=== PATIENT | male | born 1960 | race Caucasian/White ===

== ENCOUNTER 2019-08-07 13:45 | Inpatient (IN) ==
--- NOTE | 2019-08-07 14:33 | XRay Report ---
XR chest 1V portable HISTORY: 59 years-old Male Dyspnea acute shortness of breath COMPARISON: None TECHNIQUE: Portable AP view of the chest FINDINGS: Cardiac silhouette appears enlarged. There is mild leftward mediastinal shift secondary to a large ri ght-sided pleural effusion. Minimal aeration of the right upper lung. Left lung is clear. No pneumoth orax, overt pulmonary edema or left-sided pleural effusion. Degenerative changes of the shoulders and spine. IMPRESSION: 1. Large right-sided pleural effusion with only minimal aeration of the right upper lung. 2. Clear left lung. ACT 112: Negative or not required by law. The above report was generated using voice recognition software. It may contain grammatical, syntax o r spelling errors. Electronically signed by: Joseph Johnson M.D. 08/07/2019 2:32 PM
[2019-08-07 14:51] LABS: Basophils % (auto) 0.4 %; Eosinophils % (auto) 1.9 %; Hematocrit (blood only) 44.2 % (42-52); Hemoglobin 15.7 g/dL (14.0-18.0); Immature Granulocytes % (auto) 0.1 %; Lymphocytes # (auto) 1.41 K/uL (1.2-3.4); Lymphocytes % (auto) 20.1 %; Mean Corpuscular Hemoglobin 31.5 pg (25-34); Mean Corpuscular Hgb Conc 35.5 g/dL (32-36); Mean Corpuscular Volume 88.6 fL (80-100); Mean Platelet Volume 9.3 fL (7.4-10.4); Monocytes # (auto) 0.66 K/uL (0.11-0.59); Monocytes % (auto) 9.4 %; Neutrophils # (auto) 4.76 K/uL (1.4-6.5); Neutrophils % (auto) 68.1 %; Platelet Count 302 K/uL (130-400); RDW Standard Deviation 41.8 fL (36.4-46.3); Red Blood Count 4.99 M/uL (4.7-6.1)
[2019-08-07 14:52] LABS: Basophils # (auto) 0.03 K/uL (0-0.2); Eosinophils # (auto) 0.13 K/uL (0-0.5); Immature Granulocytes # (auto) 0.01 K/uL (0.00-0.02)
--- NOTE | 2019-08-07 14:56 | Emergency Department Note ---
ED Provider Note NAME: TANNER MILLER AGE: 59 SEX: M ARRIVES VIA: Ambulance INFORMANT: [Patient] ED PROVIDER(S): Carlos Smart MD CHIEF COMPLAINT: SOB IMPRESSION: Pleural effusion Shortness of PLAN: Disposition: Admitted Condition: [Good] MEDICAL DECISION MAKING: The patient is a 59-year-old male with a very large right-sided pleural e ffusion. Etiology needs to be determined. He has dyspnea on exertion. The case was discussed with Dr. boo of pulmonology. He will present to see the patient and treat the effusion. He asked for the patient to be admitted the hospital service. I discussed the case with . The patient will be admitted. Triage Nursing notes reviewed and agree them. Vital Signs: reviewed and remarkable for hypertension Differential diagnosis: Reactive airway disease, pneumonia, pneumothorax, COPD, CHF, infections, cardiac ischemia, pulmonary embolism, musculoskeletal, gastrointestinal, as well as other pathologies. ER treatment provided: No medication given Diagnostics interpreted by me: ECG:Rate: 101 Rhythm: Sinus tachycardia Cur[place]: Normal QRS: Normal ST segements: No elevation or depression. Other: No PACs or PVCs Laboratory studies: [See below] an unremarkable CBC and chemistry panel Imaging studies: Large right-sided pleural effusion seen on chest x-ray. CT imaging shows a large right-sided pleural effusion with mild mediastinal shift. Nodularity noted. Consultation(s): Consultation made with pulmonology, Dr. boo and with internal medicine, Dr. Turcios HPI:The patient is a 59 year old male who presents to the Emergency Room with complaints of SOB. This started a few months ago and is worsening. The patient also notes the following associated symptoms, TORRES. The patient has found no relieving factors. Current pain is rated as 0/10. No travel or sick contacts. Pt denies LOC, headache, fevers, chills, diaphoresis, visual changes, neck pain, chest pain, breathing difficulties, nausea, vomiting, abdominal pain, back pain, melena, hematochezia, urinary symptoms, numbness, weakness, lymphadenopathy, rash, or other complaints. ROS: See above HPI for pertinent positives & negatives. A total of [10] systems reviewed and were otherwise negative. PAST MEDICAL HISTORY:Arthritis PAST SURGICAL HISTORY:[See Below] FAMILY HISTORY:[See Below] SOCIAL HISTORY:[See Below] HOME MEDICATIONS:[See Below] ALLERGIES:[See Below] VITALS:[See Below] PHYSICAL EXAMINATION: GENERAL: Awake, alert, mildly dyspneic-appearing, in no distress HENT: Normocephalic, atraumatic. Oropharynx unremarkable. EYES: Normal conjunctiva. Sclera non-icteric. NECK: Inspection normal. Non-tender. Supple. No nuchal rigidity. FROM. No masses. RESPIRATORY: Clear to auscultation on the left. Greatly diminished on the right. No wheezes. No rales. Normal respiratory effort. CARDIAC: Normal rate. Normal rhythm. No murmurs. No rubs. Extremities warm and well perfused. Pulses equal. No JVD. GI: Soft, non-distended. No tenderness to palpation. No rebound or guarding. No masses. RECTAL: Deferred. MUSCULOSKELETAL: Atraumatic. Chest examination reveals no tenderness. The back is symmetrical on inspection without obvious abnormality. There is no CVA tenderness to palpation. No joint edema. LOWER EXTREMITIES: Calves are equal size bilaterally and non-tender. No edema. No discoloration. NEURO: Normal sensorium. No sensory or motor deficits noted. SKIN: No rash or jaundice noted. ED COURSE: Procedures: [none] [Critical Care:] [None] Carlos Smart MD Impression & Plan Pleural effusion Past Med/Surg History Social History Preferred Language: Occitan Feels Safe at Home: Yes Smoking Status: Former smoker Results & Data Vital Signs Vital Signs - 24 hr 08/07/19 13:44 08/07/19 13:49 08/07/19 13:53 Temperature Temperature Source Pulse Rate 99 H 102 H Pulse Rate [Apical] Pulse Rate from SpO2 Sensor 100 H 102 H Respiratory Rate 16 22 Respiratory Effort / Characteristics Short of Breath Respiratory Depth Normal Respiratory Pattern Regular Blood Pressure 175/121 H 158/105 H Blood Pressure [Right Arm] Blood Pressure Mean 144 128 Blood Pressure Mean [Right Arm] Pulse Oximetry 97 97 Oxygen Delivery Method Room Air Sepsis Recent Fever Within 48 Hours Sepsis New/Unexplained Change in Mental Status Sepsis Action Taken by Nursing 08/07/19 13:54 08/07/19 14:00 08/07/19 14:19 Temperature 36.6 C Temperature Source Oral Pulse Rate 106 H 95 H Pulse Rate [Apical] Pulse Rate from SpO2 Sensor 95 H Respiratory Rate 18 15 Respiratory Effort / Characteristics Non-Labored Respiratory Depth Normal Respiratory Pattern Regular Blood Pressure 158/105 H 150/99 H Blood Pressure [Right Arm] Blood Pressure Mean 122 124 Blood Pressure Mean [Right Arm] Pulse Oximetry 96 95 Oxygen Delivery Method Room Air Room Air Sepsis Recent Fever Within 48 Hours No Sepsis New/Unexplained Change in Mental Status No Sepsis Action Taken by Nursing No Action Required 08/07/19 14:30 08/07/19 15:00 08/07/19 15:27 Temperature Temperature Source Pulse Rate 94 H 94 H 92 H Pulse Rate [Apical] Pulse Rate from SpO2 Sensor 94 H 92 H Respiratory Rate 17 25 H Respiratory Effort / Characteristics Respiratory Depth Respiratory Pattern Blood Pressure 149/110 H 160/120 H 171/105 H Blood Pressure [Right Arm] Blood Pressure Mean 133 143 116 Blood Pressure Mean [Right Arm] Pulse Oximetry 97 96 97 Oxygen Delivery Method Room Air Room Air Room Air Sepsis Recent Fever Within 48 Hours Sepsis New/Unexplained Change in Mental Status Sepsis Action Taken by Nursing 08/07/19 15:30 08/07/19 16:00 08/07/19 16:01 Temperature Temperature Source Pulse Rate 88 87 Pulse Rate [Apical] 89 Pulse Rate from SpO2 Sensor 91 H 88 Respiratory Rate 21 33 H 20 Respiratory Effort / Characteristics Non-Labored Spontaneous Respiratory Depth Normal Respiratory Pattern Regular Blood Pressure 164/106 H 146/106 H Blood Pressure [Right Arm] 146/106 H Blood Pressure Mean 121 118 Blood Pressure Mean [Right Arm] 119 Pulse Oximetry 96 95 97 Oxygen Delivery Method Room Air Room Air Room Air Sepsis Recent Fever Within 48 Hours Sepsis New/Unexplained Change in Mental Status Sepsis Action Taken by Nursing 08/07/19 16:30 08/07/19 17:00 Temperature Temperature Source Pulse Rate 85 87 Pulse Rate [Apical] Pulse Rate from SpO2 Sensor 85 87 Respiratory Rate 17 18 Respiratory Effort / Characteristics Respiratory Depth Respiratory Pattern Blood Pressure 169/122 H 161/110 H Blood Pressure [Right Arm] Blood Pressure Mean 144 130 Blood Pressure Mean [Right Arm] Pulse Oximetry 96 95 Oxygen Delivery Method Room Air Room Air Sepsis Recent Fever Within 48 Hours Sepsis New/Unexplained Change in Mental Status Sepsis Action Taken by Nursing Laboratory Data Result diagrams: 08/07/19 14:35 08/07/19 14:35 Lab Results 08/07/19 08/07/19 08/07/19 Range/Units 14:35 14:35 14:35 WBC 7.00 (4.8-10.8) K/uL RBC 4.99 (4.7-6.1) M/uL Hgb 15.7 (14.0-18.0) g/dL Hct 44.2 (42-52) % MCV 88.6 (80-100) fL MCH 31.5 (25-34) pg MCHC 35.5 (32-36) g/dL RDW Std Deviation 41.8 (36.4-46.3) fL RDW Coeff of Enmanuel 13.0 (11.5-14.5) % Plt Count 302 (130-400) K/uL MPV 9.3 (7.4-10.4) fL Immature Gran % (Auto) 0.1 % Neut % (Auto) 68.1 % Lymph % (Auto) 20.1 % [place] % (Auto) 9.4 % Eos % (Auto) 1.9 % Baso % (Auto) 0.4 % Immature Gran # (Auto) 0.01 (0.00-0.02) K/uL Neut # (Auto) 4.76 (1.4-6.5) K/uL Lymph # (Auto) 1.41 (1.2-3.4) K/uL [place] # (Auto) 0.66 H (0.11-0.59) K/uL Eos # (Auto) 0.13 (0-0.5) K/uL Baso # (Auto) 0.03 (0-0.2) K/uL PT 10.9 (9.0-12.0) Seconds INR 1.0 (0.9-1.1) APTT 30.2 (21.0-31.0) Seconds PTT Ratio 1.1 Sodium 134 L (136-145) mmol/L Potassium 3.5 (3.5-5.1) mmol/L Chloride 98 (98-107) mmol/L Carbon Dioxide 30 (21-32) mmol/L Anion Gap 6.0 (3-11) BUN 12 (7-18) mg/dl Creatinine 0.88 (0.6-1.4) mg/dl Est Cr Clr Drug Dosing Not Reportable Est GFR ( Amer) 109.0 Est GFR (Non-Af Amer) 94.0 BUN/Creatinine Ratio 13.3 (10-20) Glucose 101 H (70-99) mg/dl Calcium 9.1 (8.5-10.1) mg/dl Magnesium 2.0 (1.8-2.4) mg/dl Total Bilirubin 0.5 (0.2-1) mg/dl AST 21 (15-37) U/L ALT 25 (12-78) U/L Alkaline Phosphatase 65 (45-117) U/L Troponin I < 0.015 (0-0.045) ng/ml NT-Pro-B Natriuret Pep 104 (0-900) pg/ml Total Protein 7.6 (6.4-8.2) gm/dl Albumin 3.6 (3.4-5.0) gm/dl Globulin 4.0 (2.5-4.0) gm/dl Albumin/Globulin Ratio 0.9 (0.9-2) Urine Color Urine Appearance (Clear) Urine pH (4.5-7.5) Ur Specific [place] (1.000-1.030) Urine Protein (Negative) Urine Glucose (UA) (Negative) Urine Ketones (Negative) Urine Blood (Negative) Urine Nitrite (Negative) Urine Bilirubin (Negative) Urine Urobilinogen (Negative) Ur Leukocyte Esterase (Negative) Influenza Type A (PCR) (Neg) Influenza Type B (PCR) (Neg) 08/07/19 08/07/19 Range/Units 15:20 16:04 WBC (4.8-10.8) K/uL RBC (4.7-6.1) M/uL Hgb (14.0-18.0) g/dL Hct (42-52) % MCV (80-100) fL MCH (25-34) pg MCHC (32-36) g/dL RDW Std Deviation (36.4-46.3) fL RDW Coeff of Enmanuel (11.5-14.5) % Plt Count (130-400) K/uL MPV (7.4-10.4) fL Immature Gran % (Auto) % Neut % (Auto) % Lymph % (Auto) % [place] % (Auto) % Eos % (Auto) % Baso % (Auto) % Immature Gran # (Auto) (0.00-0.02) K/uL Neut # (Auto) (1.4-6.5) K/uL Lymph # (Auto) (1.2-3.4) K/uL [place] # (Auto) (0.11-0.59) K/uL Eos # (Auto) (0-0.5) K/uL Baso # (Auto) (0-0.2) K/uL PT (9.0-12.0) Seconds INR (0.9-1.1) APTT (21.0-31.0) Seconds PTT Ratio Sodium (136-145) mmol/L Potassium (3.5-5.1) mmol/L Chloride (98-107) mmol/L Carbon Dioxide (21-32) mmol/L Anion Gap (3-11) BUN (7-18) mg/dl Creatinine (0.6-1.4) mg/dl Est Cr Clr Drug Dosing Est GFR ( Amer) Est GFR (Non-Af Amer) BUN/Creatinine Ratio (10-20) Glucose (70-99) mg/dl Calcium (8.5-10.1) mg/dl Magnesium (1.8-2.4) mg/dl Total Bilirubin (0.2-1) mg/dl AST (15-37) U/L ALT (12-78) U/L Alkaline Phosphatase (45-117) U/L Troponin I (0-0.045) ng/ml NT-Pro-B Natriuret Pep (0-900) pg/ml Total Protein (6.4-8.2) gm/dl Albumin (3.4-5.0) gm/dl Globulin (2.5-4.0) gm/dl Albumin/Globulin Ratio (0.9-2) Urine Color Yellow Urine Appearance Clear (Clear) Urine pH 8.0 H (4.5-7.5) Ur Specific [place] 1.011 (1.000-1.030) Urine Protein Negative (Negative) Urine Glucose (UA) Negative (Negative) Urine Ketones Trace H (Negative) Urine Blood Negative (Negative) Urine Nitrite Negative (Negative) Urine Bilirubin Negative (Negative) Urine Urobilinogen Negative (Negative) Ur Leukocyte Esterase Negative (Negative) Influenza Type A (PCR) Neg for Influ A (Neg) Influenza Type B (PCR) Neg for Influ B (Neg) Administered Medications Ioversol (Optiray 320 100ml) 93 ml IV ONCE PRN PRN Reason: Interaction Checking Stop: 03/23/20 16:19 Last Admin: 08/07/19 16:21 Dose: 93 ml Documented by: [id number] Discharge Plan Visit Data Chief Complaint: Shortness of Breath/Dyspnea Stated Complaint: respiratory ED Provider: Carlos Smart Discharge Problem: Pleural effusion Forms Stand Alone Forms: My [facility] Prescriptions Prescriptions: No Action atorvastatin 20 mg Tablet 10 mg PO DAILY RF: 0 amlodipine 5 mg Tablet 5 mg PO DAILY RF: 0 valacyclovir 500 mg Tablet 500 mg PO DAILY RF: 0 lisinopril-hydrochlorothiazide 20-25 mg Tablet 2 tab PO DAILY RF: 0 fluoxetine 20 mg Capsule 60 mg PO DAILY RF: 0 zoster vaccine live (PF) 19,400 unit/0.65 mL Suspension For Reconstitution 0 unit SUBCUT ONCE RF: 0 Referrals Referrals: PCP,NO [Primary Care Provider] -
[2019-08-07 15:04] LABS: Partial Thromboplastin Ratio 1.1; Partial Thromboplastin Time 30.2 Seconds (21.0-31.0); Prothrombin Time 10.9 Seconds (9.0-12.0)
[2019-08-07 15:09] LABS: Alanine Aminotransferase 25 U/L (12-78); Albumin Level 3.6 gm/dl (3.4-5.0); Aspartate Aminotransferase 21 U/L (15-37); BUN Creatinine Ratio 13.3 (10-20); Blood Urea Nitrogen 12 mg/dl (7-18); Calcium 9.1 mg/dl (8.5-10.1); Carbon Dioxide 30 mmol/L (21-32); Chloride 98 mmol/L (98-107); Glucose 101 mg/dl (70-99); Potassium 3.5 mmol/L (3.5-5.1); Sodium 134 mmol/L (136-145)
[2019-08-07 15:15] LABS: Albumin Globulin Ratio 0.9 (0.9-2); Alkaline Phosphatase 65 U/L (45-117); Bilirubin,Total 0.5 mg/dl (0.2-1); NT Pro B Type Natriuretic Pept 104 pg/ml (0-900); Total Protein 7.6 gm/dl (6.4-8.2); Troponin I < 0.015 ng/ml (0-0.045)
[2019-08-07 16:10] LABS: Influenza A virus by PCR Neg for Influ A (Neg); Influenza B virus by PCR Neg for Influ B (Neg)
[2019-08-07] MEDS ORDERED: IOVERSOL 100ml IV PRN (16:20)
[2019-08-07 16:27] LABS: Bilirubin Urine Negative (Negative); Blood Urine Negative (Negative); Color Urine Yellow; Glucose Urine UA Negative (Negative); Ketones Urine Trace (Negative); Leukocyte Esterase Urine Negative (Negative); Nitrite Urine Negative (Negative); Protein Urine Negative (Negative); Specific Gravity Urine 1.011 (1.000-1.030); Urobilinogen Urine Negative (Negative)
--- NOTE | 2019-08-07 16:32 | CT Scan Report ---
CT OF THE CHEST WITH IV CONTRAST CLINICAL HISTORY: eval large right effusion COMPARISON STUDY: Chest x-ray dated 08/07/2019 TECHNIQUE: Following the IV administration of 94 mL of Optiray-320, CT of the thorax was performed f rom the thoracic inlet to the lung bases. Images are reviewed in the axial, sagittal, and coronal nichelle tatum. IV contrast was administered without complication. A dose lowering technique was utilized adher ing to the principles of ALARA. CT DOSE: 548.64 mGycm FINDINGS: Thyroid: Imaged portions of the thyroid gland are normal in appearance. Thoracic aorta: The thoracic aorta is normal in course and caliber, noting standard 3-vessel arch luiza angelo. No aneurysm or dissection is seen. Pulmonary vasculature: The pulmonary trunk is normal in caliber. There are no central filling defects identified to suggest pulmonary embolus. Note that this examination was not protocoled for the evalu ation of pulmonary emboli. HEART: There are mild coronary artery calcifications. There is mediastinal shift to the left secondar y to a large right pleural effusion. Lungs and pleural spaces: There is a large right pleural effusion with extensive pleural nodularity. The findings are highly suspicious for a malignant pleural effusion with metastatic pleural nodularit y. There is extensive right lung compressive atelectasis. There is no left pleural effusion. There is no focal pulmonary consolidation on the left. Mediastinum: There is no evidence of pathologic mediastinal lymphadenopathy. Pamella: There is no evidence of pathologic hilar lymphadenopathy. Axilla: There is known to pathologic axillary lymphadenopathy Upper abdomen: There is a 19 mm splenic nodule Skeletal structures: There are no lytic or blastic osseous lesions. IMPRESSION: 1. Large right pleural effusion with right lung compressive atelectasis, and secondary mediastinal sh ift to the left 2. Extensive right lung pleural nodularity. 3. A malignant pleural effusion is suspected with pleural metastasis. 4. 19 mm splenic nodule ACT 112: Negative or not required by law. Electronically signed by: Josué Mcguire M.D. 08/07/2019 4:31 PM
[2019-08-07 16:36] LABS: Appearance Urine Clear (Clear)
--- NOTE | 2019-08-07 17:40 | History & Physical Report ---
Date of Service August 07, 2019 Assessment & Plan (1) Pleural effusion: Patient with a significant right-sided pleural effusion obscuring most of the right lung. ER physician is already spoken to the packing inspector who is enroute to the hospital perform a bedside pleurocentesis. Will defer further lab work and testing of effusion to him. Will order 2D echo for completeness. Patient does not have any signs of infection will hold off on antibiotics, I doubt the effusion is parapneumonic or empyema considering patient's lack of symptoms. (2) Hypertension: Continue antihypertensives as per outpatient. (3) Hyperlipidemia: Patient is on Lipitor 10 mg, will continue as outpatient. History of Present Illness Primary Care Provider: NO PCP This is a 59-year-old male with past medical history of hypertension, hyperlipidemia and possible ankylosing spondylitis/RA if that presents today with dyspnea on exertion at the advice of the [facility]. Patient is pleasant historian. Patient tells me that he is noticing slow onset of dyspnea on exertion with any exercise. Although this was mild at first, over the past 1.5 months since become gradually worse. 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 He is noticed that he is fine at rest and in fact O2 sat is 96% on room air in my evaluation. He denies any recent illness including fever, chills, nausea, vomiting. He has had no unintended weight loss. He also denies any chest symptoms such as chest pain, palpitations, diaphoresis. He scheduled appointment with the GA today. He did work with a strainer tender earlier but was unable to complete much exercise. At the [facility], he had a chest x-ray was found to have a significant right-sided pleural effusion. He was told to present to emergency room for further evaluation. At time my evaluation, patient was comfortable on room air with no symptomatology at rest. Allergies Allergy/AdvReac Type Severity Reaction Status Date / Time No Known Allergies Allergy Unverified 08/07/19 16:38 Home Medications Home Medications Medication Instructions Recorded Confirmed Type amlodipine 5 mg PO DAILY 08/07/19 08/07/19 History atorvastatin 10 mg PO DAILY 08/07/19 08/07/19 History fluoxetine 60 mg PO DAILY 08/07/19 08/07/19 History lisinopril-hydrochlorothiazide 2 tab PO DAILY 08/07/19 08/07/19 History valacyclovir 500 mg PO DAILY 08/07/19 08/07/19 History zoster vaccine live (PF) 0 unit SUBCUT ONCE 08/07/19 08/07/19 History Past Med/Surg History Social History Preferred Language: Pashto Feels Safe at Home: Yes Smoking Status: Former smoker Review of Systems Constitutional: no fever, no chills, no weakness, no weight loss and no weight gain Eyes: as per Subjective / HPI Respiratory: + dyspnea on exertion; no cough, no chest congestion and no sputum production Cardiovascular: no chest pain, no orthopnea, no palpitations, no lightheadedness and no edema Gastrointestinal: no abdominal pain, no nausea, no vomiting, no constipation and no diarrhea/loose stools Musculoskeletal: no back pain, no neck pain, no joint pain, no stiffness and no myalgia Integumentary: no rash Neurologic: no gait abnormality, no unsteadiness, no falls and no generalized weakness Physical Exam Constitutional: cooperative; no acute distress Neck: trachea midline, no thyromegaly Respiratory: normal respiratory effort and + dullness to percussion (Right side only); no labored breathing Auscultation: + breath sounds absent (Right side only); no crackles, no rales, no rhonchi and no wheezes Cardiovascular: Rate/Rhythm: regular rate and regular rhythm Heart Sounds: normal S1 and normal S2 Vessels: no JVD and no carotid bruit Extremities: no pedal edema Gastrointestinal (Abdomen): Inspection/Auscultation: abdomen normal to inspection Percussion/Palpation: abdomen soft; abdomen nontender, no guarding, abdomen not rigid and no hepatosplenomegaly Skin: no rashes, warm and dry Results & Data Vital Signs (Past 12 Hours) Vital Signs Temp Pulse Pulse Resp BP BP Pulse Ox 08/07/19 17:00 87 18 161/110 H 95 08/07/19 16:30 85 17 169/122 H 96 08/07/19 16:01 89 20 146/106 H 97 08/07/19 16:00 87 33 H 146/106 H 95 08/07/19 15:30 88 21 164/106 H 96 08/07/19 15:27 92 H 25 H 171/105 H 97 08/07/19 15:00 94 H 160/120 H 96 08/07/19 14:30 94 H 17 149/110 H 97 08/07/19 14:00 95 H 15 150/99 H 95 08/07/19 13:54 36.6 C 106 H 18 158/105 H 96 08/07/19 13:53 102 H 22 158/105 H 97 08/07/19 13:49 99 H 16 175/121 H 97 Laboratory Results WBCs of 7, hemoglobin 15.7, hematocrit of 44.2, platelets of 302. INR is 1. Sodium 134, potassium 3.5, chloride 98, CO2 of 30, BUN 12 creatinine 0.88, glucose 101. Calcium 9.1. Magnesium of 2. LFTs are normal. Troponin is nondetectable. UA shows trace ketones otherwise negative. Patient is negative for influenza. Diagnostic Findings XR chest 1V portable HISTORY: 59 years-old Male Dyspnea acute shortness of breath COMPARISON: None TECHNIQUE: Portable AP view of the chest FINDINGS: Cardiac silhouette appears enlarged. There is mild leftward mediastinal shift secondary to a large right-sided pleural effusion. Minimal aeration of the right upper lung. Left lung is clear. No pneumothorax, overt pulmonary edema or left- sided pleural effusion. Degenerative changes of the shoulders and spine. IMPRESSION: 1. Large right-sided pleural effusion with only minimal aeration of the right upper lung. 2. Clear left lung. --- CT OF THE CHEST WITH IV CONTRAST CLINICAL HISTORY: eval large right effusion COMPARISON STUDY: Chest x-ray dated 08/07/2019 TECHNIQUE: Following the IV administration of 94 mL of Optiray-320, CT of the thorax was performed from the thoracic inlet to the lung bases. Images are reviewed in the axial, sagittal, and coronal planes. IV contrast was administered without complication. A dose lowering technique was utilized adhering to the principles of ALARA. CT DOSE: 548.64 mGycm FINDINGS: Thyroid: Imaged portions of the thyroid gland are normal in appearance. Thoracic aorta: The thoracic aorta is normal in course and caliber, noting standard 3-vessel arch anatomy. No aneurysm or dissection is seen. Pulmonary vasculature: The pulmonary trunk is normal in caliber. There are no central filling defects identified to suggest pulmonary embolus. Note that this examination was not protocoled for the evaluation of pulmonary emboli. HEART: There are mild coronary artery calcifications. There is mediastinal shift to the left secondary to a large right pleural effusion. Lungs and pleural spaces: There is a large right pleural effusion with extensive pleural nodularity. The findings are highly suspicious for a malignant pleural effusion with metastatic pleural nodularity. There is extensive right lung compressive atelectasis. There is no left pleural effusion. There is no focal pulmonary consolidation on the left. Mediastinum: There is no evidence of pathologic mediastinal lymphadenopathy. Pamella: There is no evidence of pathologic hilar lymphadenopathy. Axilla: There is known to pathologic axillary lymphadenopathy Upper abdomen: There is a 19 mm splenic nodule Skeletal structures: There are no lytic or blastic osseous lesions. IMPRESSION: 1. Large right pleural effusion with right lung compressive atelectasis, and secondary mediastinal shift to the left 2. Extensive right lung pleural nodularity. 3. A malignant pleural effusion is suspected with pleural metastasis. 4. 19 mm splenic nodule PG Care Time/CCT Total # of Minutes Spent Total Time Spent with Patient: Total time spent is greater than 50% in coordination of care (as documented) at patient's floor/unit and/or counseling patient: Coding Level of Care Code 46913 Initial Inpt Care Lvl 3 Diagnoses Pleural effusion J90 Hypertension I10 Hyperlipidemia E78.5
[2019-08-07] MEDS ORDERED: LIDOCAINE HCL 1% 20 ML VIAL ONE (18:27)
--- NOTE | 2019-08-07 19:09 | Pulmonary Consultation ---
Date of Consultation August 07, 2019 Assessment & Plan (1) Empyema of right pleural space: --Right-sided pleural effusion With mediastinal shift to the left The pleural seems to be shiny and thickened which goes towards infection versus malignancy. The pleural fluid did not show any loculations on bedside ultrasound. S/p thoracentesis which showed pus. 16 Hebrew chest tube placed on the right side Follow-up culture, cytology Follow-up procalcitonin, ESR, CRP. Influenza is negative. Will order nasal MRSA. We will give him loading dose of vancomycin x1 and cover for anaerobes Patient does have air leak appreciated right now on the chest tube. If the air leak does not resolve then patient might need CT surgery. Continue chest tube to suction -20 with continuous drainage. Usually 1 does not want to remove more than 2 L in 24 hours. Given that it is empyema though would not hold onto that recommendation. If the patient compla ins of any chest pain we will clamp the chest tube. --Shortness of breath Secondary to above Please note the above document was generated using voice recognition software. It may contain grammatical, syntax or spelling errors. (2) Pleural effusion on right: (3) Shortness of breath: History of Present Illness History of Present Illness 59-year-old male with past medical history of hypertension, dyslipidemia, genital herpes on valacyclovir comes because of exertional shortness of breath which has been going on since last 2 and half months. I was called by the ER doctor for large right-sided pleural effusion. At the time of examination patient states that the shortness of breath has been going on for 2 and half months associated with mild chest pain. Denies any fever or chills. No recent upper respiratory infections. No history of trauma. No cough, no hemoptysis. Denies any headache, no blurry vision, no dysphagia, no odynophagia. No nausea or vomiting. Denies any dysuria, no diarrhea. No night sweats. Denies any history of tuberculosis. Denies any exposure to TB. No history of incarcerations. No recent travel history. Patient does complain of weight loss of approximately 10 pounds in the last 3 to 4 months. This is unintentional patient does state that he has changed his diet but he was not expecting to lose this much weight. Patient states that he was checked for HIV approximately 2 years ago for which she was negative. Social history: Greater than [id number] smoking history quit, denies any illicit drug use, social alcohol. 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 Denies any exposure to any chemicals or asbestos. Had a cat which 3 weeks ago. Denies any allergies to any medication. No birds at home. No poultry nearby. There is no family history of any lung cancer. There is no personal history of any cancer. There is no personal or family history of asthma. Allergies Allergy/AdvReac Type Severity Reaction Status Date / Time No Known Allergies Allergy Unverified 08/07/19 16:38 Home Medications Home Medications Medication Instructions Recorded Confirmed Type amlodipine 5 mg PO DAILY 08/07/19 08/07/19 History atorvastatin 10 mg PO DAILY 08/07/19 08/07/19 History fluoxetine 60 mg PO DAILY 08/07/19 08/07/19 History lisinopril-hydrochlorothiazide 2 tab PO DAILY 08/07/19 08/07/19 History valacyclovir 500 mg PO DAILY 08/07/19 08/07/19 History zoster vaccine live (PF) 0 unit SUBCUT ONCE 08/07/19 08/07/19 History Patient History Social History Preferred Language: Polish Communication Ability: Effective Roving Teller Required: No Beliefs That Will Affect Care: Presybeterian Presybeterian Beliefs: mandaen Current Living Situation: Alone Feels Safe at Home: Yes Smoking Status: Former smoker Do You Dip or Chew Tobacco: No ; Hx Alcohol Use: Yes Alcohol type: beer and wine Hx Substance Use: No Review of Systems Review of Systems: All systems reviewed & are unremarkable except as noted in HPI & below Physical Exam Physical Exam: Constitutional: No acute distress HEENT: EOMI, PERRLA, moist mucous membranes, no cervical lymphadenopathy Respiratory system: Decreased air entry on the right side, no wheeze, no rhonchi, no crackles CVS: S1-S2 positive, no murmurs or gallops Abdomen: Soft, nontender, nondistended, positive bowel sounds x4 Extremities: +2 pulses bilaterally radialis/ dorsalis pedis, no cyanosis, no edema, no clubbing Neuro: Awake alert oriented x3 Psych: Normal mood and affect G/U: No Love Skin: no rashes, warm and dry Lymphatic: no cervical or axillary lymphadenopathy Results & Data ([facility]) Vital Signs (Past 12 Hours) Vital Signs Temp Pulse Pulse Resp BP BP Pulse Ox 08/07/19 17:30 85 17 94 08/07/19 17:00 87 18 161/110 H 95 08/07/19 16:30 85 17 169/122 H 96 08/07/19 16:01 89 20 146/106 H 97 08/07/19 16:00 87 33 H 146/106 H 95 08/07/19 15:30 88 21 164/106 H 96 08/07/19 15:27 92 H 25 H 171/105 H 97 08/07/19 15:00 94 H 160/120 H 96 08/07/19 14:30 94 H 17 149/110 H 97 08/07/19 14:00 95 H 15 150/99 H 95 08/07/19 13:54 36.6 C 106 H 18 158/105 H 96 08/07/19 13:53 102 H 22 158/105 H 97 08/07/19 13:49 99 H 16 175/121 H 97 08/07/19 14:35 08/07/19 14:35 CT chest 08/07/2019 personally reviewed: Patient has large right-sided pleural effusion with almost total collapse of the right lung. There is no loculations appreciated on the right side. There is left mediastinal shift minimal which justifies that this has been going on for very long time. The pleura seems to be thickened which could be related to infection versus malignancy. ECG: Sinus tachycardia, normal axis, no ST-T wave changes appreciated. QTc 451 PG Care Time/CCT Total # of Minutes Spent Total Time Spent with Patient: Total time spent is greater than 50% in coordination of care (as documented) at patient's floor/unit and/or counseling patient: [place] [address] Inpt Consult Level 5 Patient Type New Diagnoses Empyema of right pleural space J86.9 Pleural effusion on right J90 Shortness of breath R06.02
--- NOTE | 2019-08-07 19:11 | Procedure Note ---
Procedure Note Date of Service August 07, 2019 Procedure: Diagnostic therapeutic ultrasound-guided catheter thoracentesis Automatic Corn Grinder Operator: Dr. Bhavik Blackmon Indication: Pleural effusion Consent: Signed by patient and verified with timeout prior to procedure Anesthesia: 1% lidocaine without epinephrine local. Procedure: Consent was verified and timeout performed. Appropriate imaging studies were reviewed prior to the procedure. Patient was placed in a seated position and limited thoracic ultrasound was performed of the right chest. See separate imaging. Appropriate site above the diaphragm for thoracentesis was selected. The skin was prepped and draped in normal sterile fashion. Lidocaine was used for local analgesia. Fluid was aspirated via the finder needle. A small skin cecilia was made with the scalpel and the catheter over the needle apparatus was advanced over the rib into the pleural space. Using the syringe one-way valve system, a total of 100 mL mL's of thick foul- smelling pus was removed. Procedure was terminated due to pus being drained and plan for chest tube insertion was made. The catheter was removed and observed to be intact. A sterile dressing was applied. Fluid was sent for labs, culture and cytology. The patient tolerated the procedure without obvious complication Coding CPT Codes Pulmonary/Thoracic - Pulmonary and Thoracic: 47763 Thoracentesis w imaging ([id number]) [facility] [place] Codes (Charges) Pulmonary/Thoracic Procedure 1: Pulmonary and Thoracic: 52629 Thoracentesis w imaging
--- NOTE | 2019-08-07 19:12 | XRay Report ---
XR chest 1V portable CLINICAL HISTORY: Pleural effusion status post right chest tube placement. COMPARISON STUDY: 08/07/2019 FINDINGS: 3 views are provided for interpretation. There is been interval insertion of a right-sided pleural drainage catheter. There is marked reduction in the size of the right pleural effusion. There are right basilar airspace opacities, likely representing atelectasis. There is a small right apical pneumothorax with pleural separation of 8 mm.[ IMPRESSION: 1. Interval placement of a right-sided pleural drainage catheter with marked reduction in the size of the right pleural effusion 2. Right basilar airspace opacities likely atelectatic 3. 8 mm right apical pneumothorax ACT 112: Negative or not required by law. Electronically signed by: Josué Mcguire M.D. 08/07/2019 7:10 PM
--- NOTE | 2019-08-07 19:14 | Procedure Note ---
Procedure Note Date of Service August 07, 2019 Procedure: Chest tube insertion Tennis Court Attendant: Dr. Bhavik Blackmon Indication: Empyema Consent: Signed by patient and verified with timeout prior to procedure Anesthesia: 1% lidocaine without epinephrine local Procedure: Consent was verified and timeout performed. Appropriate imaging studies were reviewed prior to the procedure. Patient was placed in a seated position and right side midaxillary fourth intercostal space was marked for chest tube insertion. The skin was prepped and draped in normal sterile fashion. Lidocaine was used for local analgesia. Fluid was aspirated via the finder needle. A small skin cecilia was made with the scalpel and the catheter over the needle quoc aratus was advanced over the rib into the pleural space. With the help of guidewire and Seldinger technique, 16 Kyrgyz pigtail catheter was inserted and connected to Pleur-evac. Yellowish pus was appreciated. There was +1-+2 air leak appreciated which varied with breathing. Chest x-ray to follow The patient tolerated the procedure without obvious complication Complications: None Blood loss: Less than 2 cc. Coding CPT Codes Pulmonary/Thoracic - Pulmonary and Thoracic: 03185 Tube thoracostomy ([id number]) [facility] [place] Codes (Charges) Pulmonary/Thoracic Procedure 2: Pulmonary and Thoracic: 13535 Tube thoracostomy
[2019-08-07] MEDS ORDERED: PIPERACILL/TAZOBAC CONSULT ACTIVE PRN (19:27)
[2019-08-07] MEDS ORDERED: VANCOMYCIN CONSULT ACTIVE PRN (19:28)
[2019-08-07] MEDS ORDERED: ACETAMINOPHEN 325 MG TAB PO PRN (19:56)
[2019-08-07] MEDS ORDERED: ONDANSETRON INJ 2 MG/ML 2 ML VIAL IV PRN (19:56)
[2019-08-07] MEDS ORDERED: ZOLPIDEM TARTRATE 5 MG TAB PO PRN (19:56)
[2019-08-07] MEDS ORDERED: VANCOMYCIN HCL 1,500 MG in SODIUM CHLORIDE 0.9% 500 ML IV STA (20:11)
[2019-08-07] MEDS ORDERED: PIPERACILLIN/TAZOBACTAM 3.375 GM in DEXTROSE 5% 100 ML IV STA (20:12)
--- NOTE | 2019-08-07 20:35 | Pharmacy Report ---
Pharmacy Abx Initial Consult - Date of Service August 07, 2019 - Pharmacy Dosing Scope Date of Consult: 08/07/2019 Consultation requested by: Dr. Blackmon Pharmacy is consulted to initiate Vancomycin and Zosyn IV dosing therapy, order appropriate labs and adjust drug dose/frequency. - Subjective The patient is a 59 year old M admitted on 08/07/19 17:52. - Objective Height: 5 ft 7 in Weight: 73.5 kg Vital Signs (Past 12hrs): Vital Signs Temp Pulse Pulse Resp BP BP Pulse Ox 08/07/19 19:30 90 20 143/86 H 94 08/07/19 19:00 92 H 26 H 08/07/19 18:30 94 H 21 08/07/19 17:30 85 17 94 08/07/19 17:00 87 18 161/110 H 95 08/07/19 16:30 85 17 169/122 H 96 08/07/19 16:01 89 20 146/106 H 97 08/07/19 16:00 87 33 H 146/106 H 95 08/07/19 15:30 88 21 164/106 H 96 08/07/19 15:27 92 H 25 H 171/105 H 97 08/07/19 15:00 94 H 160/120 H 96 08/07/19 14:30 94 H 17 149/110 H 97 08/07/19 14:00 95 H 15 150/99 H 95 08/07/19 13:54 36.6 C 106 H 18 158/105 H 96 08/07/19 13:53 102 H 22 158/105 H 97 08/07/19 13:49 99 H 16 175/121 H 97 Lab Results (24hrs): Laboratory Tests (24 Hours) 08/07/19 08/07/19 08/07/19 14:35 14:35 14:35 WBC Neut # (Auto) ESR 17 H Creatinine 0.88 Est Cr Clr Drug Dosing Not Reportable Procalcitonin < 0.05 08/07/19 14:35 WBC 7.00 Neut # (Auto) 4.76 ESR Creatinine Est Cr Clr Drug Dosing Procalcitonin Micro Results: 08/07/19 18:00 Acid Fast Bacilli Smear - Pending Pleural Fluid Acid Fast Bacilli Culture - Pending 08/07/19 18:00 Gram Stain - Pending Pleural Fluid Aerobic and Anaerobic Culture - Pending 08/07/19 14:40 Aerobic Blood Culture - Pending Blood Anaerobic Blood Culture - Pending 08/07/19 14:35 Aerobic Blood Culture - Pending Blood Anaerobic Blood Culture - Pending - Risk Factors for Resistance * None - Assessment & Plan Assessment 59 year old M admitted for large pleural effusion * Patient is afebrile, no leukocytosis, renal function good * Blood and Pleural Fluid cultures pending * PCT < 0.05 Plan Vancomycin and Zosyn for treatment of pulmonary source Vancomycin IV * Patient meets criteria for vancomycin AUC dosing nomogram * AUC/KATHARINA is the preferred PK/PD target for vancomycin * Target AUC/KATHARINA = 400-600 * AUC guided dosing is effective and associated with decreased risk of nephrotoxicity * Will get a trough level on 08/09/2019 to ensure AUC/KATHARINA goals are met Piperacillin/tazobactam * 3.375 g bolus administered over 30 minutes, then 3.375 g IV extended infusion every 8 hours for CrCl greater than 20 mL/min Pharmacy will continue to follow and will adjust dose/frequency as necessary. Thank you.
[2019-08-07 20:41] LABS: Albumin Level 3.5 gm/dl (3.4-5.0); Bilirubin,Total 0.7 mg/dl (0.2-1); C Reactive Protein 0.47 mg/dl (0-0.29); Total Protein 7.4 gm/dl (6.4-8.2)
[2019-08-07 22:01] LABS: Appearance Pleural Fluid CLOUDY; Color Pleural Fluid YELLOW; RBC Pleural Fluid (A) < 3000 /uL; Source Pleural Fluid RIGHT LUNG; WBC Pleural Fluid (A) 5255 /uL
[2019-08-07 22:29] LABS: Total Protein Pleural Fluid 5.1 g/dl
[2019-08-08] MEDS: PIPERACILLIN/TAZOBACTAM 3.375 GM in DEXTROSE 5% 100 ML IV SCH ×3 (02:34→17:45)
[2019-08-08 05:43] LABS: Basophils # (auto) 0.02 K/uL (0-0.2); Basophils % (auto) 0.2 %; Eosinophils # (auto) 0.06 K/uL (0-0.5); Eosinophils % (auto) 0.5 %; Hematocrit (blood only) 45.8 % (42-52); Hemoglobin 16.2 g/dL (14.0-18.0); Immature Granulocytes # (auto) 0.03 K/uL (0.00-0.02); Immature Granulocytes % (auto) 0.2 %; Lymphocytes # (auto) 1.01 K/uL (1.2-3.4); Mean Corpuscular Hemoglobin 31.3 pg (25-34); Mean Corpuscular Hgb Conc 35.4 g/dL (32-36); Mean Corpuscular Volume 88.6 fL (80-100); Mean Platelet Volume 9.5 fL (7.4-10.4); Monocytes # (auto) 1.01 K/uL (0.11-0.59); Neutrophils % (auto) 83.1 %; Platelet Count 293 K/uL (130-400); Red Blood Count 5.17 M/uL (4.7-6.1); White Blood Count 12.63 K/uL (4.8-10.8)
[2019-08-08 06:14] LABS: BUN Creatinine Ratio 12.1 (10-20); Calcium 8.6 mg/dl (8.5-10.1); Creatinine Clr Calc Pharmacy 87.5 ml/min; Est GFR (African American) 110.5; Est GFR (Non-African American) 95.4; Potassium 3.6 mmol/L (3.5-5.1)
--- NOTE | 2019-08-08 07:17 | Electrocardiogram Report ---
Test Reason : Blood Pressure : / mmHG Vent. Rate : 101 BPM Atrial Rate : 101 BPM P-R Int : 136 ms QRS Dur : 100 ms QT Int : 348 ms P-R-T Axes : 043 068 009 degrees QTc Int : 451 ms Sinus tachycardia Otherwise normal ECG No previous ECGs available Confirmed by Mateo Aceves ([id number]) on 08/08/2019 7:16:48 AM Referred By: Confirmed By:Mateo Aceves
[2019-08-08 07:39] LABS: Basophils, Fluid 0 %; Eosinophils, Fluid 0 %; Lymphocytes, Fluid 26 %; Mono,Macrophage,Mesothelial 56 %; Neutrophils, Fluid 18 %
--- NOTE | 2019-08-08 07:45 | XRay Report ---
XR chest 1V portable CLINICAL HISTORY: f/u COMPARISON STUDY: Chest radiograph and chest CT August 07, 2019. FINDINGS: Right pleural catheter is in place. The right pleural effusion has markedly decreased in si ze since prior exam. No significant residual pleural fluid is noted. A small right apical pneumothora x with 6 mm of pleural separation is noted. Right lung aeration has improved. There is right perihila r airspace opacity with interstitial thickening. Left lung is clear. Cardiac size is normal. IMPRESSION: 1. Right pleural catheter in place. Marked decrease in size of the right pleural effusion with improv ement in right lung aeration with right perihilar airspace opacity and interstitial thickening which may reflect residual atelectasis or pulmonary edema. 2. Small right apical pneumothorax. ACT 112: Negative or not required by law. Electronically signed by: Yariel Galindo M.D. 08/08/2019 7:44 AM
--- NOTE | 2019-08-08 08:09 | Pulmonology Progress Note ---
Date of Service August 08, 2019 Assessment & Plan (1) Empyema of right pleural space: --Right-sided pleural effusion With mediastinal shift to the left, exudative The pleural seems to be shiny and thickened which goes towards infection versus malignancy. The pleural fluid did not show any loculations on bedside ultrasound. S/p thoracentesis which showed thick chalky yellowish fluid. 16 Tajik chest tube placed on the right side on 08/07/2019 Follow-up culture, cytology ESR: 17, C-reactive protein: 0.47, pro calcitonin less than 0.05. Pleural fluid LDH 1748, pleural fluid glucose 53, pleural fluid amylase 21, pleural fluid protein 5.1. WBC count 5255, RBC less than 3000. 56% measles/monocytes. 26% lymphocytes with 18% neutrophils Patient has no eosinophilia on the peripheral smear. That he does have a monocytosis --> Which may represent parasitic infection. Influenza is negative. Nasal MRSA negative. DC IV vancomycin. Continue with anaerobic coverage. Patient denies any contact with any person with tuberculosis. There is no history of incarceration. Patient has been in [facility] only. Patient was on adalimumab approximately 5 to 6 years ago. The risk of it being tuberculosis is very low. We will still order PPD and Gold QuantiFERON. Given the history of rheumatoid arthritis now this could represent RA induced pleural effusion. Although the color and consistency does not go with it but it is still in the differential. Patient has no complaints of cough. No pleuritic chest pain. Patient still has intermittent air leak appreciated +1 +2, if the air leak does not resolve then patient might need CT surgery. Continue chest tube to suction -20 with continuous drainage. --History of rheumatoid arthritis Patient was on adalimumab but it was stopped approximately 6 years ago when he got parasitic infection as per the patient. Ringworm infection is what he says. Patient was tested for tuberculosis prior to starting the biologic. --Shortness of breath Secondary to above Improved Plan: We will repeat CT chest without contrast tomorrow to see if there is any masses in the right lower lobe given that now it has expanded. Please note the above document was generated using voice recognition software. It may contain grammatical, syntax or spelling errors. (2) Pleural effusion on right: (3) Shortness of breath: Subjective Patient seen and examined at bedside. No acute distress, no adverse events overnight. States that the shortness of breath is improved. The heaviness from the chest has decreased. Denies any chest pain, no cough, no fever or chills. Good appetite. No nausea or vomiting. Review of Systems Review of Systems: All systems reviewed & are unremarkable except as noted in HPI & below Physical Exam Physical Exam: Constitutional: No acute distress HEENT: EOMI, PERRLA, moist mucous membranes, no cervical lymphadenopathy Respiratory system: Decreased air entry on the right side, no wheeze, no rhonchi, no crackles CVS: S1-S2 positive, no murmurs or gallops Abdomen: Soft, nontender, nondistended, positive bowel sounds x4 Extremities: +2 pulses bilaterally radialis/ dorsalis pedis, no cyanosis, no edema, no clubbing Neuro: Awake alert oriented x3 Psych: Normal mood and affect G/U: No Love Right-sided chest tube in place. Total output 3 L since the chest tube is been put in. Skin: no rashes, warm and dry Lymphatic: no cervical or axillary lymphadenopathy Results & Data ([facility]) Vital Signs (Past 12 Hours) Vital Signs Temp Pulse Resp BP Pulse Ox 08/08/19 06:51 37.0 C 91 H 16 148/91 H 93 08/08/19 03:18 36.9 C 87 16 116/73 92 08/08/19 03:00 93 08/07/19 23:05 36.8 C 92 H 18 114/76 93 08/08/19 05:24 08/08/19 05:24 Microbiology 08/07/19 18:00 Pleural Fluid Gram Stain - Final PG Care Time/CCT Total # of Minutes Spent Total Time Spent with Patient: Total time spent is greater than 50% in coordi nation of care (as documented) at patient's floor/unit and/or counseling patient: Coding Level of Care Code 25342 Subseq Hosp Care Lvl 3 Diagnoses Empyema of right pleural space J86.9 Pleural effusion on right J90 Shortness of breath R06.02
[2019-08-08] MEDS ORDERED: TUBERCULIN SKIN TEST 5 TU in SYRINGE 0 ML ID ONE (08:30)
[2019-08-08] MEDS ORDERED: VANCOMYCIN HCL 1,000 MG in SODIUM CHLORIDE 0.9% 250 ML IV SCH (09:00)
[2019-08-08] MEDS ORDERED: VANCOMYCIN HCL 1,250 MG in SODIUM CHLORIDE 0.9% 250 ML IV SCH (09:00)
[2019-08-08] MEDS: ATORVASTATIN 10 MG TAB PO SCH (09:06)
[2019-08-08] MEDS: AMLODIPINE BESYLATE 5 MG TAB PO SCH (09:07)
[2019-08-08] MEDS: FLUOXETINE HCL 20 MG CAP PO SCH (09:08)
[2019-08-08] MEDS: LISINOPRIL/HCTZ 20/25MG 1 TAB PO SCH (09:08)
[2019-08-08] MEDS: VALACYCLOVIR HCL 500 MG TABLET PO SCH (09:09)
--- NOTE | 2019-08-08 14:01 | Hospitalist Progress Note ---
Date of Service August 08, 2019 Assessment & Plan (1) Pleural effusion: Patient with a significant right-sided pleural effusion obscuring most of the right lung. Pleuracentesis 08/07 with purulent drainage, chest tube in place Continue Shi Patiño vanc per pulm Await culture results, Quantaferon gold though per per pulmonology patient is low risk for TB (2) Hypertension: Continue antihypertensives as per outpatient. (3) Hyperlipidemia: Patient is on Lipitor 10 mg, will continue as outpatient. Admission and Anticipated Discharge Date Admission Date: August 07, 2019 Subjective Mr. Romero is feeling better than when he came in. He has no cough, sob is improving ROS Constitutional: no chills, aches, sweats or fever Respiratory: no sob,cough, sputum, or wheezing Cardiac: no chest pain, palpitations, edema, orthopnea or lightheadedness GI: no abdominal pain, nausea, vomiting, diarrhea or constipation : no dysuria or hesitancy Extremities: no joint pain or weakness Skin: no rash All other systems reviewed and negative Physical Exam Physical Exam: General: no distress Eyes: normal inspection, PERLL Respiratory: chest non tender, crackles righ base otherwise normal breath so unds, no respiratory distress, no accessory muscle use Cardiac: regular rate and rhythm, no rub or gallop, no murmur, no edema, no jvd GI/: active bowel sounds, no abd pain or tenderness, soft, non distended Extremities: normal range of motion, normal strength, non tender Neuro/Psych: alert and oriented x 3, normal mood and affect Skin: normal color, dry Results & Data ([facility]) Vital Signs (Past 12 Hours) Vital Signs Temp Pulse Resp BP Pulse Ox 08/08/19 12:12 99 H 18 94 08/08/19 11:45 36.6 C 96 H 16 136/91 96 08/08/19 06:51 37.0 C 91 H 16 148/91 H 93 08/08/19 03:18 36.9 C 87 16 116/73 92 08/08/19 03:00 93 PG Care Time/CCT Total # of Minutes Spent Total Time Spent with Patient: Total time spent is greater than 50% in coordination of care (as documented) at patient's floor/unit and/or counseling patient: Coding Level of Care Code 51262 Subseq Hosp Care Lvl 2 Diagnoses Pleural effusion J90 Hypertension I10 Hyperlipidemia E78.5
--- NOTE | 2019-08-08 15:06 | XCELERA ---
[id number] \\[email or web address]\[id number]
[2019-08-09] MEDS: PIPERACILLIN/TAZOBACTAM 3.375 GM in DEXTROSE 5% 100 ML IV SCH ×3 (02:29→18:06)
--- NOTE | 2019-08-09 07:26 | XRay Report ---
XR chest 1V portable HISTORY: Postop. COMPARISON: Chest 08/08/2019. FINDINGS: Right-sided chest tube terminates in the right upper lung zone. Interstitial thickening wit hin the right lung has slightly improved. Patchy right basilar airspace opacity persists. Small right apical pneumothorax has slightly increased in size and now measures a maximal pleural gap of 1 cm. L eft lung is clear. The heart is normal in size. IMPRESSION: Right chest tube appears in good position. Small right apical pneumothorax has slightly increased in size. ACT 112: Negative or not required by law. Electronically signed by: Jim Tariq M.D. 08/09/2019 7:24 AM
[2019-08-09] MEDS ORDERED: VANCOMYCIN TROUGH SCH (08:30)
[2019-08-09] MEDS: LISINOPRIL/HCTZ 20/25MG 1 TAB PO SCH (08:37)
[2019-08-09] MEDS: VALACYCLOVIR HCL 500 MG TABLET PO SCH (08:37)
[2019-08-09] MEDS: ATORVASTATIN 10 MG TAB PO SCH (08:38)
[2019-08-09] MEDS: FLUOXETINE HCL 20 MG CAP PO SCH (08:38)
[2019-08-09] MEDS: AMLODIPINE BESYLATE 5 MG TAB PO SCH (08:38)
[2019-08-09 08:44] LABS: Basophils # (auto) 0.02 K/uL (0-0.2); Basophils % (auto) 0.3 %; Eosinophils # (auto) 0.26 K/uL (0-0.5); Eosinophils % (auto) 3.3 %; Hematocrit (blood only) 43.9 % (42-52); Hemoglobin 15.7 g/dL (14.0-18.0); Immature Granulocytes # (auto) 0.03 K/uL (0.00-0.02); Immature Granulocytes % (auto) 0.4 %; Lymphocytes # (auto) 1.02 K/uL (1.2-3.4); Lymphocytes % (auto) 12.9 %; Mean Corpuscular Hemoglobin 31.1 pg (25-34); Mean Corpuscular Hgb Conc 35.8 g/dL (32-36); Mean Corpuscular Volume 86.9 fL (80-100); Mean Platelet Volume 9.4 fL (7.4-10.4); Monocytes # (auto) 0.95 K/uL (0.11-0.59); Neutrophils # (auto) 5.61 K/uL (1.4-6.5); Neutrophils % (auto) 71.1 %; Platelet Count 269 K/uL (130-400); RDW Standard Deviation 41.2 fL (36.4-46.3); Red Blood Count 5.05 M/uL (4.7-6.1); White Blood Count 7.89 K/uL (4.8-10.8)
[2019-08-09 09:19] LABS: BUN Creatinine Ratio 8.7 (10-20); Calcium 8.7 mg/dl (8.5-10.1); Creatinine Clr Calc Pharmacy 90.7 ml/min; Est GFR (African American) 112.2; Est GFR (Non-African American) 96.8; Potassium 3.4 mmol/L (3.5-5.1)
[2019-08-09] MEDS ORDERED: VANCOMYCIN CONSULT ACTIVE PRN (09:40)
--- NOTE | 2019-08-09 09:40 | Pulmonology Progress Note ---
Date of Service August 09, 2019 Assessment & Plan (1) Empyema of right pleural space: --Right-sided pleural effusion With mediastinal shift to the left, exudative The pleural seems to be shiny and thickened which goes towards infection versus malignancy. The pleural fluid did not show any loculations on bedside ultrasound. S/p thoracentesis which showed thick chalky yellowish fluid. 16 [place] chest tube placed on the right side on 08/07/2019 Follow-up culture, cytology ESR: 17, C-reactive protein: 0.47, pro calcitonin less than 0.05. Pleural fluid LDH 1748, pleural fluid glucose 53, pleural fluid amylase 21, pleural fluid protein 5.1. WBC count 5255, RBC less than 3000. 56% measles/monocytes. 26% lymphocytes with 18% neutrophils Patient has no eosinophilia on the peripheral smear. Though he does have a monocytosis --> Which may represent parasitic infection. Influenza is negative. Nasal MRSA negative. Continue with anaerobic coverage. Patient denies any contact with any person with tuberculosis. There is no history of incarceration. Patient has been in [facility] only. Patient was on adalimumab approximately 5 to 6 years ago. The risk of it being tuberculosis is very low. PPD and Gold QuantiFERON ordered. Given the history of rheumatoid arthritis now this could represent RA induced pleural effusion. Although the color and consistency does not go with it but it is still in the differential. Patient has no complaints of cough. No pleuritic chest pain. Patient still has intermittent air leak appreciated +1. If it does not improve patient will need CT surgery. Continue chest tube to suction -20 with continuous drainage. --Bacteremia 1 out of 2 bottles positive for gram-positive cocci in clusters Will restart vancomycin again with loading dose of 20 mg/kg to be have sensitivity back. --History of rheumatoid arthritis Patient was on adalimumab but it was stopped approximately 6 years ago when he got parasitic infection as per the patient. Ringworm infection is what he says. Patient was tested for tuberculosis prior to starting the biologic. --Shortness of breath Secondary to above Improved Plan: Chest x-ray from today still shows apical pneumothorax. CT chest without contrast today to look at lung parenchyma of the right side given that it has expanded. Restart vancomycin which was DC'd yesterday by me as Nasal MRSA was negative. But the blood culture is growing gram-positive cocci in clusters we will continue with until we have sensitivities back. Please note the above document was generated using voice recognition software. It may contain grammatical, syntax or spelling errors. (2) Pleural effusion on right: (3) Shortness of breath: Subjective Patient seen and examined at bedside. No acute distress, no adverse events overnight. Denies any chest pain, no headache, no nausea, no vomiting. Shortness of breath is significantly improved. No cough. Review of Systems Review of Systems: All systems reviewed & are unremarkable except as noted in HPI & below Physical Exam Physical Exam: Constitutional: No acute distress HEENT: EOMI, PERRLA, moist mucous membranes, no cervical lymphadenopathy Respiratory system: Decreased air entry on the right side, no wheeze, no rhonchi, positive crackles right lower lobe CVS: S1-S2 positive, no murmurs or gallops Abdomen: Soft, nontender, nondistended, positive bowel sounds x4 Extremities: +2 pulses bilaterally radialis/ dorsalis pedis, no cyanosis, no edema, no clubbing Neuro: Awake alert oriented x3 Psych: Normal mood and affect G/U: No Love Right-sided chest tube in place. Level 1350 ml. Patient does have +1 air leak appreciated especially on coughing and increasing the negative suction to -30. Skin: no rashes, warm and dry Lymphatic: no cervical or axillary lymphadenopathy Results & Data ([facility]) Vital Signs (Past 12 Hours) Vital Signs Temp Pulse Resp BP Pulse Ox 08/09/19 06:54 36.8 C 87 18 133/88 94 08/08/19 23:08 36.9 C 81 16 122/75 92 08/09/19 08:34 08/09/19 08:34 Chest x-ray 08/09/2019: Chest tube in position. Right middle and lower lobe opacities persist I think there is slight improvement in the opacity density. Apical pneumothorax is persistent. Pleural thickening is still appreciated on the x-ray. PG Care Time/CCT Total # of Minutes Spent Total Time Spent with Patient: Total time spent is greater than 50% in coordination of care (as documented) at patient's floor/unit and/or counseling patient: Coding Level of Care Code 13413 Subseq Hosp Care Lvl 3 Diagnoses Empyema of right pleural space J86.9 Pleural effusion on right J90 Shortness of breath R06.02
[2019-08-09] MEDS ORDERED: POTASSIUM CHLORIDE 20 MEQ TABCR PO STA (09:47)
[2019-08-09] MEDS ORDERED: VANCOMYCIN HCL 1,500 MG in SODIUM CHLORIDE 0.9% 500 ML IV ONE (10:30)
--- NOTE | 2019-08-09 10:51 | Hospitalist Progress Note ---
Date of Service August 09, 2019 Assessment & Plan (1) Pleural effusion: Patient with a significant right-sided pleural effusion obscuring most of the right lung. Pleuracentesis 08/07 with purulent drainage, chest tube in place Continue Zosyn, restart vanc for 1/2 vials blood cultures growing gram positive cocci Await culture results, Quantaferon gold though per per pulmonology patient is low risk for TB (2) Hypertension: Continue antihypertensives as per outpatient. (3) Hyperlipidemia: Patient is on Lipitor 10 mg, will continue as outpatient. (4) Hypokalemia: Potassium 3.4 today - replaced (5) Hyponatremia: Na 132, will hold hctz and see if this comes up to within normal. Asymptomatic (6) DVT prophylaxis: SCDs, enoxaparin, encourage ambulation Admission and Anticipated Discharge Date Admission Date: August 07, 2019 Subjective Mr. Romero feels better today, ambulating the halls independently with a walker. ROS Constitutional: no chills, aches, sweats or fever Respiratory: no sob,cough, sputum, or wheezing Cardiac: no chest pain, palpitations, edema, orthopnea or lightheadedness GI: no abdominal pain, nausea, vomiting, diarrhea or constipation : no dysuria or hesitancy Extremities: no joint pain or weakness Skin: no rash All other systems reviewed and negative Physical Exam Physical Exam: General: no distress Eyes: normal inspection, PERLL Respiratory: chest non tender, clear to auscultation, normal breath sounds, no respiratory distress, no accessory muscle use Cardiac: regular rate and rhythm, no rub or gallop, no murmur, no edema, no jvd GI/: active bowel sounds, no abd pain or tenderness, soft, non distended Extremities: normal range of motion, normal strength, non tender Neuro/Psych: alert and oriented x 3, normal mood and affect Skin: normal color, dry Results & Data ([facility]) Vital Signs (Past 12 Hours) Vital Signs Temp Pulse Resp BP Pulse Ox 08/09/19 06:54 36.8 C 87 18 133/88 94 08/08/19 23:08 36.9 C 81 16 122/75 92 PG Care Time/CCT Total # of Minutes Spent Total Time Spent with Patient: Total time spent is greater than 50% in coordination of care (as documented) at patient's floor/unit and/or counseling patient: Coding Level of Care Code 25763 Subseq Hosp Care Lvl 3 Diagnoses Pleural effusion J90 Hypertension I10 Hyperlipidemia E78.5 Hypokalemia E87.6 Hyponatremia E87.1 DVT prophylaxis Z29.9
--- NOTE | 2019-08-09 11:55 | Pharmacy Report ---
Pharmacy Abx Initial Consult - Date of Service August 09, 2019 - Pharmacy Dosing Scope Date of Consult: 08/09/19 Consultation requested by: Dr. Blackmon Pharmacy is consulted to re-start Vancomycin dosing therapy, order appropriate labs and adjust drug dose/frequency. - Subjective The patient is a 59 year old M admitted on 08/07/19 17:52. - Objective Height: 5 ft 7 in Weight: 73.5 kg Vital Signs (Past 12hrs): Vital Signs Temp Pulse Resp BP Pulse Ox 08/09/19 11:12 36.4 C L 82 18 148/95 H 96 08/09/19 06:54 36.8 C 87 18 133/88 94 Lab Results (24hrs): Laboratory Tests (24 Hours) 08/09/19 08/09/19 08/09/19 08:34 08:34 08:34 WBC 7.89 Neut # (Auto) 5.61 Creatinine 0.82 Est Cr Clr Drug Dosing 90.7 Vancomycin Trough 3.2 Micro Results: 08/07/19 18:00 Gram Stain - Final Pleural Fluid 08/07/19 18:00 Acid Fast Bacilli Smear - Pending Pleural Fluid Acid Fast Bacilli Culture - Pending Microbiology 08/07/19 14:40 Blood Aerobic Blood Culture - Preliminary 08/07/19 14:40 Blood Anaerobic Blood Culture - Preliminary No growth in Aerobic bottle after 24 hours. No growth in Anaerobic bottle after 24 hours. 08/07/19 14:35 Blood Aerobic Blood Culture - Preliminary 08/07/19 14:35 Blood Anaerobic Blood Culture - Preliminary Gram positive cocci clusters No growth in Aerobic bottle after 24 hours. - Risk Factors for Resistance * Resident in a longterm or extended-care facility * Hospitalization for 48 hours or more within the past 90 days * Current hospitalization > 5 days * Chronic dialysis within the past 30 days * Immunocompromised (chronic steroid therapy, chemotherapy, immunomodulators) * History of infection with a multidrug-resistant organism: [organism] [site of infection] [date] * Antimicrobial use within the last 90 days [include specific drugs, if known] - Assessment & Plan Assessment Patient has been re-started on Vancomycin for Gram positive cocci in clusters resulted today in the blood culture. Identification and sensitivities pending. Vancomycin was d/c'd yesterday after patient received his 9AM dose. It had been greater than 24 hrs since that dose was given yesterday and patient with good renal function, therefore Vancomycin re-started today with a loading dose. Plan Vancomycin IV: Patient meets criteria for vancomycin AUC dosing nomogram AUC/KATHARINA is the preferred PK/PD target for vancomycin Target AUC/KATHARINA = 400-600 AUC guided dosing is effective and associated with decreased risk of nephrotoxicity * Patient was loaded with 1500 mg IV Vanc (20 mg/kg) then 1000 mg IV q8h for maintenance dose based on AUC nomogram. * Will check a trough level tomorrow in the AM after 2 maintenance doses. Piperacillin/tazobactam * Continue 3.375 g IV q8h extended interval dosing, as before since no change in renal function. Pharmacy will continue to follow and will adjust dose/frequency as necessary. Thank you.
[2019-08-09] MEDS: ENOXAPARIN INJ 40 MG/0.4 ML SYR SQ SCH (13:26)
--- NOTE | 2019-08-09 14:40 | CT Scan Report ---
CT chest wo con CT DOSE: 327.40 mGy.cm HISTORY: Pneumo with Right sided infiltrate TECHNIQUE: Multiaxial CT images of the chest were performed without contrast. A dose lowering techni que was utilized adhering to the principles of ALARA. COMPARISON: Chest CT 08/07/2019. FINDINGS: Interval placement of a right-sided chest tube which traverses within the right major fissu re and terminates within the right posterior hemithorax. There is a small right pneumothorax. Extensi ve pleural nodularity is again noted and is highly suspicious for metastatic disease. Multifocal nodu lar and groundglass opacities throughout the majority of the right lung with mild interlobular septal thickening. This favors reexpansion pulmonary edema. An atypical pneumonitis could also have a simil ar appearance. The left lung remains clear. The central airways are patent. The visualized liver, spl een, and adrenal glands unremarkable. There is a punctate nonobstructing stone within the left kidney . Trace right pleural effusion persists. Normal caliber esophagus. The heart is normal in size. Marisa l caliber thoracic aorta. A few borderline-enlarged right hilar lymph nodes. IMPRESSION: 1. Interval placement right-sided chest tube with near complete resolution of the right pleural effus ion. A small right pneumothorax is noted. 2. Extensive pleural nodularity throughout the right hemithorax. This is highly suspicious for metast atic disease. 3. Multifocal nodular and groundglass opacities throughout the majority of the right lung with mild i nterlobular septal thickening. This favors reexpansion pulmonary edema. An atypical pneumonitis could also have a similar appearance. Follow-up recommended to ensure resolution. ACT 112: Negative or not required by law. Electronically signed by: Jim Tariq M.D. 08/09/2019 2:39 PM
[2019-08-09] MEDS: VANCOMYCIN HCL 1,000 MG in SODIUM CHLORIDE 0.9% 250 ML IV SCH (18:06)
[2019-08-10] MEDS: PIPERACILLIN/TAZOBACTAM 3.375 GM in DEXTROSE 5% 100 ML IV SCH ×3 (02:10→17:45)
[2019-08-10] MEDS: VANCOMYCIN HCL 1,000 MG in SODIUM CHLORIDE 0.9% 250 ML IV SCH ×2 (02:11→10:14)
[2019-08-10 06:00] LABS: Creatinine Clr Calc Pharmacy 88.5 ml/min; Est GFR (African American) 111.1; Est GFR (Non-African American) 95.8
--- NOTE | 2019-08-10 07:47 | XRay Report ---
XR chest 1V portable HISTORY: 59 years-old Male f/u follow-up study in a patient with right-sided pneumothorax COMPARISON: Chest CT and chest radiograph 08/09/2019 TECHNIQUE: Portable AP view of the chest FINDINGS: Cardiac silhouette is unchanged. Small right apical pneumothorax redemonstrated with pleural separati on of 10 mm. Right-sided chest tube appears unchanged, distal tip terminating adjacent to the right m idlung. Mild subcutaneous emphysema of the right lateral chest wall. Unchanged pleural nodularity/ple ural thickening of the right hemithorax with multifocal right lung opacities, most pronounced within the mid and lower lung zones. No large pleural effusion. The left lung is clear. Degenerative changes of the shoulders and spine. IMPRESSION: 1. Stable positioning of the right-sided chest tube with unchanged small right apical pneumothorax. 2. Unchanged pleural thickening/nodularity of the right hemithorax with multifocal right lung opaciti es, better evaluated on comparison chest CT from 08/09/2019. ACT 112: Negative or not required by law. The above report was generated using voice recognition software. It may contain grammatical, syntax o r spelling errors. Electronically signed by: Joseph Johnson M.D. 08/10/2019 7:45 AM
[2019-08-10] MEDS ORDERED: PPD CHECK ONE (08:30)
[2019-08-10] MEDS ORDERED: ENOXAPARIN INJ 40 MG/0.4 ML SYR SQ SCH (09:00)
[2019-08-10] MEDS: ENOXAPARIN INJ 40 MG/0.4 ML SYR SQ SCH (09:09)
[2019-08-10] MEDS: FLUOXETINE HCL 20 MG CAP PO SCH (09:10)
[2019-08-10] MEDS: lisinopriL 20 MG TAB PO SCH (09:10)
[2019-08-10] MEDS: AMLODIPINE BESYLATE 5 MG TAB PO SCH (09:10)
[2019-08-10] MEDS: VALACYCLOVIR HCL 500 MG TABLET PO SCH (09:11)
[2019-08-10] MEDS: ATORVASTATIN 10 MG TAB PO SCH (09:11)
[2019-08-10] MEDS ORDERED: VANCOMYCIN TROUGH ONE (09:30)
[2019-08-10 09:50] LABS: Basophils # (auto) 0.02 K/uL (0-0.2); Basophils % (auto) 0.3 %; Eosinophils # (auto) 0.28 K/uL (0-0.5); Eosinophils % (auto) 4.9 %; Hematocrit (blood only) 42.2 % (42-52); Hemoglobin 14.8 g/dL (14.0-18.0); Immature Granulocytes # (auto) 0.01 K/uL (0.00-0.02); Immature Granulocytes % (auto) 0.2 %; Lymphocytes # (auto) 0.83 K/uL (1.2-3.4); Lymphocytes % (auto) 14.4 %; Mean Corpuscular Hemoglobin 30.5 pg (25-34); Mean Corpuscular Hgb Conc 35.1 g/dL (32-36); Mean Corpuscular Volume 86.8 fL (80-100); Mean Platelet Volume 9.4 fL (7.4-10.4); Monocytes # (auto) 0.57 K/uL (0.11-0.59); Monocytes % (auto) 9.9 %; Neutrophils # (auto) 4.04 K/uL (1.4-6.5); Neutrophils % (auto) 70.3 %; Platelet Count 257 K/uL (130-400); RDW Coefficient of Variation 12.8 % (11.5-14.5); Red Blood Count 4.86 M/uL (4.7-6.1); White Blood Count 5.75 K/uL (4.8-10.8)
[2019-08-10 10:07] LABS: Calcium 8.8 mg/dl (8.5-10.1); Creatinine Clr Calc Pharmacy 84.5 ml/min; Potassium 3.5 mmol/L (3.5-5.1)
--- NOTE | 2019-08-10 10:43 | Pulmonology Progress Note ---
Date of Service August 10, 2019 Assessment & Plan (1) Pleural effusion on right: Impression: 59-year-old male with history of rheumatoid arthritis admitted with large right-sided pleural effusion. Pleural fluid characteristics are consistent with exudative process, possibly empyema however Gram stain was negative. He has a persistent postprocedural pneumothorax and the chest tube is currently located within the fissure and may not be adequate to resolve the pneumothorax. Fortunately the patient is relatively asymptomatic currently. His air leak is significantly decreasing. Recommendation: 1. Postprocedural pneumothorax: We will continue to follow daily chest x-rays at this point time. His air leak is diminished however I do have concerns about placement of the tube adequately addressing his pneumothorax. If the pneumothorax persists, it may require replacement of the tube or consideration of video-assisted thoracoscopic evaluation with direct visualization of and placement of appropriate chest tube. 2. Pleural effusion: Etiology unclear. Empyema and rheumatoid arthritis pleural effusion remain in the differential. Malignant effusion would also be possible. At this point time will await cytology which should be available tomorrow. If cytology is unrevealing, proceeding with video-assisted thoracoscopic evaluation may be appropriate to adequately clean out the pleural space, place appropriately positioned drain tubes, and provide definitive diagnosis for the pleural nodularity areas of thickening. Await pleural fluid cholesterol, but chylous effusion seems less likely. 3. Potential pleural space infection: The patient is currently day #2 of Zosyn. The gram-positive cocci noted on blood cultures likely contaminant and vancomycin can be discontinued. Continue antibiotics for now. 4. Rheumatoid arthritis: Patient is not been on Biologics for quite some time and actually is only been maintained on nonsteroidal anti-inflammatory agents. We will recheck rheumatoid factor, anti-CCP, ESR, and CRP as potential markers of systemic disease. The above recommendations and plan were extensively discussed with the patient at bedside. He expressed understanding and is in agreement with plan as outlined. We will make decisions regarding additional course based on his chest x-ray and clinical course tomorrow. (2) Abnormal CT scan of lung: (3) Pneumothorax: Subjective Patient feels well this morning. He is not complaining of any chest pain other than some slight discomfort at the tube insertion site. No fevers chills or night sweats. He is eating well. He is not coughing or expectorating significant phlegm. Review of Systems Review of Systems: Unchanged from prior Physical Exam Constitutional: WD/WN, vitals as above Neck: trachea midline, no thyromegaly Respiratory: normal respiratory effort, lungs clear to auscultation Cardiovascular: RRR, no murmur, no edema Chest (Breasts): Additional Comments: Small intermittent air leak, improved from yesterday. Gastrointestinal (Abdomen): normal bowel sounds, soft, nontender, no hepatosplenomegaly Musculoskeletal: Extremities: extremities normal to inspection Skin: no rashes, warm and dry Neurologic: Nonfocal exam Lymphatic: no cervical lymphadenopathy Results & Data ([facility]) Vital Signs (Past 12 Hours) Vital Signs Temp Pulse Resp BP Pulse Ox 08/09/19 23:03 36.9 C 77 16 111/65 92 Laboratory Results 08/10/19 09:31 08/10/19 09:31 Blood cultures 1 out of 2 coag negative staph Gram stain from the pleural fluid is negative AFB cultures from the pleural fluid pending Pleural fluid studies showed cell count with 56% mesothelial cells and 26% lymphocytes, no eosinophils and 18% neutrophils. Pleural fluid total protein 5.1 Pleural LDH 1748 Pleural glucose 53 Pleural amylase 21 Pleural cholesterol pending Pleural pH 7.05 Pleural adenosine deaminase pending Diagnostic Findings Imaging independently reviewed. The CT scan shows the tube to be within the major fissure. There is a small apical pneumothorax. There is some thickening on the mediastinal surface of the pleura as well as some nodularity of the pleura with some pleural thickening. An apical/anterior pneumothorax is still present. Chest x-ray today showed a persistent apical pneumothorax with airspace opacity in the right lung base. PG Care Time/CCT Total # of Minutes Spent Total Time Spent with Patient: Total time spent is greater than 50% in coordination of care (as documented) at patient's floor/unit and/or counseling patient: Coding Level of Care Code 47281 Subseq Hosp Care Lvl 3 Diagnoses Pleural effusion on right J90 Abnormal CT scan of lung R91.8 Pneumothorax J93.9
--- NOTE | 2019-08-10 11:25 | Hospitalist Progress Note ---
Date of Service August 10, 2019 Assessment & Plan (1) Pleural effusion: Patient with a significant right-sided pleural effusion obscuring most of the right lung. Pleuracentesis 08/07 with purulent drainage, chest tube in place Continue Zosyn, 1/2 vials blood cultures growing coag neg staph - dc vanc, likely contaminant Quantaferon gold though per per pulmonology patient is low risk for TB, cytology pending Small pneumothorax postprocedure may require VATS if it does not resolve (2) Hypertension: Continue antihypertensives as per outpatient. (3) Rheumatoid arthritis: Not on biologics, maintained on NSAIDs - per pulm - rechecking RF, anti- CCP, ESR, CRP (4) Hyperlipidemia: Patient is on Lipitor 10 mg, will continue as outpatient. (5) Hypokalemia: Potassium 3.4 today - replaced (6) Hyponatremia: Na 133, will hold hctz and see if this comes up to within normal. A symptomatic (7) DVT prophylaxis: SCDs, enoxaparin, encourage ambulation Admission and Anticipated Discharge Date Admission Date: August 07, 2019 Subjective Mr. Romero is feeling well, ambulating the raygoza. ROS Constitutional: no chills, aches, sweats or fever Respiratory: no sob,cough, sputum, or wheezing Cardiac: no chest pain, palpitations, edema, orthopnea or lightheadedness GI: no abdominal pain, nausea, vomiting, diarrhea or constipation : no dysuria or hesitancy Extremities: no joint pain or weakness Skin: no rash All other systems reviewed and negative Physical Exam Physical Exam: General: no distress Eyes: normal inspection, PERLL Respiratory: chest non tender, clear to auscultation, normal breath sounds, no respiratory distress, no accessory muscle use Cardiac: regular rate and rhythm, no rub or gallop, no murmur, no edema, no jvd GI/: active bowel sounds, no abd pain or tenderness, soft, non distended Extremities: normal range of motion, normal strength, non tender Neuro/Psych: alert and oriented x 3, normal mood and affect Skin: normal color, dry PG Care Time/CCT Total # of Minutes Spent Total Time Spent with Patient: Total time spent is greater than 50% in coordination of care (as documented) at patient's floor/unit and/or counseling patient: Coding Level of Care Code 08621 Subseq Hosp Care Lvl 3 Diagnoses Pleural effusion J90 Hypertension I10 Rheumatoid arthritis M06.9 Hyperlipidemia E78.5 Hypokalemia E87.6 Hyponatremia E87.1 DVT prophylaxis Z29.9
[2019-08-10 16:05] LABS: Quantiferon Mitogen-NIL >10.00 IU/mL; Quantiferon NIL 0.03 IU/mL; Quantiferon TB Gold Plus NEGATIVE (NEGATIVE); Quantiferon TB1-NIL 0.11 IU/mL; Quantiferon TB2-NIL 0.05 IU/mL
[2019-08-11] MEDS: PIPERACILLIN/TAZOBACTAM 3.375 GM in DEXTROSE 5% 100 ML IV SCH ×3 (02:49→18:12)
[2019-08-11 05:12] LABS: Basophils # (auto) 0.03 K/uL (0-0.2); Basophils % (auto) 0.5 %; Eosinophils # (auto) 0.35 K/uL (0-0.5); Eosinophils % (auto) 5.7 %; Hematocrit (blood only) 39.9 % (42-52); Hemoglobin 14.4 g/dL (14.0-18.0); Immature Granulocytes # (auto) 0.01 K/uL (0.00-0.02); Immature Granulocytes % (auto) 0.2 %; Lymphocytes # (auto) 0.97 K/uL (1.2-3.4); Lymphocytes % (auto) 15.9 %; Mean Corpuscular Hemoglobin 31.4 pg (25-34); Mean Corpuscular Hgb Conc 36.1 g/dL (32-36); Mean Corpuscular Volume 87.1 fL (80-100); Mean Platelet Volume 9.2 fL (7.4-10.4); Monocytes # (auto) 0.88 K/uL (0.11-0.59); Monocytes % (auto) 14.4 %; Neutrophils # (auto) 3.87 K/uL (1.4-6.5); Neutrophils % (auto) 63.3 %; Platelet Count 271 K/uL (130-400); RDW Coefficient of Variation 12.7 % (11.5-14.5); RDW Standard Deviation 40.5 fL (36.4-46.3); Red Blood Count 4.58 M/uL (4.7-6.1); White Blood Count 6.11 K/uL (4.8-10.8)
[2019-08-11 05:40] LABS: BUN Creatinine Ratio 8.2 (10-20); Calcium 8.5 mg/dl (8.5-10.1); Creatinine Clr Calc Pharmacy 84.5 ml/min; Potassium 3.9 mmol/L (3.5-5.1)
--- NOTE | 2019-08-11 07:34 | XRay Report ---
XR chest 1V portable CLINICAL HISTORY: 59 years-old Male presenting with f/u, metastatic disease, pneumonia. TECHNIQUE: Portable upright AP view of the chest was obtained. COMPARISON: 08/10/2019. FINDINGS: Right pleural drain position at the right mid lung unchanged. Trace associated soft tissue emphysema along the inferior right lateral chest wall. Cardiomediastinal silhouette normal. Patchy opacities in the right lung with a basilar predominance may be slightly decreased from prior. Nodular appearing s ubpleural or pleural opacities. Persistent small right apical pneumothorax. Left lung and pleural spa ce clear. Degenerative changes of the glenohumeral joints and spine. Upper abdomen normal. IMPRESSION: 1. Decreasing right lung infiltrates with persistent pleural/subpleural nodular opacities. 2. Persistent small right pneumothorax with right pleural drain in place. ACT 112: Negative or not required by law. Electronically signed by: Hayes Davis M.D. 08/11/2019 7:33 AM
[2019-08-11] MEDS: ATORVASTATIN 10 MG TAB PO SCH (08:31)
[2019-08-11] MEDS: ENOXAPARIN INJ 40 MG/0.4 ML SYR SQ SCH (08:31)
[2019-08-11] MEDS: VALACYCLOVIR HCL 500 MG TABLET PO SCH (08:31)
[2019-08-11] MEDS: FLUOXETINE HCL 20 MG CAP PO SCH (08:31)
[2019-08-11] MEDS: lisinopriL 20 MG TAB PO SCH (08:31)
[2019-08-11] MEDS: AMLODIPINE BESYLATE 5 MG TAB PO SCH (08:32)
--- NOTE | 2019-08-11 10:11 | Hospitalist Progress Note ---
Date of Service August 11, 2019 Assessment & Plan (1) Pleural effusion: * Patient with a significant right-sided pleural effusion obscuring most of the right lung. * Pleuracentesis 08/07 with purulent drainage, chest tube in place * Continue Zosyn (on day 3 of therapy) -- 1/2 vials blood cultures growing coag neg staph * Vancomycin was previously discontinued, as bcx likely contaminant * Quant. gold though per per pulmonology patient is low risk for TB --> negative * Repeat CXR 08/10 with decreasing R lung infiltrates with persistent pleural/subpleural nodular opacities. persistent small R pneumothorax with drain in place * Pulmonary on consult -- appreciate continued assistance Small pneumothorax postprocedure may require VATS if it does not resolve * Plan per pulmonary team to clamp chest tube, repeat imaging this afternoon. If no evidence of pneumothorax or reaccumulation of fluid, chest tube may be able to be removed. Fluid appears to be exudative process. Empyema less likely with negative culture results and initial cytology (final pending, some evidence of atypical cells). Anti-CCP negative -- RA less likely (2) Hypertension: * BP elevated slightly at 145/93 -- home amlodipine and lisinopril continued, however hctz held for low Na * Na improved today, 135 * Will resume home HCTZ * Continue to monitor (3) Rheumatoid arthritis: * Chronic. RF pending (per pulm) * Anti CCP negative * ESR 19, CRP 2.48 * Not on biologics, maintained on NSAIDs - per pulm (4) Hyperlipidemia: * Chronic. Stable * Patient is on Lipitor 10 mg, will continue as outpatient (5) Hypokalemia: * RESOLVED * K 3.9 (6) Hyponatremia: * Na 133 on 08/09 -- HCTZ held as above * Na low normal at 135 -- will resume HCTZ as above * Continue to monitor (7) DVT prophylaxis: * SCDs, * Enoxaparin SQ * Encourage ambulation Dispo: cxr this afternoon, possible removal of chest tube Admission and Anticipated Discharge Date Admission Date: August 07, 2019 Supervising Physician Co-Signing Physician Notes Attending Attestation - Chart reviewed in detail, care plan d/w REFUGIO Raphael. I agree w/ the landaverde components of her documentation. Right-sided exudative pleural effusion s/p thoracentesis followed by placement of chest tube due to concern of empyema. Developed post-procedural pneumothorax. Remains on IV zosyn. Appreciate pulmonary assistance. Defer chest tube management to them. Adal Parra MD Subjective Patient evaluated up in chair this morning. States his breathing is the best that it has been since he has been in the hospital. States it had been a slow build up of his shortness of breath and he hadn't noticed until he came in after CXR with evidence of pneumothorax but that has almost completely resolved. Denies cough or sputum production. States pain has been well controlled. He has been up and moving in the room without difficulty. Has not been seen by Pulmonary team yet, but states he did get his CXR. Denies chest pain, abdominal pain, n/v/d/c, dysuria at this time. He is hopeful to avoid any surgical intervention if possible. Review of Systems Review of Systems: All systems reviewed & are unremarkable except as noted in HPI & below Physical Exam Constitutional: WD/WN, vitals as above no acute distress Eyes: + anicteric sclerae and PERRL ENMT: Ears: no hearing impairment Nose: no external nose abnormality Neck: trachea midline, no thyromegaly Respiratory: normal respiratory effort and able to speak in complete sentences; no respiratory distress, no labored breathing and does not use accessory muscles Auscultation: lungs clear to auscultation bilaterally; no crackles and no wheezes Chest tube to RIGHT chest wall -- minimal if any air leak at all noted no crepitus Cardiovascular: RRR, no murmur, no edema Gastrointestinal (Abdomen): normal bowel sounds, soft, nontender, no hepatosplenomegaly Musculoskeletal: no cyanosis or clubbing, extremities motor strength 5/5 Skin: no rashes, warm and dry Neurologic: PERRL, EOMI, accommodation nl, no face palsy, no dysarthria Psychiatric: A+Ox3, euthymic affect Lymphatic: no cervical or axillary lymphadenopathy PG Care Time/CCT Total # of Minutes Spent Total Time Spent with Patient: Total time spent is greater than 50% in coordination of care (as documented) at patient's floor/unit and/or counseling patient: Coding Level of Care Code 39069 Subseq Hosp Care Lvl 3 Diagnoses Pleural effusion J90 Hypertension I10 Rheumatoid arthritis M06.9 Hyperlipidemia E78.5 Hypokalemia E87.6 Hyponatremia E87.1 DVT prophylaxis Z29.9
--- NOTE | 2019-08-11 12:29 | Pulmonology Progress Note ---
Date of Service August 11, 2019 Assessment & Plan (1) Pleural effusion on right: Impression: 59-year-old male with history of rheumatoid arthritis admitted with large right-sided pleural effusion. Pleural fluid characteristics are consistent with exudative process. Small apical pneumothorax. Air leak is now resolved. No reaccumulation of fluid. Cytology currently pending. Recommendation: 1. Postprocedural pneumothorax: Chest tube clamped. We will repeat x-ray for this afternoon. If repeat x-ray at 4:00 shows no evidence of pneumothorax or reaccumulation of pleural fluid, chest tube may be able to be removed. 2. Pleural effusion: Etiology unclear. Empyema appears less likely given negative culture results and clinical presentation as well as initial review of cytology. Anti-CCP negative making rheumatoid arthritis less likely as well. Awaiting cytology with the presence of some atypical cells. Final path should be available today 3. Potential pleural space infection: The patient is currently day #3 of Zosyn. The gram-positive cocci noted on blood cultures likely contaminant. Continue current antibiotics 4. Rheumatoid arthritis: Rheumatoid factor pending but anti-CCP negative which would argue against significant rheumatoid arthritis. The above recommendations and plan were extensively discussed with the patient at bedside. He expressed understanding and is in agreement with plan as outlined. (2) Abnormal CT scan of lung: (3) Pneumothorax: Subjective Patient seen and examined. EMR reviewed. Imaging independently reviewed. The patient remains relatively asymptomatic. He is not experiencing any significant pain even with the catheter in place. No shortness of breath. No cough or sputum production. Physical Exam Constitutional: WD/WN, vitals as above Neck: trachea midline, no thyromegaly Respiratory: normal respiratory effort, lungs clear to auscultation Cardiovascular: RRR, no murmur, no edema Chest (Breasts): Additional Comments: No air leak with coughing or deep inspiration today. Gastrointestinal (Abdomen): normal bowel sounds, soft, nontender, no hepatosplenomegaly Musculoskeletal: Extremities: extremities normal to inspection Skin: no rashes, warm and dry Lymphatic: no cervical lymphadenopathy Results & Data ([facility]) Vital Signs (Past 12 Hours) Vital Signs Temp Pulse Resp BP Pulse Ox 08/11/19 07:09 36.3 C L 82 20 145/93 H 95 08/11/19 03:25 36.7 C 77 16 123/79 96 Laboratory Results 08/11/19 04:55 08/11/19 04:55 Pleural fluid pathology reviewed. Some atypical cells identified. Discussed with Dr. Davey. Final path should be available this afternoon Diagnostic Findings Chest x-ray today independently reviewed. Small apical right pneumothorax with no significant reaccumulation of pleural fluid PG Care Time/CCT Total # of Minutes Spent Total Time Spent with Patient: Total time spent is greater than 50% in coordination of care (as documented) at patient's floor/unit and/or counseling patient: Coding Level of Care Code 44173 Subseq Hosp Care Lvl 3 Diagnoses Pleural effusion on right J90 Abnormal CT scan of lung R91.8 Pneumothorax J93.9 Time Spent (min) 40
--- NOTE | 2019-08-11 13:05 | XRay Report ---
XR chest 1V portable CLINICAL HISTORY: 59 years-old Male presenting with clamped chest tube. TECHNIQUE: Portable upright AP view of the chest was obtained. COMPARISON: 08/11/2019. FINDINGS: Right pleural drain remains position at the mid right lung. Cardiomediastinal silhouette normal. Rede monstration of the dens nodular peripheral opacities in the right lung. Trace right apical pneumothor ax may be present. Trace pleural fluid or pleural thickening at the right costophrenic angle. Minimal right basilar predominant vague opacity. Left lung and pleural space clear. Osseous structures flora l. Upper abdomen normal. IMPRESSION: 1. Trace right apical pneumothorax with a right pleural drain remaining in place. 2. Unchanged appearance of the right lung with minimal right basilar and more dense peripheral/pleur al infiltrates. ACT 112: Negative or not required by law. Electronically signed by: Hayes Davis M.D. 08/11/2019 1:04 PM
[2019-08-11] MEDS: hydroCHLOROthiazide 25 MG TAB PO SCH (13:45)
[2019-08-12] MEDS: PIPERACILLIN/TAZOBACTAM 3.375 GM in DEXTROSE 5% 100 ML IV SCH ×2 (02:07→12:55)
[2019-08-12 06:50] LABS: Basophils # (auto) 0.03 K/uL (0-0.2); Basophils % (auto) 0.5 %; Eosinophils # (auto) 0.28 K/uL (0-0.5); Hematocrit (blood only) 42.8 % (42-52); Hemoglobin 15.2 g/dL (14.0-18.0); Immature Granulocytes # (auto) 0.02 K/uL (0.00-0.02); Immature Granulocytes % (auto) 0.4 %; Lymphocytes # (auto) 1.18 K/uL (1.2-3.4); Lymphocytes % (auto) 21.2 %; Mean Corpuscular Hemoglobin 31.1 pg (25-34); Mean Corpuscular Hgb Conc 35.5 g/dL (32-36); Mean Corpuscular Volume 87.7 fL (80-100); Mean Platelet Volume 9.6 fL (7.4-10.4); Monocytes # (auto) 0.77 K/uL (0.11-0.59); Monocytes % (auto) 13.8 %; Neutrophils # (auto) 3.29 K/uL (1.4-6.5); Neutrophils % (auto) 59.1 %; Platelet Count 303 K/uL (130-400); RDW Coefficient of Variation 12.7 % (11.5-14.5); RDW Standard Deviation 40.8 fL (36.4-46.3); Red Blood Count 4.88 M/uL (4.7-6.1); White Blood Count 5.57 K/uL (4.8-10.8)
--- NOTE | 2019-08-12 07:22 | XRay Report ---
XR chest 1V portable HISTORY: Postop. COMPARISON: Chest 08/11/2019. FINDINGS: Right-sided chest tube remains unchanged in position. Small right apical pneumothorax with a maximal pleural gap of 1 cm. This remains unchanged. A few linear densities within the right mid to lower lung zone persists and may represent atelectasis or postoperative change. The left lung is adan ar. The heart is normal in size. IMPRESSION: No significant change compared to the prior study. Right-sided chest tube and small right apical pneu mothorax persists. ACT 112: Negative or not required by law. Electronically signed by: Jim Tariq M.D. 08/12/2019 7:21 AM
--- NOTE | 2019-08-12 07:24 | Anesthesiology Consultation ---
Date of Service August 12, 2019 Assessment & Plan (1) Encounter for pre-operative examination: Chart Review Chart Review: Acceptable Risk for Surgery History Surgery Operation Date: 08/12/19 09:00 Proposed Procedures p Right Thoracoscopy with Biopsy - Maldonado Solano MD, FACS Height/Weight Height: 5 ft 7 in Weight: 73.5 kg Allergies Allergy/AdvReac Type Severity Reaction Status Date / Time No Known Allergies Allergy Unverified 08/07/19 16:38 Medications Home Medications Medication Instructions Recorded Confirmed Last Taken amlodipine 5 mg PO DAILY 08/07/19 08/07/19 Unknown atorvastatin 10 mg PO DAILY 08/07/19 08/07/19 Unknown fluoxetine 60 mg PO DAILY 08/07/19 08/07/19 Unknown lisinopril-hydrochlorothiazide 2 tab PO DAILY 08/07/19 08/07/19 Unknown valacyclovir 500 mg PO DAILY 08/07/19 08/07/19 Unknown zoster vaccine live (PF) 0 unit SUBCUT ONCE 08/07/19 08/07/19 Unknown Active Medications Generic Name Dose Route Start Last Admin Trade Name Freq PRN Reason Stop Dose Admin Amlodipine Besylate 5 mg 08/08/19 09:00 08/11/19 08:32 Norvasc PO 09/07/19 08:59 5 mg DAILY MONISHA Administration Atorvastatin Calcium 10 mg 08/08/19 09:00 08/11/19 08:31 Lipitor PO 09/07/19 08:59 10 mg DAILY MONISHA Administration Enoxaparin Sodium 40 mg 08/09/19 11:00 08/11/19 08:31 Lovenox SQ 09/08/19 10:59 40 mg DAILY MONISHA Administration Fluoxetine HCl 60 mg 08/08/19 09:00 08/11/19 08:31 Prozac PO 09/07/19 08:59 60 mg DAILY MONISHA Administration Hydrochlorothiazide 25 mg 08/11/19 12:45 08/11/19 13:45 Hctz PO 09/10/19 12:44 25 mg QAM MONISHA Administration Piperacillin Sod/Tazobactam 115 mls @ 28.75 mls/hr 08/08/19 02:00 08/12/19 06:07 Sod 3.375 gm/ Dextrose IV 08/15/19 01:59 Infused Q8H MONISHA Infusion Protocol Lisinopril 20 mg 08/10/19 09:00 08/11/19 08:31 Zestril PO 09/09/19 08:59 20 mg QAM MONISHA Administration Valacyclovir HCl 500 mg 08/08/19 09:00 08/11/19 08:31 Valtrex PO 08/15/19 08:59 500 mg DAILY MONISHA Administration Past Medical History Medical History (Updated 08/12/19 @ 07:29 by Nathan Larios MD) Hyperlipidemia Hypertension Hyponatremia Pleural effusion on right Pneumothorax s/p chest tube placement Rheumatoid arthritis Past Surgical History Surgical History History of thoracentesis Hx of chest tube placement Social History Smoking Status: Former smoker Do You Dip or Chew Tobacco: No Hx Alcohol Use: Yes Alcohol type: beer and wine alcohol intake frequency: 3 or more drinks per day Alcohol Intake Frequency Comment: 3 drinks/night Hx Substance Use: No Physical Exam Vital Signs Last Vital Signs Temp 36.6 C 08/11/19 23:11 Pulse 70 08/11/19 23:11 Resp 16 08/11/19 23:11 BP 132/86 08/11/19 23:11 Pulse Ox 95 08/11/19 23:11 Testing Laboratory Results 08/12/19 06:22 PT 10.9 Seconds (9.0-12.0) 08/07/19 14:35 INR 1.0 (0.9-1.1) 08/07/19 14:35 APTT 30.2 Seconds (21.0-31.0) 08/07/19 14:35 Urine Color Yellow 08/07/19 16:04 Urine Appearance Clear (Clear) 08/07/19 16:04 Urine pH 8.0 (4.5-7.5) H 08/07/19 16:04 Ur Specific [place] 1.011 (1.000-1.030) 08/07/19 16:04 Urine Protein Negative (Negative) 08/07/19 16:04 Urine Glucose (UA) Negative (Negative) 08/07/19 16:04 Urine Ketones Trace (Negative) H 08/07/19 16:04 Urine Nitrite Negative (Negative) 08/07/19 16:04 Ur Leukocyte Esterase Negative (Negative) 08/07/19 16:04 08/07/19 18:00 Gram Stain - Final Pleural Fluid Aerobic and Anaerobic Culture - Preliminary Staphylococcus species 08/07/19 18:00 Acid Fast Bacilli Smear - Final Pleural Fluid Acid Fast Bacilli Culture - Preliminary No Acid-Fast Bacilli Isolated - Report 1, Additional Report to Follow. 08/07/19 14:35 Aerobic Blood Culture - Preliminary Blood No growth in Aerobic bottle after 48 hours. Anaerobic Blood Culture - Preliminary Coag neg staph not lugdunensis 08/07/19 14:40 Aerobic Blood Culture - Preliminary Blood No growth in Aerobic bottle after 48 hours. Anaerobic Blood Culture - Preliminary No growth in Anaerobic bottle after 48 hours. Laboratory Tests 08/07/19 08/11/19 14:35 04:55 PT 10.9 INR 1.0 APTT 30.2 Sodium 135 L Potassium 3.9 Chloride 100 Carbon Dioxide 31 BUN 7 Creatinine 0.88 Electrocardiogram Date: 08/07/19 Findings: + ST @ (101) Chest X-Ray Date: 08/12/19 Right chest tube and small apical pneumothorax, left lung clear Echocardiogram Date: 08/08/19 EF: 55-60% LV Function: normal Valvular Disease: + no significant valvular disease
[2019-08-12 07:29] LABS: BUN Creatinine Ratio 9.1 (10-20); Calcium 8.7 mg/dl (8.5-10.1); Creatinine Clr Calc Pharmacy 79.1 ml/min; Est GFR (African American) 102.4; Est GFR (Non-African American) 88.4; Potassium 3.4 mmol/L (3.5-5.1)
[2019-08-12] MEDS ORDERED: NEOSTIGMINE METHYLSULFATE 5 MG/5 ML SYR ONE (07:51)
[2019-08-12] MEDS ORDERED: LIDOCAINE HCL 2% 2 ML VIAL/AMP(20MG/ML) INFIL ONE (07:51)
[2019-08-12] MEDS ORDERED: SUCCINYLCHOLINE CHLORIDE 20 MG/ML 10 ML VIAL ONE (07:51)
[2019-08-12] MEDS ORDERED: DEXAMETHASONE SOD INJ 4 MG/ML VIAL ONE ×2 (07:51→09:55)
[2019-08-12] MEDS ORDERED: PROPOFOL IV EMULSION 10 MG/ML 20 ML VIAL IV ONE (07:51)
[2019-08-12] MEDS ORDERED: GLYCOPYRROLATE 0.2 MG/ML VIAL ONE (07:51)
[2019-08-12] MEDS ORDERED: ePHEDrine sulfate 50 MG/ML AMP ONE (07:51)
[2019-08-12] MEDS ORDERED: PHENYLEPHRINE HCL 10 MG/ML VIAL ONE ×2 (07:51→11:10)
[2019-08-12] MEDS ORDERED: MIDAZOLAM HCL 1 MG/ML 2ML VIAL ONE (07:51)
[2019-08-12] MEDS ORDERED: ONDANSETRON INJ 2 MG/ML 2 ML VIAL ONE (07:51)
[2019-08-12] MEDS ORDERED: fentaNYL citrate 100 MCG/2 ML VIAL ONE ×2 (07:52)
[2019-08-12] MEDS ORDERED: ROCURONIUM BROMIDE 10 MG/ML 5 ML VIAL ONE ×2 (07:54→10:06)
[2019-08-12] MEDS ORDERED: POTASSIUM CHLORIDE 20 MEQ TABCR PO STA (08:00)
[2019-08-12] MEDS ORDERED: ATROPINE SULFATE 0.1 MG/ML 10ML SYR IV PRN (08:53)
[2019-08-12] MEDS ORDERED: ONDANSETRON INJ 2 MG/ML 2 ML VIAL IV PRN (08:53)
[2019-08-12] MEDS ORDERED: ePHEDrine sulfate 50 MG/ML AMP IV PRN (08:53)
[2019-08-12] MEDS ORDERED: PROMETHAZINE HCL 6.25 MG in SODIUM CHLORIDE 0.9% 50 ML IV PRN (08:53)
[2019-08-12] MEDS ORDERED: fentaNYL citrate 100 MCG/2 ML VIAL IV PRN (08:53)
--- NOTE | 2019-08-12 08:53 | Surgery Consultation ---
Date of Consultation August 12, 2019 Assessment & Plan (1) Pleural effusion on right: I discussed this with the patient. I also discussed this with Dr. Matt Zacarias. I am concerned we may well be dealing with a malignancy. We are going to perform a right thoracoscopy with a pleural biopsy. We may end up doing a pleurectomy depending on the frozen section. I am encouraged by the fact that his lung expanded completely. He is draining very little from the chest tube since it was initially inserted. Discussed the surgery in detail. We will proceed later today. Present on Admission?: Yes History of Present Illness Attending Physician: Adal Parra History of Present Illness I have been asked to see this 59-year-old male suffer from rheumatoid arthritis. He works out quite diligently and in fact works at the [employer] in the [place]. He swims, does aerobics such as elliptical and treadmill, and walks quite a bit. He also does resistance work. He stated about 2 to 2-1/2 months ago he started becoming more short of breath. His exercise tolerance decreased. He has lost about 10 pounds. He had no fevers. He said no productive cough. He does have a history of cigarette smoking. He was found to have a large right-sided pleural effusion. His past medical history is also a significant for genital herpes dyslipidemia and hypertension. He was in the [employer] for 5 years but was not around any asbestos. His father was a truck body builder apprentice and was not exposed to asbestos either. I was asked to see him after a chest tube was placed which drained a large amount of fluid which was initially felt to be infected however this is an unusual effusion. I discussed this with Dr. Matt Zacarias and we may well be dealing with a malignancy. He has pleural abnormalities. I been asked to evaluate him for a pleural biopsy as well as a possible pleurectomy. Allergies Allergy/AdvReac Type Severity Reaction Status Date / Time No Known Allergies Allergy Unverified 08/07/19 16:38 Home Medications Home Medications Medication Instructions Recorded Confirmed Type amlodipine 5 mg PO DAILY 08/07/19 08/07/19 History atorvastatin 10 mg PO DAILY 08/07/19 08/07/19 History fluoxetine 60 mg PO DAILY 08/07/19 08/07/19 History lisinopril-hydrochlorothiazide 2 tab PO DAILY 08/07/19 08/07/19 History valacyclovir 500 mg PO DAILY 08/07/19 08/07/19 History zoster vaccine live (PF) 0 unit SUBCUT ONCE 08/07/19 08/07/19 History Patient History Medical History (Updated 08/12/19 @ 07:29 by Nathan Larios MD) Hyperlipidemia Hypertension Hyponatremia Pleural effusion on right Pneumothorax s/p chest tube placement Rheumatoid arthritis Surgical History History of thoracentesis Hx of chest tube placement Social History Preferred Language: Bengali Communication Ability: Effective Operations 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 Extraocular's are intact. Pupils are equal round react. Sclera anicteric. Are mucosa is moist. He is edentulous. His neck is supple. He has no supraclavicular cervical adenopathy. He has a small bore chest tube on the right which is draining a yellowish fluid. He has good aeration in both lung mccarty. He has a regular rate and rhythm of his heart without rub. Abdomen soft nontender. He has no peripheral edema. Has excellent peripheral pulses. He has no joint effusions. Neurologically is intact. Results & Data Vital Signs (Past 12 Hours) Vital Signs Temp Pulse Resp BP Pulse Ox 08/12/19 07:55 36.5 C 86 18 139/93 97 08/11/19 23:11 36.6 C 70 16 132/86 95 PG Care Time/CCT Total # of Minutes Spent Total Time Spent with Patient: Total time spent is greater than 50% in coordination of care (as documented) at patient's floor/unit and/or counseling patient: Coding Level of Care Code 78579 Inpt Consult Level 5 Diagnoses Pleural effusion on right J90
[2019-08-12] MEDS ORDERED: BUPIVACAINE 0.5 % 5 MG/1 ML MPF 30ML VIAL ONE (08:57)
[2019-08-12] MEDS ORDERED: BUPIVACAINE LIPOSOME 1.3% 266 MG/20 ML VIAL ONE (08:57)
[2019-08-12] MEDS ORDERED: SODIUM CHLORIDE 0.9% PF 50 ML VIAL ONE (08:57)
--- NOTE | 2019-08-12 09:42 | Hospitalist Progress Note ---
Date of Service August 12, 2019 Assessment & Plan (1) Pleural effusion: * Patient with a significant right-sided pleural effusion obscuring most of the right lung. * Pleuracentesis 08/07 with purulent drainage, chest tube in place * Continue Zosyn (on day 4 of therapy) -- 1/2 vials blood cultures growing coag neg staph * Vancomycin was previously discontinued, as bcx likely contaminant * Quant. gold though per per pulmonology patient is low risk for TB --> negative * Repeat CXR 08/10 with decreasing R lung infiltrates with persistent pleural/subpleural nodular opacities. persistent small R pneumothorax with drain in place * Pulmonary on consult -- appreciate continued assistance Small pneumothorax postprocedure may require VATS if it does not resolve * Plan per pulmonary team to clamp chest tube, repeat imaging this afternoon. If no evidence of pneumothorax or reaccumulation of fluid, chest tube may be able to be removed. Fluid appears to be exudative process. Empyema less likely with negative culture results and initial cytology (final pending, some evidence of atypical cells). Anti-CCP negative -- RA less likely * Thoracic Surgery consulted-- appreciate assistance -- Patient to OR this morning for VATS with biopsy. Per operative report, patient with multiple implants to visceral and parietal pleura POD #0 S/p Right Video-assisted Thoracoscopy with pleurectomy, Parietal pleural Biopsy, right lower lobe wedge resection and talc instillation(Right) with Dr. Solano on 08/11. EBL 125cc Concerns for probable mesothelioma on frozen section. Pleurectomy and wedge resection to show growth into lung. CXR following pleurectomy show R sided chest tube, slightly improved R tiny pneumo, interval development of small b/l effusions (2) Hypertension: * BP 104/60, following surgery * Will hold HCTZ, lisinopril post-operatively * Continue amlodipine * Continue to monitor (3) Rheumatoid arthritis: * Chronic. RF elevated at 132 * Anti CCP negative * ESR 19, CRP 2.48 * Not on biologics, maintained on NSAIDs - per pulm (4) Hyperlipidemia: * Chronic. Stable * Patient is on Lipitor 10 mg, will continue as outpatient (5) Hypokalemia: * RESOLVED * K 3.4 this morning -- replaced (had HCTZ resumed yesterday...may need replacement outpatient if continues to be low) * Monitor in AM (6) Hyponatremia: * Na 133 on 08/09 -- HCTZ held as above * Na low normal at 135 * Continue to monitor (7) DVT prophylaxis: * SCDs, * Enoxaparin SQ * Encourage ambulation Admission and Anticipated Discharge Date Admission Date: August 07, 2019 Supervising Physician Co-Signing Physician Notes Attending Attestation - Chart reviewed in detail, care plan d/w PA Dawna Raphael. I agree w/ the [place]aver[place] components of her documentation. Right-sided exudative pleural effusion s/p thoracentesis earlier this admission followed by placement of chest tube due to concern of empyema. Developed post-procedural pneumothorax. Cultures to date negative. Remains on IV zosyn. Pulmonary managing chest tube. Thoracic surgery consulted - VATS recommended. s/p VATS by Dr Solano today - early concern for mesothelioma. Await official path. Adal Parra MD Subjective Patient evaluated following OR. Denies pain. Shortness of breath improved. Patient denies fevers or chill, headache, n/v/d/c, abdominal pain or dysuria at this time. Denies cough or sputum production. Plans to await biopsy findings but concerns for malignancy on initial frozen section. Patient without further questions/concerns at this time. Plans to await results and input from pulmonary/thoracic input but to continue on current abx at this time. Review of Systems Review of Systems: All systems reviewed & are unremarkable except as noted in HPI & below Physical Exam Constitutional: WD/WN, vitals as above no acute distress Eyes: + anicteric sclerae and PERRL ENMT: Ears: no hearing impairment Nose: no external nose abnormality Neck: trachea midline, no thyromegaly Respiratory: normal respiratory effort and able to speak in complete sentences; no respiratory distress, no labored breathing and does not use accessory muscles Auscultation: lungs clear to auscultation bilaterally; no crackles and no wheezes Right sided chest tube with serosanguineous drainage. no airleak appreciated no crepitus appreciated Cardiovascular: RRR, no murmur, no edema Gastrointestinal (Abdomen): normal bowel sounds, soft, nontender, no hepatosplenomegaly Musculoskeletal: no cyanosis or clubbing, extremities motor strength 5/5 Skin: no rashes, warm and dry Neurologic: PERRL, EOMI, accommodation nl, no face palsy, no dysarthria Psychiatric: A+Ox3, euthymic affect Lymphatic: no cervical or axillary lymphadenopathy PG Care Time/CCT Total # of Minutes Spent Total Time Spent with Patient: Total time spent is greater than 50% in coordination of care (as documented) at patient's floor/unit and/or counseling patient: Coding Level of Care Code 33301 Subseq Hosp Care Lvl 3 Diagnoses Pleural effusion J90 Hypertension I10 Rheumatoid arthritis M06.9 Hyperlipidemia E78.5 Hypokalemia E87.6 Hyponatremia E87.1 DVT prophylaxis Z29.9
[2019-08-12] MEDS ORDERED: CEFAZOLIN 250 MG/ML 1 GM VIAL ONE (09:53)
[2019-08-12] MEDS ORDERED: SODIUM CHLORIDE 0.9% INJ 10 ML VIAL ONE (09:53)
[2019-08-12] MEDS ORDERED: ePHEDrine sulfate 50 MG/ML SYR ONE (09:55)
[2019-08-12] MEDS ORDERED: PHENYLEPHRINE 100MCG/ML 5ML SYR ONE (09:57)
[2019-08-12] MEDS ORDERED: TALC 6 GM/PKT EXT SCH (10:30)
[2019-08-12] MEDS ORDERED: CEFAZOLIN 2000MG 2,000 MG/15 ML SYR IV ONE (10:45)
[2019-08-12] MEDS ORDERED: METOCLOPRAMIDE HCL INJ 5 MG/ML 2 ML VIAL IV ONE (11:50)
[2019-08-12] MEDS ORDERED: METOCLOPRAMIDE HCL INJ 5 MG/ML 2 ML VIAL ONE (12:00)
--- NOTE | 2019-08-12 12:03 | Operative Report ---
PG Post Operative Report Pre & Post Diagnosis Operation Date: 08/12/19 09:00 Pre-Op Diagnosis: Right pleural effusion with pleural masses Post-Op Diagnosis: Right pleural effusion with pleural masses I identified the patient and participated in the time-out.: Yes Procedure Operation Date: 08/12/19 09:00 Actual Procedures p Right Video-assisted Thoracoscopy with pleurectomy, Parietal pleural Biopsy, right lower lobe wedge resection and talc instillation(Right) - Maldonado Solano MD, FACS Surgeon Maldonado Solano MD, FACS Route Sales[employer] Deena HUFF Estimated Blood Loss 125 Findings Consistent with Post-Op Diagnosis Specimens wedge biopsy RLL, Pleura Drains 24 thai right chest tube Anesthesia Type General Complications none Disposition Accompanied Patient To Recovery: Yes Disposition: Recovery Room Description of Procedure The patient presents with a 2-1/2-month history of increasing dyspnea on exertion and a 10 pound weight loss. He had a large right pleural effusion which was drained. The cytology was very worrisome. He also had pleural thickening and implants on his CT scan. We elected to take him to the operating room for a thoracoscopy. He had a small bore chest tube in place for his pleural effusion which drained nicely. On the morning of 08/12/2019 the patient was brought to the operating room and underwent uncomplicated right thoracoscopy. He had obvious implants on both the visceral and parietal pleura. It was quite thickened in some areas. Frozen section suggested a mesothelioma. We did an extensive pleurectomy however his diaphragm was markedly involved as was his right lower lobe. I did do a wedge resection of the right lower lobe to show that it was indeed growing into the lung. We also sprayed talc onto the diaphragm itself in the lower chest. He tolerated quite well was extubated in the room and had no air leak. Procedure: The patient was brought to the operating room and laid in the supine position. General anesthesia was induced and endotracheal intubation was performed with a single-lumen tube. Patient was then turned in the left lateral decubitus addition his right chest was prepped and draped in usual sterile fashion after the small bore tube is been removed. After an appropriate timeout had been called and appropriate prophylactic antibiotics administered, a 5 mm port was placed just posterior to the tip of the scapula. Upon placing the 5 mm 30 rescoping can be seen that these were obvious pleural implants and they look malignant. Another 5 mm port was placed anteriorly. We then began the process of performing the extensive pleurectomy. We took a piece of the pleura and removed it through a 12 mm port which we had placed just anterior to the midaxillary line 3 interspaces below are 5 mm ports. This was pulled out through the port to avoid contact with the subcutaneous tissues. While waiting for this to come back we then performed an extensive pleurectomy and took down the entire upper aspect of the pleural cavity. We identified the vena cava as well as the azygos vein. Should be noted that the hilum on the right with extensively involved with very thick and nodular tissue which I was wary of removing. We did take down the entire pleural surface down to the diaphragm. We also removed much of along the mediastinum. The right lower lobe had marked involvement and I did do a wedge resection of this with an Endo ESTEBAN stapler through our 12 m port. This was removed through an Endobag. Frozen section came back as a probable mesothelioma. I then removed as much of the pleura as I could get off although I could not peel it off of the diaphragm. I left all of this in the lower chest. I then put an Endobag and and repeatedly filled it and removed it. We removed a large amount of pleura. I was quite pleased with the pleural surface except for the diaphragm. There were large nodular densities and I removed a couple of these but this was growing directly into the diaphragm. For this reason I used aerosolized talc spray and using an atomizer injected and onto the lower chest and diaphragm. We then placed a 24 Lithuanian chest tube through the 12 mm port directed towards the apex. This was held in place with heavy silk suture. 4-0 Monocryl was used to close each of the 5 mm ports. Patient had no air leak conclusion of his case and his chest x-ray in the recovery room looked quite good. A total of 266 mg of Exparel were mixed with 30 cc of 0.5% bupivacaine and 250 cc of normal saline. This was used to inject each of the 3 ports before making the incision. We also did an intercostal block from the second to the 12th rib intrathoracically under thoracoscopic guidance. The patient was awakened in the operating room and easily extubated. He was stable upon transfer to the recovery room. I attest to the content of the Intraoperative Record and any orders documented therein. Any exceptions are noted below.
--- NOTE | 2019-08-12 12:05 | XRay Report ---
XR chest 1V portable HISTORY: Postop. pleurectomy COMPARISON: Chest 08/12/2019. FINDINGS: There is a right-sided chest tube which terminates in the right lung apex. Tiny right apica l pneumothorax has decreased in size. This demonstrates a maximal pleural gap of [address] eural effusion has increased in size. Right mid to lower lung zone densities are again noted. The hea rt is normal in size. There is a small left pleural effusion and left basilar densities which have pr ogressed. IMPRESSION: 1. Right-sided chest tube terminates in the right lung apex. Tiny right pneumothorax has slightly imp roved. 2. Interval development of small bilateral pleural effusions. ACT 112: Negative or not required by law. Electronically signed by: Jim Tariq M.D. 08/12/2019 12:04 PM
--- NOTE | 2019-08-12 12:31 | Anesthesiology Progress Note ---
Date of Service August 12, 2019 Anesthesia Post Procedure Vital Signs Vital Signs: Temp Pulse Pulse Resp BP Pulse Ox 08/12/19 12:19 90 12 104/60 99 08/12/19 12:10 96 H 12 101/61 99 08/12/19 12:00 90 10 L 101/65 98 08/12/19 11:50 36.1 C L 94 H 16 87/52 L 100 08/12/19 08:42 37.0 C 97 H 18 171/96 H 96 08/12/19 07:55 36.5 C 86 18 139/93 97 08/11/19 23:11 36.6 C 70 16 132/86 95 08/11/19 18:19 84 138/93 08/11/19 15:42 36.3 C L 84 16 161/97 H 97 Pain Intensity Right Ribs: Pain Intensity: 3 Transfer of Care Handoff Completed per policy Notes Mental Status: alert / awake / arousable Patient Amnestic to Procedure: Yes Nausea / Vomiting: adequately controlled Pain: adequately controlled Airway Patency, RR, SpO2: stable & adequate BP & HR: stable & adequate Hydration State: stable & adequate Anesthetic Complications: no major complications apparent
[2019-08-12] MEDS ORDERED: MoRPHine SULFATE 2 MG/ML CARP IV PRN (12:45)
[2019-08-12] MEDS: ATORVASTATIN 10 MG TAB PO SCH (12:50)
[2019-08-12] MEDS: FLUOXETINE HCL 20 MG CAP PO SCH (12:50)
[2019-08-12] MEDS: VALACYCLOVIR HCL 500 MG TABLET PO SCH (12:50)
[2019-08-12] MEDS: lisinopriL 20 MG TAB PO SCH (12:57)
[2019-08-12] MEDS: AMLODIPINE BESYLATE 5 MG TAB PO SCH (12:57)
[2019-08-12] MEDS: hydroCHLOROthiazide 25 MG TAB PO SCH (12:58)
[2019-08-12] MEDS: ENOXAPARIN INJ 40 MG/0.4 ML SYR SQ SCH (12:58)
[2019-08-12] MEDS: D5W AND 1/2NSS 1,000 ML IV SCH ×2 (13:02→21:48)
--- NOTE | 2019-08-12 14:05 | Pulmonology Progress Note ---
Date of Service August 12, 2019 Assessment & Plan (1) Pleural effusion on right: Impression: 59-year-old male with history of rheumatoid arthritis admitted with large right-sided pleural effusion. Video-assisted thoracoscopic pleurectomy today was preliminarily consistent with mesothelioma. Recommendation: 1. Pleural effusion: Await final pathology. The patient is undergone partial pleurectomy and pleurodesis. Will need outpatient medical oncology and may benefit from referral to a specialized center for consideration of enrollment in clinical trial. May need CT of the abdomen and pelvis to complete staging. 3. Potential pleural space infection: The patient is currently day #4 of Zosyn. The gram-positive cocci noted on blood cultures likely contaminant. Can discontinue antibiotics at this point time as this does not appear to be an infectious process. 4. Rheumatoid arthritis: Rheumatoid factor elevated but anti-CCP negative. Pleural process does not appear to be related to rheumatoid arthritis. Once the patient's chest tubes are removed, he can likely be dismissed from the hospital with follow-up with medical oncology in the outpatient setting. The above recommendations and plan were extensively discussed with the patient at bedside. He expressed understanding and is in agreement with plan as outlined. (2) Abnormal CT scan of lung: (3) Pneumothorax: Subjective Seen and examined post video-assisted thoracoscopic intervention. Discussed with thoracic surgery. The patient feels that he is doing well clinically. His pain is well controlled. He is sitting up eating lunch. He is not having any significant shortness of breath. No palpitations. Review of Systems Review of Systems: Unchanged from prior Physical Exam Constitutional: WD/WN, vitals as above Neck: trachea midline, no thyromegaly Respiratory: normal respiratory effort, lungs clear to auscultation Cardiovascular: RRR, no murmur, no edema Gastrointestinal (Abdomen): normal bowel sounds, soft, nontender, no hepatosplenomegaly Musculoskeletal: Extremities: extremities normal to inspection Skin: no rashes, warm and dry Lymphatic: no cervical lymphadenopathy Results & Data ([facility]) Vital Signs (Past 12 Hours) Vital Signs Temp Pulse Pulse Resp BP Pulse Ox 08/12/19 13:28 36.4 C L 18 91/59 L 96 08/12/19 12:47 36.4 C L 92 H 139/93 96 08/12/19 12:28 36.6 C 86 14 99/58 L 99 08/12/19 12:19 90 12 104/60 99 08/12/19 12:10 96 H 12 101/61 99 08/12/19 12:00 90 10 L 101/65 98 08/12/19 11:50 36.1 C L 94 H 16 87/52 L 100 08/12/19 08:42 37.0 C 97 H 18 171/96 H 96 08/12/19 07:55 36.5 C 86 18 139/93 97 Laboratory Results 08/12/19 06:22 08/12/19 06:22 Diagnostic Findings Postoperative chest x-ray was reviewed. Chest tube is along the lateral aspect of the chest terminating in the apex. There is a small right-sided effusion. Small apical pneumothorax is still present. Some hazy opacities in the right lung. PG Care Time/CCT Total # of Minutes Spent Total Time Spent with Patient: Total time spent is greater than 50% in coordination of care (as documented) at patient's floor/unit and/or counseling patient: Coding Level of Care Code 94205 Subseq Hosp Care Lvl 2 Diagnoses Pleural effusion on right J90 Abnormal CT scan of lung R91.8 Pneumothorax J93.9
[2019-08-12] MEDS: ACETAMINOPHEN 1,000 MG/100 ML VIAL IV SCH ×2 (14:24→21:17)
[2019-08-12] MEDS: METOCLOPRAMIDE HCL INJ 5 MG/ML 2 ML VIAL IV SCH (20:38)
[2019-08-12] MEDS: DOCUSATE SODIUM 100 MG CAP PO SCH (20:38)
[2019-08-13] MEDS: METOCLOPRAMIDE HCL INJ 5 MG/ML 2 ML VIAL IV SCH (03:39)
[2019-08-13 05:37] LABS: Basophils # (auto) 0.01 K/uL (0-0.2); Basophils % (auto) 0.1 %; Eosinophils # (auto) 0.07 K/uL (0-0.5); Eosinophils % (auto) 0.8 %; Hematocrit (blood only) 33.8 % (42-52); Hemoglobin 11.7 g/dL (14.0-18.0); Immature Granulocytes # (auto) 0.02 K/uL (0.00-0.02); Immature Granulocytes % (auto) 0.2 %; Lymphocytes # (auto) 1.08 K/uL (1.2-3.4); Lymphocytes % (auto) 12.3 %; Mean Corpuscular Hemoglobin 30.5 pg (25-34); Mean Corpuscular Hgb Conc 34.6 g/dL (32-36); Mean Corpuscular Volume 88.3 fL (80-100); Mean Platelet Volume 9.3 fL (7.4-10.4); Monocytes # (auto) 1.56 K/uL (0.11-0.59); Monocytes % (auto) 17.7 %; Neutrophils # (auto) 6.07 K/uL (1.4-6.5); Neutrophils % (auto) 68.9 %; Platelet Count 290 K/uL (130-400); RDW Coefficient of Variation 12.9 % (11.5-14.5); RDW Standard Deviation 41.4 fL (36.4-46.3); Red Blood Count 3.83 M/uL (4.7-6.1); White Blood Count 8.81 K/uL (4.8-10.8)
[2019-08-13] MEDS: ACETAMINOPHEN 1,000 MG/100 ML VIAL IV SCH ×3 (05:50→21:33)
[2019-08-13 05:59] LABS: Albumin Level 2.4 gm/dl (3.4-5.0); BUN Creatinine Ratio 11.4 (10-20); Calcium 8.1 mg/dl (8.5-10.1); Creatinine Clr Calc Pharmacy 80.8 ml/min; Est GFR (African American) 105.1; Est GFR (Non-African American) 90.7; Magnesium 1.8 mg/dl (1.8-2.4); Potassium 3.4 mmol/L (3.5-5.1)
[2019-08-13 06:02] LABS: Albumin Globulin Ratio 0.8 (0.9-2); Bilirubin,Total 0.3 mg/dl (0.2-1); Globulin 3.2 gm/dl (2.5-4.0); Total Protein 5.6 gm/dl (6.4-8.2)
--- NOTE | 2019-08-13 07:11 | XRay Report ---
XR chest 1V portable CLINICAL HISTORY: 59 years-old Male presenting with pleurectomy. TECHNIQUE: Portable upright AP view of the chest was obtained. COMPARISON: 08/12/2019. FINDINGS: Large bore right pleural drain remains position at the right apex. Associated right chest wall emphys brian. Cardiomediastinal silhouette unchanged. Bibasilar bandlike opacities greater on the right. Sligh tly added density of the right lung base. Trace bilateral pleural effusions may be present. No demons trable pneumothorax. Degenerative changes of the thoracic spine. Upper abdomen normal. IMPRESSION: 1. Right pleural drain unchanged. No convincing pneumothorax on the current exam. 2. Bibasilar atelectasis, right greater than left. 3. Possible trace bilateral pleural effusions. ACT 112: Negative or not required by law. Electronically signed by: Hayes Davis M.D. 08/13/2019 7:10 AM
[2019-08-13] MEDS: D5W AND 1/2NSS 1,000 ML IV SCH (07:48)
[2019-08-13] MEDS ORDERED: POTASSIUM CHLORIDE 20 MEQ TABCR PO STA (07:53)
--- NOTE | 2019-08-13 08:20 | Hospitalist Progress Note ---
Date of Service August 13, 2019 Assessment & Plan (1) Pleural effusion: * Patient with a significant right-sided pleural effusion obscuring most of the right lung. * Pleuracentesis 08/07 with purulent drainage, chest tube in place * Zosyn discontinued on 08/11 -- 1/2 vials blood cultures growing coag neg cristel flor contaminant * Quant. gold though per per pulmonology patient is low risk for TB --> negative * Repeat CXR 08/10 with decreasing R lung infiltrates with persistent pleural/subpleural nodular opacities. persistent small R pneumothorax with drain in place * Pulmonary on consult -- appreciate continued assistance Small pneumothorax postprocedure may require VATS if it does not resolve * Plan per pulmonary team to clamp chest tube, repeat imaging this afternoon. If no evidence of pneumothorax or reaccumulation of fluid, chest tube may be able to be removed. Fluid appears to be exudative process. Empyema less likely with negative culture results and initial cytology (final pending, some evidence of atypical cells). Anti-CCP negative -- RA less likely * Thoracic Surgery consulted-- appreciate assistance -- Patient to OR this morning for VATS with biopsy. Per operative report, patient with multiple implants to visceral and parietal pleura POD #1 S/p Right Video-assisted Thoracoscopy with pleurectomy, Parietal pleural Biopsy, right lower lobe wedge resection and talc instillation(Right) with Dr. Solano on 08/11. EBL 125cc Concerns for probable mesothelioma on frozen section. Pleurectomy and wedge resection to show growth into lung. CXR 08/11 following pleurectomy show R sided chest tube, slightly improved R tiny pneumo, interval development of small b/l effusions CXR 08/12 without pneumothorax. bibasilar atelectasis R>L. Of note, patient's father in [place] diagnosed with Mesothelioma, however he did not have personal exposure himself. Will need outpatient medical oncology and may benefit from referral to a specialized center for consideration of enrollment in clinical trial. --> spoke with nurse navigator about getting this set up outpatient May need CT of the abdomen and pelvis to complete staging. CXR in AM -- possible chest tube removal tomorrow vs Sunday (2) Acute blood loss anemia: * Likely secondary to acute blood loss following surgery in addition to dilutional from IVF following surgery * EBL 125cc. Pre-op h/h 15.2/42.8 * H/h 11.7/33.8 * Monitor CBC in AM (3) Hypertension: * BP 113/76 * Will hold HCTZ, lisinopril post-operatively. Will also hold amlodipine. * Likely able to resume in AM pending vitals/labs * Continue to monitor (4) Rheumatoid arthritis: * Chronic. RF elevated at 132 * Anti CCP negative * ESR 19, CRP 2.48 * Not on biologics, maintained on NSAIDs - per pulm (5) Hyperlipidemia: * Chronic. Stable * Patient is on Lipitor 10 mg, will continue as outpatient (6) Hypokalemia: * RESOLVED * K 3.4 this morning -- give 20meq PO. Of note, did receive HCTZ yesterday -- on hold post-operatively currently. If continues to be low once resumed, may need daily 20meq at discharge * Monitor in AM (7) Hyponatremia: * Na 133 on 08/09 -- HCTZ held as above * Na low normal at 134 * Continue to monitor (8) DVT prophylaxis: * SCDs, * Enoxaparin SQ discontinued as patient to OR -- to be resumed once patient with less bleeding from chest tube * Encourage ambulation Dispo: possible chest tube removal tomorrow vs Sunday. Will need outpatient med/onc at discharge. Admission and Anticipated Discharge Date Admission Date: August 07, 2019 Supervising Physician Co-Signing Physician Notes Attending Attestation - Chart reviewed in detail, care plan d/w REFUGIO Raphael. I agree w/ the [place]aver[place] components of her documentation. Right-sided exudative pleural effusion s/p thoracentesis earlier this admission followed by placement of chest tube due to concern of empyema. Developed post-procedural pneumothorax. Cultures pending from pleural fluid from 08/06. Remains on IV zosyn. Pulmonary managing chest tube. POD #1 s/p VATS by Dr Solano - path concerning for mesothelioma. Defer management to thoracic/pulmonary. Adal Parra MD Subjective Patient seen this morning, up in chair. Patient states his breathing has improved. States some pain at site of chest tube that is worse with movement. States tylenol has been working fairly well to control the pain, but states he currently is 5/10 on pain scale and would like dose of additional medication if possible. States he is aware of likely mesothelioma based on preliminary results and that we will work on getting him set up with medical oncology outpatient after discharge for possible treatment options. Otherwise, patient denies any fever or chills, chest pain, abdominal pain, n/v/d/c. Good appetitie. No difficulty eating/drinking. Hopeful for chest tube to be removed tomorrow, but aware that will be based on pulm/thoracic teams' discretion. All questions/concerns addressed at this time. Review of Systems Review of Systems: All systems reviewed & are unremarkable except as noted in HPI & below Physical Exam Physical Exam: Constitutional WD/WN, vitals as above no acute distress Eyes + anicteric sclerae and PERRL ENMT Ears: no hearing impairment Nose: no external nose abnormality Neck trachea midline, no thyromegaly Respiratory normal respiratory effort and able to speak in complete sentences; On room air, no respiratory distress, no labored breathing and does not use accessory muscles Auscultation: lungs clear to auscultation bilaterally; no crackles and no wheezes Right sided chest tube with decreased drainage, serosanguineous- hooked to Yohana device. No airleak appreciated, no crepitus Cardiovascular RRR, no murmur, no edema Gastrointestinal (Abdomen) normal bowel sounds, soft, nontender, no hepatosplenomegaly Musculoskeletal no cyanosis or clubbing, extremities motor strength 5/5 Skin no rashes, warm and dry Neurologic PERRL, EOMI, accommodation nl, no face palsy, no dysarthria Psychiatric A+Ox3, euthymic affect Lymphatic no cervical or axillary lymphadenopathy PG Care Time/CCT Total # of Minutes Spent Total Time Spent with Patient: Total time spent is greater than 50% in coordination of care (as documented) at patient's floor/unit and/or counseling patient: Coding Level of Care Code 61221 Subseq Hosp Care Lvl 2 Diagnoses Pleural effusion J90 Acute blood loss anemia D62 Hypertension I10 Rheumatoid arthritis M06.9 Hyperlipidemia E78.5 Hypokalemia E87.6 Hyponatremia E87.1 DVT prophylaxis Z29.9
--- NOTE | 2019-08-13 08:30 | Progress Notes ---
DATE: 08/13/2019 Mr. Romero is 1 day status post an extensive pleurectomy and lung biopsy for what appears to be a mesothelioma in his right pleural cavity. The patient looks great today. I do not see an air leak. He has drained some bloody fluid, but his lung is well expanded with really no pleural effusion. All in all I am quite pleased with him. He has very little in the way of pain. He is taking p.o. well and voiding. We are going to stop his IV fluids today. I will have him ambulate and hopefully get his chest tube out if not tomorrow then more likely on Sunday. As stated, I was quite pleased with how well he looks. I did talk to him about his diagnosis today.
[2019-08-13] MEDS: FLUOXETINE HCL 20 MG CAP PO SCH (08:45)
[2019-08-13] MEDS: DOCUSATE SODIUM 100 MG CAP PO SCH ×2 (08:45→21:33)
[2019-08-13] MEDS: VALACYCLOVIR HCL 500 MG TABLET PO SCH (08:46)
[2019-08-13] MEDS: ATORVASTATIN 10 MG TAB PO SCH (08:46)
[2019-08-13] MEDS: OXYCODONE HCL IR 5 MG TAB (IMMEDIATE RELEASE) PO PRN ×3 (09:28→21:59)
--- NOTE | 2019-08-13 10:27 | Pulmonology Progress Note ---
Date of Service August 13, 2019 Assessment & Plan (1) Pleural effusion on right: Impression: 59-year-old male with history of rheumatoid arthritis admitted with large right-sided pleural effusion. Video-assisted thoracoscopic pleurectomy today was preliminarily consistent with mesothelioma. The patient does state that his father was diagnosed with mesothelioma and his father was a wringer operator in the [place]. 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 Recommendation: 1. Pleural effusion: Await final pathology. The patient is undergone partial pleurectomy and pleurodesis. Will need outpatient medical oncology and may benefit from referral to a specialized center for consideration of enrollment in clinical trial. May need CT of the abdomen and pelvis to complete staging. 3. Potential pleural space infection: The patient is currently day #5 of Zosyn. The gram-positive cocci noted on blood cultures likely contaminant. Okay to discontinue antibiotics. 4. Rheumatoid arthritis: Rheumatoid factor elevated but anti-CCP negative. Pleural process unlikely to be related to rheumatoid arthritis. Once the patient's chest tubes are removed, he can likely be dismissed from the hospital with follow-up with medical oncology in the outpatient setting. We are available to see him if needed. Feel free to contact us with questions or concerns The above recommendations and plan were extensively discussed with the patient at bedside. He expressed understanding and is in agreement with plan as outlined. (2) Abnormal CT scan of lung: (3) Pneumothorax: Subjective Patient seen and examined. EMR reviewed. He is doing well clinically. His pain is well controlled. He is on room air. His chest tube remains in place under the care of thoracic surgery. He is tolerating a diet. He is aware of his diagnosis. Review of Systems Review of Systems: All systems reviewed & are unremarkable except as noted in HPI & below Physical Exam Constitutional: WD/WN, vitals as above Neck: trachea midline, no thyromegaly Respiratory: normal respiratory effort, lungs clear to auscultation Cardiovascular: RRR, no murmur, no edema Gastrointestinal (Abdomen): normal bowel sounds, soft, nontender, no hepatosplenomegaly Musculoskeletal: Extremities: extremities normal to inspection Skin: no rashes, warm and dry Lymphatic: no cervical lymphadenopathy Results & Data ([facility]) Vital Signs (Past 12 Hours) Vital Signs Temp Pulse Pulse Resp BP BP Pulse Ox 08/13/19 08:14 36.6 C 94 H 94 H 17 113/76 95 08/13/19 06:53 36.8 C 70 16 108/69 94 08/13/19 04:16 36.9 C 82 16 122/71 95 08/12/19 23:08 36.6 C 88 16 113/70 95 Laboratory Results 08/13/19 05:00 08/13/19 05:00 Surgical specimen pending but preliminary report consistent with mesothelioma Diagnostic Findings Chest x-ray today demonstrates the right-sided chest tube to be in good position. There is small amount of blunting at the right costophrenic angle. No readily apparent pneumothorax is identified. PG Care Time/CCT Total # of Minutes Spent Total Time Spent with Patient: Total time spent is greater than 50% in coordination of care (as documented) at patient's floor/unit and/or counseling patient: Coding Level of Care Code 25439 Subseq Hosp Care Lvl 3 Diagnoses Pleural effusion on right J90 Abnormal CT scan of lung R91.8 Pneumothorax J93.9 Time Spent (min) 35
[2019-08-14] MEDS: ACETAMINOPHEN 1,000 MG/100 ML VIAL IV SCH ×3 (05:32→21:47)
[2019-08-14 05:34] LABS: Basophils # (auto) 0.03 K/uL (0-0.2); Basophils % (auto) 0.3 %; Eosinophils # (auto) 0.15 K/uL (0-0.5); Eosinophils % (auto) 1.6 %; Hematocrit (blood only) 33.8 % (42-52); Hemoglobin 11.5 g/dL (14.0-18.0); Immature Granulocytes # (auto) 0.03 K/uL (0.00-0.02); Immature Granulocytes % (auto) 0.3 %; Lymphocytes # (auto) 1.14 K/uL (1.2-3.4); Lymphocytes % (auto) 12.4 %; Mean Corpuscular Hemoglobin 30.3 pg (25-34); Mean Corpuscular Volume 88.9 fL (80-100); Mean Platelet Volume 9.2 fL (7.4-10.4); Monocytes % (auto) 17.4 %; Neutrophils # (auto) 6.23 K/uL (1.4-6.5); Platelet Count 295 K/uL (130-400); RDW Standard Deviation 42.1 fL (36.4-46.3); White Blood Count 9.18 K/uL (4.8-10.8)
[2019-08-14 06:07] LABS: Albumin Level 2.5 gm/dl (3.4-5.0); BUN Creatinine Ratio 12.7 (10-20); Calcium 8.5 mg/dl (8.5-10.1); Creatinine Clr Calc Pharmacy 103.3 ml/min; Est GFR (African American) 118.3; Est GFR (Non-African American) 102.1; Potassium 3.9 mmol/L (3.5-5.1)
[2019-08-14 06:10] LABS: Albumin Globulin Ratio 0.7 (0.9-2); Bilirubin,Total 0.5 mg/dl (0.2-1); Globulin 3.6 gm/dl (2.5-4.0); Total Protein 6.1 gm/dl (6.4-8.2)
--- NOTE | 2019-08-14 07:56 | XRay Report ---
XR chest 1V portable CLINICAL HISTORY: 59 years-old Male presenting with s/p pleurectomy. TECHNIQUE: Portable upright AP view of the chest was obtained. COMPARISON: 08/13/2019. FINDINGS: Large bore right pleural drain remains positioned at the right apex. Associated mild soft tissue emph ysema along the right lateral chest wall. Architectural distortion of the right lung with underlying bandlike opacities in the right mid to lower lung unchanged. A small right pleural effusion is not ex cluded. No demonstrable pneumothorax. Cardiomediastinal silhouette unchanged. Aeration of the left lung base. Advanced degenerative changes of the right glenohumeral joint. Upper abdomen normal. IMPRESSION: 1. Right pleural drain in place. No demonstrable pneumothorax. 2. Stable postsurgical changes of the right lung base. Right pleural effusion may be present. 3. Improved aeration of the left lung base. ACT 112: Negative or not required by law. Electronically signed by: Hayes Davis M.D. 08/14/2019 7:55 AM
[2019-08-14] MEDS: ENOXAPARIN INJ 40 MG/0.4 ML SYR SQ SCH (08:40)
[2019-08-14] MEDS: ATORVASTATIN 10 MG TAB PO SCH (08:40)
[2019-08-14] MEDS: FLUOXETINE HCL 20 MG CAP PO SCH (08:40)
[2019-08-14] MEDS: VALACYCLOVIR HCL 500 MG TABLET PO SCH (08:40)
[2019-08-14] MEDS: DOCUSATE SODIUM 100 MG CAP PO SCH ×2 (08:40→20:42)
--- NOTE | 2019-08-14 09:06 | Surgery Progress Note ---
Date of Service August 14, 2019 Assessment & Plan (1) Pleural effusion on right: -s/p RVATS with pleurectomy -pathology shows mesothelioma -CT to remain in until drainage decreases -continue ambulation, coughing, deep breathing -lovenox added for DVT prevention Subjective Pt. notes his breathing has markedly improved since surgery. He has only minor discomfort from chest tube. He has been ambulating in hallway several times per day. He is voiding without difficulty and tolerating regular diet. No BM but passing flatus. No abdominal pain, nausea, or vomiting. Physical Exam Constitutional: well developed and well nourished; no acute distress Neck: trachea midline Respiratory: normal respiratory effort; no respiratory distress and no labored breathing BS are decreased on right greatest at base. No crepitus in soft tissue of chest wall. CT has no air air leak. Cardiovascular: Rate/Rhythm: regular rate and regular rhythm Gastrointestinal (Abdomen): Percussion/Palpation: abdomen soft; abdomen nontender Musculoskeletal: no calf tenderness Results & Data Vital Signs (Past 12 Hours) Vital Signs Temp Pulse Resp BP Pulse Ox 08/14/19 07:01 37.3 C 104 H 18 132/86 94 08/13/19 23:00 37.1 C 87 18 146/87 H 96 PG Care Time/CCT Total # of Minutes Spent Total Time Spent with Patient: Total time spent is greater than 50% in coordination of care (as documented) at patient's floor/unit and/or counseling patient: Coding Level of Care Code None Diagnoses Pleural effusion on right J90
--- NOTE | 2019-08-14 11:37 | Hospitalist Progress Note ---
Date of Service August 14, 2019 Assessment & Plan (1) Pleural effusion: * Patient with a significant right-sided pleural effusion obscuring most of the right lung. * Pleuracentesis 08/07 with purulent drainage, chest tube in place * Zosyn discontinued on 08/11 -- 1/2 vials blood cultures growing coag neg staph, likely contaminant. * Quant. gold though per per pulmonology patient is low risk for TB --> negative * Repeat CXR 08/10 with decreasing R lung infiltrates with persistent pleural/subpleural nodular opacities. persistent small R pneumothorax with drain in place * Pulmonary on consult -- appreciate continued assistance * Thoracic Surgery consulted-- appreciate assistance -POD #2 S/p Right Video-assisted Thoracoscopy with pleurectomy, Parietal pleural Biopsy, right lower lobe wedge resection and talc instillation(Right) with Dr. Solano on 08/11. EBL 125cc. Multiple implants to visceral and parietal pleura. -Pathology shows MESOTHELIOMA -Continue cough, deep breathing. Ambulation encouraged -- patient has walked the halls several times and will continue to do as such. -Of note, patient's father in [place] diagnosed with Mesothelioma, however he did not have personal exposure himself. 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 Montano on September 01 to see about possible referral / enrollment in clinical trial. Told Dr. Montano today that patient will be on [facility] edule next month for this reason. -May need CT of the abdomen and pelvis to complete staging -- will defer to oncology -Possible chest tube removal tomorrow if drainage decreases --> patient with > 200mL output since this morning - CXR without pneumothoax. R effusion may be present. Improved aeration of L base -Repeat CXR in AM (2) Mesothelioma: * See above (3) Acute blood loss anemia: * Secondary to acute blood loss following surgery in addition to dilutional from IVF following surgery. * EBL 125cc. Pre-op h/h 15.2/42.8 * IVF have since been discontinued * H/h stable at 11.5/33.8 * Continue to monitor drain output * CBC in AM (4) Hypertension: * Chronic. Stable. BP 132/86 * Continue amlodipine 5mg daily * HCTZ and lisinopril held post-operatively --> Will resume lisinopril for now. Patient may not need to be on both HCTZ and ACEI as BPs have been well con trolled off. * Continue to monitor (5) Rheumatoid arthritis: * Chronic. RF elevated at 132 * Anti CCP negative * ESR 19, CRP 2.48 * Not on biologics, maintained on NSAIDs - per pulm (6) Hyperlipidemia: * Chronic. Stable * Patient is on Lipitor 10 mg, will continue as outpatient (7) Hypokalemia: * RESOLVED * Of note, patient's HCTZ held 08/12 -- may not need to be resumed and patient may be able to be discharged on ACEI and amlodipine alone, which should prevent further hypokalemia if that is cause. If BP becomes elevated, may need to send with oral potassium supplementation if resumed. * K 3.9 * Monitor in AM * (8) Hyponatremia: * Na 133 on 08/09 * Na low normal at 134 -- continue to hold HCTZ * Continue to monitor (9) DVT prophylaxis: * SCDs, ambulation encouraged * Enoxaparin SQ on hold for procedure --> RESUMED Dispo: possible chest tube removal tomorrow pending output. Admission and Anticipated Discharge Date Admission Date: August 07, 2019 Subjective Patient evaluated this morning. States he is feeling much better but would like to wash his hair. He states that he was hopeful to have chest tube removed this morning secondary to it being painful to move around and get comfortable in bed without pain. Pain has been well controlled with IV tylenol and prn oxycodone. Denies fevers or chills, chest pain, shortness of breath, abdominal pain, n/v/d, dysuria. He states he had a BM this morning and feels much better. Eating and drinking without difficulty. Discussed setting up follow up appointment with oncology at discharge and that this will be arranged for him. All questions/concerns addressed. Patient hopeful for chest tube removal tomorrow and possible discharge in the next 2 days. 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 He states that this is the only other exposure he can think of outside of possibly living in a house in the past with asbestos that he was unaware of. Review of Systems Review of Systems: All systems reviewed & are unremarkable except as noted in HPI & below Physical Exam Physical Exam: Constitutional WD/WN, vitals as above no acute distress Eyes + anicteric sclerae and PERRL ENMT Ears: no hearing impairment Nose: no external nose abnormality Neck trachea midline, no thyromegaly Respiratory normal respiratory effort and able to speak in complete sentences; On room air, no respiratory distress, no labored breathing and does not use accessory muscles. Decreased breath sounds R lung base. Chest tube hooked to suction without evidence of air leak, bloody drainage present. No crepitus appreciated. No crackles/wheezing. Cardiovascular RRR, no murmur, no edema Gastrointestinal (Abdomen) normal bowel sounds, soft, nontender, no hepatosplenomegaly Musculoskeletal no cyanosis or clubbing, extremities motor strength 5/5 Skin no rashes, warm and dry Neurologic PERRL, EOMI, accommodation nl, no face palsy, no dysarthria Psychiatric A+Ox3, euthymic affect Lymphatic no cervical or axillary lymphadenopathy Results & Data Results & Data ([facility]) Vital Signs (Past 12 Hours) Vital Signs Temp Pulse Resp BP Pulse Ox 08/14/19 07:01 37.3 C 104 H 18 132/86 94 Laboratory Results 08/14/19 08/14/19 Range/Units 05:17 05:17 WBC 9.18 (4.8-10.8) K/uL RBC 3.80 L (4.7-6.1) M/uL Hgb 11.5 L (14.0-18.0) g/dL Hct 33.8 L (42-52) % MCV 88.9 (80-100) fL MCH 30.3 (25-34) pg MCHC 34.0 (32-36) g/dL RDW Std Deviation 42.1 (36.4-46.3) fL RDW Coeff of Enmanuel 13.0 (11.5-14.5) % Plt Count 295 (130-400) K/uL MPV 9.2 (7.4-10.4) fL Immature Gran % (Auto) 0.3 % Neut % (Auto) 68.0 % Lymph % (Auto) 12.4 % Rooks % (Auto) 17.4 % Eos % (Auto) 1.6 % Baso % (Auto) 0.3 % Immature Gran # (Auto) 0.03 H (0.00-0.02) K/uL Neut # (Auto) 6.23 (1.4-6.5) K/uL Lymph # (Auto) 1.14 L (1.2-3.4) K/uL Rooks # (Auto) 1.60 H (0.11-0.59) K/uL Eos # (Auto) 0.15 (0-0.5) K/uL Baso # (Auto) 0.03 (0-0.2) K/uL Sodium 134 L (136-145) mmol/L Potassium 3.9 (3.5-5.1) mmol/L Chloride 101 (98-107) mmol/L Carbon Dioxide 30 (21-32) mmol/L Anion Gap 3.0 (3-11) BUN 9 (7-18) mg/dl Creatinine 0.72 (0.6-1.4) mg/dl Est Cr Clr Drug Dosing 103.3 ml/min Est GFR ( Amer) 118.3 Est GFR (Non-Af Amer) 102.1 BUN/Creatinine Ratio 12.7 (10-20) Glucose 101 H (70-99) mg/dl Calcium 8.5 (8.5-10.1) mg/dl Total Bilirubin 0.5 (0.2-1) mg/dl AST 17 (15-37) U/L ALT 22 (12-78) U/L Alkaline Phosphatase 43 L (45-117) U/L Total Protein 6.1 L (6.4-8.2) gm/dl Albumin 2.5 L (3.4-5.0) gm/dl Globulin 3.6 (2.5-4.0) gm/dl Albumin/Globulin Ratio 0.7 L (0.9-2) Diagnostic Findings CXR IMPRESSION: 1. Right pleural drain in place. No demonstrable pneumothorax. 2. Stable postsurgical changes of the right lung base. Right pleural effusion may be present. 3. Improved aeration of the left lung base. PG Care Time/CCT Total # of Minutes Spent Total Time Spent with Patient: Total time spent is greater than 50% in coordination of care (as documented) at patient's floor/unit and/or counseling patient: Coding Level of Care Code 46295 Subseq Hosp Care Lvl 2 Diagnoses Pleural effusion J90 Mesothelioma C45.9 Acute blood loss anemia D62 Hypertension I10 Rheumatoid arthritis M06.9 Hyperlipidemia E78.5 Hypokalemia E87.6 Hyponatremia E87.1 DVT prophylaxis Z29.9
[2019-08-14] MEDS ORDERED: IOVERSOL 100ml IV PRN (16:37)
--- NOTE | 2019-08-14 17:07 | CT Scan Report ---
CT OF THE ABDOMEN AND PELVIS WITH CONTRAST CLINICAL HISTORY: for staging purposes -- recent dx Mesothelioma COMPARISON STUDY: None. TECHNIQUE: Following IV administration of 93 mL of Optiray-320, axial images of the abdomen and pelvi s were obtained from the lung bases to the proximal femurs. Images were reviewed in the axial, sagitt al, and coronal planes. IV contrast was administered without complication. Automated exposure contro l was utilized for the study. A dose lowering technique was utilized adhering to the principles of A PB. CT DOSE: 350.15 mGy.cm FINDINGS: Imaged portions of the lower chest partially visualize a right-sided chest tube. A small ri ght hydropneumothorax is noted with enhancing pleural tumor. Postoperative findings within the right lower lung are noted. The liver, spleen, adrenal glands and pancreas are unremarkable. There is no bi liary or pancreatic ductal dilatation. Numerous subcentimeter bilateral renal lesions are too small t o characterize. No abdominal or pelvic lymphadenopathy is present. Small fat-containing umbilical her regine is present. No peritoneal nodules are noted. There is no hydronephrosis. There is a possible 3 mm left renal calculus. Prostate is mildly enlarged. There is no ascites within the abdomen or pelvis. A 7 mm sclerotic lesion within the right iliac bone is indeterminate but probably benign. IMPRESSION: 1. No evidence for metastatic disease within the abdomen or pelvis. 2. Postoperative findings within the right hemithorax with partially visualized chest tube, a small r ight hydropneumothorax and enhancing pleural tumor. 3. 7 mm sclerotic lesion with a right iliac bone. Although indeterminate, this probably benign. ACT 112: Negative or not required by law. Electronically signed by: Yariel Galindo M.D. 08/14/2019 5:06 PM000
[2019-08-14] MEDS: OXYCODONE HCL IR 5 MG TAB (IMMEDIATE RELEASE) PO PRN (17:26)
[2019-08-14] MEDS: AMLODIPINE BESYLATE 5 MG TAB PO SCH (20:57)
[2019-08-15] MEDS: ACETAMINOPHEN 1,000 MG/100 ML VIAL IV SCH (05:32)
[2019-08-15 05:40] LABS: Hematocrit (blood only) 32.8 % (42-52); Hemoglobin 11.3 g/dL (14.0-18.0); Mean Corpuscular Hemoglobin 30.6 pg (25-34); Mean Corpuscular Hgb Conc 34.5 g/dL (32-36); Mean Corpuscular Volume 88.9 fL (80-100); Mean Platelet Volume 9.4 fL (7.4-10.4); Platelet Count 310 K/uL (130-400); RDW Coefficient of Variation 12.7 % (11.5-14.5); RDW Standard Deviation 41.2 fL (36.4-46.3); Red Blood Count 3.69 M/uL (4.7-6.1); White Blood Count 8.69 K/uL (4.8-10.8)
[2019-08-15 06:09] LABS: Albumin Level 2.2 gm/dl (3.4-5.0); BUN Creatinine Ratio 12.9 (10-20); Calcium 8.4 mg/dl (8.5-10.1); Creatinine Clr Calc Pharmacy 100.5 ml/min; Potassium 3.5 mmol/L (3.5-5.1)
[2019-08-15 06:12] LABS: Albumin Globulin Ratio 0.6 (0.9-2); Bilirubin,Total 0.6 mg/dl (0.2-1); Globulin 3.8 gm/dl (2.5-4.0); Phosphorus 3.5 mg/dl (2.5-4.9)
[2019-08-15] MEDS ORDERED: ACETAMINOPHEN 325 MG TAB PO SCH (06:30)
--- NOTE | 2019-08-15 07:34 | XRay Report ---
XR chest 1V portable HISTORY: Postop. effusion COMPARISON: Chest 08/14/2019. FINDINGS: Right-sided chest tube remains unchanged in position with the tip terminating in the right lung apex. Small right pleural effusion and right basilar densities persist. No definite pneumothorax . The left lung is clear. The heart is normal in size. IMPRESSION: 1. Right pleural drain in place. No definite pneumothorax. 2. Stable small right pleural effusion and right basilar densities. ACT 112: Negative or not required by law. Electronically signed by: Jim Tariq M.D. 08/15/2019 7:33 AM
--- NOTE | 2019-08-15 08:16 | Surgery Progress Note ---
Date of Service August 15, 2019 Assessment & Plan (1) Pleural effusion on right: -s/p RVATS with pleurectomy -mesothelioma noted on surgical pathology -CT has no air leak -will keep CT in place until evaluated by Dr. Solano due to drainage amount -continue ambulation and pulmonary toilet -lovenox in place for DVT prevention Subjective Pt. notes his breathing remains comfortable. He has no new complaints over the past 24 hours. Physical Exam Constitutional: well developed and well nourished; no acute distress Neck: trachea midline Respiratory: normal respiratory effort; no respiratory distress and no labored breathing improved aeration noted at right base, no wheezing Cardiovascular: Rate/Rhythm: regular rate and regular rhythm Neurologic: moves all extremities Results & Data Vital Signs (Past 12 Hours) Vital Signs Temp Pulse Pulse Resp BP BP Pulse Ox 08/15/19 07:31 36.6 C 91 H 16 147/94 H 96 08/14/19 23:12 36.8 C 90 18 144/78 H 94 08/14/19 20:35 36.8 C 94 H 18 140/83 95 PG Care Time/CCT Total # of Minutes Spent Total Time Spent with Patient: Total time spent is greater than 50% in coordination of care (as documented) at patient's floor/unit and/or counseling patient: Coding Level of Care Code None Diagnoses Pleural effusion on right J90
[2019-08-15] MEDS: AMOXICILLIN/CLAVULANATE 875 MG TAB PO SCH ×2 (08:58→16:17)
[2019-08-15] MEDS: DOCUSATE SODIUM 100 MG CAP PO SCH ×2 (08:59→21:46)
[2019-08-15] MEDS: FLUOXETINE HCL 20 MG CAP PO SCH (08:59)
[2019-08-15] MEDS: ATORVASTATIN 10 MG TAB PO SCH (08:59)
[2019-08-15] MEDS: ENOXAPARIN INJ 40 MG/0.4 ML SYR SQ SCH (09:00)
[2019-08-15] MEDS: AMLODIPINE BESYLATE 5 MG TAB PO SCH (09:02)
[2019-08-15] MEDS: lisinopriL 20 MG TAB PO SCH (09:02)
--- NOTE | 2019-08-15 10:18 | Hospitalist Progress Note ---
Date of Service August 15, 2019 Assessment & Plan (1) Pleural effusion: * Patient with a significant right-sided pleural effusion obscuring most of the right lung. * Pleuracentesis 08/07 with purulent drainage, chest tube in place * Quant. gold though per per pulmonology patient is low risk for TB --> negative * Repeat CXR 08/10 with decreasing R lung infiltrates with persistent pleural/subpleural nodular opacities. persistent small R pneumothorax with drain in place * Pulmonary on consult -- appreciate continued assistance * Zosyn discontinued on 08/11 per rec from pulm-- 05/22 vials blood cultures growing coag neg staph, likely contaminant. --> However, pleural fluid also with coag neg staph. Discussed with Dr. Zacarias. Augmentin started last night (08/13) --> recommend continued Augmentin for next 4 weeks. * Thoracic Surgery consulted-- appreciate assistance -POD #3 S/p Right Video-assisted Thoracoscopy with pleurectomy, Parietal pleural Biopsy, right lower lobe wedge resection and talc instillation(Right) with Dr. Solano on 08/11. EBL 125cc. Multiple implants to visceral and parietal pleura. -Pathology shows MESOTHELIOMA -Continue cough, deep breathing. Ambulation encouraged -- patient has wal ked the halls several times and will continue to do as such. -Of note, patient's father in [place] diagnosed with Mesothelioma, however he did not have personal exposure himself. 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 Montano on September 01 to see about possible referral / enrollment in clinical trial. Dr. Montano aware patient will be scheduled in the next month for ref/enrollment/evaluation -CT A/p obtained for staging. No evidence of metastatic disease in a/p. Sclerotic lesion 7mm right iliac bone, probably benign. Patient without R hip/joint discomfort. -Chest tube management per thoracic team -- patient continued increased output - CXR with stable small R pleural effusion and R basilar atelectasis (2) Acute blood loss anemia: * Secondary to acute blood loss following surgery in addition to dilutional from IVF following surgery. * EBL 125cc. Pre-op h/h 15.2/42.8 * H/h continues to decline, although stable at 11.3/32.8 * Continue to monitor drain output * CBC in AM (3) Hypertension: * Chronic. Stable. BP 117/77 * Continue amlodipine 5mg daily, lisinopril 20mg daily * HCTZ on hold for hypoNa -- may not need to be on given BPs during admission off both HCTZ and LEONIE * Continue to monitor (4) Rheumatoid arthritis: * Chronic. RF elevated at 132 * Anti CCP negative * ESR 19, CRP 2.48 * Not on biologics, maintained on NSAIDs - per pulm (5) Hyperlipidemia: * Chronic. Stable * Patient is on Lipitor 10 mg, will continue as outpatient (6) Hypokalemia: * RESOLVED * Of note, patient's HCTZ held 08/12 -- may not need to be resumed and patient may be able to be discharged on ACEI and amlodipine alone, which should prevent further hypokalemia if that is cause. If BP becomes elevated, may need to send with oral potassium supplementation if resumed. * K 3.5 * Continue to monitor (7) Hyponatremia: * Na 133 on 08/09 * Na 135 -- continue to hold HCTZ * Continue to monitor (8) DVT prophylaxis: * SCDs, ambulation encouraged * Enoxaparin SQ Dispo: additional 1-2 days Admission and Anticipated Discharge Date Admission Date: August 07, 2019 Subjective Patient evaluated this morning. Occasional right sided pain with chest tube when trying to sleep. Otherwise, no other complaints/concerns at this time. Continues to have significant output and chest tube may not be able to be removed today until later vs tomorrow depending on Dr. Solano as he is managing. Patient agreeable. Reviewed results of CT A/P. Patient denies any right hip pain. Just generalized arthritis from his RA. Denies fevers, chills, chest pain, abdominal pain, n/v/d at this time. Review of Systems Review of Systems: All systems reviewed & are unremarkable except as noted in HPI & below Physical Exam Physical Exam: Constitutional WD/WN, vitals as above no acute distress Eyes + anicteric sclerae and PERRL ENMT Ears: no hearing impairment Nose: no external nose abnormality Neck trachea midline, no thyromegaly Respiratory normal respiratory effort and able to speak in complete sentences; 96% on room air, no respiratory distress, no labored breathing and does not use accessory muscles. Decreased breath sounds R lung base. Chest tube hooked to suction without evidence of air leak, serosanguineous drainage present. No crepitus appreciated. No crackles/wheezing. Cardiovascular RRR, no murmur, no edema Gastrointestinal (Abdomen) normal bowel sounds, soft, nontender, no hepatosplenomegaly Musculoskeletal no cyanosis or clubbing, extremities motor strength 5/5 Skin no rashes, warm and dry Neurologic PERRL, EOMI, accommodation nl, no face palsy, no dysarthria Psychiatric A+Ox3, euthymic affect Lymphatic no cervical or axillary lymphadenopathy Results & Data Results & Data ([facility]) Vital Signs (Past 12 Hours) Vital Signs Temp Pulse Resp BP BP Pulse Ox 08/15/19 09:02 117/77 08/15/19 07:31 36.6 C 91 H 16 147/94 H 96 08/14/19 23:12 36.8 C 90 18 144/78 H 94 Laboratory Results 08/15/19 08/15/19 Range/Units 04:37 04:37 WBC 8.69 (4.8-10.8) K/uL RBC 3.69 L (4.7-6.1) M/uL Hgb 11.3 L (14.0-18.0) g/dL Hct 32.8 L (42-52) % MCV 88.9 (80-100) fL MCH 30.6 (25-34) pg MCHC 34.5 (32-36) g/dL RDW Std Deviation 41.2 (36.4-46.3) fL RDW Coeff of Enmanuel 12.7 (11.5-14.5) % Plt Count 310 (130-400) K/uL MPV 9.4 (7.4-10.4) fL Sodium 135 L (136-145) mmol/L Potassium 3.5 (3.5-5.1) mmol/L Chloride 101 (98-107) mmol/L Carbon Dioxide 30 (21-32) mmol/L Anion Gap 4.0 (3-11) BUN 9 (7-18) mg/dl Creatinine 0.74 (0.6-1.4) mg/dl Est Cr Clr Drug Dosing 100.5 ml/min Est GFR ( Amer) 117.0 Est GFR (Non-Af Amer) 101.0 BUN/Creatinine Ratio 12.9 (10-20) Glucose 92 (70-99) mg/dl Calcium 8.4 L (8.5-10.1) mg/dl Phosphorus 3.5 (2.5-4.9) mg/dl Total Bilirubin 0.6 (0.2-1) mg/dl AST 17 (15-37) U/L ALT 23 (12-78) U/L Alkaline Phosphatase 48 (45-117) U/L Total Protein 6.0 L (6.4-8.2) gm/dl Albumin 2.2 L (3.4-5.0) gm/dl Globulin 3.8 (2.5-4.0) gm/dl Albumin/Globulin Ratio 0.6 L (0.9-2) Diagnostic Findings CT Abdomen/Pelvis IMPRESSION: 1. No evidence for metastatic disease within the abdomen or pelvis. 2. Postoperative findings within the right hemithorax with partially visualized chest tube, a small right hydropneumothorax and enhancing pleural tumor. 3. 7 mm sclerotic lesion with a right iliac bone. Although indeterminate, this probably benign. CXR IMPRESSION: 1. Right pleural drain in place. No definite pneumothorax. 2. Stable small right pleural effusion and right basilar densities. PG Care Time/CCT Total # of Minutes Spent Total Time Spent with Patient: Total time spent is greater than 50% in coordination of care (as documented) at patient's floor/unit and/or counseling patient: Coding Level of Care Code 58765 Subseq Hosp Care Lvl 2 Diagnoses Pleural effusion J90 Acute blood loss anemia D62 Hypertension I10 Rheumatoid arthritis M06.9 Hyperlipidemia E78.5 Hypokalemia E87.6 Hyponatremia E87.1 DVT prophylaxis Z29.9
[2019-08-15] MEDS: ACETAMINOPHEN 325 MG TAB PO SCH ×3 (12:59→23:45)
[2019-08-15] MEDS: OXYCODONE HCL IR 5 MG TAB (IMMEDIATE RELEASE) PO PRN (21:56)
[2019-08-16 05:55] LABS: Hemoglobin 11.2 g/dL (14.0-18.0); Mean Corpuscular Hemoglobin 30.5 pg (25-34); Mean Corpuscular Volume 87.2 fL (80-100); Mean Platelet Volume 9.3 fL (7.4-10.4); Platelet Count 342 K/uL (130-400); RDW Coefficient of Variation 12.7 % (11.5-14.5); RDW Standard Deviation 41.4 fL (36.4-46.3); Red Blood Count 3.67 M/uL (4.7-6.1); White Blood Count 7.81 K/uL (4.8-10.8)
[2019-08-16] MEDS: ACETAMINOPHEN 325 MG TAB PO SCH ×4 (06:07→23:51)
[2019-08-16 06:19] LABS: BUN Creatinine Ratio 11.8 (10-20); Calcium 8.3 mg/dl (8.5-10.1); Creatinine Clr Calc Pharmacy 99.2 ml/min; Est GFR (African American) 116.4; Est GFR (Non-African American) 100.4; Potassium 3.7 mmol/L (3.5-5.1)
--- NOTE | 2019-08-16 07:32 | Surgery Consultation ---
Date of Consultation August 16, 2019 Assessment & Plan (1) Mesothelioma: Mr. Romero is draining too much to remove his chest tube currently. He needs to remain on high suction (30 cm H20) until his drainage decreases. Present on Admission?: Yes History of Present Illness Attending Physician: Sherman Fam Allergies Allergy/AdvReac Type Severity Reaction Status Date / Time No Known Allergies Allergy Unverified 08/07/19 16:38 Home Medications Home Medications Medication Instructions Recorded Confirmed Type amlodipine 5 mg PO DAILY 08/07/19 08/07/19 History atorvastatin 10 mg PO DAILY 08/07/19 08/07/19 History fluoxetine 60 mg PO DAILY 08/07/19 08/07/19 History lisinopril-hydrochlorothiazide 2 tab PO DAILY 08/07/19 08/07/19 History valacyclovir 500 mg PO DAILY 08/07/19 08/07/19 History zoster vaccine live (PF) 0 unit SUBCUT ONCE 08/07/19 08/07/19 History Patient History Medical History (Updated 08/14/19 @ 13:01 by Dawna Raphael PA-C) Hyperlipidemia Hypertension Hyponatremia Pleural effusion on right Pneumothorax s/p chest tube placement Rheumatoid arthritis Surgical History History of thoracentesis Hx of chest tube placement Social History Preferred Language: Kinyarwanda Communication Ability: 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 Beliefs That Will Affect Care: Mandaeism Mandaeism Beliefs: christianity marital status: Single Current Living Situation: Alone Feels Safe at Home: Yes Smoking Status: Former smoker Hx Alcohol Use: Yes Alcohol type: beer and wine Hx Substance Use: No Results & Data Vital Signs (Past 12 Hours) Vital Signs Temp Pulse Pulse Resp BP Pulse Ox Pulse Ox 08/16/19 07:16 36.4 C L 81 16 133/85 98 08/16/19 00:05 96 08/15/19 23:34 36.7 C 85 16 127/76 96 PG Care Time/CCT Total # of Minutes Spent Total Time Spent with Patient: Total time spent is greater than 50% in coordination of care (as documented) at patient's floor/unit and/or counseling patient: Coding Level of Care Code None Diagnoses Mesothelioma C45.9
[2019-08-16] MEDS: AMOXICILLIN/CLAVULANATE 875 MG TAB PO SCH ×2 (09:05→18:10)
[2019-08-16] MEDS: ATORVASTATIN 10 MG TAB PO SCH (09:05)
[2019-08-16] MEDS: AMLODIPINE BESYLATE 5 MG TAB PO SCH (09:06)
[2019-08-16] MEDS: FLUOXETINE HCL 20 MG CAP PO SCH (09:06)
[2019-08-16] MEDS: ENOXAPARIN INJ 40 MG/0.4 ML SYR SQ SCH (09:07)
[2019-08-16] MEDS: lisinopriL 20 MG TAB PO SCH (09:07)
[2019-08-16] MEDS: DOCUSATE SODIUM 100 MG CAP PO SCH ×2 (15:33→20:09)
[2019-08-16] MEDS: OXYCODONE HCL IR 5 MG TAB (IMMEDIATE RELEASE) PO PRN (20:09)
--- NOTE | 2019-08-16 22:56 | Hospitalist Progress Note ---
Date of Service August 16, 2019 Assessment & Plan (1) Pleural effusion: * Patient with a significant right-sided pleural effusion obscuring most of the right lung. * Pleuracentesis 08/07 with purulent drainage, chest tube in place * Quant. gold though per per pulmonology patient is low risk for TB --> negative * Repeat CXR 08/10 with decreasing R lung infiltrates with persistent pleural/subpleural nodular opacities. persistent small R pneumothorax with drain in place * Pulmonary on consult -- appreciate continued assistance * Zosyn discontinued on 08/11 per rec from pulm-- 05/22 vials blood cultures growing coag neg staph, likely contaminant. --> However, pleural fluid also with coag neg staph. Discussed with Dr. Zacarias. Augmentin started on (08/13) --> recommend continued Augmentin for next 4 weeks. * Thoracic Surgery consulted-- appreciate assistance -POD #4 S/p Right Video-assisted Thoracoscopy with pleurectomy, Parietal pleural Biopsy, right lower lobe wedge resection and talc instillation(Right) with Dr. Solano on 08/11. EBL 125cc. Multiple implants to visceral and parietal pleura. -Pathology shows MESOTHELIOMA -Continue cough, deep breathing. Ambulation encouraged -- patient has walked the halls several times and will continue to do as such. -Of note, patient's father in [place] diagnosed with Mesothelioma, however he did not have personal exposure himself. 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 Montano on September 01 to see about possible referral / enrollment in clinical trial. Dr. Montano aware patient will be scheduled in the next month for ref/enrollment/evaluation -CT A/p obtained for staging. No evidence of metastatic disease in a/p. Sclerotic lesion 7mm right iliac bone, probably benign. Patient without R hip/joint discomfort. -Chest tube management per thoracic team -- patient continued increased output - He needs to remain on high suction (30 cm H20) until his drainage decreases. - CXR with stable small R pleural effusion and R basilar atelectasis (2) Acute blood loss anemia: * Secondary to acute blood loss following surgery in addition to dilutional from IVF following surgery. * EBL 125cc. Pre-op h/h 15.2/42.8 * H/h continues to decline, although stable at 11.2 * Continue to monitor drain output (3) Hypertension: * Chronic. Stable. BP 117/77 * Continue amlodipine 5mg daily, lisinopril 20mg daily * HCTZ on hold for hypoNa -- may not need to be on given BPs during admission off both HCTZ and LEONIE * Continue to monitor (4) Rheumatoid arthritis: * Chronic. RF elevated at 132 * Anti CCP negative * ESR 19, CRP 2.48 * Not on biologics, maintained on NSAIDs - per pulm (5) Hyperlipidemia: * Chronic. Stable * Patient is on Lipitor 10 mg, will continue as outpatient (6) Hypokalemia: * RESOLVED * Of note, patient's HCTZ held 08/12 -- may not need to be resumed and patient may be able to be discharged on ACEI and amlodipine alone, which should prevent further hypokalemia if that is cause. If BP becomes elevated, may need to send with oral potassium supplementation if resumed. * K 3.7 * Continue to monitor (7) Hyponatremia: * Na 133 on 08/09 * Na 135 -- continue to hold HCTZ * Continue to monitor (8) DVT prophylaxis: * SCDs, ambulation encouraged * Enoxaparin SQ Dispo: additional 1-2 days Admission and Anticipated Discharge Date Admission Date: August 07, 2019 Subjective 59 yo male reports feeling well. He has no significant complaints at this time. Review of Systems Review of Systems: All systems reviewed & are unremarkable except as noted in HPI & below Physical Exam Physical Exam: Constitutional: WD/WN, vitals as above, no acute distress Eyes: + anicteric sclerae and PERRL ENMT: Ears: no hearing impairment :Nose: no external nose abnormality Neck: trachea midline, no thyromegaly Respiratory: normal respiratory effort and able to speak in complete sentences; 96% on room air, no respiratory distress, no labored breathing and does not use accessory muscles. Decreased breath sounds R lung base. Chest tube hooked to suction without evidence of air leak, serosanguineous drainage present. No crepitus appreciated. No crackles/wheezing. Cardiovascular:RRR, no murmur, no edema Gastrointestinal (Abdomen): normal bowel sounds, soft, nontender, no hepatosplenomegaly Musculoskeletal: no cyanosis or clubbing, extremities motor strength 5/5 Skin: no rashes, warm and dry Neurologic: PERRL, EOMI, accommodation nl, no face palsy, no dysarthria Psychiatric: A+Ox3, euthymic affect Lymphatic: no cervical or axillary lymphadenopathy Results & Data Results & Data ([facility]) Vital Signs (Past 12 Hours) Vital Signs Temp Pulse Resp BP Pulse Ox 08/16/19 15:56 36.7 C 76 16 122/75 98 PG Care Time/CCT Total # of Minutes Spent Total Time Spent with Patient: Total time spent is greater than 50% in coordination of care (as documented) at patient's floor/unit and/or counseling patient: Coding Level of Care Code 03556 Subseq Hosp Care Lvl 2 Diagnoses Pleural effusion J90 Acute blood loss anemia D62 Hypertension I10 Rheumatoid arthritis M06.9 Hyperlipidemia E78.5 Hypokalemia E87.6 Hyponatremia E87.1 DVT prophylaxis Z29.9 Time Spent (min) 25
[2019-08-17 06:14] LABS: Creatinine Clr Calc Pharmacy 104.7 ml/min; Est GFR (Non-African American) 102.7
[2019-08-17] MEDS: ACETAMINOPHEN 325 MG TAB PO SCH ×4 (06:29→23:43)
[2019-08-17] MEDS: ATORVASTATIN 10 MG TAB PO SCH (08:19)
[2019-08-17] MEDS: AMOXICILLIN/CLAVULANATE 875 MG TAB PO SCH ×2 (08:19→17:37)
[2019-08-17] MEDS: FLUOXETINE HCL 20 MG CAP PO SCH (08:19)
[2019-08-17] MEDS: AMLODIPINE BESYLATE 5 MG TAB PO SCH (08:19)
[2019-08-17] MEDS: lisinopriL 20 MG TAB PO SCH (08:20)
[2019-08-17] MEDS: ENOXAPARIN INJ 40 MG/0.4 ML SYR SQ SCH (08:20)
[2019-08-17] MEDS: DOCUSATE SODIUM 100 MG CAP PO SCH ×2 (08:20→20:29)
--- NOTE | 2019-08-17 09:08 | Hospitalist Progress Note ---
Date of Service August 17, 2019 Assessment & Plan (1) Pleural effusion: - Patient with a significant right-sided pleural effusion obscuring most of the right lung. - Pleuracentesis 08/07 with purulent drainage, chest tube in place - Pulmonary on consult - - Zosyn dcd on 08/11 per rec from pulm-- 1/ BCx growing coag neg staph, likely contaminant. - pleural fluid + coag neg staph - Augmentin started on (08/13) and needs x 4 week total -Thoracic Surg on board- - S/p Right Video-assisted Thoracoscopy with pleurectomy, Parietal pleural Biopsy, right lower lobe wedge resection and talc instillation(Right) with Dr. Solano on 08/11. EBL 125cc. - Multiple implants to visceral and parietal pleura: Pathology shows mesothelioma - Chest tube management w/ high suction (30 cm H2O) until drainage decreases - Quant. gold negative - Continue cough, deep breathing. Ambulation encouraged and pt is doing well with this. - CXR with stable small R pleural effusion and R basilar atelectasis (2) Mesothelioma: - As above - Follow up with Dr. Ratliff - Outpt oncology f/u with Dr. Montano on September 01 for possible referral / enrollment in clinical trial. - Of note, patient's father in [place] diagnosed with Mesothelioma, however he did not have personal exposure himself. 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 No evidence of metastatic disease in a/p. Sclerotic lesion 7mm right iliac bone, probably benign. Patient without R hip/joint discomfort. (3) Acute blood loss anemia: - Secondary to acute blood loss following surgery in addition to dilutional from IVF following surgery. - Pre-op H&H 15.2/42.8, - H/h remains stable since procedure at 11.3 since 08/14. No signs of acute bleeding. - If less drainage from chest tube likely will be pulled tomorrow (on 08/17) (4) Hypertension: - Chronic. Stable - Continue amlodipine 5mg daily, lisinopril 20mg daily - Hold HCTZ (5) Rheumatoid arthritis: - Chronic. RF elevated at 132 - Anti CCP negative - ESR 19, CRP 2.48 - Not on biologics, maintained on NSAIDs - per pulm (6) Hyperlipidemia: - Chronic. Stable - Patient is on Lipitor 10 mg, will continue as outpatient (7) Hypokalemia: - RESOLVED - Of note, patient's HCTZ held 08/12 -- may not need to be resumed and patient may be able to be discharged on ACEI and amlodipine alone, which should prevent further hypokalemia if that is cause. If BP becomes elevated, may need to send with oral potassium supplementation if resumed. - K + = 3.8 (8) Hyponatremia: - 135, continue to hold HCTZ (9) DVT prophylaxis: - SCDs, ambulation encouraged, lovenox subq Dispo: from home, chest tube needs pulled once drainage is minimal, likely tomorrow Admission and Anticipated Discharge Date Admission Date: August 07, 2019 Supervising Physician Co-Signing Physician Notes PA Supervision Note: I did not personally see or examine the patient today, but I verified all [place] points of REFUGIO Singer's assessment and plan with the following exceptions/additions: None Subjective The patient was seen and examined this morning. Pt states doing very well today. He has not complaints and already has seen thoracic surgery today. He has been ambulating about the room without difficulty. No other acute complaints. Review of Systems Review of Systems: Constitutional: No fever, sweats or chills Eyes: No diplopia, no worsening or blurred vision ENT: normal hearing, no trouble swallowing Respiratory: No cough, sputum, dyspnea at rest or on exertion Cardiovascular: No chest pain, tightness or palpitations Abdomen: No pain, nausea, vomiting, diarrhea or constipation Musculoskeletal: No joint pain, calf pain, swelling Neurologic: No weakness, numbness/tingling, or balance problems Psychiatric: No anxiety or depression Skin: No rash or itch Physical Exam Physical Exam: General: awake, alert, no apparent distress, + sitting up in bedside chair Head: Normocephalic, atraumatic ENT: PERRL, EOMI, no pharyngeal exudate, mucous membranes moist Chest:+ Right sided chest tube in place, out 125 ml this morning, minor surrounding area of ecchymosis but no erythema, on room air, clear throughout. Cardiac: Regular rate and rhythm, no murmur, no JVD, normal peripheral pulses, good capillary refill Abdominal: NABS x 4 quadrants, soft, nontender to palpation, no rebound, guarding or tenderness Extremities: Normal inspection, no peripheral edema or erythema, calfs nontender to palpation Psych: Normal mood and affect Neuro: AAO x 3, strength intact bilaterally and rated 5/5, no motor deficits, speech is clear, no peripheral sensory deficits Results & Data Results & Data ([facility]) Vital Signs (Past 12 Hours) Vital Signs Temp Pulse Resp BP Pulse Ox Pulse Ox 08/17/19 08:08 36.7 C 79 18 133/87 95 08/17/19 00:05 98 08/16/19 23:10 36.5 C 69 18 102/61 98 PG Care Time/CCT Total # of Minutes Spent Total Time Spent with Patient: Total time spent is greater than 50% in coordination of care (as documented) at patient's floor/unit and/or counseling patient: Coding Level of Care Code 04233 Subseq Hosp Care Lvl 3 Diagnoses Pleural effusion J90 Mesothelioma C45.9 Acute blood loss anemia D62 Hypertension I10 Rheumatoid arthritis M06.9 Hyperlipidemia E78.5 Hypokalemia E87.6 Hyponatremia E87.1 DVT prophylaxis Z29.9
[2019-08-17 09:38] LABS: BUN Creatinine Ratio 11.4 (10-20); Calcium 8.7 mg/dl (8.5-10.1); Creatinine Clr Calc Pharmacy 106.2 ml/min; Est GFR (African American) 119.7; Est GFR (Non-African American) 103.3; Potassium 3.8 mmol/L (3.5-5.1)
[2019-08-17 09:45] LABS: Hematocrit (blood only) 32.6 % (42-52); Hemoglobin 11.3 g/dL (14.0-18.0); Mean Corpuscular Hemoglobin 30.1 pg (25-34); Mean Corpuscular Hgb Conc 34.7 g/dL (32-36); Mean Corpuscular Volume 86.9 fL (80-100); Mean Platelet Volume 9.4 fL (7.4-10.4); Platelet Count 420 K/uL (130-400); RDW Coefficient of Variation 12.7 % (11.5-14.5); RDW Standard Deviation 40.8 fL (36.4-46.3); Red Blood Count 3.75 M/uL (4.7-6.1)
--- NOTE | 2019-08-17 10:33 | Progress Notes ---
DATE: 08/17/2019 The patient looks very good today. His chest tube collection chamber that was just changed. He put out approximately 120 mL over the last 24 hours. He looks very good. He sounds good except for some mildly decreased breath sounds in the right base. He has good pain control. He is moving his bowels and eating and ambulating and has excellent saturations on room air. ASSESSMENT AND PLAN: Postoperative day #5 status post right thoracoscopic extensive pleurectomy for mesothelioma. I think the patient is getting close to having his chest tube out, but I would like to keep it one more day. We will check a chest x-ray in the morning and if it looks as good as it has, we will pull his chest tube and allow him to be discharged. GENI
[2019-08-17] MEDS: OXYCODONE HCL IR 5 MG TAB (IMMEDIATE RELEASE) PO PRN (20:23)
[2019-08-18 05:50] LABS: Hematocrit (blood only) 32.7 % (42-52); Hemoglobin 11.3 g/dL (14.0-18.0); Mean Corpuscular Hemoglobin 30.1 pg (25-34); Mean Corpuscular Hgb Conc 34.6 g/dL (32-36); Platelet Count 415 K/uL (130-400); RDW Coefficient of Variation 12.6 % (11.5-14.5); RDW Standard Deviation 40.6 fL (36.4-46.3); Red Blood Count 3.76 M/uL (4.7-6.1); White Blood Count 6.54 K/uL (4.8-10.8)
[2019-08-18] MEDS: ACETAMINOPHEN 325 MG TAB PO SCH ×2 (05:52→11:43)
[2019-08-18 06:29] LABS: Albumin Level 2.1 gm/dl (3.4-5.0); BUN Creatinine Ratio 9.1 (10-20); Calcium 8.4 mg/dl (8.5-10.1); Creatinine Clr Calc Pharmacy 95.3 ml/min; Est GFR (African American) 114.5; Est GFR (Non-African American) 98.8; Potassium 3.9 mmol/L (3.5-5.1)
[2019-08-18 06:32] LABS: Albumin Globulin Ratio 0.5 (0.9-2); Bilirubin,Total 0.3 mg/dl (0.2-1); Globulin 4.1 gm/dl (2.5-4.0); Total Protein 6.2 gm/dl (6.4-8.2)
--- NOTE | 2019-08-18 06:59 | XRay Report ---
XR chest 1V portable CLINICAL HISTORY: mesothelioma COMPARISON STUDY: 08/15/2019 FINDINGS: The cardiac and mediastinal contours remain stable. There is a right-sided chest tube. Ther e is no significant pneumothorax. There is a persistent right pleural effusion with associated right basilar parenchymal opacity likely atelectatic.[ IMPRESSION: 1. Persistent right pleural effusion with associated right basilar parenchymal opacities 2. No change in the position of the right-sided chest tube. No evidence of pneumothorax. ACT 112: Negative or not required by law. Electronically signed by: Josué Mcguire M.D. 08/18/2019 6:58 AM
[2019-08-18] MEDS: lisinopriL 20 MG TAB PO SCH (08:08)
[2019-08-18] MEDS: AMOXICILLIN/CLAVULANATE 875 MG TAB PO SCH (08:09)
[2019-08-18] MEDS: ATORVASTATIN 10 MG TAB PO SCH (08:09)
[2019-08-18] MEDS: AMLODIPINE BESYLATE 5 MG TAB PO SCH (08:09)
[2019-08-18] MEDS: FLUOXETINE HCL 20 MG CAP PO SCH (08:09)
[2019-08-18] MEDS: ENOXAPARIN INJ 40 MG/0.4 ML SYR SQ SCH (08:10)
[2019-08-18] MEDS: DOCUSATE SODIUM 100 MG CAP PO SCH (08:11)
--- NOTE | 2019-08-18 09:57 | XRay Report ---
XR chest 1V portable CLINICAL HISTORY: Chest tube removal COMPARISON STUDY: No previous studies for comparison. FINDINGS: The right-sided chest tube has been removed. There is no pneumothorax. There is a persisten t right pleural effusion with associated right basilar atelectasis/consolidation. The left lung is cl ear.[ IMPRESSION: Interval removal of the right-sided chest tube. No evidence of pneumothorax. ACT 112: Negative or not required by law. Electronically signed by: Josué Mcguire M.D. 08/18/2019 9:55 AM
--- NOTE | 2019-08-18 15:57 | Discharge Summary ---
Date of Service August 18, 2019 Admission HPI Per Admitting Provider This is a 59-year-old male with past medical history of hypertension, hyperlipidemia and possible ankylosing spondylitis/RA if that presents today with dyspnea on exertion at the advice of the [facility]. Patient is pleasant historian. Patient tells me that he is noticing slow onset of dyspnea on exertion with any exercise. Although this was mild at first, over the past 1.5 months since become gradually worse. 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 He is noticed that he is fine at rest and in fact O2 sat is 96% on room air in my evaluation. He denies any recent illness including fever, chills, nausea, vomiting. He has had no unintended weight loss. He also denies any chest symptoms such as chest pain, palpitations, diaphoresis. He scheduled appointment with the [facility] today. He did work with a marine animal trainer earlier but was unable to complete much exercise. At the [facility], he had a chest x-ray was found to have a significant right-sided pleural effusion. He was told to present to emergency room for further evaluation. At time my evaluation, patient was comfortable on room air with no symptomatology at rest. Principal Diagnosis right sided malignant pleural effusion, mesothelioma Discharge Exam Constitutional WD/WN, vitals as above Eyes PERRL, conjunctivae normal, anicteric sclerae ENMT external ear and nose normal, oropharynx normal Neck trachea midline, no thyromegaly Respiratory normal respiratory effort; no respiratory distress and no cough Auscultation: lungs clear to auscultation bilaterally and + diminished lung sounds (right base) Cardiovascular RRR, no murmur, no edema Chest (Breasts) Chest: + abnormal inspection of chest (right wound, bandaged) Gastrointestinal (Abdomen) normal bowel sounds, soft, nontender, no hepatosplenomegaly Musculoskeletal no cyanosis or clubbing, extremities motor strength 5/5 Skin no rashes, warm and dry Neurologic patellar DTR's 2+ bilat, sensation intact and PERRL, EOMI, accommodation nl, no face palsy, no dysarthria Psychiatric A+Ox3, euthymic affect Lymphatic no cervical or axillary lymphadenopathy Discharge Data Allergies Allergy/AdvReac Type Severity Reaction Status Date / Time No Known Allergies Allergy Unverified 08/07/19 16:38 Consultations 08/07/19 19:56 Consult Pulmonology Routine Procedures Performed Operation Date: 08/12/19 09:00 Actual Procedures p Right Video-assisted Thoracoscopy with pleurectomy, Parietal pleural Biopsy, right lower lobe wedge resection and talc instillation(Right) - Maldonado Solano MD, FACS Ordered Studies 08/07/19 14:57 CT chest w con Stat 08/07/19 17:50 US point of care ultrasound Routine 08/09/19 13:35 CT chest wo con Urgent 08/14/19 15:49 CT abd pelvis IV con only Routine Hospital Course (1) Pleural effusion: - Patient with a significant right-sided pleural effusion obscuring most of the right lung. - Pleuracentesis 08/07 with purulent drainage, chest tube in place - Pulmonary on consult - - Zosyn dcd on 08/11 per rec from pulm-- 1 BCx growing coag neg staph, likely contaminant. - pleural fluid + coag neg staph - Augmentin started on (08/13) and needs x 4 week total, last dose would be on 09/11/19 -Thoracic Surg on board- - S/p Right Video-assisted Thoracoscopy with pleurectomy, Parietal pleural Biopsy, right lower lobe wedge resection and talc instillation(Right) with Dr. Solano on 08/11. EBL 125cc. - Multiple implants to visceral and parietal pleura: Pathology shows mesothelioma - Chest tube management w/ high suction (30 cm H2O) until drainage decreases - Quant. gold negative - Continue cough, deep breathing. Ambulation encouraged and pt is doing well with this. chest tube removed by Dr Solano on 08/17, tolerated well, follow up chest x-ray without pneumothorax okay for discharge per Dr. Solano scheduled for follow up with Dr. Solano, Dr. Montano and PCP PLEASE NOTE THAT HE WILL NEED ANOTHER PRESCRIPTION FOR AUGMENTIN TO COMPLETE THROUGH 09/10, HE WAS PROVIDED WITH 10 DAY SUPPLY BUT [facility] (2) Mesothelioma: - As above - Outpt oncology f/u with Dr. Montano on September 01 for possible referral / enrollment in clinical trial. - Of note, patient's father in [place] diagnosed with Mesothelioma, however he did not have personal exposure himself. 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 No evidence of metastatic disease in a/p. Sclerotic lesion 7mm right iliac bone, probably benign. Patient without R hip/joint discomfort. (3) Acute blood loss anemia: - Secondary to acute blood loss following surgery in addition to dilutional from IVF following surgery. - Pre-op H&H 15.2/42.8, - H/h remains stable since procedure . No signs of acute bleeding. (4) Hypertension: - Chronic. Stable - Continue amlodipine 5mg daily, lisinopril 20mg daily can resume HCTZ on discharge (5) Rheumatoid arthritis: - Chronic. RF elevated at 132 - Anti CCP negative - ESR 19, CRP 2.48 - Not on biologics, maintained on NSAIDs - per pulm (6) Hyperlipidemia: - Chronic. Stable - Patient is on Lipitor 10 mg, will continue as outpatient (7) Hypokalemia: - RESOLVED (8) Hyponatremia: resolved (9) DVT prophylaxis: - SCDs, ambulation encouraged, lovenox subq Dispo: from home, chest tube needs pulled once drainage is minimal, likely tomorrow Total Time Total Time Spent Total Time Spent (In Minutes): 32 minutes Total Time Includes: Examination of the Patient, Discharge Planning, Medication Reconciliation and Communication With Other Providers (Dr. Solano) Discharge Plan Discharge Items Patient Disposition: Home - Self-Care Reason For Visit: R PLEURAL EFFUSION Discharge Diagnosis: Right sided pleural effusion Mesothelioma on right Condition on Discharge: Good Goals: get rest, stay well nourished and well hydrated, build up strength follow up with Dr. Montano for further recommendations regarding mesothelioma follow up with Dr. Solano in 2 weeks for chest tube follow up Activity: Per Instructions section Lifting: Gradually increase as tolerated Bathing Comment: may shower, DO NOT soak in tub Driving/Machine Use: Resume 1 day after discharge Weightbearing: Full weightbearing Non-emergency contact: Primary Care Provider and Surgeon Call non-emergency contact if: you have any medication questions, your symptoms worsen, your pain is not controlled and you have a fever Follow-up/Referrals: Armand Montano V., [Physician] - 09/02/19 12:50 pm (Please, follow up at [facility] on SundaySeptember 01 at 12:[address] Armand Montano. *This office is located in the rear of the [facility]. Park BEHIND the hospital in [address] and enter via [facility]ar[address]. If you need to change this appointment, call the office at [phone].) Sophia Yao PA-C [Primary Care Provider] - 08/19/19 9:00 am (Please, follow up with Sophia Yao PA-C at the [facility] on SundayAugust 18 at 9:00 am. If you have any questions, call the clinic at [phone].) Diet: Regular Addtl Attending Provider Instructions: Medications: - AUGMENTIN: take twice a day for 20 more doses, next dose this evening - OXYCODONE: take as needed for pain control Right sided effusion, s/p VATS and chest tube biopsies show mesothelioma, follow up with Dr. Montano as scheduled chest tube pulled today, normal chest x-ray after it was removed Dr. Solano's office will contact you about follow up in 1-2 weeks Pending Studies at Discharge: No Stand-Alone Forms: My [facility], Opioid Pain Management, Smoking Cessation Medications and DC Order Prescriptions: New amoxicillin-pot clavulanate [Augmentin] 875-125 mg Tablet 1 tab PO BIDM 10 Days Qty: 20 RF: 0 oxycodone 5 mg Tablet 5 mg PO Q6H PRN (Reason: pain) 10 Days Qty: 20 RF: 0 Continued atorvastatin 20 mg Tablet 10 mg PO DAILY RF: 0 amlodipine 5 mg Tablet 5 mg PO DAILY RF: 0 valacyclovir 500 mg Tablet 500 mg PO DAILY RF: 0 lisinopril-hydrochlorothiazide 20-25 mg Tablet 2 tab PO DAILY RF: 0 fluoxetine 20 mg Capsule 60 mg PO DAILY RF: 0 zoster vaccine live (PF) 19,400 unit/0.65 mL Suspension For Reconstitution 0 unit SUBCUT ONCE RF: 0 Discharge Orders: Discharge Order (Routine); Ordered 08/18/19 Ordered By: Kee Berumen/Other Patient Handouts: Oxycodone tablets or capsules Admission Data Admit Date/Time: 08/07/19 17:52 Attending Provider: Kee Larkin Admit Provider: Vinnie Turcios Primary Care Provider: Sophia Yao Other Providers: Cyril Zacarias Other Interventions: Discharge Summary Assessment (RN) Last Done: 08/18/19 14:12 DC Date/Time DO NOT enter until pt leaves facility: 08/18/19 15:00 Coding Level of Care Code D/C Day Management >30 mins Diagnoses Pleural effusion J90 Mesothelioma C45.9 Acute blood loss anemia D62 Hypertension I10 Rheumatoid arthritis M06.9 Hyperlipidemia E78.5 Hypokalemia E87.6 Hyponatremia E87.1 DVT prophylaxis Z29.9
--- NOTE | 2019-08-18 23:08 | Progress Notes ---
DATE: 08/18/2019 The patient is seen today. He has no air leak. He has drained very little fluid. He does have a bit more fluid in his chest that I would like, however, he has 99% saturation on room air and states he is breathing well. I went ahead and removed his chest tube. The site looks fine. His x-ray looked quite good after we finished, although he does have a small right pleural effusion. The patient is going to be discharged today by Dr. Larkin. I will see him back in the office in 1 week with a chest x-ray.
--- NOTE | 2019-08-21 09:13 | Coding Query ---
Your help is needed for correct coding of this account; please clarify if the patients Post-operative Pneumothorax was: ( ) expected out of the surgery ( ) unexpected complication from the surgery (X)other please specify Thank you Goldie Allen I didn't see the patient after he went to OR for VATS with pleurectomy. I put the chest tube initially and he had persistent Pneumothorax after that. It is NOT a complication of the procedure. He likely had parenchymal disease which resulted into pneumothorax when his lung expanded. Thanks. Bhavik ARECHIGA
--- NOTE | 2019-08-21 09:23 | Coding Query ---
To promote full compliance with coding requirements relating to patient care, provider participation is requested in all cases of appliance line assembler uncertainty. Please assist us with the question(s) below: Coding Question(s): The diagnosis below was documented in the record through about 08/11/19, then subsequently fell off all further documentation, however later Progress Notes document, "Zosyn discontinued on 08/11 per rec from pulm-- 1/2 vials blood cultures growing coag neg staph, likely contaminant. --> However, pleural fluid also with coag neg staph. Discussed with Dr. Zacarias. Augmentin started on (08/13) --> recommend continued Augmentin for next 4 weeks", and Discharge Summary documents, " - pleural fluid + coag neg staph - Augmentin started on (08/13) and needs x 4 week total, last dose would be on 09/11/19" . Please indicate if it is still a possible diagnosis or ruled out. Physician's Response(s): POSSIBLE EMPYEMA ( ) Diagnosed and POA ( ) Diagnosed and not POA ( ) Ruled out ( x ) Other (please specify) possible diagnosis of empyema, not completely ruled out, treating for 4 weeks MTDD
== END 2019-08-18 15:00 | disposition home or self-care (01) | DRG 163 ==
LOC: ED 13:45 → SUATTDRO 17:52 → 3N 17:52 → 3E 08-14 13:55

== ENCOUNTER 2022-12-18 13:32 | Inpatient (IN) ==
[2022-12-18 15:22] LABS: Albumin Globulin Ratio 0.7 (0.9-2); Albumin Level 2.8 gm/dl (3.4-5.0); BUN Creatinine Ratio 24.8 (10-20); Calcium 8.6 mg/dl (8.6-10.3); Creatinine Clr Calc Pharmacy 57.3 ml/min; Est GFR (African American) 71.1 ml/min; Est GFR (Non-African American) 61.3 ml/min; Magnesium 1.9 mg/dl (1.7-2.4); Potassium 4.7 mmol/L (3.5-5.1); Total Protein 6.8 gm/dl (6.0-8.3)
[2022-12-18 15:32] LABS: INR 1.3 (0.9-1.1); Partial Thromboplastin Ratio 1.2; Prothrombin Time 14.2 Seconds (9.0-12.0)
[2022-12-18 15:38] LABS: Hematocrit (blood only) 23.9 % (42.0-52.0); Hemoglobin 8.3 g/dl (14.0-18.0); Mean Corpuscular Hemoglobin 27.7 pg (25.0-34.0); Mean Corpuscular Hgb Conc 34.7 g/dL (32.0-36.0); Mean Corpuscular Volume 79.7 fL (80.0-100.0); Mean Platelet Volume 10.2 fL (9.4-12.4); Platelet Count 316 K/uL (130-400); RDW Coefficient of Variation 17.7 % (11.5-14.5); RDW Standard Deviation 49.1 fL (36.4-46.3); White Blood Count 107.62 K/ul (4.8-10.8)
[2022-12-18 15:39] LABS: Basophils # (auto) 0.06 K/uL (0-0.2); Basophils % (auto) 0.1 %; Eosinophils # (auto) 0.03 K/uL (0-0.50); Immature Granulocytes # (auto) 8.22 K/uL (0.01-0.20); Immature Granulocytes % (auto) 7.6 %; Lymphocytes # (auto) 3.05 K/uL (1.2-3.4); Lymphocytes % (auto) 2.8 %; Monocytes # (auto) 3.09 K/uL (0.11-0.59); Monocytes % (auto) 2.9 %; Neutrophils # (auto) 93.17 K/uL (1.40-6.50); Neutrophils % (auto) 86.6 %
[2022-12-18 15:49] LABS: Troponin I High Sensitivity 100.5 pg/ml (0-20)
--- NOTE | 2022-12-18 16:13 | XRay Report ---
SINGLE VIEW CHEST CLINICAL HISTORY: Generalized weakness. Mesothelioma. FINDINGS: An AP, portable, upright chest radiograph is compared to study dated 11/27/2022 and correlat ed with chest CT dated 10/27/2022. A left internal jugular central venous effusion port is unchanged in position. The cardiomediastinal silhouette is unremarkable. Pleural-based mass lesions at the right lung base are similar to previous. No superimposed air space consolidation is identified. A small rig ht pleural effusion is not excluded. No pneumothorax is seen. The skeletal structures are osteopenic . The bony thorax is grossly intact. IMPRESSION: 1. Pleural-based mass lesions at the right lung base are similar to previous. 2. There is no airspace consolidations or pneumonia. 3. A small right pleural effusion is not excluded. ACT 112: Negative or not required by law. Electronically signed by: Neo Dai M.D. 12/18/2022 4:12 PM
--- NOTE | 2022-12-18 16:19 | Emergency Department Note ---
Impression & Plan Metastatic cancer, Mesothelioma, Hyponatremia, Leukocytosis, Elevated troponin ED Provider Note NAME: TANNER MILLER AGE: 62 SEX: M ARRIVES VIA: Walk-In INFORMANT: Patient ED PROVIDER(S): Ravin Velazco MD CHIEF COMPLAINT: Leukocytosis, Evaluate for infection, referred. PLAN: Disposition: Admit MEDICAL DECISION MAKING: The patient is a pleasant 62-year-old gentleman with a past medical history of metastatic mesothelioma who follows with the cancer center for infusions who presents to the emergency department referred from the [facility] for evaluation of "infection" given routine lab work obtained prior to his infusion demonstrated increase in WBC from prior with a increase in leukocytosis from 48K to 112K. The patient also had blood work demonstrating hyponatremia with sodium 127. His TSH was also elevated at 8.5.. The patient reports he has not had any significant change in his symptoms/health and reports intermittent nausea but denies any vomiting or diarrhea. He reported he is been eating as he has been without much issue. He denies any new cough or fevers. He denies any chest pain or new shortness of breath. He denies any lightheadedness. The patient is a poor historian. He is not sure of the details of why he was sent to the emergency department. He reports that he knows "they look after him closely". Of note, the patient did arrive to emergency department during time of high volume, acuity and prolonged emergency department waiting times. Critical pathways initiated from triage. On my evaluation the patient is no acute distress, afebrile with heart in the 110s and vital signs otherwise stable. He appears clinically dry. Lungs with diminished BS or right lower lung mccarty otherwise clear. Abdomen is benign. EKG without overt acute ischemia. CXR chest x-ray with right pleural-based mass similar to prior. WBC 107K similar to earlier today with neutrophil predominance and left shift of 8. Chemistry without metabolic acidosis. Sodium 127 with normal glucose. Lactic acid initially 2.8 downtrending to 2.5 after initial IV fluid hydration. LFTs are unremarkable. Initial high-sensitivity troponin 100K nonspecific. Procalcitonin is elevated at 4.69. TSH within normal limits. UA with epithelial cells and otherwise no convincing evidence of infection. The patient was treated empirically with cefepime at this time. To further characterize patient's worsening lab results in the setting of his metastatic cancer CT of the chest and abdomen pelvis were ordered and are pending. Given the patient's worsening leukocytosis with elevated troponin and hyponatremia the patient was referred to the hospital service for admission. Patient was in agreement with this plan. Case was d/w Dr. Madrigal [facility] hospitalist who will evaluate the patient for admission. CT of the chest was subsequently negative for PE. Otherwise CT chest and abd/pelvis demonstrates extensive metastatic disease. Delta 2.5H high- sensitivity troponin increased to 142, nonspecific. Further management per admitting team. Triage Nursing notes reviewed and agree them. Prior/outside medical records reviewed Vital Signs: reviewed Differential diagnosis: Infection, dehydration, metabolic abnormality, hypo/hyperglycemia, electrolyte disturbance, anemia, hypoxia, cardiac sources, intracerebral event, toxicologic, neurologic, as well as other pathologies. ER treatment provided: See below. Diagnostics interpreted by me: ECG: Sinus tachycardia, 113 bpm, no ectopy, no overt ST elevation or depression, QTc 427, QRS 88 Cardiac Monitoring: An order for continuous cardiac monitoring was placed and demonstrated sinus tachycardia, 113 bpm, no ectopy. Laboratory studies: See below Imaging studies: See below Consultation(s): Case was d/w Dr. Madrigal [facility] hospitalist who will evaluate the patient for admission. HPI: The patient is a pleasant 62-year-old gentleman with a past medical history of metastatic mesothelioma who follows with the cancer center for infusions who presents emerged department referred from the [facility] cancer partnership for evaluation of "infection" given routine lab work obtained prior to his infusion demonstrated increase in WBC from prior with a increase in leukocytosis from 48K to 112K. The patient also had blood work demonstrating hyponatremia with sodium 127. His TSH was also elevated at 8.5.. The patient reports he has not had any significant change in his symptoms/health and reports intermittent nausea but denies any vomiting or diarrhea. He reported he is been eating as he has been without much issue. He denies any new cough or fevers. He denies any chest pain or new shortness of breath. He denies any lightheadedness. The patient is a poor historian. He is not sure of the details of why he was sent to the emergency department. He reports that he knows "they look after him closely". ROS: See above HPI for pertinent positives & negatives. A total of 10 systems reviewed and were otherwise negative. VITALS:See Below PHYSICAL EXAMINATION: GENERAL: Awake, alert, fatigued-appearing, in no distress, cachectic. HENT: Normocephalic, atraumatic. Oropharynx with dry mucous membranes and otherwise unremarkable. EYES: Normal conjunctiva. Sclera non-icteric. NECK: Supple. No nuchal rigidity. FROM. No JVD. RESPIRATORY: Diminished BS or right lower lung mccarty otherwise clear. Normal respiratory effort. CARDIAC: Tachycardic rate, normal rhythm. Extremities warm and well perfused. Pulses equal. ABDOMEN: Soft, non-distended. No tenderness to palpation. No rebound or guarding. No masses. RECTAL: Deferred. MUSCULOSKELETAL: Chest examination reveals no tenderness. The back is sym metrical on inspection without obvious abnormality. There is no CVA tenderness to palpation. No joint edema. LOWER EXTREMITIES: Calves are equal size bilaterally and non-tender. No edema. No discoloration. NEURO: Normal sensorium. No sensory or motor deficits noted. SKIN: No rash or jaundice noted. ED COURSE: Critical Care: I have personally spent greater than 35 minutes of critical care time in the direct management of this patient. This includes bedside care, interpretation of diagnostic studies, and testing, discussion with consultants, patient, and family members, and other required patient management activities. This 35 minutes is in excess of all separately billable procedures. Ravin Velazco MD Past Med/Surg History Medical History Abnormal CT scan of lung Acute blood loss anemia Depression DVT prophylaxis Empyema of right pleural space Encounter for pre-operative examination Hyperlipidemia Hypertension Hypokalemia Hyponatremia Pleural effusion Pleural effusion on right 08/07/2019 Pneumothorax s/p chest tube placement Rheumatoid arthritis Shortness of breath Surgical History History of lung surgery 08/12/2019 Dr. Solano @ [facility]--right video assisted thoracoscopy with pleurectomy, biopsy, right lower lobe wedge resection History of thoracentesis History of tooth extraction all teeth Hx of chest tube placement 08/07/2019 Port-A-Cath in place (09/24/19) Infusaport Insertion in Left Internal Jugular with Fluoroscopy Dr. Doyle 5/6/20 Family History Brother Family history of esophageal cancer Mother No problems noted. Father , age 80 heart disease Cancer mesothelioma Brother Hypertension Sister No problems noted. Other No family history of adverse response to anesthesia Social History Smoking Status: Former smoker Age Started Using Tobacco: 19; Age Quit Using Tobacco: 53; packs per day: 1.5; Cigarettes Per Day: states quif of and on over the years; Second Hand Exposure: No; Do You Dip or Chew Tobacco: No; Tobacco Cessation Education Requested by Patient: No Hx Alcohol Use: Yes Alcohol type: beer Alcohol Intake Frequency Comment: twice a week Hx Substance Use: No Preferred Language: Ukrainian Communication Ability: Effective Visual Impairment: No Limitations Hearing Ability: Normal Printer Slotter Feeder Required: No Beliefs That Will Affect Care: None marital status: Single Current Living Situation: Alone current occupational status: employed 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 Other Information That Helps Us Care for You: No Feels Safe at Home: Yes Safety Concerns: Feels Safe At This Time Childhood Exposure to Second-Hand Smoke: Yes Diet: regular caffeine: Yes (4-5 cups per day) during the past year weight has: decreased > 10 lbs Dental Care, Regularly: No Physical Activity Frequency: Daily Seatbelt Use: always Sunscreen Use: No Assistive Devices: Cane, Denture - Upper, Denture - Lower and Glasses Allergies Allergies Allergy/AdvReac Type Severity Reaction Status Date / Time No Known Allergies Allergy Verified 12/18/22 16:35 Home Meds Home Medications Medication Instructions Recorded Confirmed amlodipine 5 mg tablet 5 mg PO QAM 08/07/19 12/18/22 atorvastatin 20 mg tablet 10 mg PO BID 08/07/19 12/18/22 fluoxetine 20 mg capsule 60 mg PO QPM 08/07/19 12/18/22 lisinopril 20 2 tab PO QAM 08/07/19 12/18/22 mg-hydrochlorothiazide 25 mg tablet valacyclovir 500 mg tablet 500 mg PO DAILY 08/07/19 12/18/22 folic acid 1 mg tablet 1 mg PO QAM 09/18/19 12/18/22 ondansetron HCl 8 mg tablet 8 mg PO Q8H PRN Nausea 09/18/19 12/18/22 prochlorperazine maleate 10 mg 10 mg PO Q6H PRN Nausea 09/18/19 12/18/22 tablet dexamethasone 4 mg tablet 4 mg PO QAM 11/12/19 12/18/22 Results & Data (ED) Vital Signs Vital Signs - 24 hr 12/18/22 13:44 12/18/22 15:49 12/18/22 16:08 Temperature 36.6 C Temperature Source Temporal Artery Scan Pulse Rate 115 H 100 H Pulse Rate [Apical] 105 H Respiratory Rate 18 19 Respiratory Effort / Characteristics Non-Labored Spontaneous Respiratory Depth Normal Blood Pressure 100/71 Blood Pressure [Left Arm] 110/81 Blood Pressure Mean 80 Blood Pressure Mean [Left Arm] 90 Pulse Oximetry 98 99 Oxygen Delivery Method Room Air Room Air Sepsis Recent Fever Within 48 Hours No Sepsis New/Unexplained Change in Mental Status No Sepsis Action Taken by Nursing No Action Required 12/18/22 17:27 12/18/22 18:01 Temperature Temperature Source Pulse Rate Pulse Rate [Apical] 103 H Respiratory Rate 19 Respiratory Effort / Characteristics Respiratory Depth Blood Pressure Blood Pressure [Left Arm] 110/73 Blood Pressure Mean Blood Pressure Mean [Left Arm] 85 Pulse Oximetry 95 Oxygen Delivery Method Room Air Room Air Sepsis Recent Fever Within 48 Hours Sepsis New/Unexplained Change in Mental Status Sepsis Action Taken by Nursing Laboratory Data Attestation: I reviewed the patient's lab results. 12/18/22 14:45 12/18/22 14:45 Lab Results 12/18/22 12/18/22 12/18/22 Range/Units 14:45 14:45 14:45 WBC 107.62 H* (4.8-10.8) K/ul RBC 3.00 L (4.70-6.10) M/uL Hgb 8.3 L (14.0-18.0) g/dl Hct 23.9 L (42.0-52.0) % MCV 79.7 L (80.0-100.0) fL MCH 27.7 (25.0-34.0) pg MCHC 34.7 (32.0-36.0) g/dL RDW Std Deviation 49.1 H (36.4-46.3) fL RDW Coeff of Enmanuel 17.7 H (11.5-14.5) % Plt Count 316 (130-400) K/uL MPV 10.2 (9.4-12.4) fL Immature Gran % (Auto) 7.6 % Neut % (Auto) 86.6 % Lymph % (Auto) 2.8 % Clayton % (Auto) 2.9 % Eos % (Auto) 0.0 % Baso % (Auto) 0.1 % Neut # (Auto) 93.17 H (1.40-6.50) K/uL Lymph # (Auto) 3.05 (1.2-3.4) K/uL Clayton # (Auto) 3.09 H (0.11-0.59) K/uL Eos # (Auto) 0.03 (0-0.50) K/uL Baso # (Auto) 0.06 (0-0.2) K/uL Immature Gran # (Auto) 8.22 H (0.01-0.20) K/uL PT 14.2 H (9.0-12.0) Seconds INR 1.3 H (0.9-1.1) APTT 34.0 H (21.0-31.0) Seconds PTT Ratio 1.2 Sodium 127 L (136-145) mmol/L Potassium 4.7 (3.5-5.1) mmol/L Chloride 90 L (98-107) mmol/L Carbon Dioxide 25 (21-32) mmol/L Anion Gap 12 H (3-11) BUN 31 H (6-23) mg/dl Creatinine 1.25 (0.6-1.4) mg/dl Est Cr Clr Drug Dosing 57.3 ml/min Est GFR ( Amer) 71.1 ml/min Est GFR (Non-Af Amer) 61.3 ml/min BUN/Creatinine Ratio 24.8 H (10-20) Glucose 99 (70-99(Fasting)) mg/dl Lactate (0.4-2.0) mmol/L Calcium 8.6 (8.6-10.3) mg/dl Magnesium 1.9 (1.7-2.4) mg/dl Total Bilirubin 1.0 (0.2-1.0) mg/dl AST 21 (13-39) U/L ALT 16 (7-52) U/L Alkaline Phosphatase 356 H (34-104) U/L Troponin I High Sens 100.5 H* (0-20) pg/ml Total Protein 6.8 (6.0-8.3) gm/dl Albumin 2.8 L (3.4-5.0) gm/dl Globulin 4.0 (2.5-4.0) gm/dl Albumin/Globulin Ratio 0.7 L (0.9-2) Procalcitonin (0-0.5) ng/ml TSH (0.300-4.500) uIu/ml Urine Color Urine Appearance (Clear) Urine pH (4.5-7.5) Ur Specific Mosca (1.000-1.030) Urine Protein (Negative) Urine Glucose (UA) (Negative) Urine Ketones (Negative) Urine Blood (Negative) Urine Nitrite (Negative) Urine Bilirubin (Negative) Urine Urobilinogen (Negative) Ur Leukocyte Esterase (Negative) Urine WBC (Auto) (0-5) /hpf Urine RBC (Auto) (0-4) /hpf U Hyaline Cast (Auto) (0-5) /lpf U Epithel Cells (Auto) (0-5) /lpf Urine Bacteria (Auto) (Negative) 12/18/22 12/18/22 12/18/22 Range/Units 14:45 17:19 17:19 WBC (4.8-10.8) K/ul RBC (4.70-6.10) M/uL Hgb (14.0-18.0) g/dl Hct (42.0-52.0) % MCV (80.0-100.0) fL MCH (25.0-34.0) pg MCHC (32.0-36.0) g/dL RDW Std Deviation (36.4-46.3) fL RDW Coeff of Enmanuel (11.5-14.5) % Plt Count (130-400) K/uL MPV (9.4-12.4) fL Immature Gran % (Auto) % Neut % (Auto) % Lymph % (Auto) % Clayton % (Auto) % Eos % (Auto) % Baso % (Auto) % Neut # (Auto) (1.40-6.50) K/uL Lymph # (Auto) (1.2-3.4) K/uL Clayton # (Auto) (0.11-0.59) K/uL Eos # (Auto) (0-0.50) K/uL Baso # (Auto) (0-0.2) K/uL Immature Gran # (Auto) (0.01-0.20) K/uL PT (9.0-12.0) Seconds INR (0.9-1.1) APTT (21.0-31.0) Seconds PTT Ratio Sodium (136-145) mmol/L Potassium (3.5-5.1) mmol/L Chloride (98-107) mmol/L Carbon Dioxide (21-32) mmol/L Anion Gap (3-11) BUN (6-23) mg/dl Creatinine (0.6-1.4) mg/dl Est Cr Clr Drug Dosing ml/min Est GFR ( Amer) ml/min Est GFR (Non-Af Amer) ml/min BUN/Creatinine Ratio (10-20) Glucose (70-99(Fasting)) mg/dl Lactate 2.8 H* (0.4-2.0) mmol/L Calcium (8.6-10.3) mg/dl Magnesium (1.7-2.4) mg/dl Total Bilirubin (0.2-1.0) mg/dl AST (13-39) U/L ALT (7-52) U/L Alkaline Phosphatase (34-104) U/L Troponin I High Sens (0-20) pg/ml Total Protein (6.0-8.3) gm/dl Albumin (3.4-5.0) gm/dl Globulin (2.5-4.0) gm/dl Albumin/Globulin Ratio (0.9-2) Procalcitonin 4.69 H (0-0.5) ng/ml TSH 3.609 (0.300-4.500) uIu/ml Urine Color Urine Appearance (Clear) Urine pH (4.5-7.5) Ur Specific Mosca (1.000-1.030) Urine Protein (Negative) Urine Glucose (UA) (Negative) Urine Ketones (Negative) Urine Blood (Negative) Urine Nitrite (Negative) Urine Bilirubin (Negative) Urine Urobilinogen (Negative) Ur Leukocyte Esterase (Negative) Urine WBC (Auto) (0-5) /hpf Urine RBC (Auto) (0-4) /hpf U Hyaline Cast (Auto) (0-5) /lpf U Epithel Cells (Auto) (0-5) /lpf Urine Bacteria (Auto) (Negative) 12/18/22 12/18/22 12/18/22 Range/Units 17:20 17:21 18:30 WBC (4.8-10.8) K/ul RBC (4.70-6.10) M/uL Hgb (14.0-18.0) g/dl Hct (42.0-52.0) % MCV (80.0-100.0) fL MCH (25.0-34.0) pg MCHC (32.0-36.0) g/dL RDW Std Deviation (36.4-46.3) fL RDW Coeff of Enmanuel (11.5-14.5) % Plt Count (130-400) K/uL MPV (9.4-12.4) fL Immature Gran % (Auto) % Neut % (Auto) % Lymph % (Auto) % Clayton % (Auto) % Eos % (Auto) % Baso % (Auto) % Neut # (Auto) (1.40-6.50) K/uL Lymph # (Auto) (1.2-3.4) K/uL Clayton # (Auto) (0.11-0.59) K/uL Eos # (Auto) (0-0.50) K/uL Baso # (Auto) (0-0.2) K/uL Immature Gran # (Auto) (0.01-0.20) K/uL PT (9.0-12.0) Seconds INR (0.9-1.1) APTT (21.0-31.0) Seconds PTT Ratio Sodium (136-145) mmol/L Potassium (3.5-5.1) mmol/L Chloride (98-107) mmol/L Carbon Dioxide (21-32) mmol/L Anion Gap (3-11) BUN (6-23) mg/dl Creatinine (0.6-1.4) mg/dl Est Cr Clr Drug Dosing ml/min Est GFR ( Amer) ml/min Est GFR (Non-Af Amer) ml/min BUN/Creatinine Ratio (10-20) Glucose (70-99(Fasting)) mg/dl Lactate 2.5 H* (0.4-2.0) mmol/L Calcium (8.6-10.3) mg/dl Magnesium (1.7-2.4) mg/dl Total Bilirubin (0.2-1.0) mg/dl AST (13-39) U/L ALT (7-52) U/L Alkaline Phosphatase (34-104) U/L Troponin I High Sens 142.7 H* D (0-20) pg/ml Total Protein (6.0-8.3) gm/dl Albumin (3.4-5.0) gm/dl Globulin (2.5-4.0) gm/dl Albumin/Globulin Ratio (0.9-2) Procalcitonin (0-0.5) ng/ml TSH (0.300-4.500) uIu/ml Urine Color Dark Yellow Urine Appearance Cloudy A (Clear) Urine pH 5.5 (4.5-7.5) Ur Specific Mosca 1.023 (1.000-1.030) Urine Protein 1+ H (Negative) Urine Glucose (UA) Negative (Negative) Urine Ketones Trace H (Negative) Urine Blood Negative (Negative) Urine Nitrite Negative (Negative) Urine Bilirubin 1+ H (Negative) Urine Urobilinogen Negative (Negative) Ur Leukocyte Esterase Negative (Negative) Urine WBC (Auto) 1-5 (0-5) /hpf Urine RBC (Auto) 0-4 (0-4) /hpf U Hyaline Cast (Auto) >30 H (0-5) /lpf U Epithel Cells (Auto) 10-20 H (0-5) /lpf Urine Bacteria (Auto) Negative (Negative) 12/18/22 Range/Units 18:30 WBC (4.8-10.8) K/ul RBC (4.70-6.10) M/uL Hgb (14.0-18.0) g/dl Hct (42.0-52.0) % MCV (80.0-100.0) fL MCH (25.0-34.0) pg MCHC (32.0-36.0) g/dL RDW Std Deviation (36.4-46.3) fL RDW Coeff of Enmanuel (11.5-14.5) % Plt Count (130-400) K/uL MPV (9.4-12.4) fL Immature Gran % (Auto) % Neut % (Auto) % Lymph % (Auto) % Clayton % (Auto) % Eos % (Auto) % Baso % (Auto) % Neut # (Auto) (1.40-6.50) K/uL Lymph # (Auto) (1.2-3.4) K/uL Clayton # (Auto) (0.11-0.59) K/uL Eos # (Auto) (0-0.50) K/uL Baso # (Auto) (0-0.2) K/uL Immature Gran # (Auto) (0.01-0.20) K/uL PT (9.0-12.0) Seconds INR (0.9-1.1) APTT (21.0-31.0) Seconds PTT Ratio Sodium 127 L (136-145) mmol/L Potassium 4.2 (3.5-5.1) mmol/L Chloride 94 L (98-107) mmol/L Carbon Dioxide 24 (21-32) mmol/L Anion Gap 9 (3-11) BUN 29 H (6-23) mg/dl Creatinine 1.12 (0.6-1.4) mg/dl Est Cr Clr Drug Dosing 63.9 ml/min Est GFR ( Amer) 81.2 ml/min Est GFR (Non-Af Amer) 70.0 ml/min BUN/Creatinine Ratio 25.9 H (10-20) Glucose 94 (70-99(Fasting)) mg/dl Lactate (0.4-2.0) mmol/L Calcium 7.8 L (8.6-10.3) mg/dl Magnesium (1.7-2.4) mg/dl Total Bilirubin (0.2-1.0) mg/dl AST (13-39) U/L ALT (7-52) U/L Alkaline Phosphatase (34-104) U/L Troponin I High Sens (0-20) pg/ml Total Protein (6.0-8.3) gm/dl Albumin (3.4-5.0) gm/dl Globulin (2.5-4.0) gm/dl Albumin/Globulin Ratio (0.9-2) Procalcitonin (0-0.5) ng/ml TSH (0.300-4.500) uIu/ml Urine Color Urine Appearance (Clear) Urine pH (4.5-7.5) Ur Specific Mosca (1.000-1.030) Urine Protein (Negative) Urine Glucose (UA) (Negative) Urine Ketones (Negative) Urine Blood (Negative) Urine Nitrite (Negative) Urine Bilirubin (Negative) Urine Urobilinogen (Negative) Ur Leukocyte Esterase (Negative) Urine WBC (Auto) (0-5) /hpf Urine RBC (Auto) (0-4) /hpf U Hyaline Cast (Auto) (0-5) /lpf U Epithel Cells (Auto) (0-5) /lpf Urine Bacteria (Auto) (Negative) Administered Medications Atorvastatin Calcium (Atorvastatin 10 Mg Tab) 10 mg PO BID MONISHA Stop: 01/17/23 21:42 Last Admin: 12/18/22 22:10 Dose: 10 mg Documented By: LORRAINE Fluoxetine HCl (Fluoxetine Hcl 20 Mg Cap) 60 mg PO QPM MONISHA Stop: 01/17/23 21:42 Last Admin: 12/18/22 22:10 Dose: 60 mg Documented By: LORRAINE Discontinued Medications Sodium Chloride (Nss 1000ml) 2,000 mls @ 999 mls/hr IV .Q2H1M ONE Stop: 12/18/22 19:01 Last Infusion: 12/18/22 19:32 Dose: 0 mls/hr Documented By: Admin: 12/18/22 17:30 Dose: 999 mls/hr Documented By: Cefepime HCl (Maxipime) 2,000 mg in 20 mls @ 5 mls/min IV NOW STA; Protocol Stop: 12/18/22 17:04 Last Admin: 12/18/22 17:30 Dose: 5 mls/min Documented By: Ioversol (Ioversol 350 Mg 125ml Prefilled Syringe) 120 ml IV ONCE ONE Stop: 12/18/22 17:51 Last Admin: 12/18/22 17:50 Dose: 120 ml Documented By: ANIKA Imaging Data Radiologist's Impression: Chest X-Ray 12/18/22 13:46 SINGLE VIEW CHEST CLINICAL HISTORY: Generalized weakness. Mesothelioma. FINDINGS: An AP, portable, upright chest radiograph is compared to study dated 11/27/2022 and correlated with chest CT dated 10/27/2022. A left internal jugular central venous effusion port is unchanged in position. The cardiomediastinal silhouette is unremarkable. Pleural-based mass lesions at the right lung base are similar to previous. No superimposed air space consolidation is identified. A small right pleural effusion is not excluded. No pneumothorax is seen. The skeletal structures are osteopenic. The bony thorax is grossly intact. IMPRESSION: 1. Pleural-based mass lesions at the right lung base are similar to previous. 2. There is no airspace consolidations or pneumonia. 3. A small right pleural effusion is not excluded. ACT 112: Negative or not required by law. Electronically signed by: Neo Dai M.D. 12/18/2022 4:12 PM Abdomen/Pelvis CT 12/18/22 17:01 CT SCAN OF THE ABDOMEN AND PELVIS WITH IV CONTRAST CLINICAL HISTORY: Malignant mesothelioma. Nausea. Generalized abdominal pain. COMPARISON STUDY: Abdominal CT dated 10/27/2022 TECHNIQUE: Following the IV administration of 120 cc of Optiray 350, CT scan of the abdomen and pelvis is performed from the lung bases to the proximal femora. Images are reviewed in the axial, sagittal, and coronal planes. IV contrast was administered without complication. A dose lowering technique was utilized adhering to the principles of ALARA. FINDINGS: Lung bases: The heart is top normal in size and without pericardial effusion. There are coronary artery calcifications. Extensive pleural-based tumor at the right lung base is again noted. This measures up to 19 cm in length and appears to have enlarged as compared to 10/27/2022. This inferiorly bulges the right hemidiaphragm. This extends through the diaphragm anteriorly and invades the right lobe of liver. Extrapleural extension is again seen on the right. Enlarging metastatic lesions are seen along the right major fissure. A 3 mm left lower lobe nodule on image #46 is new from previous. There is no airspace consolidation typical for pneumonia or pleural effusion. A small hiatal hernia is noted. Liver: The contrast-enhanced liver is normal in size, contour, and attenuation. There is no intrahepatic biliary ductal dilatation. The hepatic veins and portal veins are patent. Multifocal hepatic metastatic disease has progressed as compared to 11/06/2022. The largest right lobe lesion on image #87 measures 3.1 cm. Gallbladder: Unremarkable. Spleen: Normal in size and attenuation. 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 Pancreas: A 3.3 cm mass in the pancreatic head is new from 10/27/2022 and likely represents metastatic disease. The pancreatic duct is normal in caliber. Adrenal glands: Bilateral adrenal metastases are new from previous. A left adrenal metastasis measures up to 3.4 cm and the right adrenal metastasis measures up to 2.9 cm. Kidneys: The contrast enhanced kidneys are normal in size and without hydronephrosis. There is significantly heterogeneous enhancement of both kidneys which represents a change from 10/27/2022. A 3 mm nonobstructing calculus is seen on the left. Scattered renal cysts measure up to 10 mm. Abdominal vasculature: The abdominal aorta is normal in course and caliber noting mild to moderate atherosclerotic calcification. Bowel: There is no bowel obstruction. There is mild colonic diverticulosis without CT evidence of acute diverticulitis. The appendix is well-visualized and normal. Peritoneum: No intraperitoneal free air or abdominal ascites is seen. There is a fat-containing umbilical hernia. Lymphadenopathy: Metastatic lymphadenopathy is again seen in the upper abdomen. A insurance healthcare representative piyush activity on image #114 measures 3.1 x 1.3 cm Pelvic viscera: The prostate gland is enlarged and heterogeneous. The bladder is normal as visualized. Skeletal structures: Again seen is extensive/multifocal osteoblastic metastatic disease. Lesions are seen throughout the thoracolumbar spine, the bony pelvis, the partially imaged right scapula, the bilateral ribs, and in the proximal femora. This as also progressed from previous. There are chronic/healed right- sided rib fractures. IMPRESSION: 1. Marked progression of multifocal metastatic disease as compared to 10/27/2022. 2. Enlarging pleural-based tumor at the right lung base. This extends through the diaphragm and invades the liver. There is also extrapleural extension into the chest wall. 3. Modest progression of extensive multifocal osseous metastatic disease. 4. Progressive hepatic metastatic disease. 5. Progressive metastatic lymphadenopathy in the upper abdomen. 6. A pancreatic metastasis and bilateral adrenal metastases are new from previous. 7. There is heterogeneous renal cortical enhancement. Correlate with clinical findings and urinalysis. Renal metastatic disease is not excluded. 8. Left-sided nephrolithiasis. 9. Additional findings as above. ACT 112: Negative or not required by law. Electronically signed by: Neo Dai M.D. 12/18/2022 7:39 PM Chest CTA 12/18/22 17:01 CT ANGIOGRAM OF THE CHEST CLINICAL HISTORY: Mesothelioma. Atypical chest pain. Elevated troponin. COMPARISON STUDY: Chest CT dated 10/27/2022. TECHNIQUE: Following the IV administration of 120 cc of Optiray 350, CT angiogram of the chest was performed from the upper abdomen to the thoracic inlet utilizing the pulmonary embolus protocol. Images are reviewed in the axial, sagittal, and coronal planes. 3-D MIPS images are created and assessed. IV contrast was administered without complication. A dose lowering technique was utilized adhering to the principles of ALARA. CT DOSE: 1260.45 mGy.cm FINDINGS: Thyroid: Imaged portions of the thyroid gland are normal in size and a ttenuation. Thoracic aorta: There is atherosclerotic calcification of the thoracic aorta, which is normal in caliber and demonstrates standard 3-vessel arch anatomy. No dissection is seen. Pulmonary vasculature: The pulmonary trunk is normal in caliber. There are no filling defects identified in main, lobar, or segmental pulmonary branches to suggest pulmonary embolus. Heart: A left internal jugular central venous infusion port is in place. The heart is normal in size and without pericardial effusion. The coronary arteries are densely calcified. Lungs and pleural spaces: Again seen is extensive metastatic pleural disease at the right lung base. This appears progressive as compared to 10/27/2022. Lesions measure approximately 19 x 11.5 cm in aggregate dimension. There is extrapleural extension of tumor seen anteriorly on the right. The lesion extends through the anterior diaphragm and invades the right lobe of the liver. There are enlarging pleural-based metastases along the right major fissure. A insurance healthcare representative lesion on image #94 measures 2.9 cm (previously measured 2.7 cm). There is no airspace consolidation typical for pneumonia or pleural effusion. There are several (at least 5) tiny pulmonary and pleural-based nodules scattered throughout the left lung which are new from previous and likely represent metastatic disease. The largest nodules measure up to 3 mm as seen in the left upper lobe on image #135 and in the left lower lobe on image #57. The trachea and central airways are clear. Mediastinum: Mediastinal lymphadenopathy has modestly progressed from previous. A paratracheal node on image #158 measures 1.9 x 1.5 cm (previously measured 1.2 x 1.1 cm). Pamella: Right hilar adenopathy similar to previous. Right hilar nodes measure up to 1.4 cm in short axis. No left hilar adenopathy is seen. Axillae: There is no axillary lymphadenopathy. Upper abdomen: Multifocal hepatic metastatic disease is again noted and appears progressive. The largest lesion measures up to 3.1 cm. Bilateral adrenal metastases are new from previous. The largest is on the left and measures up to 3.4 cm. Metastatic lymphadenopathy seen in the upper abdomen. 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 See report of abdominal CT performed concurrently for detail intra-abdominal findings. Skeletal structures: The skeletal structures appear osteopenic. Again seen is multifocal osseous metastatic disease. This appears mildly progressive as compared to 10/27/2022. Lesions are seen throughout the thoracic spine, sternum, the scapulae, and ribs. There are chronic/healed right-sided rib fractures. IMPRESSION: 1. There is no evidence of pulmonary embolus in the main, lobar, or segmental pulmonary arteries. 2. There is no airspace consolidation typical for pneumonia or pleural effusion. 3. Extensive pleural-based tumor at the right lung base has progressed as compared to 10/27/2022. There is extrapleural extension, and this also extends through the diaphragm with hepatic invasion. 4. Enlarging pleural-based metastases are seen along the right major fissure. 5. There are several tiny pulmonary nodules throughout the left lung which are new from previous. These also likely represents progressive metastatic disease. 6. Mediastinal lymphadenopathy appears modestly progressive. 7. Right hilar adenopathy is unchanged. 8. Hepatic metastatic disease has progressed and bilateral adrenal metastases are new from previous. 9. Multifocal osseous metastatic disease has modestly progressed from previous. 10. Additional findings as above ACT 112: Negative or not required by law. Electronically signed by: Neo Dai M.D. 12/18/2022 7:40 PM Discharge Plan Visit Data Chief Complaint: Abnormal Labs/Diagnostic Testing Stated Complaint: ABNORMAL LABS,?[facility] ED Provider: Ravin Velazco Discharge Problem: Metastatic cancer, Mesothelioma, Hyponatremia, Leukocytosis, Elevated troponin Patient Disposition: Admitted As Inpatient Discharge Instructions Interventions: ED Discharge Assessment Last Done: 12/18/22 20:44
[2022-12-18] MEDS ORDERED: SODIUM CHLORIDE 0.9% 1000ML 2,000 ML IV ONE (17:01)
[2022-12-18] MEDS ORDERED: CEFEPIME 2,000 MG/20 ML VIAL IV STA (17:01)
[2022-12-18 17:43] LABS: Appearance Urine Cloudy (Clear); Bacteria Urine Automated Negative (Negative); Blood Urine Negative (Negative); Color Urine Dark Yellow; Glucose Urine UA Negative (Negative); Ketones Urine Trace (Negative); Leukocyte Esterase Urine Negative (Negative); Nitrite Urine Negative (Negative); Protein Urine 1+ (Negative); RBC Urine Automated 0-4 /hpf (0-4); Specific Gravity Urine 1.023 (1.000-1.030); Urobilinogen Urine Negative (Negative); pH Urine 5.5 (4.5-7.5)
[2022-12-18] MEDS ORDERED: IOVERSOL 350 MG 125mL Prefilled Syringe IV ONE (17:50)
--- NOTE | 2022-12-18 17:51 | Hospitalist Consultation ---
Date of Consultation December 18, 2022 Assessment & Plan (1) Leukemoid reaction: History of Present Illness Allergies Allergy/AdvReac Type Severity Reaction Status Date / Time No Known Allergies Allergy Verified 12/18/22 16:35 Home Medications Medication Instructions Recorded Confirmed Type amlodipine 5 mg tablet 5 mg PO QAM 08/07/19 12/18/22 History atorvastatin 20 mg tablet 10 mg PO BID 08/07/19 12/18/22 History fluoxetine 20 mg capsule 60 mg PO QPM 08/07/19 12/18/22 History lisinopril 20 2 tab PO QAM 08/07/19 12/18/22 History mg-hydrochlorothiazide 25 mg tablet valacyclovir 500 mg tablet 500 mg PO DAILY 08/07/19 12/18/22 History folic acid 1 mg tablet 1 mg PO QAM 09/18/19 12/18/22 History ondansetron HCl 8 mg tablet 8 mg PO Q8H PRN Nausea 09/18/19 12/18/22 History prochlorperazine maleate 10 mg 10 mg PO Q6H PRN Nausea 09/18/19 12/18/22 History tablet dexamethasone 4 mg tablet 4 mg PO QAM 11/12/19 12/18/22 History Patient History Medical History (Updated 12/18/22 @ 17:51 by Adal Madrigal MD) Abnormal CT scan of lung Acute blood loss anemia Depression DVT prophylaxis Empyema of right pleural space Encounter for pre-operative examination Hyperlipidemia Hypertension Hypokalemia Hyponatremia Pleural effusion Pleural effusion on right 08/07/2019 Pneumothorax s/p chest tube placement Rheumatoid arthritis Shortness of breath Surgical History (Updated 11/12/19 @ 08:59 by Ashley Reyna RN) History of lung surgery 08/12/2019 Dr. Solano @ [facility]--right video assisted thoracoscopy with pleurectomy, biopsy, right lower lobe wedge resection History of thoracentesis History of tooth extraction all teeth Hx of chest tube placement 08/07/2019 Port-A-Cath in place (09/24/19) Infusaport Insertion in Left Internal Jugular with Fluoroscopy Dr. Doyle 09/24/19 Family History (Updated 11/12/19 @ 10:12 by Ashley Reyna, RAMAN) Brother Family history of esophageal cancer Mother No problems noted. Father , age 80 heart disease Cancer mesothelioma Brother Hypertension Sister No problems noted. Other No family history of adverse response to anesthesia Social History (Updated 11/12/19 @ 10:18 by Ashley Reyna RN) Smoking Status: Never smoker Age Started Using Tobacco: 19; Age Quit Using Tobacco: 53; packs per day: 1.5; Cigarettes Per Day: states quif of and on over the years; Second Hand Exposure: Yes (father smoked); Do You Dip or Chew Tobacco: No; Hx Alcohol Use: Yes Alcohol type: beer and wine Alcohol Intake Frequency Comment: twice a week Hx Substance Use: No Preferred Language: Turkmen Communication Ability: Effective Visual Impairment: No Limitations Hearing Ability: Normal Wire Harness Assembler Required: No Beliefs That Will Affect Care: None marital status: Single Current Living Situation: Alone current occupational status: employed 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 Feels Safe at Home: Yes Childhood Exposure to Second-Hand Smoke: Yes Diet: regular caffeine: Yes (4-5 cups per day) during the past year weight has: decreased > 10 lbs Dental Care, Regularly: No Physical Activity Frequency: Daily Seatbelt Use: always Sunscreen Use: No Assistive Devices: Denture - Upper, Denture - Lower and Glasses Results & Data Results & Data Vital Signs (Past 12 Hours) Vital Signs Temp Pulse Pulse Resp BP BP Pulse Ox 12/18/22 17:27 12/18/22 16:08 100 H 12/18/22 15:49 105 H 19 110/81 99 12/18/22 13:44 36.6 C 115 H 18 100/71 98 O2 Del Method 12/18/22 17:27 Room Air 12/18/22 16:08 12/18/22 15:49 Room Air 12/18/22 13:44 Room Air PG Care Time/CCT Total # of Minutes Spent Total Time Spent with Patient: Total time spent is greater than 50% in coordination of care (as documented) at patient's floor/unit and/or counseling patient: Coding Diagnoses Leukemoid reaction D72.823
[2022-12-18 17:52] LABS: Bilirubin Urine 1+ (Negative)
[2022-12-18 18:04] LABS: Cast Urine Automated >30 /lpf (0-5)
[2022-12-18 19:13] LABS: BUN Creatinine Ratio 25.9 (10-20); Calcium 7.8 mg/dl (8.6-10.3); Creatinine Clr Calc Pharmacy 63.9 ml/min; Est GFR (African American) 81.2 ml/min; Potassium 4.2 mmol/L (3.5-5.1)
--- NOTE | 2022-12-18 19:41 | CT Scan Report ---
CT ANGIOGRAM OF THE CHEST CLINICAL HISTORY: Mesothelioma. Atypical chest pain. Elevated troponin. COMPARISON STUDY: Chest CT dated 10/27/2022. TECHNIQUE: Following the IV administration of 120 cc of Optiray 350, CT angiogram of the chest was pe rformed from the upper abdomen to the thoracic inlet utilizing the pulmonary embolus protocol. Images are reviewed in the axial, sagittal, and coronal planes. 3-D MIPS images are created and assessed. I V contrast was administered without complication. A dose lowering technique was utilized adhering to the principles of ALARA. CT DOSE: 1260.45 mGy.cm FINDINGS: Thyroid: Imaged portions of the thyroid gland are normal in size and attenuation. Thoracic aorta: There is atherosclerotic calcification of the thoracic aorta, which is normal in david андрей and demonstrates standard 3-vessel arch anatomy. No dissection is seen. Pulmonary vasculature: The pulmonary trunk is normal in caliber. There are no filling defects identif ied in main, lobar, or segmental pulmonary branches to suggest pulmonary embolus. Heart: A left internal jugular central venous infusion port is in place. The heart is normal in size and without pericardial effusion. The coronary arteries are densely calcified. Lungs and pleural spaces: Again seen is extensive metastatic pleural disease at the right lung base. This appears progressive as compared to 10/27/2022. Lesions measure approximately 19 x 11.5 cm in aggre gate dimension. There is extrapleural extension of tumor seen anteriorly on the right. The lesion ext ends through the anterior diaphragm and invades the right lobe of the liver. There are enlarging pleu ral-based metastases along the right major fissure. A artist's representative lesion on image #94 measures 2.9 cm (previously measured 2.7 cm). There is no airspace consolidation typical for pneumonia or pleural effusion. There are several (at least 5) tiny pulmonary and pleural-based nodules scattered througho ut the left lung which are new from previous and likely represent metastatic disease. The largest nod ules measure up to 3 mm as seen in the left upper lobe on image #135 and in the left lower lobe on im age #57. The trachea and central airways are clear. Mediastinum: Mediastinal lymphadenopathy has modestly progressed from previous. A paratracheal node o n image #158 measures 1.9 x 1.5 cm (previously measured 1.2 x 1.1 cm). Pamella: Right hilar adenopathy similar to previous. Right hilar nodes measure up to 1.4 cm in short axi s. No left hilar adenopathy is seen. Axillae: There is no axillary lymphadenopathy. Upper abdomen: Multifocal hepatic metastatic disease is again noted and appears progressive. The larg est lesion measures up to 3.1 cm. Bilateral adrenal metastases are new from previous. The largest is on the left and measures up to 3.4 cm. Metastatic lymphadenopathy seen in the upper abdomen. 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 See report of abdominal CT performed concur rently for detail intra-abdominal findings. Skeletal structures: The skeletal structures appear osteopenic. Again seen is multifocal osseous meta static disease. This appears mildly progressive as compared to 10/27/2022. Lesions are seen throughout the thoracic spine, sternum, the scapulae, and ribs. There are chronic/healed right-sided rib fractur es. IMPRESSION: 1. There is no evidence of pulmonary embolus in the main, lobar, or segmental pulmonary arteries. 2. There is no airspace consolidation typical for pneumonia or pleural effusion. 3. Extensive pleural-based tumor at the right lung base has progressed as compared to 10/27/2022. There is extrapleural extension, and this also extends through the diaphragm with hepatic invasion. 4. Enlarging pleural-based metastases are seen along the right major fissure. 5. There are several tiny pulmonary nodules throughout the left lung which are new from previous. The se also likely represents progressive metastatic disease. 6. Mediastinal lymphadenopathy appears modestly progressive. 7. Right hilar adenopathy is unchanged. 8. Hepatic metastatic disease has progressed and bilateral adrenal metastases are new from previous. 9. Multifocal osseous metastatic disease has modestly progressed from previous. 10. Additional findings as above ACT 112: Negative or not required by law. Electronically signed by: Neo Dai M.D. 12/18/2022 7:40 PM
--- NOTE | 2022-12-18 19:41 | CT Scan Report ---
CT SCAN OF THE ABDOMEN AND PELVIS WITH IV CONTRAST CLINICAL HISTORY: Malignant mesothelioma. Nausea. Generalized abdominal pain. COMPARISON STUDY: Abdominal CT dated 10/27/2022 TECHNIQUE: Following the IV administration of 120 cc of Optiray 350, CT scan of the abdomen and pelv is is performed from the lung bases to the proximal femora. Images are reviewed in the axial, sagitta l, and coronal planes. IV contrast was administered without complication. A dose lowering technique w as utilized adhering to the principles of ALARA. FINDINGS: Lung bases: The heart is top normal in size and without pericardial effusion. There are coronary cathi ry calcifications. Extensive pleural-based tumor at the right lung base is again noted. This measures up to 19 cm in length and appears to have enlarged as compared to 10/27/2022. This inferiorly bulges t he right hemidiaphragm. This extends through the diaphragm anteriorly and invades the right lobe of l iver. Extrapleural extension is again seen on the right. Enlarging metastatic lesions are seen along the right major fissure. A 3 mm left lower lobe nodule on image #46 is new from previous. There is no airspace consolidation typical for pneumonia or pleural effusion. A small hiatal hernia is noted. Liver: The contrast-enhanced liver is normal in size, contour, and attenuation. There is no intrahepa tic biliary ductal dilatation. The hepatic veins and portal veins are patent. Multifocal hepatic meta static disease has progressed as compared to 11/06/2022. The largest right lobe lesion on image #87 me asures 3.1 cm. Gallbladder: Unremarkable. Spleen: Normal in size and attenuation. There is an 11 mm peripherally calcified splenic artery aneur ysm. Pancreas: A 3.3 cm mass in the pancreatic head is new from 10/27/2022 and likely represents metastatic disease. The pancreatic duct is normal in caliber. Adrenal glands: Bilateral adrenal metastases are new from previous. A left adrenal metastasis measure s up to 3.4 cm and the right adrenal metastasis measures up to 2.9 cm. Kidneys: The contrast enhanced kidneys are normal in size and without hydronephrosis. There is signif icantly heterogeneous enhancement of both kidneys which represents a change from 10/27/2022. A 3 mm non obstructing calculus is seen on the left. Scattered renal cysts measure up to 10 mm. Abdominal vasculature: The abdominal aorta is normal in course and caliber noting mild to moderate at herosclerotic calcification. Bowel: There is no bowel obstruction. There is mild colonic diverticulosis without CT evidence of acu te diverticulitis. The appendix is well-visualized and normal. Peritoneum: No intraperitoneal free air or abdominal ascites is seen. There is a fat-containing umbil ical hernia. Lymphadenopathy: Metastatic lymphadenopathy is again seen in the upper abdomen. A parts sales representative sabrina l activity on image #114 measures 3.1 x 1.3 cm Pelvic viscera: The prostate gland is enlarged and heterogeneous. The bladder is normal as visualized . Skeletal structures: Again seen is extensive/multifocal osteoblastic metastatic disease. Lesions are seen throughout the thoracolumbar spine, the bony pelvis, the partially imaged right scapula, the missy ateral ribs, and in the proximal femora. This as also progressed from previous. There are chronic/hea led right-sided rib fractures. IMPRESSION: 1. Marked progression of multifocal metastatic disease as compared to 10/27/2022. 2. Enlarging pleural-based tumor at the right lung base. This extends through the diaphragm and invad es the liver. There is also extrapleural extension into the chest wall. 3. Modest progression of extensive multifocal osseous metastatic disease. 4. Progressive hepatic metastatic disease. 5. Progressive metastatic lymphadenopathy in the upper abdomen. 6. A pancreatic metastasis and bilateral adrenal metastases are new from previous. 7. There is heterogeneous renal cortical enhancement. Correlate with clinical findings and urinalysis . Renal metastatic disease is not excluded. 8. Left-sided nephrolithiasis. 9. Additional findings as above. ACT 112: Negative or not required by law. Electronically signed by: Neo Dai M.D. 12/18/2022 7:39 PM
--- NOTE | 2022-12-18 21:29 | History & Physical Report ---
Date of Service December 18, 2022 Assessment & Plan (1) Leukemoid reaction: Plan: Suspect due to immunotherapy with metastatic cancer - discussed case with Dr Briceño on admission prior to CT results No infection source found - further antibiotics deferred. Similar workup p erformed November 27 due to leukemoid reaction with blood culture negative. Consult oncology and palliative care to discuss ongoing treatment in the morning given increase in extensive metastatic disease from [facility] scans (2) Metastatic cancer: Plan: Consult oncology given rapid progression (3) Hyponatremia: Plan: Suspect secondary to HCTZ, will discontinue (4) Hypertension: Plan: Hold all anti-hypertensives currently and monitor BP (5) Elevated troponin I level: Plan: No shortness of breath or chest pain to suggest ACS. (6) Anemia: Plan: Suspect due to bone marrow suppression Basic workup with AM labs No symptoms to suggest acute blood loss anemia Plan VTE Prophylaxis deferred pending repeat hemoglobin to make sure stable Diet - regular Disposition - admit to PCU Admission and Anticipated Discharge Date Admission Date: December 18, 2022 History of Present Illness Chief Complaint: Abnormal labs Primary Care Provider: Sophia Yao PA-C Joaquim Romero is a 62 year old male with metastatic mesothelioma on immunotherapy who [facility] abnormal [facility]. The patient has no acute symptoms. No fever or chills. No respiratory, gastrointestinal or urological symptoms. With regards to his anemia he denies any hemoptysis, hematochezia, hematuria, melena, chest pain, shortness of breath or dizziness. Allergies Allergy/AdvReac Type Severity Reaction Status Date / Time No Known Allergies Allergy Verified 12/18/22 16:35 Home Medications Medication Instructions Recorded Confirmed Type amlodipine 5 mg tablet 5 mg PO QAM 08/07/19 12/18/22 History atorvastatin 20 mg tablet 10 mg PO BID 08/07/19 12/18/22 History fluoxetine 20 mg capsule 60 mg PO QPM 08/07/19 12/18/22 History lisinopril 20 2 tab PO QAM 08/07/19 12/18/22 History mg-hydrochlorothiazide 25 mg tablet valacyclovir 500 mg tablet 500 mg PO DAILY 08/07/19 12/18/22 History folic acid 1 mg tablet 1 mg PO QAM 09/18/19 12/18/22 History ondansetron HCl 8 mg tablet 8 mg PO Q8H PRN Nausea 09/18/19 12/18/22 History prochlorperazine maleate 10 mg 10 mg PO Q6H PRN Nausea 09/18/19 12/18/22 History tablet dexamethasone 4 mg tablet 4 mg PO QAM 11/12/19 12/18/22 History Past Med/Surg History Medical History Abnormal CT scan of lung Acute blood loss anemia Depression DVT prophylaxis Empyema of right pleural space Encounter for pre-operative examination Hyperlipidemia Hypertension Hypokalemia Hyponatremia Pleural effusion Pleural effusion on right 08/07/2019 Pneumothorax s/p chest tube placement Rheumatoid arthritis Shortness of breath Surgical History History of lung surgery 08/12/2019 Dr. Solano @ [facility]--right video assisted thoracoscopy with pleurectomy, biopsy, right lower lobe wedge resection History of thoracentesis History of tooth extraction all teeth Hx of chest tube placement 08/07/2019 Port-A-Cath in place (09/24/19) Infusaport Insertion in Left Internal Jugular with Fluoroscopy Dr. Doyle 09/24/19 Family History Brother Family history of esophageal cancer Mother No problems noted. Father , age 80 heart disease Cancer mesothelioma Brother Hypertension Sister No problems noted. Other No family history of adverse response to anesthesia Social History Smoking Status: Former smoker Age Started Using Tobacco: 19; Age Quit Using Tobacco: 53; packs per day: 1.5; Cigarettes Per Day: states quif of and on over the years; Second Hand Exposure: No; Do You Dip or Chew Tobacco: No; Hx Alcohol Use: Yes Alcohol type: beer Alcohol Intake Frequency Comment: twice a week Hx Substance Use: No Preferred Language: Kazakh Communication Ability: Effective Visual Impairment: No Limitations Hearing Ability: Normal Membership Manager Required: No Beliefs That Will Affect Care: None marital status: Single Current Living Situation: Alone current occupational status: employed 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 Feels Safe at Home: Yes Childhood Exposure to Second-Hand Smoke: Yes Diet: regular caffeine: Yes (4-5 cups per day) during the past year weight has: decreased > 10 lbs Dental Care, Regularly: No Physical Activity Frequency: Daily Seatbelt Use: always Sunscreen Use: No Assistive Devices: Cane, Denture - Upper, Denture - Lower and Glasses Review of Systems Review of Systems: All systems reviewed & are unremarkable except as noted in HPI & below Physical Exam Constitutional: WD/WN, vitals as above Eyes: PERRL, conjunctivae normal, anicteric sclerae Respiratory: normal respiratory effort, lungs clear to auscultation Cardiovascular: Rate/Rhythm: regular rhythm and + tachycardic Extremities: normal capillary refill; no calf tenderness and no pedal edema Gastrointestinal (Abdomen): normal bowel sounds, soft, nontender, no hepatosplenomegaly Musculoskeletal: no cyanosis or clubbing, extremities motor strength 5/5 Skin: erythematous nodule on right forearm and left eye concerning for cancerous spread Neurologic: moves all extremities and awake; not confused Psychiatric: A+Ox3, euthymic affect Results & Data Results & Data Vital Signs (Past 12 Hours) Vital Signs Temp Pulse Pulse Resp BP BP Pulse Ox 12/18/22 20:44 12/18/22 20:05 102 H 12/18/22 18:01 103 H 19 110/73 95 12/18/22 17:27 12/18/22 16:08 100 H 12/18/22 15:49 105 H 19 110/81 99 12/18/22 13:44 36.6 C 115 H 18 100/71 98 O2 Del Method 12/18/22 20:44 Room Air 12/18/22 20:05 12/18/22 18:01 Room Air 12/18/22 17:27 Room Air 12/18/22 16:08 12/18/22 15:49 Room Air 12/18/22 13:44 Room Air Diagnostic Findings SINGLE VIEW CHEST CLINICAL HISTORY: Generalized weakness. Mesothelioma. FINDINGS: An AP, portable, upright chest radiograph is compared to study dated 11/27/2022 and correlated with chest CT dated 10/27/2022. A left internal jugular central venous effusion port is unchanged in position. The cardiomediastinal silhouette is unremarkable. Pleural-based mass lesions at the right lung base are similar to previous. No superimposed air space consolidation is identified. A small right pleural effusion is not excluded. No pneumothorax is seen. The skeletal structures are osteopenic. The bony thorax is grossly intact. IMPRESSION: 1. Pleural-based mass lesions at the right lung base are similar to previous. 2. There is no airspace consolidations or pneumonia. 3. A small right pleural effusion is not excluded. CT ANGIOGRAM OF THE CHEST CLINICAL HISTORY: Mesothelioma. Atypical chest pain. Elevated troponin. COMPARISON STUDY: Chest CT dated 10/27/2022. TECHNIQUE: Following the IV administration of 120 cc of Optiray 350, CT a ngiogram of the chest was performed from the upper abdomen to the thoracic inlet utilizing the pulmonary embolus protocol. Images are reviewed in the axial, sagittal, and coronal planes. 3-D MIPS images are created and assessed. IV contrast was administered without complication. A dose lowering technique was utilized adhering to the principles of ALARA. CT DOSE: 1260.45 mGy.cm FINDINGS: Thyroid: Imaged portions of the thyroid gland are normal in size and attenuation. Thoracic aorta: There is atherosclerotic calcification of the thoracic aorta, which is normal in caliber and demonstrates standard 3-vessel arch anatomy. No dissection is seen. Pulmonary vasculature: The pulmonary trunk is normal in caliber. There are no filling defects identified in main, lobar, or segmental pulmonary branches to suggest pulmonary embolus. Heart: A left internal jugular central venous infusion port is in place. The heart is normal in size and without pericardial effusion. The coronary arteries are densely calcified. Lungs and pleural spaces: Again seen is extensive metastatic pleural disease at the right lung base. This appears progressive as compared to 10/27/2022. Lesions measure approximately 19 x 11.5 cm in aggregate dimension. There is extrapleural extension of tumor seen anteriorly on the right. The lesion extends through the anterior diaphragm and invades the right lobe of the liver. There are enlarging pleural-based metastases along the right major fissure. A visitor services representative lesion on image #94 measures 2.9 cm (previously measured 2.7 cm). There is no airspace consolidation typical for pneumonia or pleural effusion. There are several (at least 5) tiny pulmonary and pleural-based nodules scattered throughout the left lung which are new from previous and likely represent metastatic disease. The largest nodules measure up to 3 mm as seen in the left upper lobe on image #135 and in the left lower lobe on image #57. The trachea and central airways are clear. Mediastinum: Mediastinal lymphadenopathy has modestly progressed from previous. A paratracheal node on image #158 measures 1.9 x 1.5 cm (previously measured 1.2 x 1.1 cm). Pamella: Right hilar adenopathy similar to previous. Right hilar nodes measure up to 1.4 cm in short axis. No left hilar adenopathy is seen. Axillae: There is no axillary lymphadenopathy. Upper abdomen: Multifocal hepatic metastatic disease is again noted and appears progressive. The largest lesion measures up to 3.1 cm. Bilateral adrenal metastases are new from previous. The largest is on the left and measures up to 3.4 cm. Metastatic lymphadenopathy seen in the upper abdomen. 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 See report of abdominal CT performed concurrently for detail intra-abdominal findings. Skeletal structures: The skeletal structures appear osteopenic. Again seen is multifocal osseous metastatic disease. This appears mildly progressive as compared to 10/27/2022. Lesions are seen throughout the thoracic spine, sternum, the scapulae, and ribs. There are chronic/healed right-sided rib fractures. IMPRESSION: 1. There is no evidence of pulmonary embolus in the main, lobar, or segmental pulmonary arteries. 2. There is no airspace consolidation typical for pneumonia or pleural effusion. 3. Extensive pleural-based tumor at the right lung base has progressed as compared to 10/27/2022. There is extrapleural extension, and this also extends through the diaphragm with hepatic invasion. 4. Enlarging pleural-based metastases are seen along the right major fissure. 5. There are several tiny pulmonary nodules throughout the left lung which are new from previous. These also likely represents progressive metastatic disease. 6. Mediastinal lymphadenopathy appears modestly progressive. 7. Right hilar adenopathy is unchanged. 8. Hepatic metastatic disease has progressed and bilateral adrenal metastases are new from previous. 9. Multifocal osseous metastatic disease has modestly progressed from previous. 10. Additional findings as above CT SCAN OF THE ABDOMEN AND PELVIS WITH IV CONTRAST CLINICAL HISTORY: Malignant mesothelioma. Nausea. Generalized abdominal pain. COMPARISON STUDY: Abdominal CT dated 10/27/2022 TECHNIQUE: Following the IV administration of 120 cc of Optiray 350, CT scan of the abdomen and pelvis is performed from the lung bases to the proximal femora. Images are reviewed in the axial, sagittal, and coronal planes. IV contrast was administered without complication. A dose lowering technique was utilized adhering to the principles of ALARA. FINDINGS: Lung bases: The heart is top normal in size and without pericardial effusion. There are coronary artery calcifications. Extensive pleural-based tumor at the right lung base is again noted. This measures up to 19 cm in length and appears to have enlarged as compared to 10/27/2022. This inferiorly bulges the right hemidiaphragm. This extends through the diaphragm anteriorly and invades the right lobe of liver. Extrapleural extension is again seen on the right. Enlarging metastatic lesions are seen along the right major fissure. A 3 mm left lower lobe nodule on image #46 is new from previous. There is no airspace consolidation typical for pneumonia or pleural effusion. A small hiatal hernia is noted. Liver: The contrast-enhanced liver is normal in size, contour, and attenuation. There is no intrahepatic biliary ductal dilatation. The hepatic veins and portal veins are patent. Multifocal hepatic metastatic disease has progressed as compared to 11/06/2022. The largest right lobe lesion on image #87 measures 3.1 cm. Gallbladder: Unremarkable. Spleen: Normal in size and attenuation. 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 Pancreas: A 3.3 cm mass in the pancreatic head is new from 10/27/2022 and likely represents metastatic disease. The pancreatic duct is normal in caliber. Adrenal glands: Bilateral adrenal metastases are new from previous. A left adrenal metastasis measures up to 3.4 cm and the right adrenal metastasis measures up to 2.9 cm. Kidneys: The contrast enhanced kidneys are normal in size and without hydronephrosis. There is significantly heterogeneous enhancement of both kidneys which represents a change from 10/27/2022. A 3 mm nonobstructing calculus is seen on the left. Scattered renal cysts measure up to 10 mm. Abdominal vasculature: The abdominal aorta is normal in course and caliber noting mild to moderate atherosclerotic calcification. Bowel: There is no bowel obstruction. There is mild colonic diverticulosis without CT evidence of acute diverticulitis. The appendix is well-visualized and normal. Peritoneum: No intraperitoneal free air or abdominal ascites is seen. There is a fat-containing umbilical hernia. Lymphadenopathy: Metastatic lymphadenopathy is again seen in the upper abdomen. A visitor services representative piyush activity on image #114 measures 3.1 x 1.3 cm Pelvic viscera: The prostate gland is enlarged and heterogeneous. The bladder is normal as visualized. Skeletal structures: Again seen is extensive/multifocal osteoblastic metastatic disease. Lesions are seen throughout the thoracolumbar spine, the bony pelvis, the partially imaged right scapula, the bilateral ribs, and in the proximal femora. This as also progressed from previous. There are chronic/healed right- sided rib fractures. IMPRESSION: 1. Marked progression of multifocal metastatic disease as compared to 10/27/2022. 2. Enlarging pleural-based tumor at the right lung base. This extends through the diaphragm and invades the liver. There is also extrapleural extension into the chest wall. 3. Modest progression of extensive multifocal osseous metastatic disease. 4. Progressive hepatic metastatic disease. 5. Progressive metastatic lymphadenopathy in the upper abdomen. 6. A pancreatic metastasis and bilateral adrenal metastases are new from previous. 7. There is heterogeneous renal cortical enhancement. Correlate with clinical findings and urinalysis. Renal metastatic disease is not excluded. 8. Left-sided nephrolithiasis. 9. Additional findings as above. Medications Administered ER Medications Given: Normal saline 2L bolus Cefepime 2g IV ECG Rate (beats per minute): 104 Rhythm: sinus tachycardia Findings: no acute ischemic change Comparison ECG Date: from (August 07, 2019) Change: no significant change Code Status & VTE Plan Code Status DNR/DNI VTE Prophylaxis Plan VTE Prophylaxis will be ordered: No PG Care Time/CCT Total # of Minutes Spent Total Time Spent with Patient: Total time spent is greater than 50% in coordination of care (as documented) at patient's floor/unit and/or counseling patient: Coding Level of Care Code 31232 INT INP/OBS CARE 3/75MIN Diagnoses Leukemoid reaction D72.823 Metastatic cancer C79.9 Hyponatremia E87.1 Hypertension I10 Elevated troponin I level R77.8 Anemia D64.9
[2022-12-18] MEDS: FLUoxetine HCL 20 MG CAP PO SCH (22:10)
[2022-12-18] MEDS: ATORVASTATIN 10 MG TAB PO SCH (22:10)
[2022-12-19 06:43] LABS: Hematocrit (blood only) 22.2 % (42.0-52.0); Hemoglobin 7.8 g/dl (14.0-18.0); Mean Corpuscular Hemoglobin 27.7 pg (25.0-34.0); Mean Corpuscular Hgb Conc 35.1 g/dL (32.0-36.0); Mean Corpuscular Volume 78.7 fL (80.0-100.0); Mean Platelet Volume 9.5 fL (9.4-12.4); Platelet Count 268 K/uL (130-400); RDW Coefficient of Variation 18.1 % (11.5-14.5); RDW Standard Deviation 49.4 fL (36.4-46.3); Red Blood Count 2.82 M/uL (4.70-6.10); White Blood Count 97.09 K/ul (4.8-10.8)
[2022-12-19 07:00] LABS: Toxic Granulation 2+
[2022-12-19 07:00] LABS: INR 1.3 (0.9-1.1); Partial Thromboplastin Ratio 1.2; Prothrombin Time 14.2 Seconds (9.0-12.0)
[2022-12-19 07:01] LABS: Dohle Bodies 1+
[2022-12-19 07:02] LABS: Polychromasia 1+
[2022-12-19 07:03] LABS: Target Cells 1+
[2022-12-19 07:05] LABS: Albumin Globulin Ratio 0.7 (0.9-2); Albumin Level 2.4 gm/dl (3.4-5.0); BUN Creatinine Ratio 28.2 (10-20); Bilirubin,Total 0.8 mg/dl (0.2-1.0); Calcium 8.2 mg/dl (8.6-10.3); Creatinine Clr Calc Pharmacy 91.8 ml/min; Est GFR (African American) 112.1 ml/min; Est GFR (Non-African American) 96.7 ml/min; Globulin 3.6 gm/dl (2.5-4.0); Magnesium 1.9 mg/dl (1.7-2.4); Potassium 4.3 mmol/L (3.5-5.1)
[2022-12-19 07:09] LABS: Troponin I High Sensitivity 34.3 pg/ml (0-20)
[2022-12-19 07:21] LABS: Basophils # (auto) 0.04 K/uL (0-0.2); Eosinophils # (auto) 0.03 K/uL (0-0.50); Hypochromasia Present; Immature Granulocytes # (auto) 8.06 K/uL (0.01-0.20); Immature Granulocytes % (auto) 8.3 %; Lymphocytes % (auto) 2.1 %; Monocytes % (auto) 2.8 %; Neutrophils # (auto) 84.26 K/uL (1.40-6.50); Neutrophils % (auto) 86.8 %; Polychromasia 1+; Rouleaux 1+; Target Cells 1+
[2022-12-19 07:29] LABS: Reticulocyte % 2.5 % (0.5-2.0); Reticulocytes # 0.07 10^6/uL (0.02-0.10)
[2022-12-19 08:08] LABS: Folate (Folic Acid),Ser orPlas 2.59 ng/ml (>5.38)
[2022-12-19 08:09] LABS: Vitamin B12 > 1500 pg/ml (180-914)
--- NOTE | 2022-12-19 08:16 | Consultation ---
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 Await ferritin, iron percent saturation is stable but we will, based on the ferritin, determine whether he might least have some relative iron deficiency as well. Certainly worthwhile to supplement his folic acid. Cumulative impact of previous chemotherapy may have created stem cell depletion or even some mild evolution towards dysplastic changes. See also discussion under the leukemoid reaction, do not see specific evidence of swetha acute leukemia at this time but cannot completely rule out additional primary hematologic dysfunction. Initial approach will be supportive with transfusion if hemoglobin small below 7 g/dL, folic acid supplementation, and determination as to whether or not there is a role for iron supplementation intravenously (2) Mesothelioma: Unfortunately has progressed after various combinations of pemetrexed, cisplatin, pembrolizumab, carboplatinum, gemcitabine, and most recently has been on ipilimumab/nivolumab. The latter can be associated with "pseudoprogression" though it is quite concerning that there are not only expansion of previous lesions but some new lesions noted. Certainly his systemic therapy should pause as we immediately address his hematologic changes. I have begun a discussion with him, however, that it is not clear that the current therapy is effective nor given his multiple previous regimens that we have additional standard options that would be highly effective. We may be on the verge of a discussion of a more pure palliative care approach. Interim return to Dr. Stovall and [facility] team could be helpful for their own perspectives and the identification of any more recently available investigational trials. Somewhat hesitant to proceed the final cycle of the ipilimumab/nivolumab combination given both concern over its efficacy and its possible triggering of a significant cytokine release phenomenon (3) Leukemoid reaction: Marked hyperleukocytosis predominantly of neutrophils but on peripheral smear review there are no blasts and indeed there are no significant interim forms such as promyelocytes, myelocytes, or metamyelocytes seen. This does not have any of the hallmarks of CML. Leukemoid reactions of certainly been described in non-small cell lung cancer (not his histology admittedly but perhaps of some suggestive relevance) and in various different anecdotal reports both described as an adverse indicator of disease progression but also ironically in the face of immune checkpoint inhibitor therapy a possible marker of response. Leukemoid reactions have been specifically noted when melanoma has been treated with a combination of ipilimumab and nivolumab. Overall, the neutrophil elevation is almost certainly a reactive phenomenon representing cytokine release stimulated either by the malignancy itself or its dual immune treatment. It is already trending downward and from the white count perspective probably requires no more than simple observation (4) Hyponatremia: Not immediately threatening. 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 Folic acid supplementation, his hyperleukocytosis may have depleted his foli c acid stores 2. Await ferritin and based on that we will determine if there may be a role for intravenous iron 3. Marrow aspiration biopsy not likely to be more informative given the strong indication of a secondary leukocytosis. There is no suggestion of the immediately treatable hematologic condition, even if there is an element of myelodysplasia initial treatment would be only supportive as above 4. Consider red cell transfusion support if his hemoglobin falls below 7 g/dL 5. We will suspend any further oncologic specific therapy for now pending recovery from this episode but will pursue further discussion between myself and the patient about concern that "standard" options may be more harmful than helpful. I hope we can get him back quickly to [facility] with their own perspectives as well 6. Although he does not have specific neurologic symptoms, given the hyponatremia it may be worthwhile to do an MRI combo of his brain History of Present Illness Reason for Consultation: Patient with mesothelioma on combined immunotherapy who presents with hyperleukocytosis. Attending Physician: Adal Parra MD History of Present Illness Joaquim was diagnosed with mesothelioma in 2019 presenting as a right pleural effusion and large right-sided lung mass. After initial VATS with extensive pleurectomy he received adjuvant pemetrexed and cisplatin. He seemed to have good response with only a persistent small loculated pleural effusion and improved pleural nodularity in November 2019 By that December, however, he was showing progression and underwent repeat thoracotomy with decortication and pleurectomy and infusion of intrapleural chemotherapy. Pemetrexed and pembrolizumab treatment followed with a modest response. He completed 8 cycles of that combination followed by pembrolizumab maintenance starting in October 2020. There was some slow progression over the subsequent year and ultimately pembrolizumab was stopped and he was treated with carboplatin and weekly Gemzar starting in September 2021 through January 2022. With further progression on that regimen, he was referred in late [address] Alan Stovall at [facility] to explore a number of investigational options but none ultimately applied and he was sent back here where on 08/14/2022 he started combination therapy with ipilimumab and nivolumab on 08/14/2022 completing his third cycle 11/27/2022. Interim restaging after cycle 2 showed possible progression but he was feeling so well at that time we suspected the possibility of pseudoprogression. Seen in preparation for cycle 4 with no dramatic symptomatology other than some mild weakness, he was noted to have hyperleukocytosis and was admitted with a concern that there might be an underlying infection or other immediately threatening process. He continues without fever or major symptomatology except for some fatigue and moderate tachycardia Allergies Allergy/AdvReac Type Severity Reaction Status Date / Time No Known Allergies Allergy Verified 12/18/22 16:35 Home Medications Medication Instructions Recorded Confirmed Type amlodipine 5 mg tablet 5 mg PO QAM 08/07/19 12/18/22 History atorvastatin 20 mg tablet 10 mg PO BID 08/07/19 12/18/22 History fluoxetine 20 mg capsule 60 mg PO QPM 08/07/19 12/18/22 History lisinopril 20 2 tab PO QAM 08/07/19 12/18/22 History mg-hydrochlorothiazide 25 mg tablet valacyclovir 500 mg tablet 500 mg PO DAILY 08/07/19 12/18/22 History folic acid 1 mg tablet 1 mg PO QAM 09/18/19 12/18/22 History ondansetron HCl 8 mg tablet 8 mg PO Q8H PRN Nausea 09/18/19 12/18/22 History prochlorperazine maleate 10 mg 10 mg PO Q6H PRN Nausea 09/18/19 12/18/22 History tablet dexamethasone 4 mg tablet 4 mg PO QAM 11/12/19 12/18/22 History Patient History Medical History Abnormal CT scan of lung Acute blood loss anemia Depression DVT prophylaxis Empyema of right pleural space Encounter for pre-operative examination Hyperlipidemia Hypertension Hypokalemia Hyponatremia Pleural effusion Pleural effusion on right 08/07/2019 Pneumothorax s/p chest tube placement Rheumatoid arthritis Shortness of breath Surgical History History of lung surgery 08/12/2019 Dr. Solano @ [facility]--right video assisted thoracoscopy with pleurectomy, biopsy, right lower lobe wedge resection History of thoracentesis History of tooth extraction all teeth Hx of chest tube placement 08/07/2019 Port-A-Cath in place (09/24/19) Infusaport Insertion in Left Internal Jugular with Fluoroscopy Dr. Doyle 09/24/19 Family History Brother Family history of esophageal cancer Mother No problems noted. Father , age 80 heart disease Cancer mesothelioma Brother Hypertension Sister No problems noted. Other No family history of adverse response to anesthesia Social History Smoking Status: Former smoker Age Started Using Tobacco: 19; Age Quit Using Tobacco: 53; packs per day: 1.5; Cigarettes Per Day: states quif of and on over the years; Second Hand Exposure: No; Do You Dip or Chew Tobacco: No; Tobacco Cessation Education Requested by Patient: No Hx Alcohol Use: Yes Alcohol type: beer Alcohol Intake Frequency Comment: twice a week Hx Substance Use: No Preferred Language: Upper Sorbian Communication Ability: Effective Visual Impairment: No Limitations Hearing Ability: Normal Chief Privacy Officer Required: No Beliefs That Will Affect Care: None marital status: Single Current Living Situation: Alone current occupational status: employed 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 Other Information That Helps Us Care for You: No Feels Safe at Home: Yes Safety Concerns: Feels Safe At This Time Childhood Exposure to Second-Hand Smoke: Yes Diet: regular caffeine: Yes (4-5 cups per day) during the past year weight has: decreased > 10 lbs Dental Care, Regularly: No Physical Activity Frequency: Daily Seatbelt Use: always Sunscreen Use: No Assistive Devices: Cane, Denture - Upper, Denture - Lower and Glasses Results & Data Vital Signs (Past 12 Hours) Vital Signs Temp Pulse Pulse Pulse Resp BP BP 12/19/22 07:18 36.8 C 107 H 19 117/76 12/19/22 03:11 36.6 C 101 H 18 110/76 12/18/22 21:59 102 H 12/18/22 21:23 109 H 12/18/22 23:15 36.8 C 100 H 18 109/68 12/18/22 21:21 36.7 C 108 H 18 130/79 12/18/22 22:00 12/18/22 21:43 36.7 C 108 H 18 130/79 12/18/22 20:44 Pulse Ox O2 Del Method 12/19/22 07:18 96 Room Air 12/19/22 03:11 93 Room Air 12/18/22 21:59 12/18/22 21:23 12/18/22 23:15 94 Room Air 12/18/22 21:21 98 Room Air 12/18/22 22:00 Room Air 12/18/22 21:43 98 Room Air 12/18/22 20:44 Room Air Laboratory Results Laboratory Results - last 24 hr 12/18/22 12/18/22 12/18/22 14:45 14:45 14:45 WBC 107.62 H* RBC 3.00 L Hgb 8.3 L Hct 23.9 L MCV 79.7 L MCH 27.7 MCHC 34.7 RDW Std Deviation 49.1 H RDW Coeff of Enmanuel 17.7 H Plt Count 316 MPV 10.2 Immature Gran % (Auto) 7.6 Neut % (Auto) 86.6 Lymph % (Auto) 2.8 [place] % (Auto) 2.9 Eos % (Auto) 0.0 Baso % (Auto) 0.1 Reticulocyte % (Auto) Neut # (Auto) 93.17 H Lymph # (Auto) 3.05 [place] # (Auto) 3.09 H Eos # (Auto) 0.03 Baso # (Auto) 0.06 Reticulocyte # Immature Gran # (Auto) 8.22 H Toxic Granulation 2+ Dohle Bodies 1+ Polychromasia 1+ Hypochromasia Target Cells 1+ Rouleaux PT 14.2 H INR 1.3 H APTT 34.0 H PTT Ratio 1.2 Sodium 127 L Potassium 4.7 Chloride 90 L Carbon Dioxide 25 Anion Gap 12 H BUN 31 H Creatinine 1.25 Est Cr Clr Drug Dosing 57.3 Est GFR ( Amer) 71.1 Est GFR (Non-Af Amer) 61.3 BUN/Creatinine Ratio 24.8 H Glucose 99 Lactate Calcium 8.6 Magnesium 1.9 Iron TIBC Unsaturated IBC Transferrin % Sat Ferritin Total Bilirubin 1.0 AST 21 ALT 16 Alkaline Phosphatase 356 H Troponin I High Sens 100.5 H* Total Protein 6.8 Albumin 2.8 L Globulin 4.0 Albumin/Globulin Ratio 0.7 L Vitamin B12 Folate Procalcitonin TSH Urine Color Urine Appearance Urine pH Ur Specific Collins Urine Protein Urine Glucose (UA) Urine Ketones Urine Blood Urine Nitrite Urine Bilirubin Urine Urobilinogen Ur Leukocyte Esterase Urine WBC (Auto) Urine RBC (Auto) U Hyaline Cast (Auto) U Epithel Cells (Auto) Urine Bacteria (Auto) 12/18/22 12/18/22 12/18/22 14:45 17:19 17:19 WBC RBC Hgb Hct MCV MCH MCHC RDW Std Deviation RDW Coeff of Enmanuel Plt Count MPV Immature Gran % (Auto) Neut % (Auto) Lymph % (Auto) [place] % (Auto) Eos % (Auto) Baso % (Auto) Reticulocyte % (Auto) Neut # (Auto) Lymph # (Auto) [place] # (Auto) Eos # (Auto) Baso # (Auto) Reticulocyte # Immature Gran # (Auto) Toxic Granulation Dohle Bodies Polychromasia Hypochromasia Target Cells Rouleaux PT INR APTT PTT Ratio Sodium Potassium Chloride Carbon Dioxide Anion Gap BUN Creatinine Est Cr Clr Drug Dosing Est GFR ( Amer) Est GFR (Non-Af Amer) BUN/Creatinine Ratio Glucose Lactate 2.8 H* Calcium Magnesium Iron TIBC Unsaturated IBC Transferrin % Sat Ferritin Total Bilirubin AST ALT Alkaline Phosphatase Troponin I High Sens Total Protein Albumin Globulin Albumin/Globulin Ratio Vitamin B12 Folate Procalcitonin 4.69 H TSH 3.609 Urine Color Urine Appearance Urine pH Ur Specific Collins Urine Protein Urine Glucose (UA) Urine Ketones Urine Blood Urine Nitrite Urine Bilirubin Urine Urobilinogen Ur Leukocyte Esterase Urine WBC (Auto) Urine RBC (Auto) U Hyaline Cast (Auto) U Epithel Cells (Auto) Urine Bacteria (Auto) 12/18/22 12/18/22 12/18/22 17:20 17:21 18:30 WBC RBC Hgb Hct MCV MCH MCHC RDW Std Deviation RDW Coeff of Enmanuel Plt Count MPV Immature Gran % (Auto) Neut % (Auto) Lymph % (Auto) [place] % (Auto) Eos % (Auto) Baso % (Auto) Reticulocyte % (Auto) Neut # (Auto) Lymph # (Auto) [place] # (Auto) Eos # (Auto) Baso # (Auto) Reticulocyte # Immature Gran # (Auto) Toxic Granulation Dohle Bodies Polychromasia Hypochromasia Target Cells Rouleaux PT INR APTT PTT Ratio Sodium Potassium Chloride Carbon Dioxide Anion Gap BUN Creatinine Est Cr Clr Drug Dosing Est GFR ( Amer) Est GFR (Non-Af Amer) BUN/Creatinine Ratio Glucose Lactate 2.5 H* Calcium Magnesium Iron TIBC Unsaturated IBC Transferrin % Sat Ferritin Total Bilirubin AST ALT Alkaline Phosphatase Troponin I High Sens 142.7 H* D Total Protein Albumin Globulin Albumin/Globulin Ratio Vitamin B12 Folate Procalcitonin TSH Urine Color Dark Yellow Urine Appearance Cloudy A Urine pH 5.5 Ur Specific Collins 1.023 Urine Protein 1+ H Urine Glucose (UA) Negative Urine Ketones Trace H Urine Blood Negative Urine Nitrite Negative Urine Bilirubin 1+ H Urine Urobilinogen Negative Ur Leukocyte Esterase Negative Urine WBC (Auto) 1-5 Urine RBC (Auto) 0-4 U Hyaline Cast (Auto) >30 H U Epithel Cells (Auto) 10-20 H Urine Bacteria (Auto) Negative 12/18/22 12/19/22 12/19/22 18:30 06:07 06:07 WBC 97.09 H* RBC 2.82 L Hgb 7.8 L Hct 22.2 L MCV 78.7 L MCH 27.7 MCHC 35.1 RDW Std Deviation 49.4 H RDW Coeff of Enmanuel 18.1 H Plt Count 268 MPV 9.5 Immature Gran % (Auto) 8.3 Neut % (Auto) 86.8 Lymph % (Auto) 2.1 [place] % (Auto) 2.8 Eos % (Auto) 0.0 Baso % (Auto) 0.0 Reticulocyte % (Auto) Neut # (Auto) 84.26 H Lymph # (Auto) 2.00 [place] # (Auto) 2.70 H Eos # (Auto) 0.03 Baso # (Auto) 0.04 Reticulocyte # Immature Gran # (Auto) 8.06 H Toxic Granulation Dohle Bodies Polychromasia 1+ Hypochromasia Present Target Cells 1+ Rouleaux 1+ PT 14.2 H INR 1.3 H APTT 33.0 H PTT Ratio 1.2 Sodium 127 L Potassium 4.2 Chloride 94 L Carbon Dioxide 24 Anion Gap 9 BUN 29 H Creatinine 1.12 Est Cr Clr Drug Dosing 63.9 Est GFR ( Amer) 81.2 Est GFR (Non-Af Amer) 70.0 BUN/Creatinine Ratio 25.9 H Glucose 94 Lactate Calcium 7.8 L Magnesium Iron TIBC Unsaturated IBC Transferrin % Sat Ferritin Total Bilirubin AST ALT Alkaline Phosphatase Troponin I High Sens Total Protein Albumin Globulin Albumin/Globulin Ratio Vitamin B12 Folate Procalcitonin TSH Urine Color Urine Appearance Urine pH Ur Specific Collins Urine Protein Urine Glucose (UA) Urine Ketones Urine Blood Urine Nitrite Urine Bilirubin Urine Urobilinogen Ur Leukocyte Esterase Urine WBC (Auto) Urine RBC (Auto) U Hyaline Cast (Auto) U Epithel Cells (Auto) Urine Bacteria (Auto) 12/19/22 12/19/22 12/19/22 06:07 06:07 07:05 WBC RBC Hgb Hct MCV MCH MCHC RDW Std Deviation RDW Coeff of Enmanuel Plt Count MPV Immature Gran % (Auto) Neut % (Auto) Lymph % (Auto) [place] % (Auto) Eos % (Auto) Baso % (Auto) Reticulocyte % (Auto) 2.5 H Neut # (Auto) Lymph # (Auto) [place] # (Auto) Eos # (Auto) Baso # (Auto) Reticulocyte # 0.07 Immature Gran # (Auto) Toxic Granulation Dohle Bodies Polychromasia Hypochromasia Target Cells Rouleaux PT INR APTT PTT Ratio Sodium 131 L Potassium 4.3 Chloride 97 L Carbon Dioxide 26 Anion Gap 8 BUN 22 Creatinine 0.78 D Est Cr Clr Drug Dosing 91.8 Est GFR ( Amer) 112.1 Est GFR (Non-Af Amer) 96.7 BUN/Creatinine Ratio 28.2 H Glucose 99 Lactate Calcium 8.2 L Magnesium 1.9 Iron TIBC Unsaturated IBC Transferrin % Sat Ferritin Total Bilirubin 0.8 AST 23 ALT 13 Alkaline Phosphatase 323 H Troponin I High Sens 34.3 H D Total Protein 6.0 Albumin 2.4 L Globulin 3.6 Albumin/Globulin Ratio 0.7 L Vitamin B12 Folate Procalcitonin 3.39 H TSH Urine Color Urine Appearance Urine pH Ur Specific Collins Urine Protein Urine Glucose (UA) Urine Ketones Urine Blood Urine Nitrite Urine Bilirubin Urine Urobilinogen Ur Leukocyte Esterase Urine WBC (Auto) Urine RBC (Auto) U Hyaline Cast (Auto) U Epithel Cells (Auto) Urine Bacteria (Auto) 12/19/22 12/19/22 12/19/22 07:05 07:05 07:05 WBC RBC Hgb Hct MCV MCH MCHC RDW Std Deviation RDW Coeff of Enmanuel Plt Count MPV Immature Gran % (Auto) Neut % (Auto) Lymph % (Auto) [place] % (Auto) Eos % (Auto) Baso % (Auto) Reticulocyte % (Auto) Neut # (Auto) Lymph # (Auto) [place] # (Auto) Eos # (Auto) Baso # (Auto) Reticulocyte # Immature Gran # (Auto) Toxic Granulation Dohle Bodies Polychromasia Hypochromasia Target Cells Rouleaux PT INR APTT PTT Ratio Sodium Potassium Chloride Carbon Dioxide Anion Gap BUN Creatinine Est Cr Clr Drug Dosing Est GFR ( Amer) Est GFR (Non-Af Amer) BUN/Creatinine Ratio Glucose Lactate 2.0 Calcium Magnesium Iron 28 L TIBC 133 L Unsaturated IBC 105 L Transferrin % Sat 21 Ferritin Pending Total Bilirubin AST ALT Alkaline Phosphatase Troponin I High Sens Total Protein Albumin Globulin Albumin/Globulin Ratio Vitamin B12 > 1500 H Folate 2.59 L Procalcitonin TSH Urine Color Urine Appearance Urine pH Ur Specific Collins Urine Protein Urine Glucose (UA) Urine Ketones Urine Blood Urine Nitrite Urine Bilirubin Urine Urobilinogen Ur Leukocyte Esterase Urine WBC (Auto) Urine RBC (Auto) U Hyaline Cast (Auto) U Epithel Cells (Auto) Urine Bacteria (Auto) Diagnostic Findings Chest X-Ray 12/18/22 13:46 SINGLE VIEW CHEST CLINICAL HISTORY: Generalized weakness. Mesothelioma. FINDINGS: An AP, portable, upright chest radiograph is compared to study dated 11/27/2022 and correlated with chest CT dated 10/27/2022. A left internal jugular central venous effusion port is unchanged in position. The cardiomediastinal s ilhouette is unremarkable. Pleural-based mass lesions at the right lung base are similar to previous. No superimposed air space consolidation is identified. A small right pleural effusion is not excluded. No pneumothorax is seen. The skeletal structures are osteopenic. The bony thorax is grossly intact. IMPRESSION: 1. Pleural-based mass lesions at the right lung base are similar to previous. 2. There is no airspace consolidations or pneumonia. 3. A small right pleural effusion is not excluded. ACT 112: Negative or not required by law. Electronically signed by: Neo Dai M.D. 12/18/2022 4:12 PM Abdomen/Pelvis CT 12/18/22 17:01 CT SCAN OF THE ABDOMEN AND PELVIS WITH IV CONTRAST CLINICAL HISTORY: Malignant mesothelioma. Nausea. Generalized abdominal pain. COMPARISON STUDY: Abdominal CT dated 10/27/2022 TECHNIQUE: Following the IV administration of 120 cc of Optiray 350, CT scan of the abdomen and pelvis is performed from the lung bases to the proximal femora. Images are reviewed in the axial, sagittal, and coronal planes. IV contrast was administered without complication. A dose lowering technique was utilized adhering to the principles of ALARA. FINDINGS: Lung bases: The heart is top normal in size and without pericardial effusion. There are coronary artery calcifications. Extensive pleural-based tumor at the right lung base is again noted. This measures up to 19 cm in length and appears to have enlarged as compared to 10/27/2022. This inferiorly bulges the right hemidiaphragm. This extends through the diaphragm anteriorly and invades the right lobe of liver. Extrapleural extension is again seen on the right. Enlarging metastatic lesions are seen along the right major fissure. A 3 mm left lower lobe nodule on image #46 is new from previous. There is no airspace consolidation typical for pneumonia or pleural effusion. A small hiatal hernia is noted. Liver: The contrast-enhanced liver is normal in size, contour, and attenuation. There is no intrahepatic biliary ductal dilatation. The hepatic veins and portal veins are patent. Multifocal hepatic metastatic disease has progressed as compared to 11/06/2022. The largest right lobe lesion on image #87 measures 3.1 cm. Gallbladder: Unremarkable. Spleen: Normal in size and attenuation. 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 Pancreas: A 3.3 cm mass in the pancreatic head is new from 10/27/2022 and likely represents metastatic disease. The pancreatic duct is normal in caliber. Adrenal glands: Bilateral adrenal metastases are new from previous. A left adrenal metastasis measures up to 3.4 cm and the right adrenal metastasis measures up to 2.9 cm. Kidneys: The contrast enhanced kidneys are normal in size and without hydronephrosis. There is significantly heterogeneous enhancement of both kidneys which represents a change from 10/27/2022. A 3 mm nonobstructing calculus is seen on the left. Scattered renal cysts measure up to 10 mm. Abdominal vasculature: The abdominal aorta is normal in course and caliber noting mild to moderate atherosclerotic calcification. Bowel: There is no bowel obstruction. There is mild colonic diverticulosis without CT evidence of acute diverticulitis. The appendix is well-visualized and normal. Peritoneum: No intraperitoneal free air or abdominal ascites is seen. There is a fat-containing umbilical hernia. Lymphadenopathy: Metastatic lymphadenopathy is again seen in the upper abdomen. A veterans service representative piyush activity on image #114 measures 3.1 x 1.3 cm Pelvic viscera: The prostate gland is enlarged and heterogeneous. The bladder is normal as visualized. Skeletal structures: Again seen is extensive/multifocal osteoblastic metastatic disease. Lesions are seen throughout the thoracolumbar spine, the bony pelvis, the partially imaged right scapula, the bilateral ribs, and in the proximal femora. This as also progressed from previous. There are chronic/healed right- sided rib fractures. IMPRESSION: 1. Marked progression of multifocal metastatic disease as compared to 10/27/2022. 2. Enlarging pleural-based tumor at the right lung base. This extends through the diaphragm and invades the liver. There is also extrapleural extension into the chest wall. 3. Modest progression of extensive multifocal osseous metastatic disease. 4. Progressive hepatic metastatic disease. 5. Progressive metastatic lymphadenopathy in the upper abdomen. 6. A pancreatic metastasis and bilateral adrenal metastases are new from previous. 7. There is heterogeneous renal cortical enhancement. Correlate with clinical findings and urinalysis. Renal metastatic disease is not excluded. 8. Left-sided nephrolithiasis. 9. Additional findings as above. ACT 112: Negative or not required by law. Electronically signed by: Neo Dai M.D. 12/18/2022 7:39 PM Chest CTA 12/18/22 17:01 CT ANGIOGRAM OF THE CHEST CLINICAL HISTORY: Mesothelioma. Atypical chest pain. Elevated troponin. COMPARISON STUDY: Chest CT dated 10/27/2022. TECHNIQUE: Following the IV administration of 120 cc of Optiray 350, CT angiogram of the chest was performed from the upper abdomen to the thoracic inlet utilizing the pulmonary embolus protocol. Images are reviewed in the axial, sagittal, and coronal planes. 3-D MIPS images are created and assessed. IV contrast was administered without complication. A dose lowering technique was utilized adhering to the principles of ALARA. CT DOSE: 1260.45 mGy.cm FINDINGS: Thyroid: Imaged portions of the thyroid gland are normal in size and attenuation. Thoracic aorta: There is atherosclerotic calcification of the thoracic aorta, which is normal in caliber and demonstrates standard 3-vessel arch anatomy. No dissection is seen. Pulmonary vasculature: The pulmonary trunk is normal in caliber. There are no filling defects identified in main, lobar, or segmental pulmonary branches to suggest pulmonary embolus. Heart: A left internal jugular central venous infusion port is in place. The heart is normal in size and without pericardial effusion. The coronary arteries are densely calcified. Lungs and pleural spaces: Again seen is extensive metastatic pleural disease at the right lung base. This appears progressive as compared to 10/27/2022. Lesions measure approximately 19 x 11.5 cm in aggregate dimension. There is extrapleural extension of tumor seen anteriorly on the right. The lesion extends through the anterior diaphragm and invades the right lobe of the liver. There are enlarging pleural-based metastases along the right major fissure. A veterans service representative lesion on image #94 measures 2.9 cm (previously measured 2.7 cm). There is no airspace consolidation typical for pneumonia or pleural effusion. There are several (at least 5) tiny pulmonary and pleural-based nodules scattered throughout the left lung which are new from previous and likely represent metastatic disease. The largest nodules measure up to 3 mm as seen in the left upper lobe on image #135 and in the left lower lobe on image #57. The trachea and central airways are clear. Mediastinum: Mediastinal lymphadenopathy has modestly progressed from previous. A paratracheal node on image #158 measures 1.9 x 1.5 cm (previously measured 1.2 x 1.1 cm). Pamella: Right hilar adenopathy similar to previous. Right hilar nodes measure up to 1.4 cm in short axis. No left hilar adenopathy is seen. Axillae: There is no axillary lymphadenopathy. Upper abdomen: Multifocal hepatic metastatic disease is again noted and appears progressive. The largest lesion measures up to 3.1 cm. Bilateral adrenal metastases are new from previous. The largest is on the left and measures up to 3.4 cm. Metastatic lymphadenopathy seen in the upper abdomen. 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 See report of abdominal CT performed concurrently for detail intra-abdominal findings. Skeletal structures: The skeletal structures appear osteopenic. Again seen is multifocal osseous metastatic disease. This appears mildly progressive as compared to 10/27/2022. Lesions are seen throughout the thoracic spine, sternum, the scapulae, and ribs. There are chronic/healed right-sided rib fractures. IMPRESSION: 1. There is no evidence of pulmonary embolus in the main, lobar, or segmental pulmonary arteries. 2. There is no airspace consolidation typical for pneumonia or pleural effusion. 3. Extensive pleural-based tumor at the right lung base has progressed as compared to 10/27/2022. There is extrapleural extension, and this also extends through the diaphragm with hepatic invasion. 4. Enlarging pleural-based metastases are seen along the right major fissure. 5. There are several tiny pulmonary nodules throughout the left lung which are new from previous. These also likely represents progressive metastatic disease. 6. Mediastinal lymphadenopathy appears modestly progressive. 7. Right hilar adenopathy is unchanged. 8. Hepatic metastatic disease has progressed and bilateral adrenal metastases are new from previous. 9. Multifocal osseous metastatic disease has modestly progressed from previous. 10. Additional findings as above ACT 112: Negative or not required by law. Electronically signed by: Neo Dai M.D. 12/18/2022 7:40 PM PG Care Time/CCT Total # of Minutes Spent Total Time Spent with Patient: Total time spent is greater than 50% in coordination of care (as documented) at patient's floor/unit and/or counseling patient: Coding Level of Care Code 58884 IN/OBS CONSULT LVL 3,45M Diagnoses Anemia D64.9 Mesothelioma C45.9 Leukemoid reaction D72.823 Hyponatremia E87.1
[2022-12-19] MEDS: valACYclovir HCL 500 MG TABLET PO SCH (08:42)
[2022-12-19] MEDS: ATORVASTATIN 10 MG TAB PO SCH ×2 (08:42→21:11)
[2022-12-19] MEDS: FOLIC ACID 1 MG TAB PO SCH (09:10)
--- NOTE | 2022-12-19 09:51 | Palliative Care Consultation ---
Date of Consultation December 19, 2022 Assessment & Plan (1) Palliative care encounter: I met with Mr. Romero and his good friend, Jose Frazier, at bedside. He tells me that he has been coping well with his illness and Jose confirms that he has a positive attitude. He tells me that he has had some fatigue but overall has tolerated his cancer treatment pretty well. He has been taking a one day at a time approach to his care. He has good support from friends and his sister, Sofía Fields, has also reached out to him. He tells me that reading, sitting on the back porch and enjoying time with friends are the things that bring meaning to his life. As long as he is able to do these, he would want to at le ast consider any possible options for treatment and weigh them against his quality of life before making a decision. He is DNR/DNI but otherwise cannot name any specific treatments or procedures that he would not be willing to at least consider. We talked about who he would want to make decisions on his behalf and he indicated that he would want his friend, Jose Frazier, to do that. Jose is agreeable to this and knows Joaquim better than anyone else does but would like Joaquim's sister, Sofía Castro, to be involved in decision making as well. Joaquim is agreeable to this. Jose pulled me aside after our visit to discuss Joaquim's condition. He understands that his cancer is aggressive and is confident that he would know what Joaquim would want to do if he is unable to speak for himself. He also expressed concern that Joaquim will need to move from his current apartment and likely need help at discharge. We talked about the possibility that Joaquim may need / care, if not now, then eventually. He understands. History of Present Illness Reason for Consultation: goals of care Requesting Physician: Dr. Madrigal Attending Physician: Adal Parra MD History of Present Illness 62 yo gentleman with history of mesothelioma with extensive metastatic pleural disease on CT. Total dimension of aggregate lesions is 19 x 11.5 cm With extension beyond the pleura on the right. There has been progression of disease since 10/27/22 as well as progression of multiple hepatic and skeletal lesions. He was diagnosed in July of 2019. He has had surgery x 2 and multiple systemic treatments. He has been on ipilimumab and nivolumab since July of this year, recently completing his third cycle. He was admitted with leukemoid reaction. He tells me that he lives alone and has been able to do his own ADLs for the most part though his friends have been trying to get him additional help through [facility]. He reports chronic arthritis pain but nothing out of the ordinary. He notes that his appetite has been less in the last few weeks. Allergies Allergy/AdvReac Type Severity Reaction Status Date / Time No Known Allergies Allergy Verified 12/18/22 16:35 Home Medications Medication Instructions Recorded Confirmed Type amlodipine 5 mg tablet 5 mg PO QAM 08/07/19 12/18/22 History atorvastatin 20 mg tablet 10 mg PO BID 08/07/19 12/18/22 History fluoxetine 20 mg capsule 60 mg PO QPM 08/07/19 12/18/22 History lisinopril 20 2 tab PO QAM 08/07/19 12/18/22 History mg-hydrochlorothiazide 25 mg tablet valacyclovir 500 mg tablet 500 mg PO DAILY 08/07/19 12/18/22 History folic acid 1 mg tablet 1 mg PO QAM 09/18/19 12/18/22 History ondansetron HCl 8 mg tablet 8 mg PO Q8H PRN Nausea 09/18/19 12/18/22 History prochlorperazine maleate 10 mg 10 mg PO Q6H PRN Nausea 09/18/19 12/18/22 History tablet dexamethasone 4 mg tablet 4 mg PO QAM 11/12/19 12/18/22 History Patient History Medical History Abnormal CT scan of lung Acute blood loss anemia Depression DVT prophylaxis Empyema of right pleural space Encounter for pre-operative examination Hyperlipidemia Hypertension Hypokalemia Hyponatremia Pleural effusion Pleural effusion on right 08/07/2019 Pneumothorax s/p chest tube placement Rheumatoid arthritis Shortness of breath Surgical History History of lung surgery 08/12/2019 Dr. Solano @ [facility]--right video assisted thoracoscopy with pleurectomy, biopsy, right lower lobe wedge resection History of thoracentesis History of tooth extraction all teeth Hx of chest tube placement 08/07/2019 Port-A-Cath in place (09/24/19) Infusaport Insertion in Left Internal Jugular with Fluoroscopy Dr. Doyle 09/24/19 Family History Brother Family history of esophageal cancer Mother No problems noted. Father , age 80 heart disease Cancer mesothelioma Brother Hypertension Sister No problems noted. Other No family history of adverse response to anesthesia Social History Smoking Status: Former smoker Age Started Using Tobacco: 19; Age Quit Using Tobacco: 53; packs per day: 1.5; Cigarettes Per Day: states quif of and on over the years; Second Hand Exposure: No; Do You Dip or Chew Tobacco: No; Tobacco Cessation Education Requested by Patient: No Hx Alcohol Use: Yes Alcohol type: beer Alcohol Intake Frequency Comment: twice a week Hx Substance Use: No Preferred Language: Egyptian Communication Ability: Effective Visual Impairment: No Limitations Hearing Ability: Normal Hardscape Foreman Required: No Beliefs That Will Affect Care: None marital status: Single Current Living Situation: Alone current occupational status: employed 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 Other Information That Helps Us Care for You: No Feels Safe at Home: Yes Safety Concerns: Feels Safe At This Time Childhood Exposure to Second-Hand Smoke: Yes Diet: regular caffeine: Yes (4-5 cups per day) during the past year weight has: decreased > 10 lbs Dental Care, Regularly: No Physical Activity Frequency: Daily Seatbelt Use: always Sunscreen Use: No Assistive Devices: Cane, Denture - Upper, Denture - Lower and Glasses Review of Systems Review of Systems: ESAS Pain 1/3 Dyspnea 0/3 Nausea 0/3 Drowsiness 0/3 ANxiety 0/3 Physical Exam Constitutional: no acute distress Respiratory: normal respiratory effort; no labored breathing Cardiovascular: Rate/Rhythm: regular rate and regular rhythm Skin: warm and dry Neurologic: Speech / Cognition: normal cognition Psychiatric: Orientation: oriented x 3 Affect: euthymic affect Results & Data Vital Signs (Past 12 Hours) Vital Signs Temp Pulse Pulse Pulse Resp BP Pulse Ox 12/19/22 07:18 98.2 F 107 H 19 117/76 96 12/19/22 03:11 97.9 F 101 H 18 110/76 93 12/18/22 21:59 102 H 07/31/23 23:15 98.2 F 100 H 18 109/68 94 12/18/22 22:00 O2 Del Method 12/19/22 07:18 Room Air 12/19/22 03:11 Room Air 12/18/22 21:59 12/18/22 23:15 Room Air 12/18/22 22:00 Room Air PG Care Time/CCT Total # of Minutes Spent Total Time Spent: 65 Total Time Spent with Patient: Total time spent is greater than 50% in coordination of care (as documented) at patient's floor/unit and/or counseling patient:[id number] goals of care, code status, surrogate decision maker, patient and family education and support Coding Level of Care Code 19533 INT INP/OBS CARE 2/55MIN Diagnoses Palliative care encounter Z51.5
[2022-12-19] MEDS ORDERED: GADOBUTROL 65ML VIAL IV ONE (14:00)
--- NOTE | 2022-12-19 14:44 | Magnetic Resonance Report ---
MRI OF THE BRAIN COMBO CLINICAL HISTORY: Metastatic mesothelioma. COMPARISON STUDY: MRI of the brain dated 01/27/2020. TECHNIQUE: MRI of the brain was performed utilizing various T1 and T2-weighted sequences in the axial , sagittal, and coronal planes. Contrast-enhanced sequences were acquired following the administratio n of 6.5 cc of Gadavist. The examination is degraded by motion artifact. FINDINGS: Brain parenchyma: There is age-related involutional change noting [id number] subcortical and pe riventricular microangiopathic disease. There is no hemorrhage or mass effect. There is no restricted diffusion to suggest acute ischemia. There are 2 punctate enhancing foci suggested. A focus in the r ight posterior parietal white matter as seen on axial high resolution post contrast image #55, and a 3 mm linear focus is seen in the high left parietal lobe cortex on image #66. Aquino-white matter diffe rentiation is preserved. No extra-axial fluid collection is seen. The cerebellar tonsils are normal i n configuration. Ventricles, sulci, and cisterns: Prominent secondary to involutional change. Cavum septum pellucidum is incidentally noted. Pituitary and sella: Unremarkable. Intracranial vasculature: Normal flow voids are maintained at the skull base. Orbits: The bony orbits are grossly intact. Orbital contents are normal in appearance. Sinuses and mastoids: There is subtotal opacification of the left frontal sinus. There is mild to mod erate mucosal thickening within the ethmoid sinuses. Mild mucosal thickening is noted in the left max illary antrum. There are trace mastoid effusions. Calvarium: No destructive calvarial lesion is identified. Cervical cord: Partially visualized cervical spinal cord is normal in morphology and signal intensity . Soft tissues: A 1.6 cm dermal lesion in the posterior parietal scalp seen on sagittal image #8 is new from 2020. A second subcentimeter dermal lesion seen at the vertex on coronal FLAIR image #14 is als o new from previous. IMPRESSION: 1. Motion compromised examination. 2. There are 2 tiny foci of enhancement identified within the right and left parietal lobe as detaile d above. These are difficult to characterize due to small size but were not seen on the 01/27/2020 exam ination. Tiny metastases are not excluded. 3. There is no hemorrhage, mass effect, or evidence of acute ischemia. 4. There are 2 scalp lesions which are indeterminant but also new from 2020. These could potentially represent sebaceous cysts. Metastatic lesions are not excluded. 5. No calvarial lesion is clearly identified. ACT 112: Negative or not required by law. Electronically signed by: Neo Dai M.D. 12/19/2022 2:43 PM
--- NOTE | 2022-12-19 19:45 | Hospitalist Progress Note ---
Date of Service December 19, 2022 Assessment & Plan (1) Leukemoid reaction: Plan: Severely elevated WBC count. Suspect due to immunotherapy for his metastatic mesothelioma. No infectious symptoms at this time. Blood cultures thus far negative. Repeat CBC in am. (2) Metastatic cancer: Plan: Stage 4 mesothelioma with extensive mets - possible brain mets x 2, bone mets, liver mets, adrenal mets, etc. On immunotherapy x 2 agents (ipilimumab/nivolumab). Appreciate Dr Briceño's consultation. Appreciate Dr Rosa's consultation from palliative care. Dr Briceño is concerned that proceeding forward with the current immune-based treatment may not be prudent as there is likely lack of efficacy given the progression of his disease on kilgore-CT. May need to get back to [facility], [place] operated by [facility] Dr Stovall, oncology, for investigational trial. Repeat cbc am. (3) Hyponatremia: Plan: 2nd HCTZ? 2nd SIADH? check Sosm, Uosm, Urine Na. re-eval after those are available. (4) Hypertension: Plan: Holding all anti-hypertensives His BPs are controlled despite not receiving them He may not need the BPs meds moving forward given his recent weight loss (5) Elevated troponin I level: Plan: 2nd myocardial demand ischemia rather than ACS (6) Anemia: Plan: 2nd to folate deficiency, other factors Start folic acid 1mg daily (7) Mesothelioma: Plan: stage 4, extensive mets, see above (8) Bilateral shoulder pain: Plan: 2nd to bony mets? rotator cuff syndrome? pain meds voltaren gel consider imaging Plan if patient stays beyond tomorrow will add chemical DVT proph Admission and Anticipated Discharge Date Admission Date: December 18, 2022 Subjective pt resting in bed during the visit c/o b/l shoulder pain attributes it to working out with a sap trainer at a local gym? hurts to move both arms/shoulders pain present both day/night denies pain in other locations breathing is comfortable at rest eating is fair has lost 9 pounds over the last 2-3 months Review of Systems Review of Systems: gen - no fevers or chills cv - no chest pain, no orthopnea pulm - no dyspnea at rest ; no cough GI - no abd pain; no nausea/emesis HENT - no URI symptoms Physical Exam Physical Exam: gen - thin, NAD, pleasant mouth - MMM neck - no JVD heart - RRR, s1 s2, no murmur lungs - decreased BS bases, scattered rales b/l abd - soft NT ND BS+ ext - no edema, pulses 2+ b/l musculo - b/l shoulders with tenderness to palpation over subacromial bursal region; tender b/l shoulders with passive ROM (int/ext rotation, extension, etc); no joint effusions Results & Data Results & Data Vital Signs (Past 12 Hours) Vital Signs Temp Pulse Pulse Resp BP Pulse Ox O2 Del Method 12/19/22 08:00 100 H 12/19/22 08:00 Room Air 12/19/22 15:25 36.8 C 113 H 18 120/79 95 Room Air 12/19/22 11:40 36.9 C 112 H 20 122/82 94 Room Air Laboratory Results Laboratory Results - last 24 hr 12/18/22 12/18/22 12/19/22 14:45 17:19 06:07 WBC 97.09 H* RBC 2.82 L Hgb 7.8 L Hct 22.2 L MCV 78.7 L MCH 27.7 MCHC 35.1 RDW Std Deviation 49.4 H RDW Coeff of Enmanuel 18.1 H Plt Count 268 MPV 9.5 Immature Gran % (Auto) 8.3 Neut % (Auto) 86.8 Lymph % (Auto) 2.1 Hettinger % (Auto) 2.8 Eos % (Auto) 0.0 Baso % (Auto) 0.0 Reticulocyte % (Auto) Neut # (Auto) 84.26 H Lymph # (Auto) 2.00 Hettinger # (Auto) 2.70 H Eos # (Auto) 0.03 Baso # (Auto) 0.04 Reticulocyte # Immature Gran # (Auto) 8.06 H Toxic Granulation 2+ Dohle Bodies 1+ Polychromasia 1+ 1+ Hypochromasia Present Target Cells 1+ 1+ Rouleaux 1+ PT INR APTT PTT Ratio Sodium Potassium Chloride Carbon Dioxide Anion Gap BUN Creatinine Est Cr Clr Drug Dosing Est GFR ( Amer) Est GFR (Non-Af Amer) BUN/Creatinine Ratio Glucose Lactate Calcium Magnesium Iron TIBC Unsaturated IBC Transferrin % Sat Ferritin Total Bilirubin AST ALT Alkaline Phosphatase Troponin I High Sens Total Protein Albumin Globulin Albumin/Globulin Ratio Vitamin B12 Folate Procalcitonin Bld Cult ID Panel PCR PCR Panel Negative 08/06/1212/19/22 12/19/22 06:07 06:07 06:07 WBC RBC Hgb Hct MCV MCH MCHC RDW Std Deviation RDW Coeff of Enmanuel Plt Count MPV Immature Gran % (Auto) Neut % (Auto) Lymph % (Auto) Hettinger % (Auto) Eos % (Auto) Baso % (Auto) Reticulocyte % (Auto) Neut # (Auto) Lymph # (Auto) Hettinger # (Auto) Eos # (Auto) Baso # (Auto) Reticulocyte # Immature Gran # (Auto) Toxic Granulation Dohle Bodies Polychromasia Hypochromasia Target Cells Rouleaux PT 14.2 H INR 1.3 H APTT 33.0 H PTT Ratio 1.2 Sodium 131 L Potassium 4.3 Chloride 97 L Carbon Dioxide 26 Anion Gap 8 BUN 22 Creatinine 0.78 D Est Cr Clr Drug Dosing 91.8 Est GFR ( Amer) 112.1 Est GFR (Non-Af Amer) 96.7 BUN/Creatinine Ratio 28.2 H Glucose 99 Lactate Calcium 8.2 L Magnesium 1.9 Iron TIBC Unsaturated IBC Transferrin % Sat Ferritin Total Bilirubin 0.8 AST 23 ALT 13 Alkaline Phosphatase 323 H Troponin I High Sens 34.3 H D Total Protein 6.0 Albumin 2.4 L Globulin 3.6 Albumin/Globulin Ratio 0.7 L Vitamin B12 Folate Procalcitonin 3.39 H Bld Cult ID Panel PCR 12/19/22 12/19/22 12/19/22 07:05 07:05 07:05 WBC RBC Hgb Hct MCV MCH MCHC RDW Std Deviation RDW Coeff of Enmanuel Plt Count MPV Immature Gran % (Auto) Neut % (Auto) Lymph % (Auto) Hettinger % (Auto) Eos % (Auto) Baso % (Auto) Reticulocyte % (Auto) 2.5 H Neut # (Auto) Lymph # (Auto) Hettinger # (Auto) Eos # (Auto) Baso # (Auto) Reticulocyte # 0.07 Immature Gran # (Auto) Toxic Granulation Dohle Bodies Polychromasia Hypochromasia Target Cells Rouleaux PT INR APTT PTT Ratio Sodium Potassium Chloride Carbon Dioxide Anion Gap BUN Creatinine Est Cr Clr Drug Dosing Est GFR ( Amer) Est GFR (Non-Af Amer) BUN/Creatinine Ratio Glucose Lactate Calcium Magnesium Iron 28 L TIBC 133 L Unsaturated IBC 105 L Transferrin % Sat 21 Ferritin 2221.0 H Total Bilirubin AST ALT Alkaline Phosphatase Troponin I High Sens Total Protein Albumin Globulin Albumin/Globulin Ratio Vitamin B12 > 1500 H Folate 2.59 L Procalcitonin Bld Cult ID Panel PCR 12/19/22 07:05 WBC RBC Hgb Hct MCV MCH MCHC RDW Std Deviation RDW Coeff of Enmanuel Plt Count MPV Immature Gran % (Auto) Neut % (Auto) Lymph % (Auto) Hettinger % (Auto) Eos % (Auto) Baso % (Auto) Reticulocyte % (Auto) Neut # (Auto) Lymph # (Auto) Hettinger # (Auto) Eos # (Auto) Baso # (Auto) Reticulocyte # Immature Gran # (Auto) Toxic Granulation Dohle Bodies Polychromasia Hypochromasia Target Cells Rouleaux PT INR APTT PTT Ratio Sodium Potassium Chloride Carbon Dioxide Anion Gap BUN Creatinine Est Cr Clr Drug Dosing Est GFR ( Amer) Est GFR (Non-Af Amer) BUN/Creatinine Ratio Glucose Lactate 2.0 Calcium Magnesium Iron TIBC Unsaturated IBC Transferrin % Sat Ferritin Total Bilirubin AST ALT Alkaline Phosphatase Troponin I High Sens Total Protein Albumin Globulin Albumin/Globulin Ratio Vitamin B12 Folate Procalcitonin Bld Cult ID Panel PCR PG Care Time/CCT Total # of Minutes Spent Total Time Spent with Patient: Total time spent is greater than 50% in coordination of care (as documented) at patient's floor/unit and/or counseling patient: Coding Level of Care Code 83302 SUB INP/OBS CARE 2/35MIN Diagnoses Leukemoid reaction D72.823 Metastatic cancer C79.9 Hyponatremia E87.1 Hypertension I10 Elevated troponin I level R77.8 Anemia D64.9 Mesothelioma C45.9 Bilateral shoulder pain M25.511; M25.512
[2022-12-19] MEDS: FLUoxetine HCL 20 MG CAP PO SCH (21:11)
[2022-12-19 21:18] LABS: A calco-baum cmplx NotReported Not Detected (NotDetected); Bact fragilis Not Reported Not Detected (NotDetected); C auris Not Reported Not Detected (NotDetected); Calbicans Not Reported Not Detected (NotDetected); Candida glabrata Not Reported Not Detected (NotDetected); Candida krusei Not Reported Not Detected (NotDetected); Cneoformans/gatti Not Reported Not Detected (NotDetected); Cparapsilosis Not Reported Not Detected (NotDetected); Ctropicalis Not Reported Not Detected (NotDetected); E cloacae compx Not Reported Not Detected (NotDetected); Efaecalis Not Reported Not Detected (NotDetected); Efaecium Not Reported Not Detected (NotDetected); Enterobacterales Not Reported Not Detected (NotDetected); Escherichia coli Not Reported Not Detected (NotDetected); H influenzae Not Reported Not Detected (NotDetected); K aerogenes Not Reported Not Detected (NotDetected); Koxytoca Not Reported Not Detected (NotDetected); Kpneumoniae grp Not Reported Not Detected (NotDetected); Lmonocyt Not Reported Not Detected (NotDetected); N meningitidis Not Reported Not Detected (NotDetected); P aeruginosa Not Reported Not Detected (NotDetected); Proteus spp Not Reported Not Detected (NotDetected); Salmonella spp Not Reported Not Detected (NotDetected); Smarcescens Not Reported Not Detected (NotDetected); Staph lugdunensis Not Reported Not Detected (NotDetected); Staph spp. Not Reported Not Detected (NotDetected); Staphaureus Not Reported Not Detected (NotDetected); Staphepi Not Reported Not Detected (NotDetected); Stenmaltophilia Not Reported Not Detected (NotDetected); Strep agal(GrpB) Not Reported Not Detected (NotDetected); Strep pneum Not Reported Not Detected (NotDetected); Strep pyog (GrpA) Not Reported Not Detected (NotDetected); Strep spp Not Reported Not Detected (NotDetected)
[2022-12-19] MEDS: IBUPROFEN 600 MG TAB PO PRN (23:43)
--- NOTE | 2022-12-20 06:20 | Electrocardiogram Report ---
Test Reason : Blood Pressure : / mmHG Vent. Rate : 113 BPM Atrial Rate : 113 BPM P-R Int : 130 ms QRS Dur : 088 ms QT Int : 312 ms P-R-T Axes : 053 036 042 degrees QTc Int : 427 ms Sinus tachycardia Otherwise normal ECG When compared with ECG of 07-AUG-2019 13:50, No significant change Confirmed by Mateo Aceves ([id number]) on 12/20/2022 6:20:08 AM Referred By: Confirmed By:Mateo Aceves
--- NOTE | 2022-12-20 06:24 | Electrocardiogram Report ---
Test Reason : Blood Pressure : / mmHG Vent. Rate : 104 BPM Atrial Rate : 104 BPM P-R Int : 126 ms QRS Dur : 090 ms QT Int : 334 ms P-R-T Axes : 049 037 040 degrees QTc Int : 439 ms Sinus tachycardia Possible Anterior infarct , age undetermined Abnormal ECG When compared with ECG of 18-DEC-2022 14:47, No significant change was found Confirmed by Mateo Aceves ([id number]) on 12/20/2022 6:24:17 AM Referred By: REFERRED SELF Confirmed By:Mateo Aceves
[2022-12-20 06:41] LABS: Hematocrit (blood only) 21.3 % (42.0-52.0); Hemoglobin 7.3 g/dl (14.0-18.0); Mean Corpuscular Hemoglobin 27.5 pg (25.0-34.0); Mean Corpuscular Hgb Conc 34.3 g/dL (32.0-36.0); Mean Corpuscular Volume 80.4 fL (80.0-100.0); Mean Platelet Volume 9.7 fL (9.4-12.4); Platelet Count 221 K/uL (130-400); RDW Coefficient of Variation 18.8 % (11.5-14.5); RDW Standard Deviation 52.1 fL (36.4-46.3); Red Blood Count 2.65 M/uL (4.70-6.10); White Blood Count 89.43 K/ul (4.8-10.8)
[2022-12-20 06:56] LABS: BUN Creatinine Ratio 30.2 (10-20); Calcium 8.4 mg/dl (8.6-10.3); Creatinine Clr Calc Pharmacy 113.7 ml/min; Est GFR (African American) 122.4 ml/min; Est GFR (Non-African American) 105.6 ml/min
[2022-12-20 07:03] LABS: Basophils # (auto) 0.04 K/uL (0-0.2); Dohle Bodies 1+; Eosinophils # (auto) 0.07 K/uL (0-0.50); Eosinophils % (auto) 0.1 %; Hypochromasia Present; Immature Granulocytes # (auto) 7.64 K/uL (0.01-0.20); Immature Granulocytes % (auto) 8.5 %; Lymphocytes # (auto) 2.07 K/uL (1.2-3.4); Lymphocytes % (auto) 2.3 %; Monocytes # (auto) 2.91 K/uL (0.11-0.59); Monocytes % (auto) 3.3 %; Neutrophils % (auto) 85.8 %; Polychromasia 1+; Target Cells 1+; Toxic Granulation 1+
[2022-12-20] MEDS: valACYclovir HCL 500 MG TABLET PO SCH (08:00)
[2022-12-20] MEDS: FOLIC ACID 1 MG TAB PO SCH (08:00)
[2022-12-20] MEDS: ATORVASTATIN 10 MG TAB PO SCH ×2 (08:02→20:13)
[2022-12-20] MEDS: oxyCODONE HCL IR 5 MG TAB (IMMEDIATE RELEASE) PO PRN (10:14)
[2022-12-20] MEDS ORDERED: SODIUM CHLORIDE 0.9% 250 ML IV PRN (11:08)
[2022-12-20] MEDS ORDERED: ACETAMINOPHEN 500 MG TAB PO ONE (11:09)
[2022-12-20] MEDS: ACETAMINOPHEN 500 MG TAB ONE ×2 (13:16→13:31)
[2022-12-20] MEDS ORDERED: ACETAMINOPHEN 500 MG TAB ONE (13:34)
[2022-12-20] MEDS: DICLOFENAC SOD 1% GEL 100 GM TUBE EXT SCH ×3 (14:21→20:13)
[2022-12-20] MEDS: FLUoxetine HCL 20 MG CAP PO SCH (20:13)
--- NOTE | 2022-12-20 20:46 | Hospitalist Progress Note ---
Date of Service December 20, 2022 Assessment & Plan (1) Leukemoid reaction: Plan: Severely elevated WBC count at presentation (112). WBC count improving w/o intervention/antibiotics. Suspect due to immunotherapy from his metastatic mesothelioma. No infectious symptoms at this time. Blood cultures 1/4 bottles +GPC - statistically most likely to be contaminant (culture was NOT from his port) but will repeat blood cx's to be safe. Repeat CBC in am. (2) Metastatic cancer: Plan: Stage 4 mesothelioma with extensive mets - possible brain mets x 2, bone mets, liver mets, adrenal mets, etc. On immunotherapy x 2 agents (ipilimumab/nivolumab). Appreciate Dr Briceño's consultation. Appreciate Dr Rosa's consultation from palliative care. Dr Briceño is concerned that proceeding forward with the current immune-based treatment may not be prudent as there is likely lack of efficacy given the progression of his disease on kilgore-CT. May need to get back to [facility] Dr Stovall, oncology, for investigational trial? vs transitioning to pure palliative approach. Prognosis is very, very poor. Repeat cbc am. 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 consider NaCL tabs +/- low-dose lasix fluid restriction (4) Hypertension: Plan: Holding all anti-hypertensives His BPs are controlled despite not receiving them He may not need the BPs meds moving forward given his recent weight loss (5) Elevated troponin I level: Plan: 2nd myocardial demand ischemia rather than ACS (6) Anemia: Plan: 2nd to folate deficiency, other factors Started folic acid 1mg daily Given his tachycardia will Tx 1 unit PRBCs Consent obtained with witness by nursing staff (7) Mesothelioma: Plan: stage 4, extensive mets, see above (8) Bilateral shoulder pain: Plan: 2nd to bony mets? rotator cuff syndrome? combination of meds? pain meds prn - oxycodone (if he continues with confusion change to norco) voltaren gel qid consider imaging but he would like to defer for now Plan DVT proph - add lovenox 40mg daily received message from nursing staff that pt's sister, Sofía, called and wished to speak to the palliative care team phone #: [phone] apparently Joaquim gave permission for us to speak with her called, left voicemail, will let palliative care know about her request Admission and Anticipated Discharge Date Admission Date: December 18, 2022 Subjective tele - sinus tach no new complaints relative to yesterday we discussed PRBC infusion - he signed consent still with b/l shoulder pain he is still intent on treating his advancing mesothelioma - wants to go to [place] for such to see his oncologist there for additional Rx options (trial??) eating fair Review of Systems Review of Systems: gen - no fevers/chills HENT - no URI symptoms GI - no N/V/D - no dysuria CV - no cp, no orthopnea Physical Exam Physical Exam: gen - thin, NAD, pleasant - a little confused today mouth - MMM neck - no JVD heart - tachy, regular rhythm, s1 s2, no murmur lungs - decreased BS bases otherwise CTA b/l abd - soft NT ND BS+ ext - no edema, pulses 2+ b/l Results & Data Results & Data Vital Signs (Past 12 Hours) Vital Signs Temp Pulse Pulse Resp BP BP Pulse Ox 12/20/22 20:29 12/20/22 19:47 36.6 C 108 H 16 128/86 97 12/20/22 17:05 36.9 C 100 H 16 109/72 98 12/20/22 16:38 117 H 12/20/22 16:29 91 H 12/20/22 16:05 36.9 C 99 H 16 111/74 95 12/20/22 15:35 36.9 C 105 H 18 100/68 95 12/20/22 15:05 37.1 C 105 H 18 95/62 L 95 12/20/22 14:48 36.9 C 109 H 18 104/70 95 12/20/22 14:35 36.8 C 115 H 16 109/75 95 12/20/22 14:20 36.7 C 117 H 18 121/71 95 12/20/22 13:59 36.6 C 118 H 18 113/75 95 12/20/22 11:29 36.6 C 105 H 20 112/78 98 12/20/22 10:51 O2 Del Method 12/20/22 20:29 Room Air 12/20/22 19:47 Room Air 12/20/22 17:05 12/20/22 16:38 12/20/22 16:29 12/20/22 16:05 12/20/22 15:35 12/20/22 15:05 12/20/22 14:48 12/20/22 14:35 12/20/22 14:20 12/20/22 13:59 12/20/22 11:29 Room Air 12/20/22 10:51 Room Air Laboratory Results Laboratory Results 12/18/22 12/20/22 12/20/22 17:19 05:51 05:51 WBC 89.43 H* RBC 2.65 L Hgb 7.3 L Hct 21.3 L MCV 80.4 MCH 27.5 MCHC 34.3 RDW Std Deviation 52.1 H RDW Coeff of Enmanuel 18.8 H Plt Count 221 MPV 9.7 Immature Gran % (Auto) 8.5 Neut % (Auto) 85.8 Lymph % (Auto) 2.3 Bland % (Auto) 3.3 Eos % (Auto) 0.1 Baso % (Auto) 0.0 Neut # (Auto) 76.70 H Lymph # (Auto) 2.07 Bland # (Auto) 2.91 H Eos # (Auto) 0.07 Baso # (Auto) 0.04 Immature Gran # (Auto) 7.64 H Absolute Nucleated RBC Neutrophils % (Manual) Lymphocytes % (Manual) Monocytes % (Manual) Metamyelocytes % (Man) Neutrophils # (Manual) Total Absolute Neuts Lymphocytes # (Manual) Total Abs Lymphocytes Monocytes # (Manual) Metamyelocytes # (Man) Toxic Granulation 1+ Dohle Bodies 1+ Polychromasia 1+ Hypochromasia Present Target Cells 1+ Sodium 132 L Potassium 4.0 Chloride 98 Carbon Dioxide 28 Anion Gap 6 BUN 19 Creatinine 0.63 Est Cr Clr Drug Dosing 113.7 Est GFR ( Amer) 122.4 Est GFR (Non-Af Amer) 105.6 BUN/Creatinine Ratio 30.2 H Glucose 110 H Osmolality Calcium 8.4 L Urine Osmolality Ur Random Sodium Bld Cult ID Panel PCR PCR Panel Negative Blood Type Blood Type Recheck Antibody Screen Crossmatch 12/20/22 12/20/22 12/20/22 05:51 06:20 06:20 WBC RBC Hgb Hct MCV MCH MCHC RDW Std Deviation RDW Coeff of Enmanuel Plt Count MPV Immature Gran % (Auto) Neut % (Auto) Lymph % (Auto) Bland % (Auto) Eos % (Auto) Baso % (Auto) Neut # (Auto) Lymph # (Auto) Bland # (Auto) Eos # (Auto) Baso # (Auto) Immature Gran # (Auto) Absolute Nucleated RBC Neutrophils % (Manual) Lymphocytes % (Manual) Monocytes % (Manual) Metamyelocytes % (Man) Neutrophils # (Manual) Total Absolute Neuts Lymphocytes # (Manual) Total Abs Lymphocytes Monocytes # (Manual) Metamyelocytes # (Man) Toxic Granulation Dohle Bodies Polychromasia Hypochromasia Target Cells Sodium Potassium Chloride Carbon Dioxide Anion Gap BUN Creatinine Est Cr Clr Drug Dosing Est GFR ( Amer) Est GFR (Non-Af Amer) BUN/Creatinine Ratio Glucose Osmolality 280 Calcium Urine Osmolality 594 Ur Random Sodium 25 Bld Cult ID Panel PCR Blood Type Blood Type Recheck Antibody Screen Crossmatch 12/20/22 12/20/22 11:25 12:16 WBC RBC Hgb Hct MCV MCH MCHC RDW Std Deviation RDW Coeff of Enmanuel Plt Count MPV Immature Gran % (Auto) Neut % (Auto) Lymph % (Auto) Bland % (Auto) Eos % (Auto) Baso % (Auto) Neut # (Auto) Lymph # (Auto) Bland # (Auto) Eos # (Auto) Baso # (Auto) Immature Gran # (Auto) Absolute Nucleated RBC Neutrophils % (Manual) Lymphocytes % (Manual) Monocytes % (Manual) Metamyelocytes % (Man) Neutrophils # (Manual) Total Absolute Neuts Lymphocytes # (Manual) Total Abs Lymphocytes Monocytes # (Manual) Metamyelocytes # (Man) Toxic Granulation Dohle Bodies Polychromasia Hypochromasia Target Cells Sodium Potassium Chloride Carbon Dioxide Anion Gap BUN Creatinine Est Cr Clr Drug Dosing Est GFR ( Amer) Est GFR (Non-Af Amer) BUN/Creatinine Ratio Glucose Osmolality Calcium Urine Osmolality Ur Random Sodium Bld Cult ID Panel PCR Blood Type A Positive Blood Type Recheck A Positive Antibody Screen NEGATIVE Crossmatch See Detail Diagnostic Findings blood cx's from admission - 05/24 bottles + GPC PG Care Time/CCT Total # of Minutes Spent Total Time Spent with Patient: Total time spent is greater than 50% in coordination of care (as documented) at patient's floor/unit and/or counseling patient: Coding Level of Care Code 59904 SUB INP/OBS CARE 2/35MIN Diagnoses Leukemoid reaction D72.823 Metastatic cancer C79.9 Hyponatremia E87.1 Hypertension I10 Elevated troponin I level R77.8 Anemia D64.9 Mesothelioma C45.9 Bilateral shoulder pain M25.511; M25.512
[2022-12-20] MEDS ORDERED: ENOXAPARIN INJ 40 MG/0.4 ML SYR SQ ONE (21:00)
[2022-12-20] MEDS: IBUPROFEN 600 MG TAB PO PRN (22:30)
[2022-12-21 06:12] LABS: BUN Creatinine Ratio 29.2 (10-20); Calcium 8.4 mg/dl (8.6-10.3); Creatinine Clr Calc Pharmacy 110.2 ml/min; Est GFR (African American) 120.8 ml/min; Est GFR (Non-African American) 104.3 ml/min
[2022-12-21 06:13] LABS: Hematocrit (blood only) 22.2 % (42.0-52.0); Hemoglobin 7.7 g/dl (14.0-18.0); Mean Corpuscular Hemoglobin 28.2 pg (25.0-34.0); Mean Corpuscular Hgb Conc 34.7 g/dL (32.0-36.0); Mean Corpuscular Volume 81.3 fL (80.0-100.0); Mean Platelet Volume 9.6 fL (9.4-12.4); Nucleated RBC # (auto) 0.02 K/uL (0-0.12); Platelet Count 199 K/uL (130-400); RDW Coefficient of Variation 18.9 % (11.5-14.5); RDW Standard Deviation 52.3 fL (36.4-46.3); Red Blood Count 2.73 M/uL (4.70-6.10); White Blood Count 86.53 K/ul (4.8-10.8)
[2022-12-21 06:26] LABS: ALC (manual) 0.87 K/uL (1.2-3.4); Dohle Bodies 1+; Lymphocytes # (manual) 0.87 K/uL (1.2-3.4); Lymphocytes % (manual) 1 %; Metamyelocytes # (manual) 0.87 K/uL (0-0); Metamyelocytes % (manual) 1 %; Monocytes % (manual) 3 %; Neutrophils % (manual) 95 %; Polychromasia 1+
[2022-12-21] MEDS: DICLOFENAC SOD 1% GEL 100 GM TUBE EXT SCH ×4 (07:34→20:07)
[2022-12-21] MEDS: ATORVASTATIN 10 MG TAB PO SCH ×2 (08:25→20:08)
[2022-12-21] MEDS: IBUPROFEN 600 MG TAB PO PRN ×2 (08:25→16:02)
[2022-12-21] MEDS: ENOXAPARIN INJ 40 MG/0.4 ML SYR SQ SCH (08:26)
[2022-12-21] MEDS: valACYclovir HCL 500 MG TABLET PO SCH (08:26)
[2022-12-21] MEDS: FOLIC ACID 1 MG TAB PO SCH (08:26)
--- NOTE | 2022-12-21 15:07 | Palliative Care Progress Note ---
Date of Service December 21, 2022 Assessment & Plan (1) Bilateral shoulder pain: Plan: Metastatic disease noted in T spine and bilateral scapulae on CT Would continue to ibuprofen and voltaren gel for bony pain Unfortunately, he has had low hemoglobin with leukemoid reaction He tells me that he had a cologuard done not long ago which was heme positive and [facility]. He is also hemoccult positive here. Could consider steroid with PPI if voltaren is not effective. He does have prn oxycodone as well. (2) Palliative care encounter: Plan: I met with Joaquim, his sister and brother at bedside. He tells me that he has spoken with Dr. Parra and with Dr. Briceño but remains hopeful that there will be treatment options if he is able to go to [facility]. Encouraged hope for good outcome but suggested that at some point, if not now, he will likely not be a candidate for further systemic cancer treatment. He acknowledges this but tells me that he hasn't really thought much about it. I asked him what he would want his dying time to be like. He told me that he would want a peaceful with his family and friends around. He is familiar with hospice care and does not rule out that possibility "when the time comes". He has been living independently in an apartment and would like to have rehab to increase his strength. He does understand that he will need care at some point and ideally would like to be at the [facility] facility in [place]. We discussed surrogate decision maker and he would like his sister, Sofía, to be his surrogate. She was present for conversation and has talked with him about his wishes. She would want to honor his wishes if he were unable to speak for himself. Discussed with RN and case management. Admission and Anticipated Discharge Date Admission Date: December 18, 2022 Subjective Reports feeling pretty good this morning. Does complain of pain in his right shoulder which radiates across to the left. He describes it as an aching pain. He has had some relief with ibuprofen and voltaren gel. He also had one dose of oxycodone. Review of Systems Review of Systems: ESAS Pain 2/3 Dyspnea 0/3 Nausea 0/3 Drowsiness 0/3 Anxiety 0/3 Physical Exam Constitutional: no acute distress Respiratory: normal respiratory effort; no labored breathing Cardiovascular: Rate/Rhythm: regular rate and regular rhythm Skin: warm and dry Neurologic: Speech / Cognition: normal cognition Results & Data Vital Signs (Past 12 Hours) Vital Signs Temp Pulse Pulse Resp BP Pulse Ox O2 Del Method 12/21/22 10:35 98.1 F 117 H 18 119/79 97 Room Air 12/21/22 08:00 93 H 12/21/22 08:00 Room Air 12/21/22 07:49 97.5 F L 112 H 18 108/72 97 Room Air 12/21/22 05:43 109 H 12/21/22 04:14 97.3 F L 69 20 121/79 98 Room Air PG Care Time/CCT Total # of Minutes Spent Total Time Spent: 85 Total Time Spent with Patient: Total time spent is greater than 50% in coordination of care (as documented) at patient's floor/unit and/or counseling patient:[id number] goals of care, hospice, prognosis, surrogate decision maker, patient and family education and support, coordination of care Coding Level of Care Code 02778 Prolonged Care (int'l) Diagnoses Bilateral shoulder pain M25.511; M25.512 Palliative care encounter Z51.5
[2022-12-21] MEDS: FLUoxetine HCL 20 MG CAP PO SCH (20:07)
--- NOTE | 2022-12-21 20:27 | Hospitalist Progress Note ---
Date of Service December 21, 2022 Assessment & Plan (1) Leukemoid reaction: Plan: Severely elevated WBC count at presentation (112). WBC count cont to improve w/o intervention/antibiotics. Suspect due to immunotherapy from his metastatic mesothelioma. No infectious symptoms at this time. Blood cultures 1/4 bottles alpha strep not group D. Statistically most likely to be contaminant (culture was NOT from his port) but blood cx's were repeated on 12/20/22 and remain negative. Will continue to follow off of abx. Recheck a procal in am. Repeat CBC in am. (2) Metastatic cancer: Plan: Stage 4 mesothelioma with extensive mets - possible brain mets x 2, bone mets, liver mets, adrenal mets, etc. On immunotherapy x 2 agents (ipilimumab/nivolumab). Appreciate Dr Briceño's consultation. Appreciate Dr Rosa's consultation from palliative care. Dr Briceño is concerned that proceeding forward with the current immune-based treatment may not be prudent as there is likely lack of efficacy given the progression of his disease on kilgore-CT. May need to get back to [facility] Dr Stovall, oncology, for investigational trial? vs transitioning to pure palliative approach. Prognosis is very, very poor. Patient, his brother & sister, and Dr Rosa had extensive discussions today. Despite such pt still wants to pursue treatment options (trial?) at [place] as above. 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 CBC am (7) Mesothelioma: Plan: stage 4, extensive mets, see above (8) Bilateral shoulder pain: Plan: 2nd to bony mets? rotator cuff syndrome? combination of meds? pain meds prn - oxycodone (if he continues with confusion change to norco) voltaren gel qid consider imaging but he would like to defer for now (9) Blood in stool: Plan: per nursing - stool was visibly brown, but he did have blood w/ wiping this suggests anal outlet bleeding from hemorrhoids or other distal pathology follow for now trend H/H (10) Positive blood culture: Plan: 05/28 bottles - alpha strep, not group D statistically likely a contaminant even despite #1 but low threshold to treat if any fever, clinical worsening, feeling poorly, etc cont to follow cultures this bottle was NOT from his port Plan DVT proph - lovenox 40mg daily cautiously but very high risk of VTE pt's sisterSofía phone #: [phone] she & her brother met with Joaquim nicole & Dr Rosa rehab after d/c?? Admission and Anticipated Discharge Date Admission Date: December 18, 2022 Subjective remains tachy on monitor despite PRBCs yesterday he was resting comfortably in bed apparently earlier in the day he had a soft, brown BM, but then with wiping there was BRBPR stool was heme+ despite it being brown in color he has not had blood per rectum at home no known h/o hemorrhoids to his recollection never had colonoscopy before did take a cologard test a few months ago and [facility] cont with shoulder pain b/l the oxycodone helps motrin helps he appreciate the visit from his brother/sister today as well as Dr Rosa's visit we discussed his Zoroastrianism peggy, his desire to go to [place] to seek out additional Rx for his cancer, etc but he does understand that the cancer is advanced Review of Systems Review of Systems: gen - no fevers or chills cv - no cp, no orthopnea pulm - no dyspnea at rest GI - no abd pain Physical Exam Physical Exam: gen - thin, NAD, pleasant ; no confusion today mouth - MMM neck - no JVD heart - tachy, regular rhythm, s1 s2, no murmur lungs - decreased BS bases otherwise CTA b/l abd - soft NT ND BS+ ext - no edema, pulses 2+ b/l rectal - deferred psch - a/o x 3 today Results & Data Results & Data Vital Signs (Past 12 Hours) Vital Signs Temp Pulse Pulse Resp BP BP Pulse Ox 12/21/22 19:48 36.4 C L 112 H 18 125/77 96 12/21/22 15:57 36.4 C L 107 H 16 118/72 95 12/21/22 16:22 111 H 12/21/22 10:35 36.7 C 117 H 18 119/79 97 O2 Del Method 12/21/22 19:48 Room Air 12/21/22 15:57 Room Air 12/21/22 16:22 12/21/22 10:35 Room Air Laboratory Results Laboratory Results - last 24 hr 12/21/22 12/21/22 12/21/22 05:43 05:43 13:03 WBC 86.53 H* RBC 2.73 L Hgb 7.7 L Hct 22.2 L MCV 81.3 MCH 28.2 MCHC 34.7 RDW Std Deviation 52.3 H RDW Coeff of Enmanuel 18.9 H Plt Count 199 MPV 9.6 Absolute Nucleated RBC 0.02 Neutrophils % (Manual) 95 Lymphocytes % (Manual) 1 Monocytes % (Manual) 3 Metamyelocytes % (Man) 1 Neutrophils # (Manual) 82.20 H Total Absolute Neuts 82.20 H Lymphocytes # (Manual) 0.87 L Total Abs Lymphocytes 0.87 L Monocytes # (Manual) 2.60 H Metamyelocytes # (Man) 0.87 H Dohle Bodies 1+ Polychromasia 1+ Sodium 132 L Potassium 4.0 Chloride 99 Carbon Dioxide 26 Anion Gap 7 BUN 19 Creatinine 0.65 Est Cr Clr Drug Dosing 110.2 Est GFR ( Amer) 120.8 Est GFR (Non-Af Amer) 104.3 BUN/Creatinine Ratio 29.2 H Glucose 111 H Calcium 8.4 L Stool Occult Bld Scrn Positive A PG Care Time/CCT Total # of Minutes Spent Total Time Spent with Patient: Total time spent is greater than 50% in coordination of care (as documented) at patient's floor/unit and/or counseling patient: Coding Level of Care Code 29403 SUB INP/OBS CARE 2/35MIN Diagnoses Leukemoid reaction D72.823 Metastatic cancer C79.9 Hyponatremia E87.1 Hypertension I10 Elevated troponin I level R77.8 Anemia D64.9 Mesothelioma C45.9 Bilateral shoulder pain M25.511; M25.512 Blood in stool K92.1 Positive blood culture R78.81
[2022-12-21] MEDS: oxyCODONE HCL IR 5 MG TAB (IMMEDIATE RELEASE) PO PRN (23:24)
[2022-12-22 06:54] LABS: Hematocrit (blood only) 21.5 % (42.0-52.0); Hemoglobin 7.5 g/dl (14.0-18.0); Mean Corpuscular Hemoglobin 28.2 pg (25.0-34.0); Mean Corpuscular Hgb Conc 34.9 g/dL (32.0-36.0); Mean Corpuscular Volume 80.8 fL (80.0-100.0); Nucleated RBC # (auto) 0.03 K/uL (0-0.12); Platelet Count 218 K/uL (130-400); RDW Coefficient of Variation 19.7 % (11.5-14.5); RDW Standard Deviation 54.3 fL (36.4-46.3); Red Blood Count 2.66 M/uL (4.70-6.10); White Blood Count 86.92 K/ul (4.8-10.8)
[2022-12-22 07:29] LABS: Anisocytosis Present; Basophils # (auto) 0.04 K/uL (0-0.2); Dohle Bodies 1+; Eosinophils % (auto) 0.1 %; Hypochromasia Present; Immature Granulocytes # (auto) 7.82 K/uL (0.01-0.20); Lymphocytes # (auto) 1.68 K/uL (1.2-3.4); Lymphocytes % (auto) 1.9 %; Monocytes # (auto) 2.88 K/uL (0.11-0.59); Monocytes % (auto) 3.3 %; Neutrophils % (auto) 85.7 %; Polychromasia 1+
[2022-12-22] MEDS: FOLIC ACID 1 MG TAB PO SCH (09:33)
[2022-12-22] MEDS: DICLOFENAC SOD 1% GEL 100 GM TUBE EXT SCH ×4 (09:33→20:09)
[2022-12-22] MEDS: ENOXAPARIN INJ 40 MG/0.4 ML SYR SQ SCH (09:33)
[2022-12-22] MEDS: ATORVASTATIN 10 MG TAB PO SCH ×2 (09:33→20:09)
[2022-12-22] MEDS: IBUPROFEN 600 MG TAB PO PRN (09:34)
[2022-12-22] MEDS: valACYclovir HCL 500 MG TABLET PO SCH (09:34)
[2022-12-22] MEDS: oxyCODONE HCL IR 5 MG TAB (IMMEDIATE RELEASE) PO PRN (12:45)
--- NOTE | 2022-12-22 14:16 | Hospitalist Progress Note ---
Date of Service December 22, 2022 Assessment & Plan (1) Leukemoid reaction: Plan: Severely elevated WBC count at presentation (112). WBC count had improved, but now stalled at about 86. Suspect due to immunotherapy from his metastatic mesothelioma. No infectious symptoms at this time. Blood cultures /8 bottles alpha strep not group D. Statistically most likely to be contaminant (culture was NOT from his port). Will continue to follow off of abx. Procal elevation likely from his immunotherapy. Repeat CBC in am. (2) Metastatic cancer: Plan: Stage 4 mesothelioma with extensive mets - possible brain mets x 2, bone mets, liver mets, adrenal mets, etc. On immunotherapy x 2 agents (ipilimumab/nivolumab). Appreciate Dr Briceño's consultation. Appreciate Dr Rosa's consultation from palliative care. Dr Briceño is concerned that proceeding forward with the current immune-based treatment may not be prudent as there is likely lack of efficacy given the progression of his disease on kilgore-CT. Prognosis is very, very poor. Dr Briceño sent a correspondence letter to Dr Stovall at [facility] the pt's out of town oncologist. Patient, his brother & sister, and Dr Rosa had extensive discussions yesterday. Despite such pt still wants to pursue treatment options (clinical trial?) at [place] as above. Prior to such he needs rehab as he is not strong enough nor safe to return home alone. 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 other? CBC am Tx again if Hb 7 or less (7) Mesothelioma: Plan: stage 4, extensive mets, see above (8) Bilateral shoulder pain: Plan: 2nd to bony mets? rotator cuff syndrome? combination of meds? pain meds prn - change oxycodone to norco as he continues with some mild confusion with the oxy voltaren gel qid consider imaging but he would like to defer for now (9) Blood in stool: Plan: per nursing - stool was visibly brown, but he did have blood w/ wiping this suggests anal outlet bleeding from hemorrhoids or other distal pathology follow for now cont to trend H/H (10) Positive blood culture: Plan: 05/28 bottles - alpha strep, not group D statistically likely a contaminant even despite #1 but low threshold to treat if any fever, clinical worsening, feeling poorly, etc cont to follow cultures this bottle was NOT from his port elevated procal still likely from recent immunotherapy for his mesothelioma Plan DVT proph - lovenox 40mg daily pt's sisterSofía phone #: [phone] she & her brother met with Joaquim & Dr Rosa from palliative this week [facility] will take Mr Romero for rehab not ready yet - needs better pain control and need to follow cbc care d/w Dr Briceño today Admission and Anticipated Discharge Date Admission Date: December 18, 2022 Subjective patient resting comfortably in bed we discussed that the [facility] in [place] has a rehab bed for him he continues with b/l shoulder pain no further BRBPR no abd pain eating fair denies dyspnea or orthopnea no new complaints Review of Systems Review of Systems: gen - no fevers or chills HENT - no URI symptoms CV - no chest pain pulm - no cough GI - no vomiting or diarrhea Physical Exam Physical Exam: gen - thin, NAD, pleasant ; a little confused again today mouth - MMM neck - no JVD heart - tachy, regular rhythm, s1 s2, no murmur lungs - decreased BS bases otherwise CTA b/l abd - soft NT ND BS+ ext - no edema, pulses 2+ b/l psch - a/o x 3 but modestly confused Results & Data Results & Data Vital Signs (Past 12 Hours) Vital Signs Temp Pulse Pulse Resp BP BP Pulse Ox 12/22/22 12:08 36.8 C 69 16 132/63 96 12/22/22 07:16 115 H 12/22/22 10:06 12/22/22 08:00 37.0 C 110 H 18 124/75 96 12/22/22 04:00 36.8 C 112 H 18 111/70 95 O2 Del Method 12/22/22 12:08 Room Air 12/22/22 07:16 12/22/22 10:06 Room Air 12/22/22 08:00 Room Air 12/22/22 04:00 Room Air Laboratory Results Laboratory Results 12/21/22 12/22/22 12/22/22 13:03 05:59 05:59 WBC 86.92 H* RBC 2.66 L Hgb 7.5 L Hct 21.5 L MCV 80.8 MCH 28.2 MCHC 34.9 RDW Std Deviation 54.3 H RDW Coeff of Enmanuel 19.7 H Plt Count 218 MPV 10.0 Immature Gran % (Auto) 9.0 Neut % (Auto) 85.7 Lymph % (Auto) 1.9 [place] % (Auto) 3.3 Eos % (Auto) 0.1 Baso % (Auto) 0.0 Neut # (Auto) 74.40 H Lymph # (Auto) 1.68 [place]ling # (Auto) 2.88 H Eos # (Auto) 0.10 Baso # (Auto) 0.04 Immature Gran # (Auto) 7.82 H Absolute Nucleated RBC 0.03 Dohle Bodies 1+ Polychromasia 1+ Hypochromasia Present Anisocytosis Present Sodium Procalcitonin 3.92 H Stool Occult Bld Scrn Positive A 12/22/22 05:59 WBC RBC Hgb Hct MCV MCH MCHC RDW Std Deviation RDW Coeff of Enmanuel Plt Count MPV Immature Gran % (Auto) Neut % (Auto) Lymph % (Auto) Appling % (Auto) Eos % (Auto) Baso % (Auto) Neut # (Auto) Lymph # (Auto) [place] # (Auto) Eos # (Auto) Baso # (Auto) Immature Gran # (Auto) Absolute Nucleated RBC Dohle Bodies Polychromasia Hypochromasia Anisocytosis Sodium 132 L Procalcitonin Stool Occult Bld Scrn Diagnostic Findings Microbiology 12/20/22 12:16 Blood Aerobic Blood Culture - Preliminary No growth in Aerobic bottle after 48 hours. 12/20/22 12:16 Blood Anaerobic Blood Culture - Preliminary No growth in Anaerobic bottle after 48 hours. 12/20/22 12:16 Blood Aerobic Blood Culture - Preliminary No growth in Aerobic bottle after 48 hours. 12/20/22 12:16 Blood Anaerobic Blood Culture - Preliminary No growth in Anaerobic bottle after 48 hours. 12/18/22 17:19 Blood Aerobic Blood Culture - Preliminary No growth in Aerobic bottle after 48 hours. 12/18/22 17:19 Blood Anaerobic Blood Culture - Preliminary Alpha strep. not group D 12/18/22 17:19 Blood Aerobic Blood Culture - Preliminary No growth in Aerobic bottle after 48 hours. 12/18/22 17:19 Blood Anaerobic Blood Culture - Preliminary No growth in Anaerobic bottle after 48 hours. PG Care Time/CCT Total # of Minutes Spent Total Time Spent with Patient: Total time spent is greater than 50% in coordination of care (as documented) at patient's floor/unit and/or counseling patient: Coding Level of Care Code 91518 SUB INP/OBS CARE 2/35MIN Diagnoses Leukemoid reaction D72.823 Metastatic cancer C79.9 Hyponatremia E87.1 Hypertension I10 Elevated troponin I level R77.8 Anemia D64.9 Mesothelioma C45.9 Bilateral shoulder pain M25.511; M25.512 Blood in stool K92.1 Positive blood culture R78.81
[2022-12-22] MEDS: ACETAMINOPHEN 500 MG TAB PO SCH (20:09)
[2022-12-22] MEDS: FLUoxetine HCL 20 MG CAP PO SCH (20:10)
[2022-12-22] MEDS: HYDROCODONE/ACETAMINOPHEN 7.5/325MG TAB PO PRN (20:14)
[2022-12-23 07:31] LABS: Hematocrit (blood only) 22.6 % (42.0-52.0); Hemoglobin 7.4 g/dl (14.0-18.0); Mean Corpuscular Hemoglobin 27.9 pg (25.0-34.0); Mean Corpuscular Hgb Conc 32.7 g/dL (32.0-36.0); Mean Corpuscular Volume 85.3 fL (80.0-100.0); Mean Platelet Volume 9.9 fL (9.4-12.4); Nucleated RBC # (auto) 0.04 K/uL (0-0.12); Platelet Count 213 K/uL (130-400); RDW Coefficient of Variation 20.3 % (11.5-14.5); RDW Standard Deviation 57.9 fL (36.4-46.3); Red Blood Count 2.65 M/uL (4.70-6.10); White Blood Count 85.96 K/ul (4.8-10.8)
[2022-12-23 07:50] LABS: Basophils # (auto) 0.05 K/uL (0-0.2); Basophils % (auto) 0.1 %; Eosinophils # (auto) 0.22 K/uL (0-0.50); Eosinophils % (auto) 0.3 %; Immature Granulocytes # (auto) 7.54 K/uL (0.01-0.20); Immature Granulocytes % (auto) 8.8 %; Lymphocytes # (auto) 2.07 K/uL (1.2-3.4); Lymphocytes % (auto) 2.4 %; Monocytes # (auto) 3.02 K/uL (0.11-0.59); Monocytes % (auto) 3.5 %; Neutrophils # (auto) 73.06 K/uL (1.40-6.50); Neutrophils % (auto) 84.9 %; RBC Morphology Unremarkable
[2022-12-23 07:53] LABS: BUN Creatinine Ratio 32.5 (10-20); Calcium 8.6 mg/dl (8.6-10.3); Creatinine Clr Calc Pharmacy 89.5 ml/min; Est GFR (Non-African American) 95.7 ml/min; Potassium 3.9 mmol/L (3.5-5.1)
[2022-12-23] MEDS: valACYclovir HCL 500 MG TABLET PO SCH (08:42)
[2022-12-23] MEDS: FOLIC ACID 1 MG TAB PO SCH (08:43)
[2022-12-23] MEDS: ENOXAPARIN INJ 40 MG/0.4 ML SYR SQ SCH (08:43)
[2022-12-23] MEDS: DICLOFENAC SOD 1% GEL 100 GM TUBE EXT SCH ×4 (08:43→20:36)
[2022-12-23] MEDS: ATORVASTATIN 10 MG TAB PO SCH ×2 (08:43→20:37)
[2022-12-23] MEDS: ACETAMINOPHEN 500 MG TAB PO SCH ×3 (08:43→20:37)
[2022-12-23] MEDS ORDERED: FAMOTIDINE 20 MG TAB PO ONE (15:20)
[2022-12-23] MEDS ORDERED: ONDANSETRON INJ 2 MG/ML 2 ML VIAL IV PRN (15:20)
--- NOTE | 2022-12-23 19:19 | XRay Report ---
RIGHT SHOULDER 3 VIEWS CLINICAL HISTORY: Shoulder pain. History of mesothelioma. FINDINGS: 3 views of the right shoulder are correlated with chest CT dated 12/18/2022. The skeletal st ructures are heterogeneously osteopenic. There is no radiographic evidence of fracture or dislocation . Mild arthritic change is seen in the glenohumeral and clinical history radicular joints. No lytic o r blastic lesions are seen by x-ray. A pleural-based mass lesion is partially visualized right lung b ase with additional metastatic lesions along the right major fissure. The tip of a central venous inf usion port catheter is partially imaged. IMPRESSION: 1. Osteopenia and mild degenerative change as above with no fracture or dislocation identified. 2. 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 Electronically signed by: Neo Dai M.D. 12/23/2022 7:17 PM
--- NOTE | 2022-12-23 19:21 | XRay Report ---
LEFT SHOULDER 3 VIEWS CLINICAL HISTORY: Left shoulder pain. Mesothelioma. FINDINGS: 3 views of the left shoulder are correlated with chest CT dated 12/18/2022. The skeletal str uctures are heterogeneously osteopenic. There is no radiographic evidence of fracture or dislocation. Mild arthritic change is seen at the glenohumeral and acromioclavicular joints. There is no radiogra phic evidence of lytic or blastic lesions involving the left shoulder. The visualized left lung paren chyma appears clear. A left-sided central venous infusion port is in place. IMPRESSION: 1. Osteopenia and degenerative changes above with no acute bony abnormality identified. 2. There is no radiographic evidence of lytic or blastic bone disease in the left shoulder. No skelet al lesions are seen in the left shoulder on the recent chest CT. Electronically signed by: Neo Dai M.D. 12/23/2022 7:19 PM
--- NOTE | 2022-12-23 20:07 | Hospitalist Progress Note ---
Date of Service December 23, 2022 Assessment & Plan (1) Leukemoid reaction: Plan: Severely elevated WBC count at presentation (112). WBC count had improved, but now stalled at about 85-86. Suspect due to immunotherapy from his metastatic mesothelioma. No infectious symptoms at this time. Blood cultures / bottles alpha strep not group D. Statistically most likely to be contaminant (culture was NOT from his port). Will continue to follow off of abx. Procal elevation likely from his immunotherapy. Repeat CBC in am. (2) Metastatic cancer: Plan: Stage 4 mesothelioma with extensive mets - possible brain mets x 2, bone mets, liver mets, adrenal mets, etc. On immunotherapy x 2 agents (ipilimumab/nivolumab). Appreciate Dr Briceño's consultation. Appreciate Dr Rosa's consultation from palliative care. Dr Briceño is concerned that proceeding forward with the current immune-based treatment may not be prudent as there is likely lack of efficacy given the progression of his disease on kilgore-CT. Prognosis is very, very poor. Dr Briceño sent a correspondence letter to Dr Stovall at [facility], [place] operated by [facility] the pt's out of town oncologist. Patient, his brother & sister, and Dr Rosa had extensive discussions this week about options for care. Despite such pt still wants to pursue treatment options (clinical trial?) at [facility] as above. Prior to such he needs rehab as he is not strong enough nor safe to return home alone. Will d/w tomorrow that prognosis is poor and pursuing more treatment likely to be of no benefit. 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 Other? CBC am Tx again if Hb ~7 or less (7) Mesothelioma: Plan: stage 4, extensive mets, see above (8) Bilateral shoulder pain: Plan: likely 2nd to bony mets can't rule out component of rotator cuff syndrome norco prn voltaren gel qid obtain b/l shoulder imaging today - r/o pathological fractures, presence of mets, etc (9) Blood in stool: Plan: one-time occurrence a few days ago per nursing - stool was visibly brown, but he did have blood w/ wiping this suggests anal outlet bleeding from hemorrhoids or other distal pathology follow for now cont to trend H/H (10) Positive blood culture: Plan: 05/28 bottles - alpha strep, not group D statistically likely a contaminant even despite #1 but low threshold to treat if any fever, clinical worsening, feeling poorly, etc cont to follow cultures this bottle was NOT from his port elevated procal still likely from recent immunotherapy for his mesothelioma Plan DVT proph - lovenox 40mg daily pt's sisterSofía phone #: [phone] spent about 15 minutes updating her by phone today all questions answered she reports that his apartment is really not livable and that after [facility] rehab would need alternative housing [facility] will take Mr Romero for rehab - Sunday? Admission and Anticipated Discharge Date Admission Date: December 18, 2022 Subjective no changes overnight tele - sinus tach only complaint is b/l shoulder pain - mild today nursing states he hasn't needed pain meds denies BRBPR eating poor/fair denies dyspnea at rest during the visit he wanted to get OOB I assisted him with the nursing staff - he was quite weak we talked alot about his discharge - rehab, ?going to [facility] about seeking out options for cancer care, him wanting to return home ultimately, etc I spoke with pt's sister - she reports his apartment is not fit for living and he really can't go back there Review of Systems Review of Systems: gen - no fevers/chills cv - no cp, no pleuritic pain pulm - no dyspnea at rest; no orthopnea/PND GI - no pain or N/V Physical Exam Physical Exam: gen - thin, NAD, pleasant ; no confusion today mouth - MMM neck - no JVD heart - tachy, regular rhythm, s1 s2, no murmur lungs - decreased BS bases otherwise CTA b/l abd - soft NT ND BS+ ext - no edema, pulses 2+ b/l psch - a/o x 3 skin - large papule (erythematous) on right arm and scalp; erythematous papule on medial corner of left eyelid chest - port clean/dry Results & Data Results & Data Vital Signs (Past 12 Hours) Vital Signs Temp Pulse Pulse Resp BP Pulse Ox O2 Del Method 12/23/22 19:39 36.7 C 119 H 21 114/80 97 Room Air 12/23/22 15:47 36.7 C 111 H 18 112/80 95 Room Air 12/23/22 15:40 111 H 12/23/22 08:45 Room Air 12/23/22 11:42 36.4 C L 115 H 20 115/73 95 Room Air Laboratory Results Laboratory Results - last 48 hr 12/23/22 12/23/22 06:19 06:19 WBC 85.96 H* RBC 2.65 L Hgb 7.4 L Hct 22.6 L MCV 85.3 D MCH 27.9 MCHC 32.7 RDW Std Deviation 57.9 H RDW Coeff of Enmanuel 20.3 H Plt Count 213 MPV 9.9 Immature Gran % (Auto) 8.8 Neut % (Auto) 84.9 Lymph % (Auto) 2.4 [place] % (Auto) 3.5 Eos % (Auto) 0.3 Baso % (Auto) 0.1 Neut # (Auto) 73.06 H Lymph # (Auto) 2.07 [place] # (Auto) 3.02 H Eos # (Auto) 0.22 Baso # (Auto) 0.05 Immature Gran # (Auto) 7.54 H Absolute Nucleated RBC 0.04 Nucleated RBC % (auto) Dohle Bodies RBC Morphology Unremarkable Polychromasia Anisocytosis Sodium 134 L Potassium 3.9 Chloride 98 Carbon Dioxide 26 Anion Gap 10 BUN 26 H Creatinine 0.80 Est Cr Clr Drug Dosing 89.5 Est GFR ( Amer) 111.0 Est GFR (Non-Af Amer) 95.7 BUN/Creatinine Ratio 32.5 H Glucose 89 Calcium 8.6 Diagnostic Findings blood cultures 12/20 negative to date PG Care Time/CCT Total # of Minutes Spent Total Time Spent with Patient: Total time spent is greater than 50% in coordination of care (as documented) at patient's floor/unit and/or counseling patient: Coding Level of Care Code 98659 SUB INP/OBS CARE 2/35MIN Diagnoses Leukemoid reaction D72.823 Metastatic cancer C79.9 Hyponatremia E87.1 Hypertension I10 Elevated troponin I level R77.8 Anemia D64.9 Mesothelioma C45.9 Bilateral shoulder pain M25.511; M25.512 Blood in stool K92.1 Positive blood culture R78.81
[2022-12-23] MEDS: FLUoxetine HCL 20 MG CAP PO SCH (20:37)
[2022-12-24] MEDS: HYDROCODONE/ACETAMINOPHEN 7.5/325MG TAB PO PRN (01:19)
[2022-12-24 06:46] LABS: Hematocrit (blood only) 21.9 % (42.0-52.0); Hemoglobin 7.4 g/dl (14.0-18.0); Mean Corpuscular Hemoglobin 28.1 pg (25.0-34.0); Mean Corpuscular Hgb Conc 33.8 g/dL (32.0-36.0); Mean Corpuscular Volume 83.3 fL (80.0-100.0); Mean Platelet Volume 10.1 fL (9.4-12.4); Nucleated RBC # (auto) 0.05 K/uL (0-0.12); Nucleated RBC % (auto) 0.1 %; Platelet Count 203 K/uL (130-400); RDW Standard Deviation 59.3 fL (36.4-46.3); Red Blood Count 2.63 M/uL (4.70-6.10)
[2022-12-24 06:51] LABS: Anisocytosis Present; Basophils # (auto) 0.04 K/uL (0-0.2); Dohle Bodies 1+; Eosinophils # (auto) 0.22 K/uL (0-0.50); Eosinophils % (auto) 0.2 %; Immature Granulocytes # (auto) 8.63 K/uL (0.01-0.20); Immature Granulocytes % (auto) 9.2 %; Lymphocytes # (auto) 2.39 K/uL (1.2-3.4); Lymphocytes % (auto) 2.6 %; Monocytes # (auto) 3.27 K/uL (0.11-0.59); Monocytes % (auto) 3.5 %; Neutrophils # (auto) 78.85 K/uL (1.40-6.50); Neutrophils % (auto) 84.5 %; Polychromasia 1+
[2022-12-24] MEDS ORDERED: HYDROCODONE/ACETAMOPHEN 5/325MG TAB PO PRN (09:41)
--- NOTE | 2022-12-24 10:15 | XRay Report ---
XR chest 2V PA/lateral HISTORY: 62 years-old Male confusion, leukocytosis; eval pneumonia acute shortness of breath COMPARISON: CTA chest 12/18/2022 TECHNIQUE: PA and lateral views of the chest FINDINGS: Cardiac silhouette is enlarged. Left IJ Wlyehr-[id number] catheter is noted with distal tip in the expect ed location of the upper SVC. Left lung is generally clear. Numerous pleural-based masses of the righ t hemithorax again noted with right costophrenic angle blunting. Mediastinal lymphadenopathy. There a re new ill-defined right upper lung airspace opacities. Osseous skeletal metastatic disease. No acute fracture. IMPRESSION: 1. New right upper lung airspace opacities suspicious for pneumonia. 2. Extensive pleural-based masses within the right hemithorax are again noted along with osteoblastic skeletal metastasis, better evaluated on the CTA chest from 12/18/2022. ACT 112: Negative or not required by law. The above report was generated using voice recognition software. It may contain grammatical, syntax o r spelling errors. Electronically signed by: Elvis Johnson M.D. 12/24/2022 10:13 AM
[2022-12-24] MEDS: ACETAMINOPHEN 500 MG TAB PO SCH ×3 (10:23→21:36)
[2022-12-24] MEDS: DICLOFENAC SOD 1% GEL 100 GM TUBE EXT SCH ×4 (10:23→21:37)
[2022-12-24] MEDS: ATORVASTATIN 10 MG TAB PO SCH ×2 (10:23→21:36)
[2022-12-24] MEDS: ENOXAPARIN INJ 40 MG/0.4 ML SYR SQ SCH (10:23)
[2022-12-24] MEDS: valACYclovir HCL 500 MG TABLET PO SCH (10:24)
[2022-12-24] MEDS: FOLIC ACID 1 MG TAB PO SCH (10:24)
[2022-12-24] MEDS: CEFEPIME 2,000 MG in SYRINGE 0 ML IV SCH ×2 (12:53→21:37)
--- NOTE | 2022-12-24 20:16 | Hospitalist Progress Note ---
Date of Service December 24, 2022 Assessment & Plan (1) Pneumonia: Plan: patient's WBC count has never trended significantly to normal and in fact went up overnight more confusion a little cough as well procal elevated, although his immunotherapy can cause such [id number] his cxr today shows RUL infiltrates will Rx for pneumonia start cefepime defer on vanco - MRSA swab neg cbc am (2) Leukemoid reaction: Plan: Severely elevated WBC count at presentation (112). WBC count had improved, but now trending up again. See #1 above. WBC count suspected to be due to immunotherapy from his metastatic mesothelioma at time of admission. But now pneumonia likely contributing. Blood cultures 05/28 bottles alpha strep not group D. Statistically most likely to be contaminant (culture was NOT from his port). Will continue to follow off of abx. Procal elevation likely from his immunotherapy. Repeat CBC in am. (3) Metastatic cancer: Plan: Stage 4 mesothelioma with extensive mets - possible brain mets x 2, bone mets, liver mets, adrenal mets, etc. On immunotherapy x 2 agents (ipilimumab/nivolumab). Appreciate Dr Briceño's consultation. Appreciate Dr Rosa's consultation from palliative care. Dr Briceño is concerned that proceeding forward with the current immune-based treatment may not be prudent as there is likely lack of efficacy given the progression of his disease on kilgore-CT. Prognosis is very, very poor. Dr Briceño sent a correspondence letter to Dr Stovall at [facility] the pt's out of town oncologist. Patient, his brother & sister, and Dr Rosa had extensive discussions this week about options for care. Despite such pt still wants to pursue treatment options (clinical trial?) at [place] as above. Prior to such he needs rehab as he is not strong enough nor safe to return home alone. 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 Other? CBC am Tx again if Hb ~7 or less (8) Mesothelioma: Plan: stage 4, extensive mets, see above (9) Bilateral shoulder pain: Plan: likely 2nd to bony mets can't rule out component of rotator cuff syndrome norco prn voltaren gel qid (10) Blood in stool: Plan: one-time occurrence a few days ago per nursing - stool was visibly brown, but he did have blood w/ wiping this suggests anal outlet bleeding from hemorrhoids or other distal pathology follow for now cont to trend H/H (11) Positive blood culture: Plan: 05/28 bottles - alpha strep, not group D statistically likely a contaminant even despite #1 but low threshold to treat if any fever, clinical worsening, feeling poorly, etc cont to follow cultures this bottle was NOT from his port elevated procal still likely from recent immunotherapy for his mesothelioma Plan DVT proph - lovenox 40mg daily pt's sister, Sofía phone #: [phone] spent about 15 minutes updating her by phone yesterday all questions answered she reports that his apartment is really not livable and that after [facility] rehab would need alternative housing [facility] will take Mr Romero for rehab timing of discharge to there uncertain Admission and Anticipated Discharge Date Admission Date: December 18, 2022 Subjective tele - sinus tach remains feels slightly more short of breath today pain in shoulders remains but not bad/controlled a little cough continues to have some confusion during the visit a close friend was at bedside Review of Systems Review of Systems: gen - no fevers or chills; some sweats; remains very weak cv - no pleuritic pain or chest pain, no orthopnea pulm - mild TORRES GI - no nausea; no BRBPR Physical Exam Physical Exam: gen - thin, NAD, pleasant, confused, mild tachypnea mouth - MMM, poor dentition neck - no JVD heart - tachy, regular rhythm, s1 s2, no murmur lungs - decreased BS bases, RUL rales anteriorly, otherwise CTA b/l abd - soft NT ND BS+ ext - no edema, pulses 2+ b/l psch - a/o x 3 skin - large papule (erythematous) on right arm and posterior scalp; erythematous papule on medial corner of left eyelid chest - port clean/dry Results & Data Results & Data Vital Signs (Past 12 Hours) Vital Signs Temp Pulse Pulse Resp BP BP Pulse Ox 12/24/22 20:04 36.4 C L 101 H 20 125/95 95 12/24/22 16:07 102 H 12/24/22 15:56 36.4 C L 106 H 18 113/77 93 12/24/22 11:48 36.5 C 106 H 20 98/65 L 97 12/24/22 08:30 109 H O2 Del Method 12/24/22 20:04 Room Air 12/24/22 16:07 12/24/22 15:56 Room Air 12/24/22 11:48 Room Air 12/24/22 08:30 Laboratory Results Laboratory Results 12/24/22 12/24/22 05:49 12:50 WBC 93.40 H* RBC 2.63 L Hgb 7.4 L Hct 21.9 L MCV 83.3 MCH 28.1 MCHC 33.8 RDW Std Deviation 59.3 H RDW Coeff of Enmanuel 21.0 H Plt Count 203 MPV 10.1 Immature Gran % (Auto) 9.2 Neut % (Auto) 84.5 Lymph % (Auto) 2.6 [place] % (Auto) 3.5 Eos % (Auto) 0.2 Baso % (Auto) 0.0 Neut # (Auto) 78.85 H Lymph # (Auto) 2.39 [place] # (Auto) 3.27 H Eos # (Auto) 0.22 Baso # (Auto) 0.04 Immature Gran # (Auto) 8.63 H Absolute Nucleated RBC 0.05 Nucleated RBC % (auto) 0.1 Dohle Bodies 1+ Polychromasia 1+ Anisocytosis Present Urine Color Urine Appearance Urine pH Ur Specific [place] Urine Protein Urine Glucose (UA) Urine Ketones Urine Blood Urine Nitrite Urine Bilirubin Urine Urobilinogen Ur Leukocyte Esterase Urine WBC (Auto) Urine RBC (Auto) U Hyaline Cast (Auto) U Epithel Cells (Auto) Urine Bacteria (Auto) Urine Mucus Nasal Screen MRSA (PCR) Negative PG Care Time/CCT Total # of Minutes Spent Total Time Spent with Patient: Total time spent is greater than 50% in coordination of care (as documented) at patient's floor/unit and/or counseling patient: Coding Level of Care Code 00884 SUB INP/OBS CARE 2/35MIN Diagnoses Pneumonia J18.9 Leukemoid reaction D72.823 Metastatic cancer C79.9 Hyponatremia E87.1 Hypertension I10 Elevated troponin I level R77.8 Anemia D64.9 Mesothelioma C45.9 Bilateral shoulder pain M25.511; M25.512 Blood in stool K92.1 Positive blood culture R78.81
[2022-12-24] MEDS: FLUoxetine HCL 20 MG CAP PO SCH (21:36)
[2022-12-25] MEDS ORDERED: HEPARIN 100 UNIT/ML 5ML FLUSH FLUSH PRN (00:16)
[2022-12-25 03:47] LABS: Appearance Urine Clear (Clear); Bacteria Urine Automated Negative (Negative); Blood Urine Negative (Negative); Color Urine Dark Yellow; Epithelial Cell Urine Auto 20-30 /lpf (0-5); Glucose Urine UA Negative (Negative); Ketones Urine Trace (Negative); Leukocyte Esterase Urine Trace (Negative); Nitrite Urine Negative (Negative); Protein Urine 1+ (Negative); RBC Urine Automated 0-4 /hpf (0-4); Specific Gravity Urine 1.031 (1.000-1.030); Urobilinogen Urine Negative (Negative); pH Urine 5.5 (4.5-7.5)
[2022-12-25 04:27] LABS: Bilirubin Urine 1+ (Negative)
[2022-12-25 04:37] LABS: Mucus Urine Present (None Prsent)
[2022-12-25] MEDS: CEFEPIME 2,000 MG in SYRINGE 0 ML IV SCH ×3 (05:03→21:52)
[2022-12-25] MEDS: ACETAMINOPHEN 500 MG TAB PO SCH ×3 (10:21→21:53)
[2022-12-25] MEDS: ATORVASTATIN 10 MG TAB PO SCH ×2 (10:22→21:52)
[2022-12-25] MEDS: FOLIC ACID 1 MG TAB PO SCH (10:23)
[2022-12-25] MEDS: ENOXAPARIN INJ 40 MG/0.4 ML SYR SQ SCH (10:23)
[2022-12-25] MEDS: valACYclovir HCL 500 MG TABLET PO SCH (10:23)
[2022-12-25] MEDS: DICLOFENAC SOD 1% GEL 100 GM TUBE EXT SCH ×4 (10:24→21:42)
[2022-12-25 11:21] LABS: Hematocrit (blood only) 22.9 % (42.0-52.0); Hemoglobin 7.8 g/dl (14.0-18.0); Mean Corpuscular Hemoglobin 28.1 pg (25.0-34.0); Mean Corpuscular Hgb Conc 34.1 g/dL (32.0-36.0); Mean Corpuscular Volume 82.4 fL (80.0-100.0); Mean Platelet Volume 10.6 fL (9.4-12.4); Nucleated RBC # (auto) 0.22 K/uL (0-0.12); Nucleated RBC % (auto) 0.2 %; Platelet Count 205 K/uL (130-400); RDW Coefficient of Variation 21.5 % (11.5-14.5); RDW Standard Deviation 58.9 fL (36.4-46.3); Red Blood Count 2.78 M/uL (4.70-6.10); White Blood Count 125.43 K/ul (4.8-10.8)
[2022-12-25 11:35] LABS: BUN Creatinine Ratio 45.4 (10-20); Calcium 8.7 mg/dl (8.6-10.3); Creatinine Clr Calc Pharmacy 73.7 ml/min; Est GFR (African American) 96.6 ml/min; Est GFR (Non-African American) 83.3 ml/min; Potassium 5.1 mmol/L (3.5-5.1)
[2022-12-25 11:54] LABS: ALC (manual) 3.76 K/uL (1.2-3.4); ANC (manual) 121.67 K/uL (1.4-6.5); Anisocytosis Present; Dohle Bodies 1+; Lymphocytes # (manual) 3.76 K/uL (1.2-3.4); Lymphocytes % (manual) 3 %; Myelocytes # (manual) 1.25 K/uL (0-0); Myelocytes % (manual) 1 %; Neutrophils # (manual) 121.67 K/uL (1.40-6.50); Neutrophils % (manual) 97 %; Polychromasia 1+; Rouleaux 1+
[2022-12-25 12:53] LABS: C Reactive Protein 32.91 mg/dl (0-0.5)
[2022-12-25 13:01] LABS: Bilirubin Direct 0.4 mg/dl (0-0.2)
--- NOTE | 2022-12-25 13:29 | Palliative Care Progress Note ---
Date of Service December 25, 2022 Assessment & Plan (1) Bilateral shoulder pain: Plan: Continue routine tylenol and prn ibuprofen for now Hydrocodone available if needed. I do not think opioids are affecting his mental status today (2) Palliative care encounter: Plan: I talked with Mr Romero about how he is coping with his illness. He told me "I'm getting ready" but was not able to elaborate on that when I asked him. He said repeatedly that things would work out one way or the other. Since admission, he has consistently talked about wanting to pursue treatment despite multiple conversations expressing concern that his prognosis was poor. I spoke with his sister, Sofía, who is his healthcare POA. Updated her on his current status and concern that he continues to decline despite optimal treatment. She recognizes this and tells me that this would not be living for Charles who is an intelligent, active person. We discussed option for shift of focus to comfort and symptom management if he does not respond to antibiotic therapy and she is very supportive of this. She tells me that everyone in their family has always valued comfort and dignity above life prolonging measures and she believes that Charles would say the same thing based on where he is at now. Will follow and reach out to Sofía in the next day or two to update and discuss plan of care. Discussed with Dr. Parra. Admission and Anticipated Discharge Date Admission Date: December 18, 2022 Subjective Awake but confused today. He has not had any opioid pain medication since yesterday. He has received routine tylenol and prn ibuprofen for his shoulder pain. He answers questions in very tangential way and is very focused on rain outside even if it doesn't fit into conversation. Review of Systems Review of Systems: Pain 1/3 Dyspnea 0/3 Physical Exam Constitutional: no acute distress Respiratory: normal respiratory effort; no labored breathing Cardiovascular: Rate/Rhythm: regular rate and regular rhythm Extremities: no edema Gastrointestinal (Abdomen): nondistended Musculoskeletal: Extremities: + muscle atrophy Neurologic: Speech / Cognition: + abnormal cognition Results & Data Vital Signs (Past 12 Hours) Vital Signs Temp Pulse Resp BP BP Pulse Ox O2 Del Method 12/25/22 11:29 97.3 F L 111 H 18 104/72 96 Room Air 12/25/22 07:51 97.2 F L 116 H 18 114/81 96 Room Air 12/25/22 03:12 98.1 F 104 H 20 121/80 97 Room Air PG Care Time/CCT Total # of Minutes Spent Total Time Spent: 70 Total Time Spent with Patient: Total time spent is greater than 50% in coordination of care (as documented) at patient's floor/unit and/or counseling patient: goals of care, comfort care, prognosis, symptom management, patient and family education and support, coordination of care Coding Level of Care Code 59938 Prolonged Care (int'l) Diagnoses Bilateral shoulder pain M25.511; M25.512 Palliative care encounter Z51.5
[2022-12-25] MEDS ORDERED: LACTATED RINGER'S 1,000 ML IV SCH (13:45)
--- NOTE | 2022-12-25 20:37 | Hospitalist Progress Note ---
Date of Service December 25, 2022 Assessment & Plan (1) Acute metabolic encephalopathy: Plan: severely altered today his severely increased leukocytosis is even worse today with marked elevation in CRP as well he was mildly confused off/on for several days but was much worse today suspect 2nd to RUL pneumonia cannot rule out other etiologies he had mild confusion from narcotics last week but has not had any pain meds in several days no other sedatives/etc supportive care for now Rx pneumonia (2) Pneumonia: Plan: patient's WBC count has never trended significantly to normal and in fact continues to rise more confusion a little cough at times procal elevated, although his immunotherapy can cause such [id number] his cxr shows RUL infiltrates cont cefepime defer on vanco - MRSA swab neg remains stable in room air (3) Leukemoid reaction: Plan: Severely elevated WBC count at presentation (112). WBC count had improved, but trending up again and is now even higher than his presenting WBC count. See above. WBC count elevated was suspected to be due to immunotherapy from his metastatic mesothelioma at time of admission. But now pneumonia likely contributing. Can't rule out other factors. Blood cultures 05/28 bottles alpha strep not group D. Statistically most likely to be contaminant (culture was NOT from his port) but the cefepime will cover. CBC am. (4) Metastatic cancer: Plan: Stage 4 mesothelioma with progressive, extensive mets - possible brain mets x 2, bone mets, liver mets, adrenal mets, etc. On immunotherapy x 2 agents (ipilimumab/nivolumab). Appreciate Dr Briceño's consultation. Appreciate Dr Rosa's consultation from palliative care. Dr Briceño is concerned that proceeding forward with the current immune-based treatment may not be prudent as there is likely lack of efficacy given the progression of his disease on kilgore-CT. Prognosis is very, very poor. Dr Briceño sent a correspondence letter to Dr Stovall at [facility] the pt's out of town oncologist. Patient, his brother & sister, and Dr Rosa had extensive discussions this week about options for care. Despite such pt had still wanted to pursue treatment options (clinical trial?) at [facility] as above. However, he continues to decline. If decline continues his family wishes for Joaquim to transition to comfort care. At this time patient does not possess capacity to make decisions for himself given #1 above. 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 Other? (9) Mesothelioma: Plan: stage 4, extensive mets, see above (10) Bilateral shoulder pain: Plan: likely 2nd to bony mets can't rule out component of rotator cuff syndrome norco prn voltaren gel qid (11) Blood in stool: Plan: one-time occurrence a few days ago none since hemorrhoids? (12) Positive blood culture: Plan: 05/28 bottles - alpha strep, not group D statistically likely a contaminant but cefepime will cover this positive bottle was NOT from his port elevated procal still likely from recent immunotherapy for his mesothelioma but can't rule out pneumonia contributing Plan DVT proph - lovenox 40mg daily pt's sister, Sofía (lives in [facility]) phone #: [phone] spoke with Sofía by phone this evening she understands that Joaquim continues to decline she and her family know that Joaquim's time may be limited and that he may not survive this hospitalization if he continues to decline she asks that he simply be made comfortable I discussed Joaquim's care with Dr Rosa extensively today Admission and Anticipated Discharge Date Admission Date: December 18, 2022 Subjective very, very confused today unable to provide any meaningful history or ROS today focus was very poor - while there he was looking around the room and giving answers to questions that made no sense denied pain in any location ate almost nothing of his meals today tele - sinus tach Review of Systems Review of Systems: Unobtainable due to cognitive status Physical Exam Physical Exam: gen - thin, cachectic, very confused; no acute distress or obvious pain mouth - MM dry, poor dentition neck - no JVD heart - tachy, regular rhythm, s1 s2, no murmur lungs - decreased BS bases, RUL rales anteriorly remain, otherwise CTA b/l abd - soft NT ND BS+ ext - no edema, pulses 2+ b/l psch - a/o x 1 only skin - large papule (erythematous) on right arm and posterior scalp; erythematous papule on medial corner of left eyelid chest - port clean/dry neuro - mild asterixis Results & Data Results & Data Vital Signs (Past 12 Hours) Vital Signs Temp Pulse Resp BP Pulse Ox O2 Del Method 12/25/22 19:32 36.5 C 97 H 18 115/80 96 Room Air 12/25/22 15:32 36.5 C 119 H 20 101/67 97 Room Air 12/25/22 11:29 36.3 C L 111 H 18 104/72 96 Room Air Laboratory Results Laboratory Results - last 24 hr 12/25/22 12/25/22 12/25/22 10:28 10:28 10:28 WBC 125.43 H* RBC 2.78 L Hgb 7.8 L Hct 22.9 L MCV 82.4 MCH 28.1 MCHC 34.1 RDW Std Deviation 58.9 H RDW Coeff of Enmanuel 21.5 H Plt Count 205 MPV 10.6 Absolute Nucleated RBC 0.22 H Nucleated RBC % (auto) 0.2 Neutrophils % (Manual) 97 Lymphocytes % (Manual) 3 Myelocytes % (Man) 1 Neutrophils # (Manual) 121.67 H Total Absolute Neuts 121.67 H Lymphocytes # (Manual) 3.76 H Total Abs Lymphocytes 3.76 H Myelocytes # (Manual) 1.25 H Dohle Bodies 1+ Polychromasia 1+ Anisocytosis Present Rouleaux 1+ Sodium 133 L Potassium 5.1 Chloride 99 Carbon Dioxide 21 Anion Gap 13 H BUN 44 H Creatinine 0.97 Est Cr Clr Drug Dosing 73.7 Est GFR ( Amer) 96.6 Est GFR (Non-Af Amer) 83.3 BUN/Creatinine Ratio 45.4 H Glucose 95 Calcium 8.7 Total Bilirubin 1.0 Cancelled Direct Bilirubin 0.4 H Cancelled C-Reactive Protein 32.91 H Urine Color Urine Appearance Urine pH Ur Specific Mccarr Urine Protein Urine Glucose (UA) Urine Ketones Urine Blood Urine Nitrite Urine Bilirubin Urine Urobilinogen Ur Leukocyte Esterase Urine WBC (Auto) Urine RBC (Auto) U Hyaline Cast (Auto) U Epithel Cells (Auto) Urine Bacteria (Auto) Urine Mucus 12/25/22 Unknown WBC RBC Hgb Hct MCV MCH MCHC RDW Std Deviation RDW Coeff of Enmanuel Plt Count MPV Absolute Nucleated RBC Nucleated RBC % (auto) Neutrophils % (Manual) Lymphocytes % (Manual) Myelocytes % (Man) Neutrophils # (Manual) Total Absolute Neuts Lymphocytes # (Manual) Total Abs Lymphocytes Myelocytes # (Manual) Dohle Bodies Polychromasia Anisocytosis Rouleaux Sodium Potassium Chloride Carbon Dioxide Anion Gap BUN Creatinine Est Cr Clr Drug Dosing Est GFR ( Amer) Est GFR (Non-Af Amer) BUN/Creatinine Ratio Glucose Calcium Total Bilirubin Direct Bilirubin C-Reactive Protein Urine Color Dark Yellow Urine Appearance Clear Urine pH 5.5 Ur Specific Mccarr 1.031 H Urine Protein 1+ H Urine Glucose (UA) Negative Urine Ketones Trace H Urine Blood Negative Urine Nitrite Negative Urine Bilirubin 1+ H Urine Urobilinogen Negative Ur Leukocyte Esterase Trace H Urine WBC (Auto) 1-5 Urine RBC (Auto) 0-4 U Hyaline Cast (Auto) 1-5 U Epithel Cells (Auto) 20-30 H Urine Bacteria (Auto) Negative Urine Mucus Present A Diagnostic Findings urine cx negative to date PG Care Time/CCT Total # of Minutes Spent Total Time Spent with Patient: Total time spent is greater than 50% in coordination of care (as documented) at patient's floor/unit and/or counseling patient: Coding Level of Care Code 20987 SUB INP/OBS CARE 3/50MIN Diagnoses Acute metabolic encephalopathy G93.41 Pneumonia J18.9 Leukemoid reaction D72.823 Metastatic cancer C79.9 Hyponatremia E87.1 Hypertension I10 Elevated troponin I level R77.8 Anemia D64.9 Mesothelioma C45.9 Bilateral shoulder pain M25.511; M25.512 Blood in stool K92.1 Positive blood culture R78.81
[2022-12-25] MEDS: FLUoxetine HCL 20 MG CAP PO SCH (21:53)
--- NOTE | 2022-12-26 01:17 | Communication Note ---
Date of Service: December 26, 2022 Reported patient has pulled out port IV access twice and peripheral IV site once. He seems pleasant but confused at bedside. Given poor prognosis and neces sities of lines to begin with, will hold IVF and cardiac monitoring for now. Did advise to continue cefepime with peripheral access if pt allows. for this. If not may consider oral regimen for suspected pneumonia. Resident Activity Tracking Resident Involvement: Resident Care Provided Care Provided: Adult [facility]
[2022-12-26] MEDS: CEFEPIME 2,000 MG in SYRINGE 0 ML IV SCH (05:45)
[2022-12-26 06:35] LABS: Base Excess VBG 0.5 mEq/L; HCO3 VBG 25 mmol/L; Oxygen Saturation VBG < 60.0 %; PCO2 VBG 41 mmHg (38-50); PO2 VBG 22 mmHg
[2022-12-26 06:46] LABS: Hematocrit (blood only) 21.6 % (42.0-52.0); Hemoglobin 7.4 g/dl (14.0-18.0); Mean Corpuscular Hemoglobin 29.2 pg (25.0-34.0); Mean Corpuscular Hgb Conc 34.3 g/dL (32.0-36.0); Mean Corpuscular Volume 85.4 fL (80.0-100.0); Mean Platelet Volume 10.6 fL (9.4-12.4); Nucleated RBC # (auto) 0.17 K/uL (0-0.12); Nucleated RBC % (auto) 0.1 %; Platelet Count 188 K/uL (130-400); RDW Coefficient of Variation 21.5 % (11.5-14.5); RDW Standard Deviation 60.8 fL (36.4-46.3); Red Blood Count 2.53 M/uL (4.70-6.10); White Blood Count 126.11 K/ul (4.8-10.8)
[2022-12-26 07:01] LABS: BUN Creatinine Ratio 46.7 (10-20); Calcium 8.5 mg/dl (8.6-10.3); Creatinine Clr Calc Pharmacy 66.2 ml/min; Est GFR (African American) 85.8 ml/min; Potassium 5.1 mmol/L (3.5-5.1)
[2022-12-26 07:12] LABS: ANC (manual) 123.59 K/uL (1.4-6.5); Anisocytosis Present; Dohle Bodies 1+; Myelocytes # (manual) 2.52 K/uL (0-0); Myelocytes % (manual) 2 %; Neutrophils # (manual) 123.59 K/uL (1.40-6.50); Neutrophils % (manual) 98 %; Polychromasia 1+; Rouleaux 1+
--- NOTE | 2022-12-26 08:18 | Hospitalist Progress Note ---
Date of Service December 26, 2022 Assessment & Plan (1) Acute metabolic encephalopathy: Plan: No improvement unfortunately in AMS or leukocytosis with treatment of possible PNA, after discussion with Francine Rosa and daughter today patient was made comfort care. Abx discontinued. PRN medications for comfort added, and CM to assist if plan is for patient discharge to home, though given his appearance and illness I suspect he will pass in the coming days. (2) Pneumonia: Plan: Patient's WBC count has never trended significantly to normal and in fact continues to rise. Suspect multifactorial with malignant process, with suspected RUL PNA. Abx discontinued as above. (3) Leukemoid reaction: Plan: Severely elevated WBC count at presentation, with further increase the last few days. WBC count had improved, but trending up again and is now even higher than his presenting WBC count. WBC count elevated was suspected to be due to immunotherapy from his metastatic mesothelioma at time of admission. But now pneumonia likely contributing. Can't rule out other factors. Blood cultures / bottles alpha strep not group D. Statistically most likely to be contaminant. (4) Metastatic cancer: Plan: Stage 4 mesothelioma with progressive, extensive mets - possible brain mets x 2, bone mets, liver mets, adrenal mets, etc. On immunotherapy x 2 agents (ipilimumab/nivolumab). Appreciate Dr Briceño's consultation. Appreciate Dr Rosa's consultation from palliative care. Patient, his brother & sister, and Dr Rosa had extensive discussions this week about options for care. 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 Na level is stable, no further monitoring of such (6) Hypertension: Plan: Holding all anti-hypertensives His BPs are controlled despite not receiving them Weight loss from cancer and dehydration are the reasons he does not need anti- hypertensives (7) Elevated troponin I level: Plan: 2nd myocardial demand ischemia rather than ACS (8) Anemia: Plan: 2nd to folate deficiency, other factors such as possible bony infiltration from his cancer Did receive 1 unit PRBCs earlier this stay No significant change in H/H, however (9) Mesothelioma: Plan: stage 4, extensive mets, see above (10) Bilateral shoulder pain: Plan: likely 2nd to bony mets can't rule out component of rotator cuff syndrome Pain medication prn Plan Comfort care at this time Admission and Anticipated Discharge Date Admission Date: December 18, 2022 Subjective Comfortable at rest, grimaces with movement. More confused, does not answer questions meaningfully today. Review of Systems Review of Systems: Unobtainable due to cognitive status Physical Exam Constitutional: + ill appearing restless Respiratory: normal respiratory effort; no labored breathing Cardiovascular: Rate/Rhythm: regular rate and regular rhythm Gastrointestinal (Abdomen): nondistended Skin: warm and dry Neurologic: Speech / Cognition: + abnormal cognition Results & Data Results & Data Vital Signs (Past 12 Hours) Vital Signs Temp Pulse Pulse Pulse Resp BP Pulse Ox 12/26/22 07:54 36.3 C L 100 H 16 108/75 97 12/26/22 03:43 36.3 C L 97 H 16 96/69 L 96 12/25/22 22:10 110 H 12/25/22 20:30 12/25/22 23:10 36.3 C L 101 H 18 112/79 97 O2 Del Method 12/26/22 07:54 Room Air 12/26/22 03:43 Room Air 12/25/22 22:10 12/25/22 20:30 Room Air 12/25/22 23:10 Room Air PG Care Time/CCT Total # of Minutes Spent Total Time Spent with Patient: Total time spent is greater than 50% in coordination of care (as documented) at patient's floor/unit and/or counseling patient: Coding Level of Care Code 18010 SUB INP/OBS CARE 2/35MIN Diagnoses Acute metabolic encephalopathy G93.41 Pneumonia J18.9 Leukemoid reaction D72.823 Metastatic cancer C79.9 Hyponatremia E87.1 Hypertension I10 Elevated troponin I level R77.8 Anemia D64.9 Mesothelioma C45.9 Bilateral shoulder pain M25.511; M25.512
[2022-12-26] MEDS ORDERED: ONDANSETRON 4 MG OD TAB SL PRN (12:05)
[2022-12-26] MEDS ORDERED: GLYCOPYRROLATE 0.2 MG/ML VIAL IV PRN (12:05)
[2022-12-26] MEDS ORDERED: ONDANSETRON INJ 2 MG/ML 2 ML VIAL IV PRN (12:05)
[2022-12-26] MEDS ORDERED: LORazepam 2 MG/1 ML VIAL ONE (12:11)
[2022-12-26] MEDS: ENOXAPARIN INJ 40 MG/0.4 ML SYR SQ SCH (12:36)
[2022-12-26] MEDS: FOLIC ACID 1 MG TAB PO SCH (12:36)
[2022-12-26] MEDS: ACETAMINOPHEN 500 MG TAB PO SCH (12:36)
[2022-12-26] MEDS: ATORVASTATIN 10 MG TAB PO SCH (12:36)
[2022-12-26] MEDS: DICLOFENAC SOD 1% GEL 100 GM TUBE EXT SCH ×4 (12:36→20:42)
[2022-12-26] MEDS: valACYclovir HCL 500 MG TABLET PO SCH (12:37)
[2022-12-26] MEDS: MoRPHine SULFATE 2 MG/ML CARP IV PRN ×2 (13:14→16:18)
[2022-12-26] MEDS ORDERED: OLANZapine ZYDIS 5 MG ORALLY DIS. TAB PO PRN (13:35)
--- NOTE | 2022-12-26 13:42 | Palliative Care Progress Note ---
Date of Service December 26, 2022 Assessment & Plan (1) Acute metabolic encephalopathy: Plan: Likely not medication related. Metabolic workup negative. Bladder scan rules out urinary retention. This is likely terminal delirium. Order for lorazepam and zyprexa as needed (2) Bilateral shoulder pain: Plan: Continue ibuprofen prn if he is able to tolerate po meds. This has been effective for his shoulder pain related to bony metastases IV morphine and roxanol added if he is unable to take po or does not have IV access Low threshold for routine dosing with facial grimace when he moves. (3) Palliative care encounter: Plan: Charles has had a significant decline in the last 48 hours despite optimal treatment. I spoke with his sister, Sofía, and updated her on changes since yesterday. Consistent with our discussion yesterday, she requests that focus of care be comfort and symptom management. She is confident that Charles would not want to live like this and would be very upset if he new what was happening. She notes that he has strong peggy and appreciates cloth tearer referral. We discussed adjusting medications for comfort and symptom management. Non comfort medications will be discontinued at this time. Charles was somewhat less agitated after one dose of lorazepam but continues to pick at sheets and try to get out of bed. Morphine given for pain which may be contributing to his agitation. Discussed with RN. Notified Dr. Dela Cruz. I also called Charles's good friend, Jose, to update him. Jose asked about prognosis which is likely only a few days at this time. Admission and Anticipated Discharge Date Admission Date: December 18, 2022 Subjective Charles is significantly more confused today and very restless, trying to climb out of bed, picking at sheets. He denies pain when asked but has facial grimace with movement. He had one dose of opioid pain medication overnight but has had progressive confusion over the last 48 hours. He pulled out IV overnight Review of Systems Review of Systems: Unobtainable due to cognitive status Physical Exam Constitutional: + ill appearing restless Respiratory: normal respiratory effort; no labored breathing Cardiovascular: Rate/Rhythm: regular rate and regular rhythm Gastrointestinal (Abdomen): nondistended Musculoskeletal: Extremities: + muscle atrophy Skin: warm and dry Neurologic: Speech / Cognition: + abnormal cognition Results & Data Vital Signs (Past 12 Hours) Vital Signs Temp Pulse Pulse Resp BP Pulse Ox O2 Del Method 12/26/22 11:52 97.2 F L 110 H 18 118/78 97 Room Air 12/26/22 07:54 97.3 F L 100 H 16 108/75 97 Room Air 12/26/22 03:43 97.3 F L 97 H 16 96/69 L 96 Room Air PG Care Time/CCT Total # of Minutes Spent Total Time Spent: 65 Total Time Spent with Patient: Total time spent is greater than 50% in coordination of care (as documented) at patient's floor/unit and/or counseling patient:symptom management, goals of care, family education and support, coordination of care Coding Level of Care Code 86055 Prolonged Care (int'l) Diagnoses Acute metabolic encephalopathy G93.41 Bilateral shoulder pain M25.511; M25.512 Palliative care encounter Z51.5
[2022-12-26] MEDS: LORazepam 2 MG/1 ML VIAL IV PRN (21:31)
[2022-12-27] MEDS: LORazepam 0.5 MG TAB SL PRN ×2 (03:26→21:09)
--- NOTE | 2022-12-27 09:12 | Hospitalist Progress Note ---
Date of Service December 27, 2022 Assessment & Plan (1) Acute metabolic encephalopathy: Plan: No improvement unfortunately in AMS or leukocytosis with treatment of possible PNA, after discussion with Francine Moe and sister 12/26/22 patient was made comfort care. Abx discontinued. PRN medications for comfort added, and CM to assist if plan is for patient discharge to home, though given his appearance and illness I suspect he will pass in the coming days. (2) Pneumonia: Plan: Patient's WBC count has never trended significantly to normal and in fact continues to rise. Suspect multifactorial with malignant process, with suspected RUL PNA. Abx discontinued as above. (3) Leukemoid reaction: Plan: Severely elevated WBC count at presentation, with further increase the last few days. WBC count had improved, but trending up again and is now even higher than his presenting WBC count. WBC count elevated was suspected to be due to immunotherapy from his metastatic mesothelioma at time of admission. But now pneumonia likely contributing. Can't rule out other factors. Blood cultures 05/28 bottles alpha strep not group D. Statistically most likely to be contaminant. (4) Metastatic cancer: Plan: Stage 4 mesothelioma with progressive, extensive mets - possible brain mets x 2, bone mets, liver mets, adrenal mets, etc. On immunotherapy x 2 agents (ipilimumab/nivolumab). Appreciate Dr Briceño's consultation. Appreciate Dr Rosa's consultation from palliative care. Patient, his brother & sister, and Dr Rosa had extensive discussions this week about options for care. 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 Na level is stable, no further monitoring of such (6) Hypertension: Plan: Holding all anti-hypertensives His BPs are controlled despite not receiving them Weight loss from cancer and dehydration are the reasons he does not need anti- hypertensives (7) Elevated troponin I level: Plan: 2nd myocardial demand ischemia rather than ACS (8) Anemia: Plan: 2nd to folate deficiency, other factors such as possible bony infiltration from his cancer Did receive 1 unit PRBCs earlier this stay No significant change in H/H (9) Mesothelioma: Plan: Stage 4, extensive mets, see above (10) Bilateral shoulder pain: Plan: Likely 2nd to bony mets Can't rule out component of rotator cuff syndrome Pain medication prn Plan Comfort care at this time. Time spent today in giving support and answering questions of patient's family and friends, and examining patient. total time ~40 minutes Admission and Anticipated Discharge Date Admission Date: December 18, 2022 Subjective Overnight with some restlessness, today moving limbs a bit in bed, unable to state complaints. Opens eyes to voice. Review of Systems Review of Systems: Unobtainable due to cognitive status Physical Exam Constitutional: + ill appearing restless Respiratory: normal respiratory effort; no labored breathing Cardiovascular: Rate/Rhythm: regular rate and regular rhythm Gastrointestinal (Abdomen): nondistended Intermittent wince with palpation Skin: warm and dry Neurologic: Speech / Cognition: + abnormal cognition PG Care Time/CCT Total # of Minutes Spent Total Time Spent with Patient: Total time spent is greater than 50% in coordination of care (as documented) at patient's floor/unit and/or counseling patient: Coding Level of Care Code 03942 SUB INP/OBS CARE 2/35MIN Diagnoses Acute metabolic encephalopathy G93.41 Pneumonia J18.9 Leukemoid reaction D72.823 Metastatic cancer C79.9 Hyponatremia E87.1 Hypertension I10 Elevated troponin I level R77.8 Anemia D64.9 Mesothelioma C45.9 Bilateral shoulder pain M25.511; M25.512
[2022-12-27] MEDS: DICLOFENAC SOD 1% GEL 100 GM TUBE EXT SCH ×4 (09:29→21:09)
[2022-12-27] MEDS: LORazepam 2 MG/1 ML VIAL IV PRN ×2 (09:49→15:45)
[2022-12-27] MEDS: MoRPHine SULFATE 2 MG/ML CARP IV PRN (14:05)
[2022-12-27] MEDS: MoRPHine SULFATE 10 MG/0.5 ML UDP PO PRN (21:30)
[2022-12-28] MEDS: MoRPHine SULFATE 10 MG/0.5 ML UDP PO PRN ×3 (02:03→11:15)
--- NOTE | 2022-12-28 07:11 | Hospitalist Progress Note ---
Date of Service December 28, 2022 Assessment & Plan (1) Mesothelioma: Plan: Patient is moribund with an overwhelming tumor burden and performance status ECOG 4. There is absolutely no utility to anything other than pure palliative care and a hospice like approach. I spoke with his POA Mr. Frazier and at great length with his Sister Sofía ([phone]) all of whom are completely understanding the impossible prognosis and the need for aggressive pain management. Plan There is unfortunately nothing more oncology can offer except validation of the palliative care approach. Will be delighted to engage in further discussions with family and his POA if those will be at all helpful, I will formally "sign off" the case but continue to monitor. Admission and Anticipated Discharge Date Admission Date: December 18, 2022 Subjective Minimally responsive. For the most part seems calm though occasional grimacing Results & Data Results & Data Vital Signs (Past 12 Hours) Vital Signs O2 Del Method 12/27/22 19:40 Room Air PG Care Time/CCT Total # of Minutes Spent Total Time Spent with Patient: Total time spent is greater than 50% in coordination of care (as documented) at patient's floor/unit and/or counseling patient: Coding Level of Care Code None Diagnoses Mesothelioma C45.9
[2022-12-28] MEDS: DICLOFENAC SOD 1% GEL 100 GM TUBE EXT SCH ×4 (08:42→21:07)
--- NOTE | 2022-12-28 09:51 | Hospitalist Progress Note ---
Date of Service December 28, 2022 Assessment & Plan (1) Acute metabolic encephalopathy: Plan: No improvement unfortunately in AMS or leukocytosis with treatment of possible PNA, after discussion with Francinedallas Rosa and sister 12/26/22 patient was made comfort care. Abx discontinued. Given restlessness which is likely pain-related, scheduled Roxanol 5mg q4h added with prn available for comfort and breakthrough pain. Case reviewed with Palliative Care. (2) Pneumonia: Plan: Patient's WBC count has never trended significantly to normal and in fact continues to rise. Suspect multifactorial with malignant process, with suspected RUL PNA. Abx discontinued as above. (3) Leukemoid reaction: Plan: Severely elevated WBC count at presentation, with further increase the last few days. WBC count had improved, but trending up again and is now even higher than his presenting WBC count. WBC count elevated was suspected to be due to immunotherapy from his metastatic mesothelioma at time of admission. But now pneumonia likely contributing. Can't rule out other factors. Blood cultures 05/28 bottles alpha strep not group D. Statistically most likely to be contaminant. (4) Metastatic cancer: Plan: Stage 4 mesothelioma with progressive, extensive mets - possible brain mets x 2, bone mets, liver mets, adrenal mets, etc. On immunotherapy x 2 agents (ipilimumab/nivolumab). Appreciate Dr Briceño's consultation. Appreciate Dr Rosa's consultation from palliative care. Patient, his brother & sister, and Dr Rosa had extensive discussions this admission about options for care. 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 (6) Hypertension: Plan: Holding all anti-hypertensives His BPs are controlled despite not receiving them Weight loss from cancer and dehydration are the reasons he does not need anti- hypertensives (7) Elevated troponin I level: Plan: 2nd myocardial demand ischemia rather than ACS (8) Anemia: Plan: 2nd to folate deficiency, other factors such as possible bony infiltration from his cancer Did receive 1 unit PRBCs earlier this stay No significant change in H/H (9) Mesothelioma: Plan: Stage 4, extensive mets, see above (10) Bilateral shoulder pain: Plan: Likely 2nd to bony mets Can't rule out component of rotator cuff syndrome Pain medication prn Plan Comfort care at this time Admission and Anticipated Discharge Date Admission Date: December 18, 2022 Subjective Still some restlessness, appeared comfortable and sleeping during my visit today. Physical Exam Constitutional: + ill appearing and + thin Respiratory: normal respiratory effort; no labored breathing Gastrointestinal (Abdomen): nondistended Musculoskeletal: Extremities: + muscle atrophy Neurologic: Speech / Cognition: + abnormal cognition PG Care Time/CCT Total # of Minutes Spent Total Time Spent with Patient: Total time spent is greater than 50% in coordination of care (as documented) at patient's floor/unit and/or counseling patient: Coding Level of Care Code 09204 SUB INP/OBS CARE 06/14MIN Diagnoses Acute metabolic encephalopathy G93.41 Pneumonia J18.9 Leukemoid reaction D72.823 Metastatic cancer C79.9 Hyponatremia E87.1 Hypertension I10 Elevated troponin I level R77.8 Anemia D64.9 Mesothelioma C45.9 Bilateral shoulder pain M25.511; M25.512
[2022-12-28] MEDS: LORazepam 0.5 MG TAB SL PRN (10:51)
--- NOTE | 2022-12-28 13:46 | Palliative Care Progress Note ---
Date of Service December 28, 2022 Assessment & Plan (1) Bilateral shoulder pain: Plan: Known metastatic diseases to right scapula with extensive additional metastatic disease I suspect that pain is the major contributor to his restlessness Discussed with his sister, Sofía, will start routine dosing of oral morphine concentrate Continue IV morphine prn Discussed with RN (2) Palliative care encounter: Plan: I spoke with Sofía on the phone. She came to visit Charles yesterday and was surprised but how much he's declined. She asked questions about feeding and hydration which were addressed. She has witnessed him coughing with sips of water and sometimes with jello. Encouraged her to continue to use swabs to moisturize his mouth. She is clearly upset with the change in his condition but has said multiple times that she does not want him to suffer and that Charles would not want to live like this. She is hopeful that she can be with him at his dying time but lives in [facility]. Charles has had multiple friends visiting and has a lot of support. She is very grateful for this. Admission and Anticipated Discharge Date Admission Date: December 18, 2022 Subjective Lethargic. Restless at times. Facial grimace with movement. Opens eyes when I speak to him. Answers "yes" with delay when asked if he's having pain. One dose of IV morphine in last 24 hours. Review of Systems Review of Systems: Unobtainable due to cognitive status Physical Exam Constitutional: + ill appearing and + thin Respiratory: normal respiratory effort; no labored breathing no audible respiratory secretions, no apnea Cardiovascular: Rate/Rhythm: regular rate and regular rhythm no mottling Gastrointestinal (Abdomen): nondistended Musculoskeletal: Extremities: + muscle atrophy Neurologic: Speech / Cognition: + abnormal cognition PG Care Time/CCT Total # of Minutes Spent Total Time Spent: 41 Total Time Spent with Patient: Total time spent is greater than 50% in coordination of care (as documented) at patient's floor/unit and/or counseling patient: [id number] symptom management, family education and support, coordination of care Coding Level of Care Code 30428 SUB INP/OBS CARE 2/35MIN Diagnoses Bilateral shoulder pain M25.511; M25.512 Palliative care encounter Z51.5
[2022-12-28] MEDS: MoRPHine SULFATE 10 MG/0.5 ML UDP PO SCH ×2 (16:33→21:06)
[2022-12-28] MEDS: MoRPHine SULFATE 2 MG/ML CARP IV PRN (22:37)
[2022-12-29] MEDS: MoRPHine SULFATE 10 MG/0.5 ML UDP PO SCH ×4 (00:55→11:53)
[2022-12-29] MEDS: MoRPHine SULFATE 2 MG/ML CARP IV PRN ×2 (06:18→08:55)
[2022-12-29] MEDS: DICLOFENAC SOD 1% GEL 100 GM TUBE EXT SCH ×2 (08:07→12:28)
--- NOTE | 2022-12-29 09:36 | Hospitalist Progress Note ---
Date of Service December 29, 2022 Assessment & Plan (1) Acute metabolic encephalopathy: Plan: No improvement unfortunately in AMS or leukocytosis with treatment of possible PNA, after discussion with Francine Moe and sister 12/26/22 patient was made comfort care. Abx discontinued. Pain appears to be under better control, continue scheduled Roxanol 5mg q4h with prn available for comfort and breakthrough pain. Case reviewed with Palliative Care. Plan to see how patient d oes through weekend and consider placement on Sunday if he does not decline over the weekend. (2) Pneumonia: Plan: Patient's WBC count has never trended significantly to normal and in fact continues to rise. Suspect multifactorial with malignant process, with suspected RUL PNA. Abx discontinued as above. (3) Leukemoid reaction: Plan: Severely elevated WBC count at presentation, with further increase the last few days. WBC count had improved, but trending up again and is now even higher than his presenting WBC count. WBC count elevated was suspected to be due to immunotherapy from his metastatic mesothelioma at time of admission. But now pneumonia likely contributing. Can't rule out other factors. Blood cultures 05/28 bottles alpha strep not group D. Statistically most likely to be contaminant. (4) Metastatic cancer: Plan: Stage 4 mesothelioma with progressive, extensive mets - possible brain mets x 2, bone mets, liver mets, adrenal mets, etc. On immunotherapy x 2 agents (ipilimumab/nivolumab). Appreciate Dr Briceño's consultation. Appreciate Dr Rosa's consultation from palliative care. Patient, his brother & sister, and Dr Rosa had extensive discussions this admission about options for care. 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 (6) Hypertension: Plan: Holding all anti-hypertensives His BPs are controlled despite not receiving them Weight loss from cancer and dehydration are the reasons he does not need anti- hypertensives (7) Elevated troponin I level: Plan: 2nd myocardial demand ischemia rather than ACS (8) Anemia: Plan: 2nd to folate deficiency, other factors such as possible bony infiltration from his cancer Did receive 1 unit PRBCs earlier this stay No significant change in H/H (9) Mesothelioma: Plan: Stage 4, extensive mets, see above (10) Bilateral shoulder pain: Plan: Likely 2nd to bony mets Can't rule out component of rotator cuff syndrome Pain medication prn Plan Comfort care at this time Admission and Anticipated Discharge Date Admission Date: December 18, 2022 Subjective No acute events overnight. Appears more comfortable today. Not able to converse meaningfully. Review of Systems Review of Systems: All systems reviewed & are unremarkable except as noted in Subjective Physical Exam Constitutional: + ill appearing and + thin comfortable, sleeping Respiratory: normal respiratory effort; no labored breathing Gastrointestinal (Abdomen): nondistended Musculoskeletal: Extremities: + muscle atrophy Neurologic: Speech / Cognition: + abnormal cognition PG Care Time/CCT Total # of Minutes Spent Total Time Spent with Patient: Total time spent is greater than 50% in coordination of care (as documented) at patient's floor/unit and/or counseling patient: Coding Level of Care Code 06781 SUB INP/OBS CARE 06/14MIN Diagnoses Acute metabolic encephalopathy G93.41 Pneumonia J18.9 Leukemoid reaction D72.823 Metastatic cancer C79.9 Hyponatremia E87.1 Hypertension I10 Elevated troponin I level R77.8 Anemia D64.9 Mesothelioma C45.9 Bilateral shoulder pain M25.511; M25.512
--- NOTE | 2022-12-29 12:52 | Palliative Care Progress Note ---
Date of Service December 29, 2022 Assessment & Plan (1) Bilateral shoulder pain: Plan: With extensive metastatic disease Continue scheduled roxanol for consistent relief. Continue prn morphine for breakthrough pain or if needed for care (2) Palliative care encounter: Plan: Focus of care is comfort and symptom management. He is likely to within the next few days. He has extensive support from family and friends. Admission and Anticipated Discharge Date Admission Date: December 18, 2022 Subjective Sleeping, appears comfortable now but continues to be restless at times. Review of Systems Review of Systems: Unobtainable due to reduced consciousness Physical Exam Constitutional: + ill appearing; no acute distress ENMT: no facial grimace Respiratory: normal respiratory effort; no labored breathing no audible tracheal secretions, no apnea Skin: warm and dry, no mottling Genitourinary: ellison catheter Results & Data Vital Signs (Past 12 Hours) Vital Signs O2 Del Method 12/29/22 08:45 Room Air PG Care Time/CCT Total # of Minutes Spent Total Time Spent with Patient: Total time spent is greater than 50% in coordination of care (as documented) at patient's floor/unit and/or counseling patient: Coding Level of Care Code 62809 SUB INP/OBS CARE 2/35MIN Diagnoses Bilateral shoulder pain M25.511; M25.512 Palliative care encounter Z51.5
--- NOTE | 2022-12-29 15:16 | Discharge Summary ---
Discharge Summary Date of Service December 29, 2022 Admission HPI Per Admitting Provider Joaquim Romero is a 62 year old male with metastatic mesothelioma on immunotherapy who presents to the ER from the cancer [facility] due to abnormal labs. The patient has no acute symptoms. No fever or chills. No respiratory, gastrointestinal or urological symptoms. With regards to his anemia he denies any hemoptysis, hematochezia, hematuria, melena, chest pain, shortness of breath or dizziness. Admission Exam Per Admitting Provider Constitutional: WD/WN, vitals as above Eyes: PERRL, conjunctivae normal, anicteric sclerae Respiratory: normal respiratory effort, lungs clear to auscultation Cardiovascular: Rate/Rhythm: regular rhythm and + tachycardic Extremities: normal capillary refill; no calf tenderness and no pedal edema Gastrointestinal (Abdomen): normal bowel sounds, soft, nontender, no hepatosplenomegaly Musculoskeletal: no cyanosis or clubbing, extremities motor strength 5/5 Skin: erythematous nodule on right forearm and left eye concerning for cancerous spread Neurologic: moves all extremities and awake; not confused Psychiatric: A+Ox3, euthymic affect Principal Dx & Hospital Course #1 = Principal Diagnosis (1) Acute metabolic encephalopathy: (2) Metastatic cancer: (3) Leukemoid reaction: (4) Mesothelioma: (5) Positive blood culture: (6) Pneumonia: Plan No improvement unfortunately in AMS or leukocytosis with treatment of possible PNA, and after discussion with Francine Moe and sister 12/26/22 patient was made comfort care. Abx discontinued. Pain under better control since that time, and today patient , please see note. Family notified and support given. Pneumonia: Suspect multifactorial with malignant process, with suspected RUL PNA. Abx discontinued as above. Leukemoid reaction: Severely elevated WBC count at presentation. WBC count elevated was suspected to be due to immunotherapy from his metastatic mesothelioma at time of admission. But now pneumonia likely contributing. Can't rule out other factors. Blood cultures 05/28 bottles alpha strep not group D. Statistically most likely to be contaminant. Metastatic cancer: Stage 4 mesothelioma with progressive, extensive mets - possible brain mets x 2, bone mets, liver mets, adrenal mets, etc. Previously on immunotherapy x 2 agents (ipilimumab/nivolumab). Appreciate Dr Briceño's consultation and appreciate Dr Rosa's consultation from palliative care. Patient, his brother & sister, and Dr Rosa had extensive discussions this admission about options for care, see above. 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 Hypertension: Weight loss from cancer and dehydration are the reasons he did not need anti- hypertensives Elevated troponin I level: 2nd myocardial demand ischemia rather than ACS Anemia: 2nd to folate deficiency, other factors such as possible bony infiltration from his cancer Did receive 1 unit PRBCs earlier this stay No significant change in H/H Mesothelioma: Plan: Stage 4, extensive mets, see above Bilateral shoulder pain: Likely 2nd to bony mets Discharge Exam Constitutional comfortable appearing No spontaneous breathing, no heart beat or pulse noted, pupils fixed and dilated Updated Medication List Medication Instructions Recorded Confirmed Type amlodipine 5 mg tablet 5 mg PO QAM 08/07/19 12/18/22 History atorvastatin 20 mg tablet 10 mg PO BID 08/07/19 12/18/22 History fluoxetine 20 mg capsule 60 mg PO QPM 08/07/19 12/18/22 History lisinopril 20 2 tab PO QAM 08/07/19 12/18/22 History mg-hydrochlorothiazide 25 mg tablet valacyclovir 500 mg tablet 500 mg PO DAILY 08/07/19 12/18/22 History folic acid 1 mg tablet 1 mg PO QAM 09/18/19 12/18/22 History ondansetron HCl 8 mg tablet 8 mg PO Q8H PRN Nausea 09/18/19 12/18/22 History prochlorperazine maleate 10 mg 10 mg PO Q6H PRN Nausea 09/18/19 12/18/22 History tablet dexamethasone 4 mg tablet 4 mg PO QAM 11/12/19 12/18/22 History Hospital Stay Data Consultations 12/18/22 17:13 ED Decision to Admit Stat 12/18/22 21:43 Consult Oncology Routine Consult Palliative Care Routine Diagnostic Imagining Performed 12/18/22 17:01 CT abd pelvis IV con only Stat CT angio chest PE protocol Stat 12/19/22 09:07 MRI Brain [MR brain wo/w con] Routine Total Time Total Time Spent Total Time Spent (In Minutes): 30 min Coding Level of Care Code 79096 IN/OBS DISCH 30 MIN/LESS Diagnoses Acute metabolic encephalopathy G93.41 Metastatic cancer C79.9 Leukemoid reaction D72.823 Mesothelioma C45.9 Positive blood culture R78.81 Pneumonia J18.9
--- NOTE | 2022-12-29 15:19 | Death Pronouncement Note ---
Date of Service December 29, 2022 Pronouncement Note Admission Date Admission Date: December 18, 2022 Date and Time of Date of : 12/29/22 Time of : 15:00 Contributing Factors (1) Acute metabolic encephalopathy: (2) Metastatic cancer: (3) Leukemoid reaction: (4) Mesothelioma: (5) Positive blood culture: (6) Pneumonia: Additional Data Confirmation of : no pulse, no respirations, no heart sounds and pupils fixed and dilated Family: contacted Attending/PCP notified?: Yes Attending physician: Анна Park, DO Was code activated?: No Autopsy requested?: No
== END 2022-12-29 17:26 | disposition expired | DRG 814 ==
LOC: ED 13:32 → 2S 19:16 → SUATTDRO 19:16 → 2S 20:44 → 3E 12-26 16:37